=== PATIENT | female | born 1975 | race Caucasian/White ===

== ENCOUNTER 2021-06-01 14:36 | Inpatient (IN) | payer OTHER, SELFPAY ==
--- NOTE | ~2021-06-01 | US_ITS ---
EXAMINATION: US RENAL, RIGHT CLINICAL INFORMATION: Right renal transplant with hydronephrosis. Blum catheter for bladder distention. Evaluate for resolution of hydronephrosis. COMPARISON: Most recent CT abdomen/pelvis dated 06/01/2021. TECHNIQUE: Grayscale and Doppler views of the right lower quadrant renal transplant were obtained. FINDINGS: The right lower quadrant renal transplant measures 12.8 x 6.6 x 6.5 cm. There is normal size, shape, and echogenicity. There is no parenchymal lesion or cortical thinning. There is trace pelvic fullness, decreased when compared to the prior CT. No obstructing renal stone. US/US renal RT IMPRESSION: Trace right lower quadrant renal transplant pelvic fullness, decreased when compared to prior examination. No obstructing renal stone.
--- NOTE | ~2021-06-01 | CT_ITS ---
EXAMINATION: CT ABDOMEN AND PELVIS WITHOUT CONTRAST CLINICAL INFORMATION: Right flank pain. COMPARISON: CT abdomen and pelvis noncontrast 09/14/2018 TECHNIQUE: Multidetector volumetric imaging was performed from the superior aspect of the liver through the pubic symphysis. Sagittal and coronal reformatted images were obtained on the technologist's workstation. This CT examination was performed using dose optimization techniques as appropriate, variously including the following: *Automated exposure control *Adjustment of mA and/or kV according to patient size (this includes techniques or standardized protocols for targeted exams where dose is matched to indication/reason for exam; i.e. extremities or head) *Use of iterative reconstruction technique DLP: 764 mGy-cm FINDINGS: LUNG BASES: Subsegmental atelectasis right posterior lateral base. No lobar or segmental airspace solid lesion or effusion. LIVER, GALLBLADDER, AND BILIARY TREE: There is elongated right hepatic lobe suggesting Maura's configuration, similar to prior exam. The liver is homogeneous and smooth in contour. No focal parenchymal lesion or intrahepatic ductal dilatation. There has been prior cholecystectomy. Common duct is upper limits of normal, 10-11 mm similar to prior study. No visible ductal calculus. PANCREAS: Unremarkable. SPLEEN: Normal in size and homogeneous. Incidental 1.5 cm splenule left upper quadrant. ADRENAL GLANDS: Unremarkable. KIDNEYS AND URETERS AND BLADDER: Pelvic transplant right lower quadrant with mild hydronephrosis and mild transplant hydroureter down to the transplant ureterovesical junction. Urinary bladder is fully distended. No transplant perinephric stranding, renal parenchymal lesion, or calculi. The [place] kidneys again are atrophic with cortical thinning and diffuse vascular calcifications. No [place] kidney hydronephrosis or hydroureter. GASTROINTESTINAL TRACT: No bowel obstruction or focal inflammatory changes in the bowel or mesentery. Appendix unremarkable. No ascites or fluid collection. ABDOMINAL WALL: No significant hernia is appreciated. LYMPH NODES: No lymphadenopathy. VASCULAR: No acute abnormality. PELVIC VISCERA: Trace fluid cul-de-sac. No adnexal mass. OSSEOUS STRUCTURES: Unremarkable. CT/CT abdomen pelvis wo con IMPRESSION: 1. Mild hydronephrosis and hydroureter right pelvic transplant. No perinephric stranding or calculus. Distended urinary bladder. 2. Prior cholecystectomy. No biliary ductal dilatation or ductal calculus. 3. No bowel obstruction or focal inflammatory changes. 4. Trace fluid cul-de-sac. No adnexal mass.
--- NOTE | 2021-06-01 14:49 | ECG_ITS ---
Test Reason : ABDOMINAL PAIN Blood Pressure : / mmHG Vent. Rate : 092 BPM Atrial Rate : 092 BPM P-R Int : 140 ms QRS Dur : 090 ms QT Int : 334 ms P-R-T Axes : 057 001 069 degrees QTc Int : 413 ms Normal sinus rhythm Left axis deviation Possible Left atrial enlargement T wave abnormality, consider lateral ischemia Abnormal ECG When compared with ECG of 09-MAR-2017 14:06, T wave inversion now evident in Lateral leads Referred By: Myesha Rowland Electronically Signed By:JOAQUIM COLEMAN MD
--- NOTE | 2021-06-01 14:52 | ED_ITS ---
HPI - Abdominal Pain General Chief Complaint: Abdominal Pain <Myesha Rowland NP - Last Filed: 06/01/21 17:28> Stated Complaint: R FLANK PAIN <Myesha Rowland NP - Last Filed: 06/01/21 17:28> Time Seen by Provider: 06/01/21 14:38 <Myesha Rowland NP - Last Filed: 06/01/21 17:28> Source: patient and EMS <Myesha Rowland NP - Last Filed: 06/01/21 17:28> Mode of arrival: EMS <Myesha Rowland NP - Last Filed: 06/01/21 17:28> Limitations: no limitations <Myesha Rowland NP - Last Filed: 06/01/21 17:28> History of Present Illness HPI narrative: 45-year-old female with a past medical history of diabetes, diabetic retinopathy with vision loss, right BKA, GERD, migraines, depression, fibromyalgia on daily dilaudid (last dose 6mg 12pm), gastroparesis, hype rtension, chronic renal insufficiency (Dr Foley), renal transplant in December of 2005 on chronic prednisone (tacrolimus/mycopheolate), depression/anxiety, here with complaints of right-sided back pain which radiates the right side of the abdomen since yesterday with nausea and vomiting. No fevers, chills, urinary symptoms, diarrhea. Patient comes from a [facility] <Myesha Rowland NP - Last Filed: 06/01/21 17:28> Related Data Allergies/Adverse Reactions: Allergies Allergy/AdvReac Type Severity Reaction Status Date / Time amitriptyline Allergy Unknown UNKNOWN Verified 06/01/21 15:07 cephalexin Allergy Unknown UNKNOWN Verified 06/01/21 15:07 ciprofloxacin Allergy Unknown UNKNOWN Verified 06/01/21 15:07 famotidine [Pepcid] Allergy Unknown Unknown Verified 06/01/21 15:07 fluoxetine Allergy Unknown UNKNOWN Verified 06/01/21 15:07 ibuprofen [From ADVIL] Allergy Unknown ANXIETY Verified 06/01/21 15:07 Penicillins [PENICILLINS] Allergy Unknown HIVES Verified 06/01/21 15:07 codeine AdvReac Unknown N/V Verified 06/01/21 15:07 diphenhydramine [Advil PM] AdvReac Unknown anxiety Verified 06/01/21 15:07 metoclopramide AdvReac Unknown AGITATION,I Verified 06/01/21 15:07 TCHING morphine AdvReac Unknown N/V, Verified 06/01/21 15:07 anxiety tramadol AdvReac Unknown ANXIETY Verified 06/01/21 15:07 zolpidem [Ambien] AdvReac Unknown anxiety Verified 01/17/18 00:00 cephalexin Allergy Unknown Unknown Uncoded 06/01/21 15:07 ciproflaxacin Allergy Unknown Unknown Uncoded 06/01/21 15:07 From Ambien AdvReac Severe AGITATION Uncoded 05/07/20 15:50 <Myesha Rowland NP - Last Filed: 06/01/21 17:28> Review of Systems Review of Systems Yes all other systems are reviewed and are negative <Myesha Rowland NP - Last Filed: 06/01/21 17:28> Constitutional: Reports no additional constitutional complaints, Denies body ache(s), Denies chills, Denies fever(s), Denies headache(s) and Denies weakness <Myesha Rowland NP - Last Filed: 06/01/21 17:28> Eyes: Reports no additional eye complaints and Denies change in vision <Myesha Rowland NP - Last Filed: 06/01/21 17:28> Reports system reviewed and no additional complaints, except as documented, Denies dizziness, Denies headache(s), Denies nasal congestion, Denies nasal discharge and Denies neck pain <Myesha Rowland NP - Last Filed: 06/01/21 17:28> Cardiovascular: Reports no additional cardiovascular complaints, Denies chest pain, Denies leg edema and Denies dyspnea <Myesha Rowland NP - Last Filed: 06/01/21 17:28> Respiratory: Reports no additional respiratory complaints, Denies cough and Denies dyspnea <Myesha Rowland NP - Last Filed: 06/01/21 17:28> Gastrointestinal: Reports no additional gastrointestinal complaints, Reports abdominal pain, Denies diarrhea, Reports nausea and Reports vomiting <Myesha Rowland NP - Last Filed: 06/01/21 17:28> Genitourinary: Reports no additional female genitourinary complaints and Denies urinary incontinence <Myesha Rowland NP - Last Filed: 06/01/21 17:28> Musculoskeletal: Reports no additional musculoskeletal complaints, Reports back pain, Denies arthralgias, Denies joint swelling, Denies neck pain, Denies numbness and Denies tingling <Myesha Rowland NP - Last Filed: 06/01/21 17:28> Skin/Breast: Reports system reviewed and no additional complaints, except as docu and Denies rash <Myesha oRwland NP - Last Filed: 06/01/21 17:28> Reports system reviewed and no additional complaints, except as documented, Denies Abnormal speech present, Denies dizziness, Denies headache(s), Denies numbness, Denies tingling and Denies weakness <Myesha Rowland NP - Last Filed: 06/01/21 17:28> Physical Exam Vital Signs: Vital Signs: Last Vital Signs Temp 98.1 F 06/01/21 14:58 Pulse 96 06/01/21 20:06 Resp 18 06/01/21 20:06 BP 140/73 H 06/01/21 20:06 Pulse Ox 97 06/01/21 20:06 Body Mass Index 26.6 <Myesha Rowland NP - Last Filed: 06/01/21 17:28> Vital Signs: Last Vital Signs Temp 98.1 F 06/01/21 14:58 Pulse 96 06/01/21 20:06 Resp 18 06/01/21 20:06 BP 140/73 H 06/01/21 20:06 Pulse Ox 97 06/01/21 20:06 Body Mass Index 26.6 <LALO Cage - Last Filed: 06/01/21 21:33> Const: Other: ++++++anxious <Myesha Rowland NP - Last Filed: 06/01/21 17:28> General: alert <Myesha Rowland NP - Last Filed: 06/01/21 17:28> Orientation/consciousness: patient oriented x3 <Myesha Rowland NP - Last Filed: 06/01/21 17:28> Limitations: no limitations <Myesha Rowland [employer] - Last Filed: 06/01/21 17:28> HENMT: Head: Yes normal to inspection <Myesha Rowland NP - Last Filed: 06/01/21 17:28> Ears: hearing grossly normal bilaterally and TM's normal bilaterally <Myesha Rowland [employer] - Last Filed: 06/01/21 17:28> General nose exam: Normal external nose present <Myesha Rowland [employer]CR[employer] - Last Filed: 06/01/21 17:28> Face and sinus: Yes normal facial exam <Myesha Rowland [employer]CR[employer] BUILD[employer] - Last Filed: 06/01/21 17:28> Mouth: Normal oral and palatal mucosa present <Myesha Rowland [employer] - Last Filed: 06/01/21 17:28> Throat: Yes posterior oropharynx normal <Myesha Rowland [employer]CR[employer] BU[employer] - Last Filed: 06/01/21 17:28> 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 <Myesha Rowland [employer]CR[employer]ILD[employer] - Last Filed: 06/01/21 17:28> Neck: Neck: Yes normal visual inspection <Myesha Rowland [employer]CR[employer] - Last Filed: 06/01/21 17:28> Chest: Chest palpation & inspection: normal inspection of the chest <Myesha Rowland [employer]CR[employer] BU[employer] - Last Filed: 06/01/21 17:28> Resp: Effort & Inspection: normal respiratory effort <Myesha Rowland [employer]CR[employer] BUILD[employer] - Last Filed: 06/01/21 17:28> Auscultation: clear to auscultation bilaterally <Myesha Rowland [employer]CR[employer] - Last Filed: 06/01/21 17:28> Cardio: Rate: regular rate <Myesha Rowland NP - Last Filed: 06/01/21 17:28> Rhythm: regular rhythm <Myesha Rowland [employer]CR[employer] BU[employer] - Last Filed: 06/01/21 17:28> Peripheral pulses: Peripheral pulses 2+ throughout <Myesha Rowland [employer] - Last Filed: 06/01/21 17:28> GI: Inspection: Yes normal to inspection <Myesha Rowland NP - Last Filed: 06/01/21 17:28> Palpation (GI): Soft to palpation and Tenderness to palpation present (GI) (Tender right side upper and lower ) <Myesha Rowland NP - Last Filed: 06/01/21 17:28> Auscultation: normal bowel sounds <Myesha Rowland NP - Last Filed: 06/01/21 17:28> : General: Yes CVA tenderness (right ) <Myesha Rowland NP - Last Filed: 06/01/21 17:28> Back/Spine/Pelvis: Other: Mid to right sided back pain and the soft tissue with no midline tenderness <Myesha Rowland NP - Last Filed: 06/01/21 17:28> Back: CVA tenderness (right ) <Myesha Rowland NP - Last Filed: 06/01/21 17:28> Thoracic/Lumbar Spine: thoracic and lumbar spine normal to inspection <Myesha Rowland NP - Last Filed: 06/01/21 17:28> Skin: General skin exam: no rashes or lesions noted <Myesha Rowland NP - Last Filed: 06/01/21 17:28> Neuro: General: patient oriented x3, no focal motor deficits and normal sensation to monofilament <Myesha Rowland NP - Last Filed: 06/01/21 17:28> Cognition (Neuro): normal cognition <Myesha Rowland NP - Last Filed: 06/01/21 17:28> Speech: No Abnormal speech present <Myesha Rowland NP - Last Filed: 06/01/21 17:28> Gait exam (Neuro): Normal gait present <Myesha Rowland NP - Last Filed: 06/01/21 17:28> Motor exam (neuro): 5/5 motor strength present throughout <Myesha Rowland NP - Last Filed: 06/01/21 17:28> Course Course Course Narrative: This is a 45-year-old female who comes from a [facility] with a past medical history of poorly-controlled diabetes, gastroparesis, renal transplant with renal insufficiency here with complaints of right-sided back pain which r adiates to the right side of the abdomen since yesterday with nausea and vomiting despite her home dilaudid. Patient took 6 mg of Dilaudid at 12:00 o'clock with continued pain. Per EMS patient was noted to be hyperglycemic at 399. On exam the patient has some right-sided back pain radaiting to right-sided abdominal pain.. Quite anxious. Will check labs, UA, CT, .COVID screen. Provide analgesia and re-assess. 1510-reviewed paperwork sent from [facility]. Patient was admitted to [facility] 01/05/2021. On review of the chart it appears at that time the patient had a pneumonia which she deferred treatment with antibiotics and chose to be palliative Care with a hospice evaluation. Unclear whether patient is currently on hospice or palliative care. grain manager to call over to [facility] for definitive answer. They have sent over urine culture which shows 50,000-100,000 enterococcus sensitive to linezolid, macrobid, vancomycin. Pt denies current oral antibiotics. At this time infection is suspected. Antibiotics ordered. 1530-Our Ashia spoke to staff at [facility]. patient is NOT on hospice or palliative care. She is a DNR/DNI AND DNH unless needed for comfort. She intermittently refuses medications and treatments including her transplant medications. 1705-Patient very difficulty IV access. Able to place 22g L FA after 2 attempts. Labs drawn and sent. Pt willing to have a straight catheter as she is not sure she can provide urine sample. Nursing aware. CT shows 1. Mild hydronephrosis and hydroureter right pelvic transplant. No perinephric stranding or calculus. Distended urinary bladder. 2. Prior cholecystectomy. No biliary ductal dilatation or ductal calculus. 3. No bowel obstruction or focal inflammatory changes. 4. Trace fluid cul-de-sac. No adnexal mass.? ?pyelo which would be consistent based on exam and recent + urine culture not treated per patient. Patient may require admission pending labs/UA. After review of CT scan there is also a large stool burden so constipation may also be contributing to pain. This is likely secondary to chronic opioid use. Will need bowel regimen. 1730-Sign out to [facility] pending labs/UA. ?admit <Myesha Rowland NP - Last Filed: 06/01/21 17:28> This is a 45-year-old female who comes from a [facility] with a past medical history of poorly-controlled diabetes, gastroparesis, renal transplant with renal insufficiency here with complaints of right-sided back pain which radiates to the right side of the abdomen since yesterday with nausea and vomiting despite her home dilaudid. Patient took 6 mg of Dilaudid at 12:00 o'clock with continued pain. Per EMS patient was noted to be hyperglycemic at 399. On exam the patient has some right-sided back pain radaiting to right-sided abdominal pain.. Quite anxious. Will check labs, UA, CT, .COVID screen. Provide analgesia and re-assess. 1510-reviewed paperwork sent from [facility]. Patient was admitted to [facility] 01/05/2021. On review of the chart it appears at that time the patient had a pneumonia which she deferred treatment with antibiotics and chose to be palliative Care with a hospice evaluation. Unclear whether patient is currently on hospice or palliative care. grain manager to call over to [facility] for definitive answer. They have sent over urine culture which shows 50,000-100,000 enterococcus sensitive to linezolid, macrobid, vancomycin. Pt denies current oral antibiotics. At this time infection is suspected. Antibiotics ordered. 1530-Our CM Ashia spoke to staff at [facility]. patient is NOT on hospice or palliative care. She is a DNR/DNI AND DNH unless needed for comfort. She intermittently refuses medications and treatments including her transplant medications. 1705-Patient very difficulty IV access. Able to place 22g L FA after 2 attempts. Labs drawn and sent. Pt willing to have a straight catheter as she is not sure she can provide urine sample. Nursing aware. CT shows 1. Mild hydronephrosis and hydroureter right pelvic transplant. No perinephric stranding or calculus. Distended urinary bladder. 2. Prior cholecystectomy. No biliary ductal dilatation or ductal calculus. 3. No bowel obstruction or focal inflammatory changes. 4. Trace fluid cul-de-sac. No adnexal mass.? ?pyelo which would be consistent based on exam and recent + urine culture not treated per patient. Patient may require admission pending labs/UA. After review of CT scan there is also a large stool burden so constipation may also be contributing to pain. This is likely secondary to chronic opioid use. Will need bowel regimen. 1729-Sign out to Dai [facility] pending labs/UA. ?admit -1933--lab lost lab tubes, labs reordered and will need to be redrawn -patient with noted acute on chronic renal failure BUN 48, creatinine 2.02, renal function was normal in 2019. Lactic acid is negative. UA positive leuk esterase and wbc's > Vancomycin added secondary to supplied urine culture growing Enterococcus. Paged renal, Dr. Arenas is lead front desk agent >> spoke to Dr. Arenas recommended admission and patient will be seen 1st thing in the morning. -[id number]--Patient admitted to hospitalist service <LALO Cage - Last Filed: 06/01/21 21:33> MDM - Abdominal Pain MDM Narrative Medical decision making narrative: pyelonephritis <Myesha Rowland NP - Last Filed: 06/01/21 17:28> Differential Diagnosis Differential diagnosis: Likely abdominal pain, calculus of kidney and renal colic <Myesha Rowland NP - Last Filed: 06/01/21 17:28> Medical Records Attestation: I reviewed the patient's medical records. <Myesha Rowland NP - Last Filed: 06/01/21 17:28> Lab Data Attestation: I reviewed the patient's lab results. <Myesha Rowland NP - Last Filed: 06/01/21 17:28> Result diagrams: : 06/01/21 17:08 06/01/21 19:53 <Myesha Rowland NP - Last Filed: 06/01/21 17:28> Labs: Lab Results 06/01/21 06/01/21 06/01/21 Range/Units 17:08 17:08 17:08 WBC 18.1 H (4.8-10.8) X10*3/uL RBC 3.93 L (4.20-5.50) X10*6/uL Hgb 10.1 L (12.0-16.0) g/dl Hct 32.8 L (37-47) % MCV 83.5 (80-98) fL MCH 25.7 L (27.0-33.0) pg MCHC 30.8 L (31.0-35.0) g/dl RDW 13.3 (11.0-16.0) % Plt Count 365 (160-400) X10*3/uL MPV 11.4 (9.4-12.3) fL Immature Gran % (Auto) 0.4 (0.0-0.4) % Neut % (Auto) 89.9 H (45-73) % Lymph % (Auto) 2.9 L (20-40) % [place] % (Auto) 5.2 (2-11) % Eos % (Auto) 1.3 (0-4) % Baso % (Auto) 0.3 (0-2) % Lymph # (Auto) 0.5 L (1.2-4.9) X10*3/uL [place] # (Auto) 1.0 (0.1-1.2) X10*3/uL Eos # (Auto) 0.2 (0.0-0.4) X10*3/uL Baso # (Auto) 0.1 (0.0-0.2) X10*3/uL Abs Immat Gran (auto) 0.08 H (0.00-0.03) X10*3/uL Absolute Neuts (auto) 16.3 H (2.0-8.3) X10*3/uL Absolute Nucleated RBC 0.000 (0.0-0.012) X10*3/uL Nucleated RBC % (auto) 0.0 (0.0-0.2) /100WBC VBG pH (7.32-7.43) VBG pCO2 mmHg VBG pO2 mmHg VBG HCO3 (22-26) mmol/L VBG O2 Saturation % VBG Base Excess mmol/L Sodium (135-145) mmol/L Potassium (3.3-5.1) mmol/L Chloride (96-108) mmol/L Carbon Dioxide (22-29) mmol/L Anion Gap (12-20) BUN (9-16) mg/dL Creatinine (0.5-1.4) mg/dL Estim Creat Clear Calc Estimated GFR POC Glucose (60-115) mg/dL Random Glucose (60-115) mg/dL Lactic Acid 0.7 (0.5-2.0) mmol/L Calcium (8.4-10.2) mg/dL Magnesium (1.6-2.6) mg/dL Total Bilirubin (0.0-1.0) mg/dL Direct Bilirubin (0.0-0.5) mg/dL AST (5-31) U/L ALT (0-31) U/L Alkaline Phosphatase (39-117) U/L Troponin I High Sens 5.4 (<3.5-17.0) ng/L Total Protein (6.5-8.0) g/dL Albumin (3.5-5.0) g/dL Urine Color Urine Appearance Urine pH (5.0-8.0) Ur Specific [place] (1.005-1.025) Urine Protein (NEG-TRACE) MG/DL Urine Glucose (UA) (NEG) MG/DL Urine Ketones (NEG) MG/DL Urine Blood (NEG) Urine Nitrite (NEG) Ur Leukocyte Esterase (NEG) Urine RBC (0) /HPF Urine WBC (0-4) /HPF Ur Squamous Epith Cells /LPF Urine Bacteria /LPF Urine Mucus /LPF Acetone, Qual (Negative) COVID-19 (VIVEK) (Negative) COVID-19 Clin Com 06/01/21 06/01/21 06/01/21 Range/Units 17:08 17:09 17:09 WBC (4.8-10.8) X10*3/uL RBC (4.20-5.50) X10*6/uL Hgb (12.0-16.0) g/dl Hct (37-47) % MCV (80-98) fL MCH (27.0-33.0) pg MCHC (31.0-35.0) g/dl RDW (11.0-16.0) % Plt Count (160-400) X10*3/uL MPV (9.4-12.3) fL Immature Gran % (Auto) (0.0-0.4) % Neut % (Auto) (45-73) % Lymph % (Auto) (20-40) % [place] % (Auto) (2-11) % Eos % (Auto) (0-4) % Baso % (Auto) (0-2) % Lymph # (Auto) (1.2-4.9) X10*3/uL [place] # (Auto) (0.1-1.2) X10*3/uL Eos # (Auto) (0.0-0.4) X10*3/uL Baso # (Auto) (0.0-0.2) X10*3/uL Abs Immat Gran (auto) (0.00-0.03) X10*3/uL Absolute Neuts (auto) (2.0-8.3) X10*3/uL Absolute Nucleated RBC (0.0-0.012) X10*3/uL Nucleated RBC % (auto) (0.0-0.2) /100WBC VBG pH (7.32-7.43) VBG pCO2 mmHg VBG pO2 mmHg VBG HCO3 (22-26) mmol/L VBG O2 Saturation % VBG Base Excess mmol/L Sodium 135 (135-145) mmol/L Potassium 4.4 (3.3-5.1) mmol/L Chloride 101 (96-108) mmol/L Carbon Dioxide 21 L (22-29) mmol/L Anion Gap 17 (12-20) BUN 47 H (9-16) mg/dL Creatinine 1.82 H (0.5-1.4) mg/dL Estim Creat Clear Calc 39.9 Estimated GFR 30 POC Glucose (60-115) mg/dL Random Glucose 228 H (60-115) mg/dL Lactic Acid (0.5-2.0) mmol/L Calcium 9.5 (8.4-10.2) mg/dL Magnesium 1.5 L (1.6-2.6) mg/dL Total Bilirubin 0.3 (0.0-1.0) mg/dL Direct Bilirubin 0.2 (0.0-0.5) mg/dL AST 20 (5-31) U/L ALT 16 (0-31) U/L Alkaline Phosphatase 113 (39-117) U/L Troponin I High Sens (<3.5-17.0) ng/L Total Protein 7.7 (6.5-8.0) g/dL Albumin 3.9 (3.5-5.0) g/dL Urine Color Urine Appearance Urine pH (5.0-8.0) Ur Specific [place] (1.005-1.025) Urine Protein (NEG-TRACE) MG/DL Urine Glucose (UA) (NEG) MG/DL Urine Ketones (NEG) MG/DL Urine Blood (NEG) Urine Nitrite (NEG) Ur Leukocyte Esterase (NEG) Urine RBC (0) /HPF Urine WBC (0-4) /HPF Ur Squamous Epith Cells /LPF Urine Bacteria /LPF Urine Mucus /LPF Acetone, Qual Negative (Negative) COVID-19 (VIVEK) Negative (Negative) COVID-19 Clin Com See Note 06/01/21 06/01/21 06/01/21 Range/Units 17:20 19:53 19:53 WBC (4.8-10.8) X10*3/uL RBC (4.20-5.50) X10*6/uL Hgb (12.0-16.0) g/dl Hct (37-47) % MCV (80-98) fL MCH (27.0-33.0) pg MCHC (31.0-35.0) g/dl RDW (11.0-16.0) % Plt Count (160-400) X10*3/uL MPV (9.4-12.3) fL Immature Gran % (Auto) (0.0-0.4) % Neut % (Auto) (45-73) % Lymph % (Auto) (20-40) % [place] % (Auto) (2-11) % Eos % (Auto) (0-4) % Baso % (Auto) (0-2) % Lymph # (Auto) (1.2-4.9) X10*3/uL [place] # (Auto) (0.1-1.2) X10*3/uL Eos # (Auto) (0.0-0.4) X10*3/uL Baso # (Auto) (0.0-0.2) X10*3/uL Abs Immat Gran (auto) (0.00-0.03) X10*3/uL Absolute Neuts (auto) (2.0-8.3) X10*3/uL Absolute Nucleated RBC (0.0-0.012) X10*3/uL Nucleated RBC % (auto) (0.0-0.2) /100WBC VBG pH 7.45 H (7.32-7.43) VBG pCO2 33 mmHg VBG pO2 95 mmHg VBG HCO3 23 (22-26) mmol/L VBG O2 Saturation 98.0 % VBG Base Excess 0.0 mmol/L Sodium 134 L (135-145) mmol/L Potassium 4.5 (3.3-5.1) mmol/L Chloride 102 (96-108) mmol/L Carbon Dioxide 18 L (22-29) mmol/L Anion Gap 19 (12-20) BUN 48 H (9-16) mg/dL Creatinine 2.02 H (0.5-1.4) mg/dL Estim Creat Clear Calc 36.0 Estimated GFR 27 POC Glucose (60-115) mg/dL Random Glucose 271 H (60-115) mg/dL Lactic Acid (0.5-2.0) mmol/L Calcium 9.3 (8.4-10.2) mg/dL Magnesium 1.5 L (1.6-2.6) mg/dL Total Bilirubin 0.3 (0.0-1.0) mg/dL Direct Bilirubin < 0.2 (0.0-0.5) mg/dL AST 18 (5-31) U/L ALT 14 (0-31) U/L Alkaline Phosphatase 105 (39-117) U/L Troponin I High Sens 6.2 (<3.5-17.0) ng/L Total Protein 7.4 (6.5-8.0) g/dL Albumin 3.7 (3.5-5.0) g/dL Urine Color Urine Appearance Urine pH (5.0-8.0) Ur Specific [place] (1.005-1.025) Urine Protein (NEG-TRACE) MG/DL Urine Glucose (UA) (NEG) MG/DL Urine Ketones (NEG) MG/DL Urine Blood (NEG) Urine Nitrite (NEG) Ur Leukocyte Esterase (NEG) Urine RBC (0) /HPF Urine WBC (0-4) /HPF Ur Squamous Epith Cells /LPF Urine Bacteria /LPF Urine Mucus /LPF Acetone, Qual (Negative) COVID-19 (VIVEK) (Negative) COVID-19 Clin Com 06/01/21 06/01/21 Range/Units 20:05 20:53 WBC (4.8-10.8) X10*3/uL RBC (4.20-5.50) X10*6/uL Hgb (12.0-16.0) g/dl Hct (37-47) % MCV (80-98) fL MCH (27.0-33.0) pg MCHC (31.0-35.0) g/dl RDW (11.0-16.0) % Plt Count (160-400) X10*3/uL MPV (9.4-12.3) fL Immature Gran % (Auto) (0.0-0.4) % Neut % (Auto) (45-73) % Lymph % (Auto) (20-40) % [place] % (Auto) (2-11) % Eos % (Auto) (0-4) % Baso % (Auto) (0-2) % Lymph # (Auto) (1.2-4.9) X10*3/uL [place] # (Auto) (0.1-1.2) X10*3/uL Eos # (Auto) (0.0-0.4) X10*3/uL Baso # (Auto) (0.0-0.2) X10*3/uL Abs Immat Gran (auto) (0.00-0.03) X10*3/uL Absolute Neuts (auto) (2.0-8.3) X10*3/uL Absolute Nucleated RBC (0.0-0.012) X10*3/uL Nucleated RBC % (auto) (0.0-0.2) /100WBC VBG pH (7.32-7.43) VBG pCO2 mmHg VBG pO2 mmHg VBG HCO3 (22-26) mmol/L VBG O2 Saturation % VBG Base Excess mmol/L Sodium (135-145) mmol/L Potassium (3.3-5.1) mmol/L Chloride (96-108) mmol/L Carbon Dioxide (22-29) mmol/L Anion Gap (12-20) BUN (9-16) mg/dL Creatinine (0.5-1.4) mg/dL Estim Creat Clear Calc Estimated GFR POC Glucose 257 H (60-115) mg/dL Random Glucose (60-115) mg/dL Lactic Acid (0.5-2.0) mmol/L Calcium (8.4-10.2) mg/dL Magnesium (1.6-2.6) mg/dL Total Bilirubin (0.0-1.0) mg/dL Direct Bilirubin (0.0-0.5) mg/dL AST (5-31) U/L ALT (0-31) U/L Alkaline Phosphatase (39-117) U/L Troponin I High Sens (<3.5-17.0) ng/L Total Protein (6.5-8.0) g/dL Albumin (3.5-5.0) g/dL Urine Color YELLOW Urine Appearance HAZY Urine pH 5.5 (5.0-8.0) Ur Specific [place] 1.015 (1.005-1.025) Urine Protein TRACE (NEG-TRACE) MG/DL Urine Glucose (UA) NEG (NEG) MG/DL Urine Ketones NEG (NEG) MG/DL Urine Blood 2+ H (NEG) Urine Nitrite NEG (NEG) Ur Leukocyte Esterase 2+ H (NEG) Urine RBC 1-4 (0) /HPF Urine WBC 15-29 H (0-4) /HPF Ur Squamous Epith Cells 2+ /LPF Urine Bacteria 2+ /LPF Urine Mucus 1+ /LPF Acetone, Qual (Negative) COVID-19 (VIVEK) (Negative) COVID-19 Clin Com <Myesha Rowland NP - Last Filed: 06/01/21 17:28> Lab Results 06/01/21 06/01/21 06/01/21 Range/Units 17:08 17:08 17:08 WBC 18.1 H (4.8-10.8) X10*3/uL RBC 3.93 L (4.20-5.50) X10*6/uL Hgb 10.1 L (12.0-16.0) g/dl Hct 32.8 L (37-47) % MCV 83.5 (80-98) fL MCH 25.7 L (27.0-33.0) pg MCHC 30.8 L (31.0-35.0) g/dl RDW 13.3 (11.0-16.0) % Plt Count 365 (160-400) X10*3/uL MPV 11.4 (9.4-12.3) fL Immature Gran % (Auto) 0.4 (0.0-0.4) % Neut % (Auto) 89.9 H (45-73) % Lymph % (Auto) 2.9 L (20-40) % [place] % (Auto) 5.2 (2-11) % Eos % (Auto) 1.3 (0-4) % Baso % (Auto) 0.3 (0-2) % Lymph # (Auto) 0.5 L (1.2-4.9) X10*3/uL [place] # (Auto) 1.0 (0.1-1.2) X10*3/uL Eos # (Auto) 0.2 (0.0-0.4) X10*3/uL Baso # (Auto) 0.1 (0.0-0.2) X10*3/uL Abs Immat Gran (auto) 0.08 H (0.00-0.03) X10*3/uL Absolute Neuts (auto) 16.3 H (2.0-8.3) X10*3/uL Absolute Nucleated RBC 0.000 (0.0-0.012) X10*3/uL Nucleated RBC % (auto) 0.0 (0.0-0.2) /100WBC VBG pH (7.32-7.43) VBG pCO2 mmHg VBG pO2 mmHg VBG HCO3 (22-26) mmol/L VBG O2 Saturation % VBG Base Excess mmol/L Sodium (135-145) mmol/L Potassium (3.3-5.1) mmol/L Chloride (96-108) mmol/L Carbon Dioxide (22-29) mmol/L Anion Gap (12-20) BUN (9-16) mg/dL Creatinine (0.5-1.4) mg/dL Estim Creat Clear Calc Estimated GFR POC Glucose (60-115) mg/dL Random Glucose (60-115) mg/dL Lactic Acid 0.7 (0.5-2.0) mmol/L Calcium (8.4-10.2) mg/dL Magnesium (1.6-2.6) mg/dL Total Bilirubin (0.0-1.0) mg/dL Direct Bilirubin (0.0-0.5) mg/dL AST (5-31) U/L ALT (0-31) U/L Alkaline Phosphatase (39-117) U/L Troponin I High Sens 5.4 (<3.5-17.0) ng/L Total Protein (6.5-8.0) g/dL Albumin (3.5-5.0) g/dL Urine Color Urine Appearance Urine pH (5.0-8.0) Ur Specific [place] (1.005-1.025) Urine Protein (NEG-TRACE) MG/DL Urine Glucose (UA) (NEG) MG/DL Urine Ketones (NEG) MG/DL Urine Blood (NEG) Urine Nitrite (NEG) Ur Leukocyte Esterase (NEG) Urine RBC (0) /HPF Urine WBC (0-4) /HPF Ur Squamous Epith Cells /LPF Urine Bacteria /LPF Urine Mucus /LPF Acetone, Qual (Negative) COVID-19 (VIVEK) (Negative) COVID-19 Clin Com 06/01/21 06/01/21 06/01/21 Range/Units 17:08 17:09 17:09 WBC (4.8-10.8) X10*3/uL RBC (4.20-5.50) X10*6/uL Hgb (12.0-16.0) g/dl Hct (37-47) % MCV (80-98) fL MCH (27.0-33.0) pg MCHC (31.0-35.0) g/dl RDW (11.0-16.0) % Plt Count (160-400) X10*3/uL MPV (9.4-12.3) fL Immature Gran % (Auto) (0.0-0.4) % Neut % (Auto) (45-73) % Lymph % (Auto) (20-40) % [place] % (Auto) (2-11) % Eos % (Auto) (0-4) % Baso % (Auto) (0-2) % Lymph # (Auto) (1.2-4.9) X10*3/uL [place] # (Auto) (0.1-1.2) X10*3/uL Eos # (Auto) (0.0-0.4) X10*3/uL Baso # (Auto) (0.0-0.2) X10*3/uL Abs Immat Gran (auto) (0.00-0.03) X10*3/uL Absolute Neuts (auto) (2.0-8.3) X10*3/uL Absolute Nucleated RBC (0.0-0.012) X10*3/uL Nucleated RBC % (auto) (0.0-0.2) /100WBC VBG pH (7.32-7.43) VBG pCO2 mmHg VBG pO2 mmHg VBG HCO3 (22-26) mmol/L VBG O2 Saturation % VBG Base Excess mmol/L Sodium 135 (135-145) mmol/L Potassium 4.4 (3.3-5.1) mmol/L Chloride 101 (96-108) mmol/L Carbon Dioxide 21 L (22-29) mmol/L Anion Gap 17 (12-20) BUN 47 H (9-16) mg/dL Creatinine 1.82 H (0.5-1.4) mg/dL Estim Creat Clear Calc 39.9 Estimated GFR 30 POC Glucose (60-115) mg/dL Random Glucose 228 H (60-115) mg/dL Lactic Acid (0.5-2.0) mmol/L Calcium 9.5 (8.4-10.2) mg/dL Magnesium 1.5 L (1.6-2.6) mg/dL Total Bilirubin 0.3 (0.0-1.0) mg/dL Direct Bilirubin 0.2 (0.0-0.5) mg/dL AST 20 (5-31) U/L ALT 16 (0-31) U/L Alkaline Phosphatase 113 (39-117) U/L Troponin I High Sens (<3.5-17.0) ng/L Total Protein 7.7 (6.5-8.0) g/dL Albumin 3.9 (3.5-5.0) g/dL Urine Color Urine Appearance Urine pH (5.0-8.0) Ur Specific [place] (1.005-1.025) Urine Protein (NEG-TRACE) MG/DL Urine Glucose (UA) (NEG) MG/DL Urine Ketones (NEG) MG/DL Urine Blood (NEG) Urine Nitrite (NEG) Ur Leukocyte Esterase (NEG) Urine RBC (0) /HPF Urine WBC (0-4) /HPF Ur Squamous Epith Cells /LPF Urine Bacteria /LPF Urine Mucus /LPF Acetone, Qual Negative (Negative) COVID-19 (VIVEK) Negative (Negative) COVID-19 Clin Com See Note 06/01/21 06/01/21 06/01/21 Range/Units 17:20 19:53 19:53 WBC (4.8-10.8) X10*3/uL RBC (4.20-5.50) X10*6/uL Hgb (12.0-16.0) g/dl Hct (37-47) % MCV (80-98) fL MCH (27.0-33.0) pg MCHC (31.0-35.0) g/dl RDW (11.0-16.0) % Plt Count (160-400) X10*3/uL MPV (9.4-12.3) fL Immature Gran % (Auto) (0.0-0.4) % Neut % (Auto) (45-73) % Lymph % (Auto) (20-40) % [place] % (Auto) (2-11) % Eos % (Auto) (0-4) % Baso % (Auto) (0-2) % Lymph # (Auto) (1.2-4.9) X10*3/uL [place] # (Auto) (0.1-1.2) X10*3/uL Eos # (Auto) (0.0-0.4) X10*3/uL Baso # (Auto) (0.0-0.2) X10*3/uL Abs Immat Gran (auto) (0.00-0.03) X10*3/uL Absolute Neuts (auto) (2.0-8.3) X10*3/uL Absolute Nucleated RBC (0.0-0.012) X10*3/uL Nucleated RBC % (auto) (0.0-0.2) /100WBC VBG pH 7.45 H (7.32-7.43) VBG pCO2 33 mmHg VBG pO2 95 mmHg VBG HCO3 23 (22-26) mmol/L VBG O2 Saturation 98.0 % VBG Base Excess 0.0 mmol/L Sodium 134 L (135-145) mmol/L Potassium 4.5 (3.3-5.1) mmol/L Chloride 102 (96-108) mmol/L Carbon Dioxide 18 L (22-29) mmol/L Anion Gap 19 (12-20) BUN 48 H (9-16) mg/dL Creatinine 2.02 H (0.5-1.4) mg/dL Estim Creat Clear Calc 36.0 Estimated GFR 27 POC Glucose (60-115) mg/dL Random Glucose 271 H (60-115) mg/dL Lactic Acid (0.5-2.0) mmol/L Calcium 9.3 (8.4-10.2) mg/dL Magnesium 1.5 L (1.6-2.6) mg/dL Total Bilirubin 0.3 (0.0-1.0) mg/dL Direct Bilirubin < 0.2 (0.0-0.5) mg/dL AST 18 (5-31) U/L ALT 14 (0-31) U/L Alkaline Phosphatase 105 (39-117) U/L Troponin I High Sens 6.2 (<3.5-17.0) ng/L Total Protein 7.4 (6.5-8.0) g/dL Albumin 3.7 (3.5-5.0) g/dL Urine Color Urine Appearance Urine pH (5.0-8.0) Ur Specific [place] (1.005-1.025) Urine Protein (NEG-TRACE) MG/DL Urine Glucose (UA) (NEG) MG/DL Urine Ketones (NEG) MG/DL Urine Blood (NEG) Urine Nitrite (NEG) Ur Leukocyte Esterase (NEG) Urine RBC (0) /HPF Urine WBC (0-4) /HPF Ur Squamous Epith Cells /LPF Urine Bacteria /LPF Urine Mucus /LPF Acetone, Qual (Negative) COVID-19 (VIVEK) (Negative) COVID-19 Clin Com 06/01/21 06/01/21 Range/Units 20:05 20:53 WBC (4.8-10.8) X10*3/uL RBC (4.20-5.50) X10*6/uL Hgb (12.0-16.0) g/dl Hct (37-47) % MCV (80-98) fL MCH (27.0-33.0) pg MCHC (31.0-35.0) g/dl RDW (11.0-16.0) % Plt Count (160-400) X10*3/uL MPV (9.4-12.3) fL Immature Gran % (Auto) (0.0-0.4) % Neut % (Auto) (45-73) % Lymph % (Auto) (20-40) % [place] % (Auto) (2-11) % Eos % (Auto) (0-4) % Baso % (Auto) (0-2) % Lymph # (Auto) (1.2-4.9) X10*3/uL [place] # (Auto) (0.1-1.2) X10*3/uL Eos # (Auto) (0.0-0.4) X10*3/uL Baso # (Auto) (0.0-0.2) X10*3/uL Abs Immat Gran (auto) (0.00-0.03) X10*3/uL Absolute Neuts (auto) (2.0-8.3) X10*3/uL Absolute Nucleated RBC (0.0-0.012) X10*3/uL Nucleated RBC % (auto) (0.0-0.2) /100WBC VBG pH (7.32-7.43) VBG pCO2 mmHg VBG pO2 mmHg VBG HCO3 (22-26) mmol/L VBG O2 Saturation % VBG Base Excess mmol/L Sodium (135-145) mmol/L Potassium (3.3-5.1) mmol/L Chloride (96-108) mmol/L Carbon Dioxide (22-29) mmol/L Anion Gap (12-20) BUN (9-16) mg/dL Creatinine (0.5-1.4) mg/dL Estim Creat Clear Calc Estimated GFR POC Glucose 257 H (60-115) mg/dL Random Glucose (60-115) mg/dL Lactic Acid (0.5-2.0) mmol/L Calcium (8.4-10.2) mg/dL Magnesium (1.6-2.6) mg/dL Total Bilirubin (0.0-1.0) mg/dL Direct Bilirubin (0.0-0.5) mg/dL AST (5-31) U/L ALT (0-31) U/L Alkaline Phosphatase (39-117) U/L Troponin I High Sens (<3.5-17.0) ng/L Total Protein (6.5-8.0) g/dL Albumin (3.5-5.0) g/dL Urine Color YELLOW Urine Appearance HAZY Urine pH 5.5 (5.0-8.0) Ur Specific [place] 1.015 (1.005-1.025) Urine Protein TRACE (NEG-TRACE) MG/DL Urine Glucose (UA) NEG (NEG) MG/DL Urine Ketones NEG (NEG) MG/DL Urine Blood 2+ H (NEG) Urine Nitrite NEG (NEG) Ur Leukocyte Esterase 2+ H (NEG) Urine RBC 1-4 (0) /HPF Urine WBC 15-29 H (0-4) /HPF Ur Squamous Epith Cells 2+ /LPF Urine Bacteria 2+ /LPF Urine Mucus 1+ /LPF Acetone, Qual (Negative) COVID-19 (VIVEK) (Negative) COVID-19 Clin Com <LALO Cage - Last Filed: 06/01/21 21:33> Imaging Data CT scan - abdomen: Attestation: I personally reviewed and interpreted this imaging study as follows: <Myesha Rowland NP - Last Filed: 06/01/21 17:28> Radiologist's impression: IMPRESSION: ? 1. Mild hydronephrosis and hydroureter right pelvic transplant. No perinephric stranding or calculus. Distended urinary bladder. 2. Prior cholecystectomy. No biliary ductal dilatation or ductal calculus. 3. No bowel obstruction or focal inflammatory changes. 4. Trace fluid cul-de-sac. No adnexal mass.? <Myesha Rowland NP - Last Filed: 06/01/21 17:28> ECG Data Attestation: I personally reviewed and interpreted this ECG as follows: <Myesha Rowland NP - Last Filed: 06/01/21 17:28> ECG interpretation date: 06/01/21 <Myesha Rowland NP - Last Filed: 06/01/21 17:28> ECG interpretation time: 15:27 <Myesha Rowland NP - Last Filed: 06/01/21 17:28> Interpretation: Normal sinus rhythm with a rate of 92, normal FL, normal QRS, normal QT <Myesha Rowland NP - Last Filed: 06/01/21 17:28> Discharge Plan Discharge Clinical Impression: Pyelonephritis <Myesha Rowland NP - Last Filed: 06/01/21 17:28> Patient Disposition: Admitted As Inpatient <Myesha Rowland NP - Last Filed: 06/01/21 17:28> [facility] Past Medical History Attestation statement: The following information was validated with the patient. <Myesha Rowland NP - Last Filed: 06/01/21 17:28> Source: old records reviewed and nursing notes reviewed <Myesha Rowland NP - Last Filed: 06/01/21 17:28> Medical History: Medical History (Updated 06/01/21 @ 17:28 by Myesha Rowland NP) Arthritis Blind Diabetes Gastroparesis HTN (hypertension) <Myesha Rowland NP - Last Filed: 06/01/21 17:28> Social History Social History: Social History Advance Directives: Yes Advance Directives on File: Yes Advance Directives Date on File: 06/01/21 <Myesha Rowland NP - Last Filed: 06/01/21 17:28>
[2021-06-01 14:58] VITALS: BP 149/79; BP 158/72; PULSE 88; PULSE 90; RESP 18; TEMP 36.7; O2SAT 100; O2SAT 99; BMI 26.6
[2021-06-01 17:19] LABS: MANUAL DIFF FLAG NO
[2021-06-01 17:22] LABS: Basophils Absolute Auto 0.1 X10*3/uL (0.0-0.2); Basophils Percent Auto 0.3 % (0-2); Eosinophils Absolute Auto 0.2 X10*3/uL (0.0-0.4); Eosinophils Percent Auto 1.3 % (0-4); Hematocrit 32.8 % (37-47); Hemoglobin 10.1 g/dl (12.0-16.0); Imm Gran Abs Auto 0.08 X10*3/uL (0.00-0.03); Imm Gran Pct Auto 0.4 % (0.0-0.4); Lymphocytes Absolute Auto 0.5 X10*3/uL (1.2-4.9); Lymphocytes Percent Auto 2.9 % (20-40); Mean Corpuscular HGB Conc 30.8 g/dl (31.0-35.0); Mean Corpuscular Hemoglobin 25.7 pg (27.0-33.0); Mean Corpuscular Volume 83.5 fL (80-98); Mean Platelet Volume 11.4 fL (9.4-12.3); Monocytes Percent Auto 5.2 % (2-11); Neutrophils Absolute Auto 16.3 X10*3/uL (2.0-8.3); Neutrophils Percent Auto 89.9 % (45-73); Platelet Count 365 X10*3/uL (160-400); Red Blood Count 3.93 X10*6/uL (4.20-5.50); Red Cell Distribution Width 13.3 % (11.0-16.0); White Blood Count 18.1 X10*3/uL (4.8-10.8)
[2021-06-01] MEDS: HYDROmorphone HCl 2 MG/ML VIAL IVPUSH (17:24)
[2021-06-01 17:25] LABS: VBG HCO3 23 mmol/L (22-26); VBG pCO2 33 mmHg; VBG pH 7.45 (7.32-7.43); VBG pO2 95 mmHg
[2021-06-01] MEDS: Lidocaine 4 % Patch ADH..PATCH 1 PATCH TRANSDERMA (17:25)
[2021-06-01 17:26] LABS: Venous Blood Gas Refer to POC result
[2021-06-01] MEDS: cefTRIAXone sodium 1 GM in 0.9 % Sodium Chloride 50 ML IV (17:26)
[2021-06-01] MEDS: ondansetron HCL 4 MG/2 ML VIAL IVPUSH (17:26)
[2021-06-01 17:33] LABS: Lactic Acid 0.7 mmol/L (0.5-2.0)
[2021-06-01 17:39] LABS: Acetone, serum QL Negative (Negative)
[2021-06-01 17:40] LABS: Troponin-I High Sensitivity 5.4 ng/L (<3.5-17.0)
[2021-06-01 17:47] LABS: COVID-19 Test Negative (Negative); IDNOW Serial# 9DD0AD1C
[2021-06-01 17:55] VITALS: BP 129/61; PULSE 92; RESP 16; O2SAT 94
[2021-06-01 18:10] VITALS: BP 129/61; PULSE 92; RESP 16; O2SAT 94
[2021-06-01 20:06] VITALS: BP 140/73; PULSE 96; RESP 18; O2SAT 97
[2021-06-01 20:06] LABS: Alanine Aminotransferase 16 U/L (0-31); Albumin Level 3.9 g/dL (3.5-5.0); Alkaline Phosphatase 113 U/L (39-117); Anion Gap 17 (12-20); Aspartate Amino Transferase 20 U/L (5-31); Bilirubin Direct 0.2 mg/dL (0.0-0.5); Bilirubin Total 0.3 mg/dL (0.0-1.0); Blood Urea Nitrogen 47 mg/dL (9-16); Calcium 9.5 mg/dL (8.4-10.2); Carbon Dioxide 21 mmol/L (22-29); Chloride 101 mmol/L (96-108); Glucose Random 228 mg/dL (60-115); Magnesium 1.5 mg/dL (1.6-2.6); Potassium 4.4 mmol/L (3.3-5.1); Sodium 135 mmol/L (135-145); Total Protein 7.7 g/dL (6.5-8.0)
[2021-06-01 20:09] LABS: Glucose, Whole Blood 257 mg/dL (60-115)
[2021-06-01 20:15] LABS: Creatinine Clr Calc Pharmacy 39.9; Estimated Glomerular Filt Rate 30
[2021-06-01 20:22] LABS: Alanine Aminotransferase 14 U/L (0-31); Albumin Level 3.7 g/dL (3.5-5.0); Alkaline Phosphatase 105 U/L (39-117); Anion Gap 19 (12-20); Aspartate Amino Transferase 18 U/L (5-31); Bilirubin Direct < 0.2 mg/dL (0.0-0.5); Bilirubin Total 0.3 mg/dL (0.0-1.0); Blood Urea Nitrogen 48 mg/dL (9-16); Calcium 9.3 mg/dL (8.4-10.2); Carbon Dioxide 18 mmol/L (22-29); Chloride 102 mmol/L (96-108); Estimated Glomerular Filt Rate 27; Glucose Random 271 mg/dL (60-115); Magnesium 1.5 mg/dL (1.6-2.6); Potassium 4.5 mmol/L (3.3-5.1); Sodium 134 mmol/L (135-145); Total Protein 7.4 g/dL (6.5-8.0)
[2021-06-01 20:25] LABS: Troponin-I High Sensitivity 6.2 ng/L (<3.5-17.0)
[2021-06-01 21:00] LABS: Appearance Urine HAZY; Color Urine YELLOW; Glucose Urine UA NEG (NEG); Leukocyte Esterase Urine 2+ (NEG); Nitrite Urine NEG (NEG); PH 5.5 (5.0-8.0); Specific Gravity - Urine 1.015 (1.005-1.025); UACC Culture Trigger YES; Urine Blood 2+ (NEG); Urine Ketones NEG (NEG); Urine Protein TRACE MG/DL (NEG-TRACE)
[2021-06-01 21:06] LABS: Bacteria Urine 2+ /LPF; Mucus Urine 1+ /LPF; Squamous Epithelial Cell Urine 2+ /LPF
[2021-06-01] MEDS: HYDROmorphone HCl 1 MG/ML SYRINGE 2 MG IVPUSH (21:25)
--- NOTE | 2021-06-01 21:32 | PM.IMHP ---
History of Present Illness Date of Service: 06/01/21 Chief Complaint: Flank pain 45-year-old female with a past medical history of hypertension, hyperlipidemia, diabetes, diabetic retinopathy with resulting visual loss, diabetic neuropathy, history of right BKA, migraine headaches, GERD, anxiety, depression, gastroparesis, history of renal insufficiency status post kidney transplant in [address] ([address] Dr Foley) on chronic prednisone, tacrolimus, mycophenolate, migraine headaches, fibromyalgia presented to the hospital with a chief complaint of right flank pain. [facility]. Patient reported for the past few days she has been having nausea vomiting and right-sided flank pain; subsequently sent to the ER for further evaluation. Complains of urinary frequency/dysuria. Denies any chest pain palpitations lightheadedness or dizziness. Denies any numbness tingling or focal weakness. Review of all other systems is negative except mentioned above ER course: Per ER team patient [facility] which grew Enterococcus-sensitive to vancomycin, Macrobid, linezolid. Patient was given vancomycin in the ER. On labs patient noted to have renal insufficiency with creatinine of 2 point over; patient had prior creatinine of 1.2 in 2019. Showed hydronephrosis, hydroureter, distended bladder. Followed by patient urinated large amount. ER team notified Dr. Goldstein nephrology who recommended admission to the medicine service at [facility] and will be evaluated in the morning. [facility] Medical History (Updated 06/01/21 @ 21:33 by Jay Duncan MD) Arthritis Blind Diabetes Gastroparesis HTN (hypertension) Pertinent family history: reviewed Social History Advance Directives: Yes Advance Directives on File: Yes Advance Directives Date on File: 06/01/21 Meds Allergies Allergy/AdvReac Type Severity Reaction Status Date / Time amitriptyline Allergy Unknown UNKNOWN Verified 06/01/21 15:07 cephalexin Allergy Unknown UNKNOWN Verified 06/01/21 15:07 ciprofloxacin Allergy Unknown UNKNOWN Verified 06/01/21 15:07 famotidine [Pepcid] Allergy Unknown Unknown Verified 06/01/21 15:07 fluoxetine Allergy Unknown UNKNOWN Verified 06/01/21 15:07 ibuprofen [From ADVIL] Allergy Unknown ANXIETY Verified 06/01/21 15:07 Penicillins [PENICILLINS] Allergy Unknown HIVES Verified 06/01/21 15:07 codeine AdvReac Unknown N/V Verified 06/01/21 15:07 diphenhydramine [Advil PM] AdvReac Unknown anxiety Verified 06/01/21 15:07 metoclopramide AdvReac Unknown AGITATION,I Verified 06/01/21 15:07 TCHING morphine AdvReac Unknown N/V, Verified 06/01/21 15:07 anxiety tramadol AdvReac Unknown ANXIETY Verified 06/01/21 15:07 zolpidem [Ambien] AdvReac Unknown anxiety Verified 01/17/18 00:00 cephalexin Allergy Unknown Unknown Uncoded 06/01/21 15:07 ciproflaxacin Allergy Unknown Unknown Uncoded 06/01/21 15:07 From Ambien AdvReac Severe AGITATION Uncoded 05/07/20 15:50 Active Medications: Current Medications Acetaminophen (Acetaminophen 325 Mg Tablet) 650 mg PO Q6H PRN PRN Reason: Pain, Mild (Pain Scale 1-3) Sodium Chloride (Ns) 1,000 mls @ 999 mls/hr IVCONT .Q1H1M LYNDON Stop: 06/01/21 21:45 Vancomycin HCl 750 mg/ Sodium (Chloride) 265 mls @ 265 mls/hr IV ONCE ONE Stop: 06/01/21 22:13 Sodium Chloride (Ns) 1,000 mls @ 100 mls/hr IVCONT .Q10H LYNDON Melatonin (Melatonin 3 Mg Tablet) 6 mg PO BEDTIME PRN PRN Reason: Insomnia Nitrofurantoin Macrocrystals (Nitrofurantoin Monohyd/M-Cryst 100 Mg Capsule) 100 mg PO Q12H LYNDON Senna (Sennosides 8.6 Mg Tablet) 17.2 mg PO BEDTIME PRN PRN Reason: Constipation Sodium Chloride (0.9 % Sodium Chloride Flush 3 Ml Syringe) 3 [facility] Exam Vital Signs and Narrative: Vital Signs: Last Vital Signs Temp 98.1 F 06/01/21 14:58 Pulse 96 06/01/21 20:06 Resp 18 06/01/21 20:06 BP 140/73 H 06/01/21 20:06 Pulse Ox 97 06/01/21 20:06 Body Mass Index 26.6 Gen: Appears be in no acute distress HEENT: NCAT, Moist mucosa. Pulmonary: Vesicular breath sounds, fair air entry CVS: Normal S1-S2 Abdomen: BS+, Soft, tender in the right flank; no guarding no rigidity; right CVA tenderness positive Extremities: Warm well perfused Neuro: Alert and awake. Results Labs CBC and Chem 7: 06/01/21 17:08 06/01/21 19:53 Labs: Laboratory Results - last 24 hr 06/01/21 06/01/21 06/01/21 17:08 17:08 17:08 MCV 83.5 MCH 25.7 L MCHC 30.8 L RDW 13.3 Plt Count 365 MPV 11.4 Immature Gran % (Auto) 0.4 Neut % (Auto) 89.9 H Lymph % (Auto) 2.9 L [place] % (Auto) 5.2 Eos % (Auto) 1.3 Baso % (Auto) 0.3 Lymph # (Auto) 0.5 L [place] # (Auto) 1.0 Eos # (Auto) 0.2 Baso # (Auto) 0.1 Abs Immat Gran (auto) 0.08 H Absolute Neuts (auto) 16.3 H Absolute Nucleated RBC 0.000 Nucleated RBC % (auto) 0.0 VBG pH VBG pCO2 VBG pO2 VBG HCO3 VBG O2 Saturation VBG Base Excess Anion Gap Estim Creat Clear Calc Estimated GFR POC Glucose Random Glucose Lactic Acid 0.7 Calcium Magnesium Total Bilirubin Direct Bilirubin AST ALT Alkaline Phosphatase Troponin I High Sens 5.4 Total Protein Albumin Urine Color Urine Appearance Urine pH Ur Specific [place] Urine Protein Urine Glucose (UA) Urine Ketones Urine Blood Urine Nitrite Ur Leukocyte Esterase Urine RBC Urine WBC Ur Squamous Epith Cells Urine Bacteria Urine Mucus Acetone, Qual COVID-19 (VIVEK) COVID-19 Clin Com 06/01/21 06/01/21 06/01/21 17:08 17:09 17:09 MCV MCH MCHC RDW Plt Count MPV Immature Gran % (Auto) Neut % (Auto) Lymph % (Auto) [place] % (Auto) Eos % (Auto) Baso % (Auto) Lymph # (Auto) [place] # (Auto) Eos # (Auto) Baso # (Auto) Abs Immat Gran (auto) Absolute Neuts (auto) Absolute Nucleated RBC Nucleated RBC % (auto) VBG pH VBG pCO2 VBG pO2 VBG HCO3 VBG O2 Saturation VBG Base Excess Anion Gap 17 Estim Creat Clear Calc 39.9 Estimated GFR 30 POC Glucose Random Glucose 228 H Lactic Acid Calcium 9.5 Magnesium 1.5 L Total Bilirubin 0.3 Direct Bilirubin 0.2 AST 20 ALT 16 Alkaline Phosphatase 113 Troponin I High Sens Total Protein 7.7 Albumin 3.9 Urine Color Urine Appearance Urine pH Ur Specific [place] Urine Protein Urine Glucose (UA) Urine Ketones Urine Blood Urine Nitrite Ur Leukocyte Esterase Urine RBC Urine WBC Ur Squamous Epith Cells Urine Bacteria Urine Mucus Acetone, Qual Negative COVID-19 (VIVEK) Negative COVID-19 [employer] Com See Note 06/01/21 06/01/21 06/01/21 17:20 19:53 19:53 MCV MCH MCHC RDW Plt Count MPV Immature Gran % (Auto) Neut % (Auto) Lymph % (Auto) [place] % (Auto) Eos % (Auto) Baso % (Auto) Lymph # (Auto) [place] # (Auto) Eos # (Auto) Baso # (Auto) Abs Immat Gran (auto) Absolute Neuts (auto) Absolute Nucleated RBC Nucleated RBC % (auto) VBG pH 7.45 H VBG pCO2 33 VBG pO2 95 VBG HCO3 23 VBG O2 Saturation 98.0 VBG Base Excess 0.0 Anion Gap 19 Estim Creat Clear Calc 36.0 Estimated GFR 27 POC Glucose Random Glucose 271 H Lactic Acid Calcium 9.3 Magnesium 1.5 L Total Bilirubin 0.3 Direct Bilirubin < 0.2 AST 18 ALT 14 Alkaline Phosphatase 105 Troponin I High Sens 6.2 Total Protein 7.4 Albumin 3.7 Urine Color Urine Appearance Urine pH Ur Specific [place] Urine Protein Urine Glucose (UA) Urine Ketones Urine Blood Urine Nitrite Ur Leukocyte Esterase Urine RBC Urine WBC Ur Squamous Epith Cells Urine Bacteria Urine Mucus Acetone, Qual COVID-19 (VIVEK) COVID-19 [employer] Com 06/01/21 06/01/21 20:05 20:53 MCV MCH MCHC RDW Plt Count MPV Immature Gran % (Auto) Neut % (Auto) Lymph % (Auto) [place] % (Auto) Eos % (Auto) Baso % (Auto) Lymph # (Auto) [place] # (Auto) Eos # (Auto) Baso # (Auto) Abs Immat Gran (auto) Absolute Neuts (auto) Absolute Nucleated RBC Nucleated RBC % (auto) VBG pH VBG pCO2 VBG pO2 VBG HCO3 VBG O2 Saturation VBG Base Excess Anion Gap Estim Creat Clear Calc Estimated GFR POC Glucose 257 H Random Glucose Lactic Acid Calcium Magnesium Total Bilirubin Direct Bilirubin AST ALT Alkaline Phosphatase Troponin I High Sens Total Protein Albumin Urine Color YELLOW Urine Appearance HAZY Urine pH 5.5 Ur Specific [place] 1.015 Urine Protein TRACE Urine Glucose (UA) NEG Urine Ketones NEG Urine Blood 2+ H Urine Nitrite NEG Ur Leukocyte Esterase 2+ H Urine RBC 1-4 Urine WBC 15-29 H Ur Squamous Epith Cells 2+ Urine Bacteria 2+ Urine Mucus 1+ Acetone, Qual COVID-19 (VIVEK) COVID-19 Clin Com Imaging Radiologist's Impressions: Impressions Abdomen/Pelvis CT 06/01/21 14:51 IMPRESSION: 1. Mild hydronephrosis and hydroureter right pelvic transplant. No perinephric stranding or calculus. Distended urinary bladder. 2. Prior cholecystectomy. No biliary ductal dilatation or ductal calculus. 3. No bowel obstruction or focal inflammatory changes. 4. Trace fluid cul-de-sac. No adnexal mass. Assessment and Plan (1) Pyelonephritis: Status: Acute (2) Diabetes: Status: Acute (3) DWAINE (acute kidney injury): Status: Acute (4) Hx of kidney transplant: Status: Acute 45-year-old female with a past medical history of hypertension, hyperlipidemia, diabetes, diabetic retinopathy with resulting visual loss, diabetic neuropathy, history of right BKA, migraine headaches, GERD, anxiety, depression, gastroparesis, history of renal insufficiency status post kidney transplant in [address] ([address] Dr Foley) on chronic prednisone, tacrolimus, mycophenolate, migraine headaches, fibromyalgia presented to the hospital with a chief complaint of right flank pain. Admitted for pyelonephritis. Pyelonephritis: Patient received vancomycin in the ER. [facility]-sensitive to vancomycin, linezolid, Macrobid. To check vanc trough levels tomorrow morning by the day team. Id consult for antibiotic choice Will be cautious/avoid nephrotoxins. Will continue Macrobid for now Mild hydronephrosis/hydroureter/prior distended bladder: Patient subsequently had a large urination. Will repeat the bladder scan in few hours to checked a postvoid residual. If retaining Will: Insert the Blum catheter. Urology consult DWAINE: Will keep the patient on gentle IV fluids. Avoid nephrotoxins History of renal transplant: Patient on chronic prednisone, mycophenolate, tacrolimus. Will obtain tacrolimus levels before resuming. Nephrology consult for further management. Diabetes: Insulin sliding scale For All other chronic conditions, home medications will be continued. DVT prophylaxis: Lovenox Code status: Full code Quality Stroke Does the patient have a stroke diagnosis?: No VTE Prior VTE?: No VTE Risk Level:: Medical - moderate - high VTE Device Contraindication: N/A - Device Ordered VTE Drug Contraindication: Treatment Not Indicated
--- NOTE | 2021-06-01 22:26 | PHA.MEDREC ---
Pharmacy Consult ? Medication Reconciliation Pharmacy has completed the medication reconciliation. Med List from [facility]
--- NOTE | 2021-06-01 22:47 | PC.NURSE ---
IV fluids delayed at this time d/t pt w/ 350 mL in bladder on PVR, will administer after allen placement. engineering documentation specialist Debra aware of need for room for placing allen. Vanc to be administered once IV pump becomes available
[2021-06-01] MEDS: vancomycin HCL 750 MG in 0.9 % Sodium Chloride 250 ML 265 MG IV (23:38)
[2021-06-01] MEDS: Nitrofurantoin Monohyd/M-Cryst 100 MG CAPSULE PO (23:41)
[2021-06-02] VITALS (8 sets, daily range): BP systolic 123–152; BP diastolic 55–66; PULSE 83–101; RESP 16–22; TEMP 36–37.6; O2SAT 6–98; BMI 26.1
--- NOTE | 2021-06-02 00:04 | PC.NURSE ---
report called to receiving RN, explained that allen was not placed d/t pt being in hallway and that fluids were not started for this reason. Pt sent in stable condition w/ all belongings, vanc infusing
[2021-06-02] MEDS: HYDROmorphone HCl 0.5 MG/0.5 ML SYRINGE IVPUSH (00:19)
[2021-06-02] MEDS: Heparin Sodium,Porcine 5,000 UNIT/ML VIAL 5000 UNIT SUBCUT ×3 (00:20→21:01)
[2021-06-02] MEDS: 0.9 % Sodium Chloride Flush 3 ML SYRINGE IVFLUSH ×2 (00:20→16:35)
[2021-06-02] MEDS: 0.9 % Sodium Chloride 1,000 ML 999 ML IVCONT (00:23)
[2021-06-02 00:28] LABS: Glucose, Whole Blood 276 mg/dL (60-115)
[2021-06-02] MEDS: Insulin Lispro 100 UNIT/ML 3 ML VIAL SUBCUT ×3 (00:29→20:59)
[2021-06-02] MEDS: Sennosides 8.6 MG TABLET 17.2 MG PO (00:38)
[2021-06-02] MEDS: HYDROmorphone HCl 0.5 MG/0.5 ML SYRINGE 1 MG IVPUSH ×3 (01:58→13:36)
[2021-06-02] MEDS: 0.9 % Sodium Chloride 1,000 ML 100 ML IVCONT ×2 (02:00→13:58)
[2021-06-02 07:31] LABS: Glucose, Whole Blood 208 mg/dL (60-115)
[2021-06-02 08:27] LABS: Basophils Percent Auto 0.2 % (0-2); Eosinophils Percent Auto 0.2 % (0-4); Hematocrit 30.7 % (37-47); Hemoglobin 9.3 g/dl (12.0-16.0); Imm Gran Abs Auto 0.08 X10*3/uL (0.00-0.03); Imm Gran Pct Auto 0.5 % (0.0-0.4); Lymphocytes Absolute Auto 0.6 X10*3/uL (1.2-4.9); Lymphocytes Percent Auto 3.5 % (20-40); MANUAL DIFF FLAG SCAN; Mean Corpuscular HGB Conc 30.3 g/dl (31.0-35.0); Mean Corpuscular Hemoglobin 25.7 pg (27.0-33.0); Mean Corpuscular Volume 84.8 fL (80-98); Mean Platelet Volume 11.6 fL (9.4-12.3); Monocytes Absolute Auto 0.6 X10*3/uL (0.1-1.2); Neutrophils Absolute Auto 14.5 X10*3/uL (2.0-8.3); Neutrophils Percent Auto 91.6 % (45-73); Platelet Count 366 X10*3/uL (160-400); Red Blood Count 3.62 X10*6/uL (4.20-5.50); Red Cell Distribution Width 13.3 % (11.0-16.0); SCAN SMEAR FLAG 1; White Blood Count 15.8 X10*3/uL (4.8-10.8)
[2021-06-02 08:34] LABS: Anion Gap 13 (12-20); Blood Urea Nitrogen 54 mg/dL (9-16); Calcium 9.1 mg/dL (8.4-10.2); Carbon Dioxide 24 mmol/L (22-29); Chloride 101 mmol/L (96-108); Creatinine Clr Calc Pharmacy 27.2; Estimated Glomerular Filt Rate 19; Glucose Random 218 mg/dL (60-115); Potassium 4.4 mmol/L (3.3-5.1); Sodium 134 mmol/L (135-145)
--- NOTE | 2021-06-02 09:14 | MHC.CM.PN ---
CM met briefly with Patient at bedside and addressed IMM, providing her with the original and placing a copy on the chart(Patient is Blind and did not sign IMM). Patient is from [facility], where the goal is to return there and remain for LTC. CM has initiated and will follow for dc planning. Patient's Brother is her HCP and her PCP is Dr. Lino Hendricks.
--- NOTE | 2021-06-02 09:24 | MHC.CM.PN ---
CM requested that [facility] fax over a copy of Patient's HCP and requested that CM [employer]pler upload it into [employer], once received. CM will follow.
[2021-06-02 09:26] LABS: SLIDE REVIEW VERIFIED
[2021-06-02] MEDS: predniSONE 5 MG TABLET PO (09:50)
[2021-06-02] MEDS: mycophenolate mofetiL 250 MG CAPSULE 500 MG PO ×2 (09:50→20:57)
[2021-06-02] MEDS: DULoxetine HCl 60 MG CAPSULE.DR PO (09:50)
[2021-06-02] MEDS: Aspirin Enteric Coated 81 MG TABLET.DR PO (09:50)
[2021-06-02] MEDS: Multivitamin TABLET 1 TAB PO (09:50)
[2021-06-02] MEDS: Nitrofurantoin Monohyd/M-Cryst 100 MG CAPSULE PO (09:50)
[2021-06-02] MEDS: Gabapentin 400 MG CAPSULE PO ×3 (09:50→20:57)
[2021-06-02] MEDS: Folic Acid 1 MG TABLET PO (09:50)
[2021-06-02] MEDS: carvediloL 25 MG TABLET PO ×2 (09:50→21:00)
[2021-06-02] MEDS: Simethicone 80 MG TAB.CHEW PO (10:22)
[2021-06-02 11:35] LABS: Glucose, Whole Blood 136 mg/dL (60-115)
--- NOTE | 2021-06-02 13:38 | W.PM.IDCN ---
History of Present Illness Data of Consult Service Date: 06/02/21 Requesting physician: Derek Banks Primary Care Provider: Lino Hendricks MD HPI Reason for consult: weakness She presents with weakness and lethargy for a day Urine sent over from [facility] shows enterococcus Here the urine shows gram negative rods She is listed as hives to [facility] and unknown cephalosporin and quinolone She has no rash or other complaints Review of Systems Review of Systems: Yes all other systems are reviewed and are negative PMFSH Past Medical History Medical History Arthritis Blind Diabetes Gastroparesis HTN (hypertension) Family History Family History Mother Diabetes Hypertension Father Diabetes Hypertension Surgical History Surgical History History of amputation Renal transplant, status post Social History Social History Household Members: Other Housing: Prison Do you presently have visiting nurse or other home services: No Alcohol intake: never Patient Tobacco Use Status: Never used Tobacco Use of substances other than those prescribed or required for medical reasons: No Currently Displaying Signs/Symptoms of Drug Intoxication Withdrawal: No Have you been hit, kicked, punched, or otherwise hurt by someone within the past year? If so, by whom?: No Do you feel safe in your current relationship?: No Current Relationship Is there a partner from a previous relationship who is making you feel unsafe now?: No Are you made to feel afraid or neglected: No Advance Directives: Yes Advance Directives on File: Yes Advance Directives Date on File: 06/01/21 Do you have thoughts of harming others: None Do you have a plan to hurt others: No Plan Recently lost weight without trying: No Nutrition Risks: No Nutritional Risk Patient : No : No Poor oral hygiene: No service: No Current occupational status: disabled Meds Allergies Allergy/AdvReac Type Severity Reaction Status Date / Time amitriptyline Allergy Unknown UNKNOWN Verified 06/01/21 15:07 cephalexin Allergy Unknown UNKNOWN Verified 06/01/21 15:07 ciprofloxacin Allergy Unknown UNKNOWN Verified 06/01/21 15:07 famotidine [Pepcid] Allergy Unknown Unknown Verified 06/01/21 15:07 fluoxetine Allergy Unknown UNKNOWN Verified 06/01/21 15:07 ibuprofen [From ADVIL] Allergy Unknown ANXIETY Verified 06/01/21 15:07 Penicillins [PENICILLINS] Allergy Unknown HIVES Verified 06/01/21 15:07 codeine AdvReac Unknown N/V Verified 06/01/21 15:07 diphenhydramine [Advil PM] AdvReac Unknown anxiety Verified 06/01/21 15:07 metoclopramide AdvReac Unknown AGITATION,I Verified 06/01/21 15:07 TCHING morphine AdvReac Unknown N/V, Verified 06/01/21 15:07 anxiety tramadol AdvReac Unknown ANXIETY Verified 06/01/21 15:07 zolpidem [Ambien] AdvReac Unknown anxiety Verified 01/17/18 00:00 cephalexin Allergy Unknown Unknown Uncoded 06/01/21 15:07 ciproflaxacin Allergy Unknown Unknown Uncoded 06/01/21 15:07 From Ambien AdvReac Severe AGITATION Uncoded 05/07/20 15:50 Active Medications: Current Medications Acetaminophen (Acetaminophen 325 Mg Tablet) 650 mg PO Q6H PRN PRN Reason: Pain, Mild (Pain Scale 1-3) Aspirin (Aspirin Enteric Coated 81 Mg Tablet.) 81 mg PO DAILY [facility] Last Admin: 06/02/21 09:50 Dose: 81 mg Documented by: Bisacodyl (Bisacodyl 10 Mg Supp.Rect) 10 mg AL DAILY PRN PRN Reason: Constipation Carvedilol (Carvedilol 25 Mg Tablet) 25 mg PO BID [facility]; Protocol Last Admin: 06/02/21 09:50 Dose: 25 mg Documented by: Dextrose (Dextrose 50 % 25 Gm/50 Ml Vial) 25 gm IVPUSH Q15M PRN; Protocol PRN Reason: per Hypoglycemia Standing Ord. Duloxetine HCl (Duloxetine Hcl 60 Mg Capsule.) 60 mg PO DAILY [facility] Last Admin: 06/02/21 09:50 Dose: 60 mg Documented by: Folic Acid (Folic Acid 1 Mg Tablet) 1 mg PO DAILY [facility] Last Admin: 06/02/21 09:50 Dose: 1 mg Documented by: Gabapentin (Gabapentin 400 Mg Capsule) 400 mg PO TID [facility] Last Admin: 06/02/21 13:37 Dose: 400 mg Documented by: Glucose (Glucose Gel 15 Gm Gel..Gram.) 15 gm PO Q15M PRN; Protocol PRN Reason: per Hypoglycemia Standing Ord. Heparin Sodium (Porcine) (Heparin Sodium,Porcine 5,000 Unit/Ml Vial) 5,000 unit SUBCUT Q8H [facility] Last Admin: 06/02/21 13:37 Dose: 5,000 unit Documented by: Hydromorphone HCl (Hydromorphone Hcl 2 Mg Tablet) 2 mg PO Q6H PRN PRN Reason: Pain (Scale Score 7-10) Hydromorphone HCl (Hydromorphone Hcl 4 Mg Tablet) 4 mg PO Q6H PRN PRN Reason: Pain (Scale Score 7-10) Hydromorphone HCl (Hydromorphone Hcl 0.5 Mg/0.5 Ml Syringe) 1 mg IVPUSH Q4H PRN; Protocol PRN Reason: Breakthrough Pain Last Admin: 06/02/21 13:36 Dose: 1 mg Documented by: Sodium Chloride (Ns) 1,000 mls @ 100 mls/hr IVCONT .Q10H [facility] Last Admin: 06/02/21 08:14 Dose: Not Given Documented by: Insulin Human Lispro (Insulin Lispro 100 Unit/Ml 3 Ml Vial) 0 unit SUBCUT QIDACHS [facility]; Protocol Last Admin: 06/02/21 12:29 Dose: Not Given Documented by: Melatonin (Melatonin 3 Mg Tablet) 6 mg PO BEDTIME PRN PRN Reason: Insomnia Multivitamins/Vitamin C (Multivitamin Tablet) 1 tab PO DAILY [facility] Last Admin: 06/02/21 09:50 Dose: 1 tab Documented by: Mycophenolate Mofetil (Mycophenolate Mofetil 250 Mg Capsule) 500 mg PO BID [facility] Last Admin: 06/02/21 09:50 Dose: 500 mg Documented by: Omeprazole (Omeprazole 20 Mg Capsule.Dr) 20 mg PO DAILY@1630 [facility] Pharmacy Consult (Consult Rx Perform Med Rec) 1 each MISCELLANE ONCE PRN PRN Reason: Consult order Prednisone (Prednisone 5 Mg Tablet) 5 mg PO DAILY [facility] Last Admin: 06/02/21 09:50 Dose: 5 mg Documented by: Senna (Sennosides 8.6 Mg Tablet) 17.2 mg PO BEDTIME PRN PRN Reason: Constipation Last Admin: 06/02/21 00:38 Dose: 17.2 mg Documented by: Simethicone (Simethicone 80 Mg Tab.Chew) 80 mg PO Q6H PRN PRN Reason: Gas Last Admin: 06/02/21 10:22 Dose: 80 mg Documented by: Sodium Chloride (0.9 % Sodium Chloride Flush 3 Ml Syringe) 3 ml IVFLUSH QSHIFT [facility] Last Admin: 06/02/21 08:14 Dose: Not Given Documented by: Tacrolimus (Tacrolimus 1 Mg Capsule) 5 mg PO BID [facility] Trazodone HCl (Trazodone Hcl 100 Mg Tablet) 100 mg PO BEDTIME [facility] Home Medications Medication Instructions Recorded Confirmed Last Taken Type acetaminophen 325 mg tablet 650 mg PO Q6H PRN 06/01/21 07/11/21 Unknown History amlodipine 10 mg tablet 10 mg PO DAILY 06/01/21 07/11/21 Unknown History aspirin 81 mg tablet,delayed 81 mg PO DAILY 06/01/21 07/11/21 Unknown History release bisacodyl 10 mg rectal suppository 10 mg AL DAILY PRN 06/01/21 07/11/21 Unknown History (Dulcolax (bisacodyl)) carvedilol 25 mg tablet 25 mg PO BID 06/01/21 07/11/21 Unknown History duloxetine 60 mg capsule,delayed 60 mg PO DAILY 06/01/21 07/11/21 Unknown History release ferrous sulfate 325 mg (65 mg 1 tab PO BID 06/01/21 07/11/21 Unknown History iron) tablet,delayed release folic acid 1 mg tablet 1 tab PO DAILY 06/01/21 07/11/21 Unknown History furosemide 40 mg tablet 1 tab PO BID 06/01/21 07/11/21 Unknown History gabapentin 400 mg capsule 400 mg PO TID 06/01/21 07/11/21 Unknown History hydromorphone 2 mg tablet 2 mg PO QID 06/01/21 07/11/21 Unknown History hydromorphone 2 mg tablet 2 mg PO Q6H PRN 06/01/21 07/11/21 Unknown History (Dilaudid) hydromorphone 4 mg tablet 4 mg PO QID 06/01/21 07/11/21 Unknown History hydromorphone 4 mg tablet 4 mg PO Q6H PRN 06/01/21 07/11/21 Unknown History (Dilaudid) insulin aspart U-100 100 unit/mL See Protocol SUBCUT TIDAC 06/01/21 07/11/21 Unknown History subcutaneous solution insulin glargine 100 unit/mL 20 unit SUBCUT BEDTIME 06/01/21 07/11/21 Unknown History subcutaneous solution (Lantus U-100 Insulin) multivitamin 1 tab PO DAILY 06/01/21 07/11/21 Unknown History mycophenolate mofetil 500 mg tablet 1,000 mg PO BID 06/01/21 07/11/21 Unknown History ondansetron HCl 4 mg tablet 1 tab PO Q8H PRN 06/01/21 07/11/21 Unknown History pantoprazole 20 mg tablet,delayed 1 tab PO DAILY@1630 06/01/21 07/11/21 Unknown History release prednisone 5 mg tablet 5 mg PO DAILY 06/01/21 07/11/21 Unknown History simethicone 80 mg chewable tablet 80 mg PO Q6H PRN 06/01/21 07/11/21 Unknown History tacrolimus 5 mg capsule, 5 mg PO BID 06/01/21 07/11/21 Unknown History immediate-release trazodone 100 mg tablet 100 mg PO BEDTIME 06/01/21 07/11/21 Unknown History dextrose 40 % oral gel (Glucose 15 g PO Q15M PRN 07/11/21 07/11/21 Unknown History Gel) trazodone 50 mg tablet 12.5 mg PO Q8H PRN 07/11/21 07/11/21 Unknown History Physical Exam Vital Signs: Vital Signs: Last Vital Signs Temp 98 F 06/02/21 11:26 Pulse 90 06/02/21 11:26 Resp 18 06/02/21 11:26 BP 140/61 H 06/02/21 11:26 Pulse Ox 6 L 06/02/21 11:26 Body Mass Index 26.1 Const: General: cooperative HENMT: Head: Yes normal to inspection Mouth: Normal oral and palatal mucosa present Eyes: General: appearance normal, both eyes and all related structures Resp: Effort & Inspection: normal respiratory effort Cardio: Rate: regular rate Rhythm: regular rhythm GI: Palpation (GI): Soft to palpation and nontender Extrem: General: Yes normal to inspection Results Labs CBC & Chem 7: 06/05/21 05:31 06/05/21 05:31 Labs: Short CBC 06/01/21 06/02/21 Range/Units 17:08 08:10 WBC 18.1 H 15.8 H (4.8-10.8) X10*3/uL Hgb 10.1 L 9.3 L (12.0-16.0) g/dl Hct 32.8 L 30.7 L (37-47) % Plt Count 365 366 (160-400) X10*3/uL BMP 06/01/21 06/01/21 06/02/21 17:09 19:53 08:10 Sodium 135 134 L 134 L Potassium 4.4 4.5 4.4 Chloride 101 102 101 Carbon Dioxide 21 L 18 L 24 BUN 47 H 48 H 54 H Creatinine 1.82 H 2.02 H 2.65 H Calcium 9.5 9.3 9.1 Liver Function 06/01/21 06/01/21 Range/Units 17:09 19:53 Total Bilirubin 0.3 0.3 (0.0-1.0) mg/dL Direct Bilirubin 0.2 < 0.2 (0.0-0.5) mg/dL AST 20 18 (5-31) U/L ALT 16 14 (0-31) U/L Alkaline Phosphatase 113 105 (39-117) U/L Albumin 3.9 3.7 (3.5-5.0) g/dL Urine 06/01/21 Range/Units 20:53 Urine Color YELLOW Urine Appearance HAZY Urine pH 5.5 (5.0-8.0) Ur Specific Belle 1.015 (1.005-1.025) Urine Protein TRACE (NEG-TRACE) MG/DL Urine Glucose (UA) NEG (NEG) MG/DL Microbiology Microbiology Results: Microbiology 06/01/21 Unknown Urine clean catch - Clean Catch Midstream Urine Culture - Preliminary Gram negative ricky Assessment and Plan (1) Pyelonephritis: Status: Acute She has allergies to cephalosporins,particularly Keflex which is early generation cephalosporin She has hives to PCN so concern over cephalopsporin also She also has renal insufficiency (2) DWAINE (acute kidney injury): Status: Acute (3) Hx of kidney transplant: Status: Acute Could attempt Bactrim low dose for 10 days but will try Ceftriaxone and see if reaction
--- NOTE | 2021-06-02 14:33 | CONS_ITS ---
DATE OF SERVICE: 06/02/2021 REASON FOR CONSULTATION: I was asked to see the patient to assist in evaluation and management of patient's acute kidney injury as reflected by BUN and creatinine today of 54 and 2.65 in the setting of being a kidney transplant patient. Her baseline creatinine from her last admission at [facility] in February showed a creatinine of 1.1 to 1.4. 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 Last hospitalized at [facility] in December. The patient now presents complaining of right-sided flank pain and lower abdominal pain. She was seen in the emergency room, noted to have acute kidney injury and looked like a urinary tract infection, started on vancomycin. The patient presently is feeling better. We placed a Blum in and the urine looks very purulent. MEDICATIONS: On admission, we are trying to track down her current medication list. It looks like she is normally maintained on the following medications: Insulin, Lasix 40 twice a day, Protonix, Dilaudid, trazodone, Neurontin, Zofran, Norvasc 10 once a day, prednisone 5 mg once a day, carvedilol 25 mg twice a day, mycophenolate 1000 mg twice a day, tacrolimus 5 mg twice a day is what is listed. She did get vancomycin in the emergency room. PHYSICAL EXAMINATION: VITAL SIGNS: Blood pressure 150/60 with a heart rate of 100. She is afebrile. HEENT: Head is atraumatic and normocephalic. NECK: Supple. Mucous membranes are moist. LUNGS: Breath sounds bilaterally. CARDIAC: Regular rate and rhythm. ABDOMEN: Soft. The right side slightly tender as is the right flank and the right lower pelvic area where the transplant kidney is. No edema. LABORATORY DATA: From today, sodium 134, potassium 4.4, chloride 101, bicarb 24, BUN 54, creatinine 2.65, it was 2.0 on admission and as mentioned, her serum creatinine was 1.1 to 1.4 in the past going back to February. Hemoglobin 9.3, hematocrit 30.7, white blood cell count 15.8. Urine showed white cells and red cells. She had a CT of the abdomen and pelvis, which showed the pelvic transplant in the right lower quadrant with mild hydronephrosis and mild transplant hydroureter down to the ureterovesical junction. The ureter and bladder is distended. IMPRESSION: A 45-year-old kidney transplant patient admitted with acute kidney injury and what appears to be a urinary tract infection. 1. Acute kidney injury. Most likely this is due to the acute urinary tract infection and maybe some element of urinary retention. Other possibilities such as acute rejection, acute interstitial nephritis or acute glomerulonephritis would all be in the differential, but much less likely given the clinical presentation. 2. Immunosuppressive regimen. She is only maintained on tacrolimus 5 mg twice a day, CellCept 1000 mg twice a day, and prednisone 5 mg. 3. Right-sided flank and lower abdominal pain. Again, this is likely due to the urinary tract infection. Need to monitor closely and see response to antibiotics. SUGGESTIONS: At this time include continue regular immunosuppressive drugs. Continue IV fluids. Place a Blum. Continue vancomycin. We will follow the patient closely with the team and if her renal function does not improve, may need transfer to [facility] if she may need interventions for her transplanted kidney such as a biopsy or possible stenting depending on her clinical course. We will follow the patient closely with the team. MD MICHELLE Nieto/MONTSE / [phone]
--- NOTE | 2021-06-02 15:22 | P.PNIM_ITS ---
Subjective Subjective Date of Service: 06/02/21 Interval History: cc: flank pain interval history: still with pain Cardiovascular Cardiovascular: Reports no additional cardiovascular complaints Respiratory Respiratory: Reports no additional respiratory complaints Physical Exam Vital Signs: Vital Signs: Last Vital Signs Temp 98.6 F 06/02/21 15:11 Pulse 83 06/02/21 15:11 Resp 18 06/02/21 15:11 BP 135/55 L 06/02/21 15:11 Pulse Ox 96 06/02/21 15:11 Body Mass Index 26.1 General: AO X 3, no acute distress, visually impaired Resp: CTA bilateral, no accessory muscles used CVS: S1,S2,RRR GI: soft, non tender, non distended Neuro: motor grossly intact, alert Psych: appropriate affect, appropriate insight ext: right bka Objective Data Active Medications Acetaminophen (Acetaminophen 325 Mg Tablet) 650 mg PO Q6H PRN PRN Reason: Pain, Mild (Pain Scale 1-3) Aspirin (Aspirin Enteric Coated 81 Mg Tablet.) 81 mg PO DAILY REPLACED BY [facility] Last Admin: 06/02/21 09:50 Dose: 81 mg Documented by: CHUCHO Bisacodyl (Bisacodyl 10 Mg Supp.Rect) 10 mg [place] DAILY PRN PRN Reason: Constipation Carvedilol (Carvedilol 25 Mg Tablet) 25 mg PO BID REPLACED BY [facility]; Protocol Last Admin: 06/02/21 09:50 Dose: 25 mg Documented by: CHUCHO Dextrose (Dextrose 50 % 25 Gm/50 Ml Vial) 25 gm IVPUSH Q15M PRN; Protocol PRN Reason: per Hypoglycemia Standing Ord. Duloxetine HCl (Duloxetine Hcl 60 Mg Capsule.) 60 mg PO DAILY REPLACED BY [facility] Last Admin: 06/02/21 09:50 Dose: 60 mg Documented by: CHUCHO Folic Acid (Folic Acid 1 Mg Tablet) 1 mg PO DAILY REPLACED BY [facility] Last Admin: 06/02/21 09:50 Dose: 1 mg Documented by: CHUCHO Gabapentin (Gabapentin 400 Mg Capsule) 400 mg PO TID REPLACED BY [facility] Last Admin: 06/02/21 13:37 Dose: 400 mg Documented by: CHUCHO Glucose (Glucose Gel 15 Gm Gel..Gram.) 15 gm PO Q15M PRN; Protocol PRN Reason: per Hypoglycemia Standing Ord. Heparin Sodium (Porcine) (Heparin Sodium,Porcine 5,000 Unit/Ml Vial) 5,000 unit SUBCUT Q8H REPLACED BY [facility] Last Admin: 06/02/21 13:37 Dose: 5,000 unit Documented by: CHUCHO Hydromorphone HCl (Hydromorphone Hcl 2 Mg Tablet) 2 mg PO Q6H PRN PRN Reason: Pain (Scale Score 7-10) Hydromorphone HCl (Hydromorphone Hcl 4 Mg Tablet) 4 mg PO Q6H PRN PRN Reason: Pain (Scale Score 7-10) Hydromorphone HCl (Hydromorphone Hcl 0.5 Mg/0.5 Ml Syringe) 1 mg IVPUSH Q4H PRN; Protocol PRN Reason: Breakthrough Pain Last Admin: 06/02/21 13:36 Dose: 1 mg Documented by: CHUCHO Sodium Chloride (Ns) 1,000 mls @ 100 mls/hr IVCONT .Q10H REPLACED BY [facility] Last Admin: 06/02/21 13:58 Dose: 100 mls/hr Documented by: CHUCHO Ceftriaxone Sodium 1 gm/ (Sodium Chloride) 50 mls @ 100 mls/hr IV Q24H REPLACED BY [facility] Insulin Human Lispro (Insulin Lispro 100 Unit/Ml 3 Ml Vial) 0 unit SUBCUT QIDACHS REPLACED BY [facility]; Protocol Last Admin: 06/02/21 12:29 Dose: Not Given Documented by: CHUCHO Non-Admin Reason: No Insulin Coverage Melatonin (Melatonin 3 Mg Tablet) 6 mg PO BEDTIME PRN PRN Reason: Insomnia Multivitamins/Vitamin C (Multivitamin Tablet) 1 tab PO DAILY REPLACED BY [facility] Last Admin: 06/02/21 09:50 Dose: 1 tab Documented by: CHUCHO Mycophenolate Mofetil (Mycophenolate Mofetil 250 Mg Capsule) 500 mg PO BID REPLACED BY [facility] Last Admin: 06/02/21 09:50 Dose: 500 mg Documented by: CHUCHO Omeprazole (Omeprazole 20 Mg Capsule.) 20 mg PO DAILY@1630 REPLACED BY [facility] Pharmacy Consult (Consult Rx Perform Med Rec) 1 each MISCELLANE ONCE PRN PRN Reason: Consult order Prednisone (Prednisone 5 Mg Tablet) 5 mg PO DAILY REPLACED BY [facility] Last Admin: 06/02/21 09:50 Dose: 5 mg Documented by: CHUCHO Senna (Sennosides 8.6 Mg Tablet) 17.2 mg PO BEDTIME PRN PRN Reason: Constipation Last Admin: 06/02/21 00:38 Dose: 17.2 mg Documented by: MARCIE Simethicone (Simethicone 80 Mg Tab.Chew) 80 mg PO Q6H PRN PRN Reason: Gas Last Admin: 06/02/21 10:22 Dose: 80 mg Documented by: CHUCHO Sodium Chloride (0.9 % Sodium Chloride Flush 3 Ml Syringe) 3 ml IVFLUSH QSHIFT [place] Last Admin: 06/02/21 08:14 Dose: Not Given Documented by: CHUCHO Non-Admin Reason: IV Running Tacrolimus (Tacrolimus 1 Mg Capsule) 5 mg PO BID REPLACED BY [facility] Trazodone HCl (Trazodone Hcl 100 Mg Tablet) 100 mg PO BEDTIME REPLACED BY [facility] Labs CBC & Chem 7: 06/02/21 08:10 06/02/21 08:10 Labs: Laboratory Results - last 24 hr 06/01/21 06/01/21 06/01/21 17:08 17:08 17:08 MCV 83.5 MCH 25.7 L MCHC 30.8 L RDW 13.3 Plt Count 365 MPV 11.4 Immature Gran % (Auto) 0.4 Neut % (Auto) 89.9 H Lymph % (Auto) 2.9 L [place] % (Auto) 5.2 Eos % (Auto) 1.3 Baso % (Auto) 0.3 Lymph # (Auto) 0.5 L [place] # (Auto) 1.0 Eos # (Auto) 0.2 Baso # (Auto) 0.1 Abs Immat Gran (auto) 0.08 H Absolute Neuts (auto) 16.3 H Absolute Nucleated RBC 0.000 Nucleated RBC % (auto) 0.0 Smear Tech's Comments VBG pH VBG pCO2 VBG pO2 VBG HCO3 VBG O2 Saturation VBG Base Excess Anion Gap Estim Creat Clear Calc Estimated GFR POC Glucose Random Glucose Lactic Acid 0.7 Calcium Magnesium Total Bilirubin Direct Bilirubin AST ALT Alkaline Phosphatase Troponin I High Sens 5.4 Total Protein Albumin Urine Color Urine Appearance Urine pH Ur Specific [place] Urine Protein Urine Glucose (UA) Urine Ketones Urine Blood Urine Nitrite Ur Leukocyte Esterase Urine RBC Urine WBC Ur Squamous Epith Cells Urine Bacteria Urine Mucus Acetone, Qual COVID-19 (VIVEK) COVID-19 Clin Com 06/01/21 06/01/21 06/01/21 17:08 17:09 17:09 MCV MCH MCHC RDW Plt Count MPV Immature Gran % (Auto) Neut % (Auto) Lymph % (Auto) [place] % (Auto) Eos % (Auto) Baso % (Auto) Lymph # (Auto) [place] # (Auto) Eos # (Auto) Baso # (Auto) Abs Immat Gran (auto) Absolute Neuts (auto) Absolute Nucleated RBC Nucleated RBC % (auto) Smear Tech's Comments VBG pH VBG pCO2 VBG pO2 VBG HCO3 VBG O2 Saturation VBG Base Excess Anion Gap 17 Estim Creat Clear Calc 39.9 Estimated GFR 30 POC Glucose Random Glucose 228 H Lactic Acid Calcium 9.5 Magnesium 1.5 L Total Bilirubin 0.3 Direct Bilirubin 0.2 AST 20 ALT 16 Alkaline Phosphatase 113 Troponin I High Sens Total Protein 7.7 Albumin 3.9 Urine Color Urine Appearance Urine pH Ur Specific [place] Urine Protein Urine Glucose (UA) Urine Ketones Urine Blood Urine Nitrite Ur Leukocyte Esterase Urine RBC Urine WBC Ur Squamous Epith Cells Urine Bacteria Urine Mucus Acetone, Qual Negative COVID-19 (VIVEK) Negative COVID-19 Clin Com See Note 06/01/21 06/01/21 06/01/21 17:20 19:53 19:53 MCV MCH MCHC RDW Plt Count MPV Immature Gran % (Auto) Neut % (Auto) Lymph % (Auto) [place] % (Auto) Eos % (Auto) Baso % (Auto) Lymph # (Auto) [place] # (Auto) Eos # (Auto) Baso # (Auto) Abs Immat Gran (auto) Absolute Neuts (auto) Absolute Nucleated RBC Nucleated RBC % (auto) Smear Tech's Comments VBG pH 7.45 H VBG pCO2 33 VBG pO2 95 VBG HCO3 23 VBG O2 Saturation 98.0 VBG Base Excess 0.0 Anion Gap 19 Estim Creat Clear Calc 36.0 Estimated GFR 27 POC Glucose Random Glucose 271 H Lactic Acid Calcium 9.3 Magnesium 1.5 L Total Bilirubin 0.3 Direct Bilirubin < 0.2 AST 18 ALT 14 Alkaline Phosphatase 105 Troponin I High Sens 6.2 Total Protein 7.4 Albumin 3.7 Urine Color Urine Appearance Urine pH Ur Specific [place] Urine Protein Urine Glucose (UA) Urine Ketones Urine Blood Urine Nitrite Ur Leukocyte Esterase Urine RBC Urine WBC Ur Squamous Epith Cells Urine Bacteria Urine Mucus Acetone, Qual COVID-19 (VIVEK) COVID-19 Clin Com 06/01/21 06/01/21 06/02/21 20:05 20:53 00:22 MCV MCH MCHC RDW Plt Count MPV Immature Gran % (Auto) Neut % (Auto) Lymph % (Auto) [place] % (Auto) Eos % (Auto) Baso % (Auto) Lymph # (Auto) [place] # (Auto) Eos # (Auto) Baso # (Auto) Abs Immat Gran (auto) Absolute Neuts (auto) Absolute Nucleated RBC Nucleated RBC % (auto) Smear Tech's Comments VBG pH VBG pCO2 VBG pO2 VBG HCO3 VBG O2 Saturation VBG Base Excess Anion Gap Estim Creat Clear Calc Estimated GFR POC Glucose 257 H 276 H Random Glucose Lactic Acid Calcium Magnesium Total Bilirubin Direct Bilirubin AST ALT Alkaline Phosphatase Troponin I High Sens Total Protein Albumin Urine Color YELLOW Urine Appearance HAZY Urine pH 5.5 Ur Specific [place] 1.015 Urine Protein TRACE Urine Glucose (UA) NEG Urine Ketones NEG Urine Blood 2+ H Urine Nitrite NEG Ur Leukocyte Esterase 2+ H Urine RBC 1-4 Urine WBC 15-29 H Ur Squamous Epith Cells 2+ Urine Bacteria 2+ Urine Mucus 1+ Acetone, Qual COVID-19 (VIVEK) COVID-19 Clin Com 06/02/21 06/02/21 06/02/21 07:27 08:10 08:10 MCV 84.8 MCH 25.7 L MCHC 30.3 L RDW 13.3 Plt Count 366 MPV 11.6 Immature Gran % (Auto) 0.5 H Neut % (Auto) 91.6 H Lymph % (Auto) 3.5 L [place] % (Auto) 4.0 Eos % (Auto) 0.2 Baso % (Auto) 0.2 Lymph # (Auto) 0.6 L [place] # (Auto) 0.6 Eos # (Auto) 0.0 Baso # (Auto) 0.0 Abs Immat Gran (auto) 0.08 H Absolute Neuts (auto) 14.5 H Absolute Nucleated RBC 0.000 Nucleated RBC % (auto) 0.0 Smear Tech's Comments VERIFIED VBG pH VBG pCO2 VBG pO2 VBG HCO3 VBG O2 Saturation VBG Base Excess Anion Gap 13 Estim Creat Clear Calc 27.2 Estimated GFR 19 POC Glucose 208 H Random Glucose 218 H Lactic Acid Calcium 9.1 Magnesium Total Bilirubin Direct Bilirubin AST ALT Alkaline Phosphatase Troponin I High Sens Total Protein Albumin Urine Color Urine Appearance Urine pH Ur Specific [place] Urine Protein Urine Glucose (UA) Urine Ketones Urine Blood Urine Nitrite Ur Leukocyte Esterase Urine RBC Urine WBC Ur Squamous Epith Cells Urine Bacteria Urine Mucus Acetone, Qual COVID-19 (VIVEK) COVID-19 Clin Com 06/02/21 11:23 MCV MCH MCHC RDW Plt Count MPV Immature Gran % (Auto) Neut % (Auto) Lymph % (Auto) [place] % (Auto) Eos % (Auto) Baso % (Auto) Lymph # (Auto) [place] # (Auto) Eos # (Auto) Baso # (Auto) Abs Immat Gran (auto) Absolute Neuts (auto) Absolute Nucleated RBC Nucleated RBC % (auto) Smear Tech's Comments VBG pH VBG pCO2 VBG pO2 VBG HCO3 VBG O2 Saturation VBG Base Excess Anion Gap Estim Creat Clear Calc Estimated GFR POC Glucose 136 H Random Glucose Lactic Acid Calcium Magnesium Total Bilirubin Direct Bilirubin AST ALT Alkaline Phosphatase Troponin I High Sens Total Protein Albumin Urine Color Urine Appearance Urine pH Ur Specific [place] Urine Protein Urine Glucose (UA) Urine Ketones Urine Blood Urine Nitrite Ur Leukocyte Esterase Urine RBC Urine WBC Ur Squamous Epith Cells Urine Bacteria Urine Mucus Acetone, Qual COVID-19 (VIVEK) COVID-19 Clin Com Microbiology Microbiology Results: Microbiology 06/01/21 Unknown Urine Culture - Preliminary Urine clean catch - Clean Catch Midstream Gram negative ricky Assessment and Plan (1) Pyelonephritis: Status: Acute (2) DWAINE (acute kidney injury): Status: Acute (3) Hx of kidney transplant: Status: Acute (4) Diabetes: Status: Acute Assessment and Plan: ?45-year-old female with a past medical history of hypertension, hyperlipidemia, diabetes, diabetic retinopathy with resulting visual loss, diabetic neuropathy, history of right BKA, migraine headaches, GERD, anxiety, depression, gastroparesis, history of renal insufficiency status post kidney transplant in [address] ([address] Foley) on chronic prednisone, tacrolimus, mycophenolate, migraine headaches, fibromyalgia presented to the hospital with a chief complaint of right flank pain.? Admitted for pyelonephritis. Pyelonephritis urine growing GNR continue rocephin, follow up final cutlures, ID following mild hydro [place], no significant PVR, eval DWAINE in [place] with renal transplant IVF, allen, monitor bmp, antirejection meds and level, nephrology following insulin DVT prophylaxis:? Lovenox Code status:? Full code - discussed with patient and confirmed, no longer DNR/DNI as mentioned in [facility] Quality Stroke Does the patient have a stroke diagnosis?: No VTE Prior VTE?: No VTE Risk Level:: Medical - moderate - high VTE Device Contraindication: Treatment Not Indicated VTE Drug Contraindication: N/A - Med Ordered
[2021-06-02] MEDS: HYDROmorphone HCl 2 MG TABLET PO (15:37)
[2021-06-02 16:30] LABS: Glucose, Whole Blood 246 mg/dL (60-115)
[2021-06-02] MEDS: cefTRIAXone sodium 1 GM in 0.9 % Sodium Chloride 50 ML IV (16:35)
[2021-06-02] MEDS: Omeprazole 20 MG CAPSULE.DR PO (16:35)
[2021-06-02 19:52] LABS: Glucose, Whole Blood 371 mg/dL (60-115)
[2021-06-02] MEDS: Tacrolimus 1 MG CAPSULE 5 MG PO (20:56)
[2021-06-02] MEDS: traZODone HCL 100 MG TABLET PO (20:57)
[2021-06-02] MEDS: HYDROmorphone HCl 0.5 MG/0.5 ML SYRINGE 1.5 MG IVPUSH (21:07)
[2021-06-03] VITALS (9 sets, daily range): BP systolic 113–168; BP diastolic 53–81; PULSE 78–88; RESP 18–19; TEMP 36.3–37.1; O2SAT 90–97
[2021-06-03] MEDS: 0.9 % Sodium Chloride 1,000 ML 100 ML IVCONT ×3 (00:28→14:53)
[2021-06-03] MEDS: 0.9 % Sodium Chloride Flush 3 ML SYRINGE IVFLUSH ×3 (00:30→15:09)
[2021-06-03] MEDS: HYDROmorphone HCl 0.5 MG/0.5 ML SYRINGE 1.5 MG IVPUSH ×6 (00:42→20:42)
[2021-06-03] MEDS: Heparin Sodium,Porcine 5,000 UNIT/ML VIAL 5000 UNIT SUBCUT ×3 (04:58→20:46)
[2021-06-03] MEDS: bisacodyL 10 MG SUPP.RECT PR (05:06)
[2021-06-03 06:09] LABS: Hematocrit 31.1 % (37-47); Hemoglobin 9.2 g/dl (12.0-16.0); Mean Corpuscular HGB Conc 29.6 g/dl (31.0-35.0); Mean Corpuscular Hemoglobin 25.6 pg (27.0-33.0); Mean Corpuscular Volume 86.4 fL (80-98); Mean Platelet Volume 11.5 fL (9.4-12.3); Platelet Count 330 X10*3/uL (160-400); Red Cell Distribution Width 13.5 % (11.0-16.0); White Blood Count 10.4 X10*3/uL (4.8-10.8)
[2021-06-03 06:27] LABS: Anion Gap 19 (12-20); Blood Urea Nitrogen 57 mg/dL (9-16); Carbon Dioxide 19 mmol/L (22-29); Chloride 103 mmol/L (96-108); Creatinine Clr Calc Pharmacy 32.9; Estimated Glomerular Filt Rate 24; Glucose Fasting 251 mg/dL (60-99); Potassium 4.5 mmol/L (3.3-5.1); Sodium 136 mmol/L (135-145)
[2021-06-03 07:24] LABS: Glucose, Whole Blood 242 mg/dL (60-115)
[2021-06-03] MEDS: Insulin Glargine,Hum.rec.anlog 100 UNIT/ML 10 ML VIAL 20 UNIT SUBCUT (08:09)
[2021-06-03] MEDS: carvediloL 25 MG TABLET PO ×2 (08:51→20:47)
[2021-06-03] MEDS: Gabapentin 400 MG CAPSULE PO ×3 (08:51→20:47)
[2021-06-03] MEDS: mycophenolate mofetiL 250 MG CAPSULE 500 MG PO ×2 (08:51→20:47)
[2021-06-03] MEDS: Aspirin Enteric Coated 81 MG TABLET.DR PO (08:51)
[2021-06-03] MEDS: predniSONE 5 MG TABLET PO (08:52)
[2021-06-03] MEDS: Tacrolimus 1 MG CAPSULE 5 MG PO ×2 (08:53→20:47)
[2021-06-03] MEDS: Folic Acid 1 MG TABLET PO (08:53)
[2021-06-03] MEDS: Multivitamin TABLET 1 TAB PO (08:53)
--- NOTE | 2021-06-03 10:12 | MHC.CM.PN ---
HCP NOW ON FILE. ANDRES REYNOLDS ([phone]). DC PLAN REMAINS RETURN TO [facility] VIA S
[2021-06-03 11:11] LABS: Tacrolimus Prograf 9.8 mcg/L
[2021-06-03 11:13] LABS: Glucose, Whole Blood 278 mg/dL (60-115)
--- NOTE | 2021-06-03 12:32 | PM.UROCN ---
History of Present Illness Consult details Consult date: 06/02/21 Narrative: Sia is a 45-year-old female Transplant kidney Admitted with question of pyelonephritis and hydronephrosis Blum catheter placed for distended bladder Recommendation to check kidney 24 hours after catheter placement with ultrasound to see if hydronephrosis has resolved Decline in bladder function may represent diabetes progression Review of Systems Constitutional: Constitutional: Denies chills and Denies fever(s) Cardiovascular: Cardiovascular: Reports no additional cardiovascular complaints and Denies syncope Respiratory: Respiratory: Denies cough Gastrointestinal: Gastrointestinal: Denies abdominal pain and Denies heartburn Genitourinary: Genitourinary: Reports as per HPI and Denies change in libido Neurologic: Denies syncope Psychiatric: Psychiatric: Denies change in libido Endocrine: Endocrine: Denies change in libido [facility] Past Medical History Medical History Arthritis Blind Diabetes Gastroparesis HTN (hypertension) Surgical History Surgical History History of amputation Renal transplant, status post Social History Social History Housing: Retirement Patient Tobacco Use Status: Never used Tobacco Advance Directives Date on File: 06/01/21 service: No Current occupational status: disabled Meds Allergies Allergy/AdvReac Type Severity Reaction Status Date / Time amitriptyline Allergy Unknown UNKNOWN Verified 06/01/21 15:07 cephalexin Allergy Unknown UNKNOWN Verified 06/01/21 15:07 ciprofloxacin Allergy Unknown UNKNOWN Verified 06/01/21 15:07 famotidine [Pepcid] Allergy Unknown Unknown Verified 06/01/21 15:07 fluoxetine Allergy Unknown UNKNOWN Verified 06/01/21 15:07 ibuprofen [From ADVIL] Allergy Unknown ANXIETY Verified 06/01/21 15:07 Penicillins [PENICILLINS] Allergy Unknown HIVES Verified 06/01/21 15:07 codeine AdvReac Unknown N/V Verified 06/01/21 15:07 diphenhydramine [Advil PM] AdvReac Unknown anxiety Verified 06/01/21 15:07 metoclopramide AdvReac Unknown AGITATION,I Verified 06/01/21 15:07 TCHING morphine AdvReac Unknown N/V, Verified 06/01/21 15:07 anxiety tramadol AdvReac Unknown ANXIETY Verified 06/01/21 15:07 zolpidem [Ambien] AdvReac Unknown anxiety Verified 01/17/18 00:00 cephalexin Allergy Unknown Unknown Uncoded 06/01/21 15:07 ciproflaxacin Allergy Unknown Unknown Uncoded 06/01/21 15:07 From Ambien AdvReac Severe AGITATION Uncoded 05/07/20 15:50 Active Medications: Current Medications Acetaminophen (Acetaminophen 325 Mg Tablet) 650 mg PO Q6H PRN PRN Reason: Pain, Mild (Pain Scale 1-3) Aspirin (Aspirin Enteric Coated 81 Mg Tablet.) 81 mg PO DAILY COUNT INCLUDES THE [facility] Last Admin: 06/03/21 08:51 Dose: 81 mg Documented by: Bisacodyl (Bisacodyl 10 Mg Supp.Rect) 10 mg [place] DAILY PRN PRN Reason: Constipation Last Admin: 06/03/21 05:06 Dose: 10 mg Documented by: Carvedilol (Carvedilol 25 Mg Tablet) 25 mg PO BID COUNT INCLUDES THE [facility]; Protocol Last Admin: 06/03/21 08:51 Dose: 25 mg Documented by: Dextrose (Dextrose 50 % 25 Gm/50 Ml Vial) 25 gm IVPUSH Q15M PRN; Protocol PRN Reason: per Hypoglycemia Standing Ord. Duloxetine HCl (Duloxetine Hcl 60 Mg Capsule.) 60 mg PO DAILY COUNT INCLUDES THE [facility] Last Admin: 06/03/21 08:52 Dose: Not Given Documented by: Folic Acid (Folic Acid 1 Mg Tablet) 1 mg PO DAILY COUNT INCLUDES THE [facility] Last Admin: 06/03/21 08:53 Dose: 1 mg Documented by: Gabapentin (Gabapentin 400 Mg Capsule) 400 mg PO TID COUNT INCLUDES THE [facility] Last Admin: 06/03/21 08:51 Dose: 400 mg Documented by: Glucose (Glucose Gel 15 Gm Gel..Gram.) 15 gm PO Q15M PRN; Protocol PRN Reason: per Hypoglycemia Standing Ord. Heparin Sodium (Porcine) (Heparin Sodium,Porcine 5,000 Unit/Ml Vial) 5,000 unit SUBCUT Q8H COUNT INCLUDES THE [facility] Last Admin: 06/03/21 04:58 Dose: 5,000 unit Documented by: Hydromorphone HCl (Hydromorphone Hcl 2 Mg Tablet) 2 mg PO Q6H PRN PRN Reason: Pain (Scale Score 7-10) Last Admin: 06/02/21 15:37 Dose: 2 mg Documented by: Hydromorphone HCl (Hydromorphone Hcl 4 Mg Tablet) 4 mg PO Q6H PRN PRN Reason: Pain (Scale Score 7-10) Last Admin: 06/02/21 15:36 Dose: 4 mg Documented by: Hydromorphone HCl (Hydromorphone Hcl 0.5 Mg/0.5 Ml Syringe) 1.5 mg IVPUSH Q3H PRN; Protocol PRN Reason: Breakthrough Pain Last Admin: 06/03/21 08:50 Dose: 1.5 mg Documented by: Sodium Chloride (Ns) 1,000 mls @ 100 mls/hr IVCONT .Q10H COUNT INCLUDES THE [facility] Last Admin: 06/03/21 04:45 Dose: 100 mls/hr Documented by: Ceftriaxone Sodium 1 gm/ (Sodium Chloride) 50 mls @ 100 mls/hr IV Q24H COUNT INCLUDES THE [facility] Last Infusion: 06/02/21 17:33 Dose: Infused Documented by: Insulin Glargine (Insulin Glargine,Hum.Rec.Anlog 100 Unit/Ml 10 Ml Vial) 20 unit SUBCUT DAILY COUNT INCLUDES THE [facility] Last Admin: 06/03/21 08:09 Dose: 20 unit Documented by: Insulin Human Lispro (Insulin Lispro 100 Unit/Ml 3 Ml Vial) 0 unit SUBCUT QIDACHS COUNT INCLUDES THE [facility]; Protocol Last Admin: 06/03/21 11:57 Dose: Not Given Documented by: Melatonin (Melatonin 3 Mg Tablet) 6 mg PO BEDTIME PRN PRN Reason: Insomnia Multivitamins/Vitamin C (Multivitamin Tablet) 1 tab PO DAILY COUNT INCLUDES THE [facility] Last Admin: 06/03/21 08:53 Dose: 1 tab Documented by: Mycophenolate Mofetil (Mycophenolate Mofetil 250 Mg Capsule) 500 mg PO BID COUNT INCLUDES THE [facility] Last Admin: 06/03/21 08:51 Dose: 500 mg Documented by: Omeprazole (Omeprazole 20 Mg Capsule.) 20 mg PO DAILY@1630 COUNT INCLUDES THE [facility] Last Admin: 06/02/21 16:35 Dose: 20 mg Documented by: Pharmacy Consult (Consult Rx Perform Med Rec) 1 each MISCELLANE ONCE PRN PRN Reason: Consult order Prednisone (Prednisone 5 Mg Tablet) 5 mg PO DAILY COUNT INCLUDES THE [facility] Last Admin: 06/03/21 08:52 Dose: 5 mg Documented by: Senna (Sennosides 8.6 Mg Tablet) 17.2 mg PO BEDTIME PRN PRN Reason: Constipation Last Admin: 06/02/21 00:38 Dose: 17.2 mg Documented by: Simethicone (Simethicone 80 Mg Tab.Chew) 80 mg PO Q6H PRN PRN Reason: Gas Last Admin: 06/02/21 10:22 Dose: 80 mg Documented by: Sodium Chloride (0.9 % Sodium Chloride Flush 3 Ml Syringe) 3 ml IVFLUSH QSHIFT COUNT INCLUDES THE [facility] Last Admin: 06/03/21 08:54 Dose: 3 ml Documented by: Tacrolimus (Tacrolimus 1 Mg Capsule) 5 mg PO BID COUNT INCLUDES THE [facility] Last Admin: 06/03/21 08:53 Dose: 5 mg Documented by: Trazodone HCl (Trazodone Hcl 100 Mg Tablet) 100 mg PO BEDTIME COUNT INCLUDES THE [facility] Last Admin: 06/02/21 20:57 Dose: 100 mg Documented by: Home Medications Medication Instructions Recorded Confirmed Last Taken Type acetaminophen 325 mg tablet 650 mg PO Q6H PRN 06/01/21 06/01/21 Unknown History amlodipine 10 mg tablet 1 tab PO DAILY 06/01/21 06/01/21 Unknown History aspirin 81 mg tablet,delayed 81 mg PO DAILY 06/01/21 06/01/21 Unknown History release bisacodyl 10 mg rectal suppository 10 mg [place] DAILY PRN 06/01/21 06/01/21 Unknown History (Dulcolax (bisacodyl)) carvedilol 25 mg tablet 1 tab PO BID 06/01/21 06/01/21 Unknown History duloxetine 60 mg capsule,delayed 1 cap PO DAILY 06/01/21 06/01/21 Unknown History release ferrous sulfate 325 mg (65 mg 1 tab PO BID 06/01/21 06/01/21 Unknown History iron) tablet,delayed release folic acid 1 mg tablet 1 tab PO DAILY 06/01/21 06/01/21 Unknown History furosemide 40 mg tablet 1 tab PO BID 06/01/21 06/01/21 Unknown History gabapentin 400 mg capsule 1 cap PO TID 06/01/21 06/01/21 Unknown History glucose 15 g PO Q15M PRN 06/01/21 06/01/21 Unknown History hydromorphone 2 mg tablet 2 mg PO QID 06/01/21 06/01/21 Unknown History hydromorphone 2 mg tablet 2 mg PO Q6H PRN 06/01/21 06/01/21 Unknown History (Dilaudid) hydromorphone 4 mg tablet 4 mg PO QID 06/01/21 06/01/21 Unknown History hydromorphone 4 mg tablet 4 mg PO Q6H PRN 06/01/21 06/01/21 Unknown History (Dilaudid) insulin aspart U-100 100 unit/mL See Protocol SUBCUT TIDAC 06/01/21 06/01/21 Unknown History subcutaneous solution insulin aspart U-100 100 unit/mL 4 unit SUBCUT DAILY 06/01/21 06/01/21 Unknown History subcutaneous solution (Novolog U-100 Insulin aspart) insulin glargine 100 unit/mL 20 unit SUBCUT BEDTIME 06/01/21 06/01/21 Unknown History subcutaneous solution (Lantus U-100 Insulin) multivitamin 1 tab PO DAILY 06/01/21 06/01/21 Unknown History mycophenolate mofetil 500 mg tablet 2 tab PO BID 06/01/21 06/01/21 Unknown History ondansetron HCl 4 mg tablet 1 tab PO Q8H PRN 06/01/21 06/01/21 Unknown History pantoprazole 20 mg tablet,delayed 1 tab PO DAILY@1630 06/01/21 06/01/21 Unknown History release prednisone 5 mg tablet 1 tab PO DAILY 06/01/21 06/01/21 Unknown History simethicone 80 mg chewable tablet 80 mg PO Q6H PRN 06/01/21 06/01/21 Unknown History tacrolimus 5 mg capsule, 1 cap PO BID 06/01/21 06/01/21 Unknown History immediate-release trazodone 100 mg tablet 1 tab PO BEDTIME 06/01/21 06/01/21 Unknown History Physical Exam Vital Signs: Vital Signs: Last Vital Signs Temp 97.8 F 06/03/21 11:15 Pulse 78 06/03/21 11:15 Resp 18 06/03/21 11:15 BP 140/64 H 06/03/21 11:15 Pulse Ox 94 06/03/21 11:15 Body Mass Index 26.1 Const: General: cooperative, healthy appearing, comfortable and no acute distress Orientation/consciousness: patient oriented x3 HENMT: Face and sinus: Yes normal facial exam Mouth: moist mucous membranes Neck: Neck: Yes normal visual inspection, Yes full ROM and Yes trachea midline Chest: Chest palpation & inspection: normal inspection of the chest Resp: Effort & Inspection: normal respiratory effort, able to speak in complete sentences and no respiratory distress GI: Inspection: Yes normal to inspection Back/Spine/Pelvis: Cervical Spine: normal cervical lordosis Thoracic/Lumbar Spine: thoracic and lumbar spine normal to inspection Skin: General skin exam: no rashes or lesions noted Neuro: General: patient oriented x3, gait normal, tone normal and moves all extremities Extrem: General: Yes normal to inspection and Yes capillary refill normal Results Labs Result diagrams: 06/03/21 05:55 06/03/21 05:55 Labs: Abnormal lab results 06/02/21 06/02/21 06/03/21 Range/Units 16:25 19:47 05:55 RBC 3.60 L (4.20-5.50) X10*6/uL Hgb 9.2 L (12.0-16.0) g/dl Hct 31.1 L (37-47) % MCH 25.6 L (27.0-33.0) pg MCHC 29.6 L (31.0-35.0) g/dl Carbon Dioxide (22-29) mmol/L BUN (9-16) mg/dL Creatinine (0.5-1.4) mg/dL POC Glucose 246 H 371 H* (60-115) mg/dL Fasting Glucose (60-99) mg/dL 06/03/21 06/03/21 06/03/21 Range/Units 05:55 07:15 11:09 RBC (4.20-5.50) X10*6/uL Hgb (12.0-16.0) g/dl Hct (37-47) % MCH (27.0-33.0) pg MCHC (31.0-35.0) g/dl Carbon Dioxide 19 L (22-29) mmol/L BUN 57 H (9-16) mg/dL Creatinine 2.19 H (0.5-1.4) mg/dL POC Glucose 242 H 278 H (60-115) mg/dL Fasting Glucose 251 H (60-99) mg/dL Short CBC 06/03/21 Range/Units 05:55 WBC 10.4 (4.8-10.8) X10*3/uL Hgb 9.2 L (12.0-16.0) g/dl Hct 31.1 L (37-47) % Plt Count 330 (160-400) X10*3/uL BMP 06/03/21 05:55 Sodium 136 Potassium 4.5 Chloride 103 Carbon Dioxide 19 L BUN 57 H Creatinine 2.19 H Calcium 9.0 Urine 06/01/21 Range/Units 20:53 Urine Color YELLOW Urine Appearance HAZY Urine pH 5.5 (5.0-8.0) Ur Specific [place] 1.015 (1.005-1.025) Urine Protein TRACE (NEG-TRACE) MG/DL Urine Glucose (UA) NEG (NEG) MG/DL All other labs normal. Assessment and Plan (1) Pyelonephritis: Status: Acute (2) Hydronephrosis: Status: Acute Repeat ultrasound after 24 hours of Blum catheter drainage Procedures Date of Service Date of Service: 06/02/21
--- NOTE | 2021-06-03 13:36 | HO.PM.IMPN ---
Subjective Subjective Date of Service: 06/03/21 Interval History: cc: flank pain interval history: pain improving Cardiovascular Cardiovascular: Reports no additional cardiovascular complaints Respiratory Respiratory: Reports no additional respiratory complaints Physical Exam Vital Signs: Vital Signs: Last Vital Signs Temp 97.8 F 06/03/21 11:15 Pulse 78 06/03/21 11:15 Resp 18 06/03/21 11:15 BP 140/64 H 06/03/21 11:15 Pulse Ox 94 06/03/21 11:15 Body Mass Index 26.1 General: AO X 3, no acute distress, visually impaired Resp:? CTA bilateral, no accessory muscles used CVS: S1,S2,RRR GI: soft, non tender, non distended Neuro:? motor grossly intact, alert Psych: appropriate affect, appropriate insight? ext: right bka Objective Data Active Medications Acetaminophen (Acetaminophen 325 Mg Tablet) 650 mg PO Q6H PRN PRN Reason: Pain, Mild (Pain Scale 1-3) Aspirin (Aspirin Enteric Coated 81 Mg Tablet.) 81 mg PO DAILY [facility] Last Admin: 06/03/21 08:51 Dose: 81 mg Documented by: JOHN Bisacodyl (Bisacodyl 10 Mg Supp.Rect) 10 mg DE DAILY PRN PRN Reason: Constipation Last Admin: 06/03/21 05:06 Dose: 10 mg Documented by: FIORDALIZA Carvedilol (Carvedilol 25 Mg Tablet) 25 mg PO BID [facility]; Protocol Last Admin: 06/03/21 08:51 Dose: 25 mg Documented by: JOHN Dextrose (Dextrose 50 % 25 Gm/50 Ml Vial) 25 gm IVPUSH Q15M PRN; Protocol PRN Reason: per Hypoglycemia Standing Ord. Duloxetine HCl (Duloxetine Hcl 60 Mg Capsule.) 60 mg PO DAILY [facility] Last Admin: 06/03/21 08:52 Dose: Not Given Documented by: JOHN Non-Admin Reason: Patient Refused Folic Acid (Folic Acid 1 Mg Tablet) 1 mg PO DAILY [facility] Last Admin: 06/03/21 08:53 Dose: 1 mg Documented by: JOHN Gabapentin (Gabapentin 400 Mg Capsule) 400 mg PO TID [facility] Last Admin: 06/03/21 08:51 Dose: 400 mg Documented by: JOHN Glucose (Glucose Gel 15 Gm Gel..Gram.) 15 gm PO Q15M PRN; Protocol PRN Reason: per Hypoglycemia Standing Ord. Heparin Sodium (Porcine) (Heparin Sodium,Porcine 5,000 Unit/Ml Vial) 5,000 unit SUBCUT Q8H [facility] Last Admin: 06/03/21 12:40 Dose: 5,000 unit Documented by: JOHN Hydromorphone HCl (Hydromorphone Hcl 2 Mg Tablet) 2 mg PO Q6H PRN PRN Reason: Pain (Scale Score 7-10) Last Admin: 06/02/21 15:37 Dose: 2 mg Documented by: LITTLE Hydromorphone HCl (Hydromorphone Hcl 4 Mg Tablet) 4 mg PO Q6H PRN PRN Reason: Pain (Scale Score 7-10) Last Admin: 06/02/21 15:36 Dose: 4 mg Documented by: LITTLE Hydromorphone HCl (Hydromorphone Hcl 0.5 Mg/0.5 Ml Syringe) 1.5 mg IVPUSH Q3H PRN; Protocol PRN Reason: Breakthrough Pain Last Admin: 06/03/21 12:40 Dose: 1.5 mg Documented by: JOHN Sodium Chloride (Ns) 1,000 mls @ 100 mls/hr IVCONT .Q10H [facility] Last Admin: 06/03/21 04:45 Dose: 100 mls/hr Documented by: FIORDALIZA Ceftriaxone Sodium 1 gm/ (Sodium Chloride) 50 mls @ 100 mls/hr IV Q24H [facility] Last Infusion: 06/02/21 17:33 Dose: 0 mls/hr Documented by: LITTLE Insulin Glargine (Insulin Glargine,Hum.Rec.Anlog 100 Unit/Ml 10 Ml Vial) 20 unit SUBCUT DAILY [facility] Last Admin: 06/03/21 08:09 Dose: 20 unit Documented by: JOHN Insulin Human Lispro (Insulin Lispro 100 Unit/Ml 3 Ml Vial) 0 unit SUBCUT QIDACHS [facility]; Protocol Last Admin: 06/03/21 11:57 Dose: Not Given Documented by: JOHN Non-Admin Reason: Patient Refused Melatonin (Melatonin 3 Mg Tablet) 6 mg PO BEDTIME PRN PRN Reason: Insomnia Multivitamins/Vitamin C (Multivitamin Tablet) 1 tab PO DAILY [facility] Last Admin: 06/03/21 08:53 Dose: 1 tab Documented by: JOHN Mycophenolate Mofetil (Mycophenolate Mofetil 250 Mg Capsule) 500 mg PO BID [facility] Last Admin: 06/03/21 08:51 Dose: 500 mg Documented by: JOHN Omeprazole (Omeprazole 20 Mg Capsule.Dr) 20 mg PO DAILY@1630 [facility] Last Admin: 06/02/21 16:35 Dose: 20 mg Documented by: KANA Pharmacy Consult (Consult Rx Perform Med Rec) 1 each MISCELLANE ONCE PRN PRN Reason: Consult order Prednisone (Prednisone 5 Mg Tablet) 5 mg PO DAILY [facility] Last Admin: 06/03/21 08:52 Dose: 5 mg Documented by: JOHN Senna (Sennosides 8.6 Mg Tablet) 17.2 mg PO BEDTIME PRN PRN Reason: Constipation Last Admin: 06/02/21 00:38 Dose: 17.2 mg Documented by: MARCIE Simethicone (Simethicone 80 Mg Tab.Chew) 80 mg PO Q6H PRN PRN Reason: Gas Last Admin: 06/02/21 10:22 Dose: 80 mg Documented by: CHUCHO Sodium Chloride (0.9 % Sodium Chloride Flush 3 Ml Syringe) 3 ml IVFLUSH QSHIFT [facility] Last Admin: 06/03/21 08:54 Dose: 3 ml Documented by: JOHN Tacrolimus (Tacrolimus 1 Mg Capsule) 5 mg PO BID [facility] Last Admin: 06/03/21 08:53 Dose: 5 mg Documented by: JOHN Trazodone HCl (Trazodone Hcl 100 Mg Tablet) 100 mg PO BEDTIME [facility] Last Admin: 06/02/21 20:57 Dose: 100 mg Documented by: FIORDALIZA Labs CBC & Chem 7: 06/03/21 05:55 06/03/21 05:55 Labs: Laboratory Results - last 24 hr 06/01/21 06/02/21 06/02/21 22:48 16:25 19:47 MCV MCH MCHC RDW Plt Count MPV Absolute Nucleated RBC Nucleated RBC % (auto) Anion Gap Estim Creat Clear Calc Estimated GFR POC Glucose 246 H 371 H* Fasting Glucose Calcium Tacrolimus 9.8 1006/03/21 06/03/21 05:55 05:55 07:15 MCV 86.4 MCH 25.6 L MCHC 29.6 L RDW 13.5 Plt Count 330 MPV 11.5 Absolute Nucleated RBC 0.000 Nucleated RBC % (auto) 0.0 Anion Gap 19 Estim Creat Clear Calc 32.9 Estimated GFR 24 POC Glucose 242 H Fasting Glucose 251 H Calcium 9.0 Tacrolimus 06/03/21 11:09 MCV MCH MCHC RDW Plt Count MPV Absolute Nucleated RBC Nucleated RBC % (auto) Anion Gap Estim Creat Clear Calc Estimated GFR POC Glucose 278 H Fasting Glucose Calcium Tacrolimus Microbiology Microbiology Results: Microbiology 06/01/21 Unknown Urine Culture - Preliminary Urine clean catch - Clean Catch Midstream Gram negative ricky 06/01/21 17:08 Blood Culture - Preliminary Blood - Venous No growth after 24 hours. 06/01/21 16:40 Blood Culture - Preliminary Blood - Venous No growth after 24 hours. Assessment and Plan (1) Pyelonephritis: Status: Acute (2) DWAINE (acute kidney injury): Status: Acute (3) Hx of kidney transplant: Status: Acute (4) Diabetes: Status: Acute Assessment and Plan: ?45-year-old female with a past medical history of hypertension, hyperlipidemia, diabetes, diabetic retinopathy with resulting visual loss, diabetic neuropathy, history of right BKA, migraine headaches, GERD, anxiety, depression, gastroparesis, history of renal insufficiency status post kidney transplant in 2005 ([address] Dr Foley) on chronic prednisone, tacrolimus, mycophenolate, migraine headaches, fibromyalgia presented to the hospital with a chief complaint of right flank pain.? Admitted for pyelonephritis. Pyelonephritis urine growing GNR continue rocephin, follow up final cultures, ID following mild hydro allen replaced, plan for US in 24 hours DWAINE in [place]it[place] with renal transplant IVF, allen, monitor bmp, some improvement today, antirejection meds and level, nephrology following DM insulin DVT prophylaxis:? heparin Code status:? Full code - discussed with patient and confirmed, no longer D[facility] Quality Stroke Does the patient have a stroke diagnosis?: No VTE Prior VTE?: No VTE Risk Level:: Medical - moderate - high VTE Device Contraindication: Treatment Not Indicated VTE Drug Contraindication: N/A - Med Ordered
[2021-06-03] MEDS: cefTRIAXone sodium 1 GM in 0.9 % Sodium Chloride 50 ML IV (15:09)
[2021-06-03] MEDS: Omeprazole 20 MG CAPSULE.DR PO (15:09)
[2021-06-03 16:04] LABS: Glucose, Whole Blood 293 mg/dL (60-115)
[2021-06-03] MEDS: Insulin Lispro 100 UNIT/ML 3 ML VIAL SUBCUT ×2 (16:48→20:47)
--- NOTE | 2021-06-03 18:09 | PC.NURSE ---
Pt POC glucose 242 at 07:15. Refused 07:30 lispro 4 units. Agreeable to taking Lantus 20 units. Pt educated on sliding scale and purpose of amount of insulin recommended. Offered to recheck blood sugar in 1 hour with insulin administration. Pt continued to refuse lispro but agreeable to Lantus 20 units. Pt behavior is irregular with short wait times and reactive. Pt states if my blood sugar gets to 80 I pass out. You're going to find me here unconscious. Pt also states fear that she needs to eat excess breakfast to prevent low blood sugar with insulin administration. Assured pt that we will monitor POC glucose frequently. MD aware. POC glucose 11:09 278. Pt still refused 6 units sliding scale lispro. MD aware. No symptoms of hyperglycemia. Pt POC glucose 293 at 16:00. Pt required re-teaching about sliding scale insulin and ecouragement to take insulin. Pt agreed to take 6 units lispro 16:30. Will continue to monitor. Handoff report stated allen removed overnight. Voiding trial due to void at 13:00. Pt attemped to void on bedside commode with no output. Bladder scan 12:00 showed 292 mL. MD notified. Pt voided 75 mL concentrated urine on commode at 12:30. Post void bladder scan 225 mL. Notified MD and ordered allen insertion, as urology wants allen for 24H. Allen cath inserted 13:00 draining light yellow urine.
--- NOTE | 2021-06-03 18:29 | P.PNNP_ITS ---
Subjective Subjective Date of Service: 06/03/21 Principal diagnosis: dwaine Interval history: Seen and examined, events noted Physical Exam Vital Signs: Vital Signs: Last Vital Signs Temp 98.7 F 06/03/21 15:26 Pulse 84 06/03/21 15:26 Resp 19 06/03/21 15:26 BP 168/69 H 06/03/21 15:26 Pulse Ox 90 L 06/03/21 15:26 Body Mass Index 26.1 Const: Other: ++++++anxious General: cooperative, healthy appearing, com fortable, no acute distress and alert Orientation/consciousness: patient oriented x3 Limitations: no limitations HENMT: Head: Yes normal to inspection Ears: hearing grossly normal bilaterally and TM's normal bilaterally General nose exam: Normal external nose present Face and sinus: Yes normal facial exam Mouth: Normal oral and palatal mucosa present and moist mucous membranes Throat: Yes posterior oropharynx normal 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 General: appearance normal, both eyes and all related structures Neck: Neck: Yes normal visual inspection, Yes full ROM and Yes trachea midline Chest: Chest palpation & inspection: normal inspection of the chest Resp: Effort & Inspection: normal respiratory effort, able to speak in complete sentences and no respiratory distress Auscultation: clear to auscultation bilaterally Cardio: Rate: regular rate Rhythm: regular rhythm Peripheral pulses: Peripheral pulses 2+ throughout GI: Inspection: Yes normal to inspection Palpation (GI): Soft to palpation and nontender Auscultation: normal bowel sounds : General: Yes CVA tenderness (right ) Back/Spine/Pelvis: Other: Mid to right sided back pain and the soft tissue with no midline tenderness Back: CVA tenderness (right ) Cervical Spine: normal cervical lordosis Thoracic/Lumbar Spine: thoracic and lumbar spine normal to inspection Skin: General skin exam: no rashes or lesions noted Neuro: General: patient oriented x3, gait normal, tone normal, moves all extremities, no focal motor deficits and normal sensation to monofilament Cognition (Neuro): normal cognition Speech: No Abnormal speech present Gait exam (Neuro): Normal gait present Motor exam (neuro): 5/5 motor strength present throughout Extrem: General: Yes normal to inspection and Yes capillary refill normal Objective Data Labs CBC & Chem 7: 06/03/21 05:55 06/03/21 05:55 Labs: Laboratory Results - last 24 hr 06/01/21 06/02/21 06/03/21 22:48 19:47 05:55 WBC 10.4 RBC 3.60 L Hgb 9.2 L Hct 31.1 L MCV 86.4 MCH 25.6 L MCHC 29.6 L RDW 13.5 Plt Count 330 MPV 11.5 Absolute Nucleated RBC 0.000 Nucleated RBC % (auto) 0.0 Sodium Potassium Chloride Carbon Dioxide Anion Gap BUN Creatinine Estim Creat Clear Calc Estimated GFR POC Glucose 371 H* Fasting Glucose Calcium Tacrolimus 9.8 06/03/21 06/03/21 06/03/21 05:55 07:15 11:09 WBC RBC Hgb Hct MCV MCH MCHC RDW Plt Count MPV Absolute Nucleated RBC Nucleated RBC % (auto) Sodium 136 Potassium 4.5 Chloride 103 Carbon Dioxide 19 L Anion Gap 19 BUN 57 H Creatinine 2.19 H Estim Creat Clear Calc 32.9 Estimated GFR 24 POC Glucose 242 H 278 H Fasting Glucose 251 H Calcium 9.0 Tacrolimus 06/03/21 15:56 WBC RBC Hgb Hct MCV MCH MCHC RDW Plt Count MPV Absolute Nucleated RBC Nucleated RBC % (auto) Sodium Potassium Chloride Carbon Dioxide Anion Gap BUN Creatinine Estim Creat Clear Calc Estimated GFR POC Glucose 293 H Fasting Glucose Calcium Tacrolimus Microbiology Microbiology Results: Microbiology 06/01/21 Unknown Urine clean catch - Clean Catch Midstream Urine Culture - Preliminary Gram negative ricky 06/01/21 17:08 Blood - Venous Blood Culture - Preliminary No growth after 24 hours. 06/01/21 16:40 Blood - Venous Blood Culture - Preliminary No growth after 24 hours. Procedures Date of Service Date of Service: 06/03/21 Assessment & Plan Assessment and plan (1) Pyelonephritis: Status: Acute (2) DWAINE (acute kidney injury): Status: Acute (3) Hx of kidney transplant: Status: Acute (4) Diabetes: Status: Acute Assessment and Plan: ?1. DWAINE: most c/w UTI w Obs d/t poorly func bladder; Scr grad decr with allen 2. IS: maintained on Tacro/Cellcept/Pred; taco level needs rto be a trrough level and sent to [facility] ( I talked with lab) 3. DM 4. Urinary Retentin with [place] in xplant kidney: urol eval 5. HTN REC: track renal func, UOP, check am tacro level; ABx as noted; allen per Urol Time Spent With Patient Time: Total time spent is greater than 50% in coordination of care (as documented) at patient's floor/unit and/or counseling patient: Progress Note: Quality Stroke Does the patient have a stroke diagnosis?: No
[2021-06-03 20:26] LABS: Glucose, Whole Blood 330 mg/dL (60-115)
[2021-06-03] MEDS: traZODone HCL 100 MG TABLET PO (20:47)
[2021-06-04] MEDS: HYDROmorphone HCl 0.5 MG/0.5 ML SYRINGE 1.5 MG IVPUSH ×7 (00:45→23:37)
[2021-06-04] MEDS: 0.9 % Sodium Chloride 1,000 ML 100 ML IVCONT ×2 (00:49→12:31)
[2021-06-04] MEDS: Heparin Sodium,Porcine 5,000 UNIT/ML VIAL 5000 UNIT SUBCUT ×2 (06:28→15:03)
[2021-06-04 07:19] LABS: Glucose, Whole Blood 237 mg/dL (60-115)
[2021-06-04 07:31] VITALS: BP 161/68; PULSE 87; RESP 18; TEMP 36.8; O2SAT 97
[2021-06-04 07:50] LABS: Anion Gap 12 (12-20); Blood Urea Nitrogen 47 mg/dL (9-16); Calcium 8.9 mg/dL (8.4-10.2); Carbon Dioxide 23 mmol/L (22-29); Chloride 108 mmol/L (96-108); Creatinine Clr Calc Pharmacy 42.8; Estimated Glomerular Filt Rate 33; Glucose Fasting 264 mg/dL (60-99); Potassium 4.1 mmol/L (3.3-5.1); Sodium 139 mmol/L (135-145)
[2021-06-04 08:02] LABS: Hematocrit 29.1 % (37-47); Hemoglobin 8.8 g/dl (12.0-16.0); Mean Corpuscular HGB Conc 30.2 g/dl (31.0-35.0); Mean Corpuscular Hemoglobin 25.7 pg (27.0-33.0); Mean Corpuscular Volume 84.8 fL (80-98); Mean Platelet Volume 11.3 fL (9.4-12.3); Platelet Count 365 X10*3/uL (160-400); Red Blood Count 3.43 X10*6/uL (4.20-5.50); Red Cell Distribution Width 13.6 % (11.0-16.0); White Blood Count 8.4 X10*3/uL (4.8-10.8)
[2021-06-04] MEDS: Insulin Lispro 100 UNIT/ML 3 ML VIAL SUBCUT ×4 (08:09→20:07)
[2021-06-04] MEDS: Insulin Glargine,Hum.rec.anlog 100 UNIT/ML 10 ML VIAL 20 UNIT SUBCUT (08:09)
[2021-06-04] MEDS: Aspirin Enteric Coated 81 MG TABLET.DR PO (09:56)
[2021-06-04] MEDS: mycophenolate mofetiL 250 MG CAPSULE 500 MG PO ×2 (09:57→20:04)
[2021-06-04] MEDS: carvediloL 25 MG TABLET PO ×2 (09:57→20:05)
[2021-06-04] MEDS: Folic Acid 1 MG TABLET PO (09:57)
[2021-06-04] MEDS: Tacrolimus 1 MG CAPSULE 5 MG PO ×2 (09:58→20:04)
[2021-06-04] MEDS: 0.9 % Sodium Chloride Flush 3 ML SYRINGE IVFLUSH (09:58)
[2021-06-04] MEDS: Multivitamin TABLET 1 TAB PO (09:58)
[2021-06-04] MEDS: predniSONE 5 MG TABLET PO (09:58)
[2021-06-04] MEDS: DULoxetine HCl 60 MG CAPSULE.DR PO (09:58)
[2021-06-04] MEDS: Gabapentin 400 MG CAPSULE PO ×3 (09:59→20:05)
--- NOTE | 2021-06-04 11:00 | HO.PM.IMPN ---
Subjective Subjective Date of Service: 06/04/21 Interval History: cc: back pain interval history: complaining of 05/30 back pain, (though appears comfortable when staff not in room) Cardiovascular Cardiovascular: Reports no additional cardiovascular complaints Respiratory Respiratory: Reports no additional respiratory complaints Physical Exam Vital Signs: Vital Signs: Last Vital Signs Temp 98.2 F 06/04/21 07:31 Pulse 87 06/04/21 07:31 Resp 18 06/04/21 07:31 BP 161/68 H 06/04/21 07:31 Pulse Ox 97 06/04/21 07:31 Body Mass Index 26.1 General: AO X 3, no acute distress, visually impaired Resp:? CTA bilateral, no accessory muscles used CVS: S1,S2,RRR GI: soft, non tender, non distended Neuro:? motor grossly intact, alert Psych: appropriate affect, appropriate insight? ext: right bka Objective Data Active Medications Acetaminophen (Acetaminophen 325 Mg Tablet) 650 mg PO Q6H PRN PRN Reason: Pain, Mild (Pain Scale 1-3) Aspirin (Aspirin Enteric Coated 81 Mg Tablet.) 81 mg PO DAILY [facility] Last Admin: 06/04/21 09:56 Dose: 81 mg Documented by: JOHN Bisacodyl (Bisacodyl 10 Mg Supp.Rect) 10 mg DC DAILY PRN PRN Reason: Constipation Last Admin: 06/03/21 05:06 Dose: 10 mg Documented by: FIORDALIZA Carvedilol (Carvedilol 25 Mg Tablet) 25 mg PO BID [facility]; Protocol Last Admin: 06/04/21 09:57 Dose: 25 mg Documented by: JOHN Dextrose (Dextrose 50 % 25 Gm/50 Ml Vial) 25 gm IVPUSH Q15M PRN; Protocol PRN Reason: per Hypoglycemia Standing Ord. Duloxetine HCl (Duloxetine Hcl 60 Mg Capsule.) 60 mg PO DAILY [facility] Last Admin: 06/04/21 09:58 Dose: 60 mg Documented by: JOHN Folic Acid (Folic Acid 1 Mg Tablet) 1 mg PO DAILY [facility] Last Admin: 06/04/21 09:57 Dose: 1 mg Documented by: JOHN Gabapentin (Gabapentin 400 Mg Capsule) 400 mg PO TID [facility] Last Admin: 06/04/21 09:59 Dose: 400 mg Documented by: JOHN Glucose (Glucose Gel 15 Gm Gel..Gram.) 15 gm PO Q15M PRN; Protocol PRN Reason: per Hypoglycemia Standing Ord. Heparin Sodium (Porcine) (Heparin Sodium,Porcine 5,000 Unit/Ml Vial) 5,000 unit SUBCUT Q8H [facility] Last Admin: 06/04/21 06:28 Dose: 5,000 unit Documented by: SINTIA Hydromorphone HCl (Hydromorphone Hcl 2 Mg Tablet) 2 mg PO Q6H PRN PRN Reason: Pain (Scale Score 7-10) Last Admin: 06/02/21 15:37 Dose: 2 mg Documented by: LITTLE Hydromorphone HCl (Hydromorphone Hcl 4 Mg Tablet) 4 mg PO Q6H PRN PRN Reason: Pain (Scale Score 7-10) Last Admin: 06/02/21 15:36 Dose: 4 mg Documented by: LITTLE Hydromorphone HCl (Hydromorphone Hcl 0.5 Mg/0.5 Ml Syringe) 1.5 mg IVPUSH Q3H PRN; Protocol PRN Reason: Breakthrough Pain Last Admin: 06/04/21 09:52 Dose: 1.5 mg Documented by: JOHN Sodium Chloride (Ns) 1,000 mls @ 100 mls/hr IVCONT .Q10H [facility] Last Admin: 06/04/21 00:49 Dose: 100 mls/hr Documented by: SINTIA Ceftriaxone Sodium 1 gm/ (Sodium Chloride) 50 mls @ 100 mls/hr IV Q24H [facility] Last Infusion: 06/03/21 16:43 Dose: 0 mls/hr Documented by: JOHN Insulin Glargine (Insulin Glargine,Hum.Rec.Anlog 100 Unit/Ml 10 Ml Vial) 20 unit SUBCUT DAILY [facility] Last Admin: 06/04/21 08:09 Dose: 20 unit Documented by: JOHN Insulin Human Lispro (Insulin Lispro 100 Unit/Ml 3 Ml Vial) 0 unit SUBCUT QIDACHS [facility]; Protocol Last Admin: 06/04/21 08:09 Dose: 4 unit Documented by: JOHN Melatonin (Melatonin 3 Mg Tablet) 6 mg PO BEDTIME PRN PRN Reason: Insomnia Multivitamins/Vitamin C (Multivitamin Tablet) 1 tab PO DAILY [facility] Last Admin: 06/04/21 09:58 Dose: 1 tab Documented by: JOHN Mycophenolate Mofetil (Mycophenolate Mofetil 250 Mg Capsule) 500 mg PO BID [facility] Last Admin: 06/04/21 09:57 Dose: 500 mg Documented by: JOHN Omeprazole (Omeprazole 20 Mg Capsule.Dr) 20 mg PO DAILY@1630 [facility] Last Admin: 06/03/21 15:09 Dose: 20 mg Documented by: JOHN Pharmacy Consult (Consult Rx Perform Med Rec) 1 each MISCELLANE ONCE PRN PRN Reason: Consult order Prednisone (Prednisone 5 Mg Tablet) 5 mg PO DAILY [facility] Last Admin: 06/04/21 09:58 Dose: 5 mg Documented by: JOHN Senna (Sennosides 8.6 Mg Tablet) 17.2 mg PO BEDTIME PRN PRN Reason: Constipation Last Admin: 06/02/21 00:38 Dose: 17.2 mg Documented by: MARCIE Simethicone (Simethicone 80 Mg Tab.Chew) 80 mg PO Q6H PRN PRN Reason: Gas Last Admin: 06/02/21 10:22 Dose: 80 mg Documented by: CHUCHO Sodium Chloride (0.9 % Sodium Chloride Flush 3 Ml Syringe) 3 ml IVFLUSH QSHIFT [facility] Last Admin: 06/04/21 09:58 Dose: 3 ml Documented by: JOHN Tacrolimus (Tacrolimus 1 Mg Capsule) 5 mg PO BID [facility] Last Admin: 06/04/21 09:58 Dose: 5 mg Documented by: JOHN Trazodone HCl (Trazodone Hcl 100 Mg Tablet) 100 mg PO BEDTIME [facility] Last Admin: 06/03/21 20:47 Dose: 100 mg Documented by: SINTIA Labs CBC & Chem 7: 06/04/21 07:18 06/04/21 07:18 Labs: Laboratory Results - last 24 hr 06/01/21 06/03/21 06/03/21 22:48 11:09 15:56 MCV MCH MCHC RDW Plt Count MPV Absolute Nucleated RBC Nucleated RBC % (auto) Anion Gap Estim Creat Clear Calc Estimated GFR POC Glucose 278 H 293 H Fasting Glucose Calcium Tacrolimus 9.8 06/03/21 06/04/21 06/04/21 20:22 07:14 07:18 MCV 84.8 MCH 25.7 L MCHC 30.2 L RDW 13.6 Plt Count 365 MPV 11.3 Absolute Nucleated RBC 0.000 Nucleated RBC % (auto) 0.0 Anion Gap Estim Creat Clear Calc Estimated GFR POC Glucose 330 H 237 H Fasting Glucose Calcium Tacrolimus 06/04/21 07:18 MCV MCH MCHC RDW Plt Count MPV Absolute Nucleated RBC Nucleated RBC % (auto) Anion Gap 12 Estim Creat Clear Calc 42.8 Estimated GFR 33 POC Glucose Fasting Glucose 264 H Calcium 8.9 Tacrolimus Microbiology Microbiology Results: Microbiology 06/01/21 Unknown Urine Culture - Preliminary Urine clean catch - Clean Catch Midstream Escherichia coli Gram negative ricky 06/01/21 17:08 Blood Culture - Preliminary Blood - Venous No growth after 48 hours. 06/01/21 16:40 Blood Culture - Preliminary Blood - Venous No growth after 48 hours. Assessment and Plan (1) Pyelonephritis: Status: Acute (2) DWAINE (acute kidney injury): Status: Acute (3) Hx of kidney transplant: Status: Acute (4) Diabetes: Status: Acute Assessment and Plan: ?45-year-old female with a past medical history of hypertension, hyperlipidemia, diabetes, diabetic retinopathy with resulting visual loss, diabetic neuropathy, history of right BKA, migraine headaches, GERD, anxiety, depression, gastroparesis, history of renal insufficiency status post kidney transplant in [address] ([address] Foley) on chronic prednisone, tacrolimus, mycophenolate, migraine headaches, fibromyalgia presented to the hospital with a chief complaint of right flank pain.? Admitted for pyelonephritis. Pyelonephritis urine growing pansensitive ecoli and a second GNR - species pending continue rocephin, follow up final cultures, ID following mild hydro allen replaced, follow up US, follow up DWAINE in patient with renal transplant IVF, allen, monitor bmp, some improvement (peak creatinine 2.65, now 1.68) , antirejection meds, nephrology following DM insulin DVT prophylaxis:? heparin Code status:? Full code - discussed with patient and confirmed, no longer DNR/DNI as mentioned in [facility] Quality Stroke Does the patient have a stroke diagnosis?: No VTE Prior VTE?: No VTE Risk Level:: Medical - moderate - high VTE Device Contraindication: Treatment Not Indicated VTE Drug Contraindication: N/A - Med Ordered
[2021-06-04 11:12] LABS: Glucose, Whole Blood 247 mg/dL (60-115)
[2021-06-04 11:17] VITALS: BP 172/69; PULSE 77; RESP 18; TEMP 36.7; O2SAT 95
--- NOTE | 2021-06-04 13:00 | P.PNNP_ITS ---
Subjective Subjective Date of Service: 06/04/21 Principal diagnosis: dwaine Interval history: Seen and examiend, events noted Physical Exam Vital Signs: Vital Signs: Last Vital Signs Temp 98.1 F 06/04/21 11:17 Pulse 77 06/04/21 11:17 Resp 18 06/04/21 11:17 BP 172/69 H 06/04/21 11:17 Pulse Ox 95 06/04/21 11:17 Body Mass Index 26.1 Const: Other: ++++++anxious General: cooperative, healthy appearing, com fortable, no acute distress and alert Orientation/consciousness: patient oriented x3 Limitations: no limitations HENMT: Head: Yes normal to inspection Ears: hearing grossly normal bilaterally and TM's normal bilaterally General nose exam: Normal external nose present Face and sinus: Yes normal facial exam Mouth: Normal oral and palatal mucosa present and moist mucous membranes Throat: Yes posterior oropharynx normal 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 General: appearance normal, both eyes and all related structures Neck: Neck: Yes normal visual inspection, Yes full ROM and Yes trachea midline Chest: Chest palpation & inspection: normal inspection of the chest Resp: Effort & Inspection: normal respiratory effort, able to speak in complete sentences and no respiratory distress Auscultation: clear to auscultation bilaterally Cardio: Rate: regular rate Rhythm: regular rhythm Peripheral pulses: Peripheral pulses 2+ throughout GI: Inspection: Yes normal to inspection Palpation (GI): Soft to palpation and nontender Auscultation: normal bowel sounds : General: Yes CVA tenderness (right ) Back/Spine/Pelvis: Other: Mid to right sided back pain and the soft tissue with no midline tenderness Back: CVA tenderness (right ) Cervical Spine: normal cervical lordosis Thoracic/Lumbar Spine: thoracic and lumbar spine normal to inspection Skin: General skin exam: no rashes or lesions noted Neuro: General: patient oriented x3, gait normal, tone normal, moves all extremities, no focal motor deficits and normal sensation to monofilament Cognition (Neuro): normal cognition Speech: No Abnormal speech present Gait exam (Neuro): Normal gait present Motor exam (neuro): 5/5 motor strength present throughout Extrem: General: Yes normal to inspection and Yes capillary refill normal Objective Data Labs CBC & Chem 7: 06/04/21 07:18 06/04/21 07:18 Labs: Laboratory Results - last 24 hr 06/03/21 06/03/21 06/04/21 15:56 20:22 07:14 WBC RBC Hgb Hct MCV MCH MCHC RDW Plt Count MPV Absolute Nucleated RBC Nucleated RBC % (auto) Sodium Potassium Chloride Carbon Dioxide Anion Gap BUN Creatinine Estim Creat Clear Calc Estimated GFR POC Glucose 293 H 330 H 237 H Fasting Glucose Calcium 06/04/21 06/04/21 06/04/21 07:18 07:18 11:07 WBC 8.4 RBC 3.43 L Hgb 8.8 L Hct 29.1 L MCV 84.8 MCH 25.7 L MCHC 30.2 L RDW 13.6 Plt Count 365 MPV 11.3 Absolute Nucleated RBC 0.000 Nucleated RBC % (auto) 0.0 Sodium 139 Potassium 4.1 Chloride 108 Carbon Dioxide 23 Anion Gap 12 BUN 47 H Creatinine 1.68 H Estim Creat Clear Calc 42.8 Estimated GFR 33 POC Glucose 247 H Fasting Glucose 264 H Calcium 8.9 Microbiology Microbiology Results: Microbiology 06/01/21 Unknown Urine clean catch - Clean Catch Midstream Urine Culture - Preliminary Escherichia coli Gram negative ricky 06/01/21 17:08 Blood - Venous Blood Culture - Preliminary No growth after 48 hours. 06/01/21 16:40 Blood - Venous Blood Culture - Preliminary No growth after 48 hours. Procedures Date of Service Date of Service: 06/04/21 Assessment & Plan Assessment and plan (1) Pyelonephritis: Status: Acute (2) DWAINE (acute kidney injury): Status: Acute (3) Hx of kidney transplant: Status: Acute (4) Diabetes: Status: Acute Assessment and Plan: ?1. DWAINE: most c/w UTI w Obs d/t poorly func bladder; Scr grad decr with allen 2. IS: maintained on Tacro/Cellcept/Pred; taco level needs rto be a trrough level and sent to [facility] ( I talked with lab) 3. DM 4. Urinary Retentin with [place] in xplant kidney: urol eval 5. HTN 6. Back pain: cont major issue REC: cont to track renal func, UOP, check am tacro level; ABx as noted; allen per Urol; consider pain management consult Time Spent With Patient Time: Total time spent is greater than 50% in coordination of care (as documented) at patient's floor/unit and/or counseling patient: Progress Note: Quality Stroke Does the patient have a stroke diagnosis?: No
[2021-06-04 14:53] VITALS: BP 106/53; PULSE 70; RESP 18; TEMP 36.9; O2SAT 97
[2021-06-04] MEDS: HYDROmorphone HCl 2 MG TABLET PO (15:00)
[2021-06-04] MEDS: cefTRIAXone sodium 1 GM in 0.9 % Sodium Chloride 50 ML IV (15:02)
[2021-06-04 15:12] VITALS: BP 169/69; PULSE 84; RESP 18; TEMP 36.8; O2SAT 97
[2021-06-04 16:13] LABS: Glucose, Whole Blood 273 mg/dL (60-115)
[2021-06-04] MEDS: Omeprazole 20 MG CAPSULE.DR PO (16:57)
[2021-06-04 19:26] VITALS: BP 164/86; PULSE 86; RESP 18; TEMP 36.6; O2SAT 94
[2021-06-04 20:00] LABS: Glucose, Whole Blood 225 mg/dL (60-115)
[2021-06-04] MEDS: traZODone HCL 100 MG TABLET PO (20:05)
[2021-06-04 23:26] VITALS: BP 185/88; PULSE 86; RESP 18; TEMP 37.2; O2SAT 96
[2021-06-05 03:47] VITALS: BP 173/86; PULSE 82; RESP 18; TEMP 36.2; O2SAT 95
[2021-06-05] MEDS: HYDROmorphone HCl 0.5 MG/0.5 ML SYRINGE 1.5 MG IVPUSH ×4 (04:03→13:37)
[2021-06-05 05:49] LABS: Hematocrit 30.5 % (37-47); Hemoglobin 9.2 g/dl (12.0-16.0); Mean Corpuscular HGB Conc 30.2 g/dl (31.0-35.0); Mean Corpuscular Hemoglobin 25.1 pg (27.0-33.0); Mean Corpuscular Volume 83.3 fL (80-98); Mean Platelet Volume 11.3 fL (9.4-12.3); Platelet Count 408 X10*3/uL (160-400); Red Blood Count 3.66 X10*6/uL (4.20-5.50); Red Cell Distribution Width 13.5 % (11.0-16.0); White Blood Count 8.3 X10*3/uL (4.8-10.8)
[2021-06-05 06:04] LABS: Anion Gap 12 (12-20); Blood Urea Nitrogen 30 mg/dL (9-16); Calcium 9.2 mg/dL (8.4-10.2); Carbon Dioxide 22 mmol/L (22-29); Chloride 110 mmol/L (96-108); Creatinine Clr Calc Pharmacy 58.1; Estimated Glomerular Filt Rate 47; Glucose Fasting 327 mg/dL (60-99); Potassium 4.1 mmol/L (3.3-5.1); Sodium 140 mmol/L (135-145)
[2021-06-05] MEDS: Heparin Sodium,Porcine 5,000 UNIT/ML VIAL 5000 UNIT SUBCUT (06:11)
[2021-06-05 07:35] VITALS: RESP 16
[2021-06-05 07:36] LABS: Glucose, Whole Blood 252 mg/dL (60-115)
[2021-06-05 07:52] VITALS: BP 166/82; PULSE 79; RESP 18; TEMP 36.2; O2SAT 97
[2021-06-05 07:54] VITALS: BP 166/82; PULSE 79
[2021-06-05] MEDS: Tacrolimus 1 MG CAPSULE 5 MG PO (07:54)
[2021-06-05] MEDS: mycophenolate mofetiL 250 MG CAPSULE 500 MG PO (07:54)
[2021-06-05] MEDS: DULoxetine HCl 60 MG CAPSULE.DR PO (07:54)
[2021-06-05] MEDS: predniSONE 5 MG TABLET PO (07:54)
[2021-06-05] MEDS: carvediloL 25 MG TABLET PO (07:54)
[2021-06-05] MEDS: Gabapentin 400 MG CAPSULE PO ×2 (07:55→15:31)
[2021-06-05] MEDS: Folic Acid 1 MG TABLET PO (07:55)
[2021-06-05] MEDS: Multivitamin TABLET 1 TAB PO (07:55)
[2021-06-05] MEDS: Aspirin Enteric Coated 81 MG TABLET.DR PO (07:55)
[2021-06-05] MEDS: Insulin Lispro 100 UNIT/ML 3 ML VIAL SUBCUT (07:55)
[2021-06-05] MEDS: Insulin Glargine,Hum.rec.anlog 100 UNIT/ML 10 ML VIAL 20 UNIT SUBCUT (07:55)
[2021-06-05] MEDS: 0.9 % Sodium Chloride Flush 3 ML SYRINGE IVFLUSH (07:56)
[2021-06-05 10:32] LABS: Tacrolimus Prograf 6.7 mcg/L
--- NOTE | 2021-06-05 11:26 | PM.DS ---
DS: Providers Provider Date of Service: 06/05/21 Date of admission: 06/01/21 21:26 Primary care physician: Lino Hendricks MD Consults: 06/01/21 21:28 Consult to Infectious Diseases Routine Consulting Provider: Alessandra Spencer Reason for consultation: pyelonephritis; hx renal transplant; has dwaine as well; received vancomycin; Consult to Nephrology Routine Consulting Provider: Arthur Han Reason for consultation: DWAINE; hx renal transplant Consult to Urology Routine Consulting Provider: Td Mcdaniels Reason for consultation: hydronephrosis; hx renal transplant DS: Diagnosis Discharge Diagnosis (1) Pyelonephritis: Status: Acute (2) DWAINE (acute kidney injury): Status: Acute (3) Hx of kidney transplant: Status: Acute (4) Diabetes: Status: Acute DS: Summary Hospital Course Hospital Course: patient was admitted for flank pain due to pyelonephritis complicated by DWAINE in renal transplant patient due to urinary retention. her urin grew ecoli and klebsiella sensitive to cephalosporins, she was treated with ceftriaxone and will be transitioned to 5 more days of ceftin. patient was noted to have some hydronephrosis on renal imaging, she had allen placed without singificant PVR, however, creatinine did improve significantly from 2.65 to 1.24 at discharge. she was seen by urology, allen was removed. she should however, have retention monitored closely and continue intermittent catheterizations for now. patient is feeling better and will be discharged back to SNF. Time Spent with Patient Time attestation: Total time spent providing and/or coordinating discharge services: Discharge coordination time: Greater than 30 minutes Quality: Stroke Does the patient have a stroke diagnosis?: No Physical Exam Vital Signs: Vital Signs: Last Vital Signs Temp 97.2 F 06/05/21 07:52 Pulse 79 06/05/21 07:54 Resp 18 06/05/21 07:52 BP 166/82 H 06/05/21 07:54 Pulse Ox 97 06/05/21 07:52 Body Mass Index 26.1 General: AO X 3, no acute distress, visually impaired Resp:? CTA bilateral, no accessory muscles used CVS: S1,S2,RRR GI: soft, non tender, non distended Neuro:? motor grossly intact, alert Psych: appropriate affect, appropriate insight? ext: right bka DS: Data Data Completed and Pending Labs on day of discharge: Laboratory Results - last 24 hr 06/04/21 06/04/21 06/04/21 07:18 16:08 19:55 WBC RBC Hgb Hct MCV MCH MCHC RDW Plt Count MPV Absolute Nucleated RBC Nucleated RBC % (auto) Sodium Potassium Chloride Carbon Dioxide Anion Gap BUN Creatinine Estim Creat Clear Calc Estimated GFR POC Glucose 273 H 225 H Fasting Glucose Calcium Tacrolimus 6.7 06/05/21 06/05/21 06/05/21 05:31 05:31 07:19 WBC 8.3 RBC 3.66 L Hgb 9.2 L Hct 30.5 L MCV 83.3 MCH 25.1 L MCHC 30.2 L RDW 13.5 Plt Count 408 H MPV 11.3 Absolute Nucleated RBC 0.000 Nucleated RBC % (auto) 0.0 Sodium 140 Potassium 4.1 Chloride 110 H Carbon Dioxide 22 Anion Gap 12 BUN 30 H Creatinine 1.24 Estim Creat Clear Calc 58.1 Estimated GFR 47 POC Glucose 252 H Fasting Glucose 327 H Calcium 9.2 Tacrolimus Preliminary micro results at discharge 06/01/21 17:08 Blood Culture - Preliminary Blood - Venous No growth after 48 hours. 06/01/21 16:40 Blood Culture - Preliminary Blood - Venous No growth after 48 hours. Discharge Plan Discharge Patient Disposition: [facility] Discharge Diagnosis: dwaine, uti Referrals: Td Mcdaniels MD [Physician] - 1 Week Lino Hendricks MD [Primary Care Provider] - 1 Week Discharge Medications: New cefuroxime axetil 500 mg tablet 500 mg PO Q12H Qty: 10 RF: 0 Continued multivitamin Tablet 1 tab PO DAILY RF: 0 furosemide 40 mg tablet 1 tab PO BID RF: 0 carvedilol 25 mg tablet 1 tab PO BID RF: 0 acetaminophen 325 mg Tablet 650 mg PO Q6H PRN (Reason: fever/pain) RF: 0 Lantus U-100 Insulin 100 unit/mL solution 20 unit subcut BEDTIME RF: 0 ondansetron HCl 4 mg tablet 1 tab PO Q8H PRN (Reason: Nausea) RF: 0 tacrolimus 5 mg capsule 1 cap PO BID RF: 0 gabapentin 400 mg capsule 1 cap PO TID RF: 0 prednisone 5 mg tablet 1 tab PO DAILY RF: 0 aspirin 81 mg Tablet,Delayed Release (Dr/Ec) 81 mg PO DAILY RF: 0 pantoprazole 20 mg tablet,delayed release (DR/EC) 1 tab PO DAILY@1630 RF: 0 mycophenolate mofetil 500 mg tablet 2 tab PO BID RF: 0 hydromorphone 2 mg tablet 2 mg PO QID RF: 0 hydromorphone [Dilaudid] 2 mg Tablet 2 mg PO Q6H PRN (Reason: Pain (Scale Score 7-10)) RF: 0 trazodone 100 mg tablet 1 tab PO BEDTIME RF: 0 amlodipine 10 mg tablet 1 tab PO DAILY RF: 0 insulin aspart U-100 100 unit/mL solution See Protocol sliding scale dose subcut TIDAC RF: 0 insulin aspart U-100 [Novolog U-100 Insulin aspart] 100 unit/mL solution 4 unit subcut DAILY RF: 0 bisacodyl [Dulcolax (bisacodyl)] 10 mg Suppository 10 mg TN DAILY PRN (Reason: Constipation) RF: 0 folic acid 1 mg tablet 1 tab PO DAILY RF: 0 ferrous sulfate 325 mg (65 mg iron) tablet,delayed release (DR/EC) 1 tab PO BID RF: 0 hydromorphone [Dilaudid] 4 mg Tablet 4 mg PO Q6H PRN (Reason: Pain (Scale Score 7-10)) RF: 0 hydromorphone 4 mg tablet 4 mg PO QID RF: 0 simethicone 80 mg Tablet,Chewable 80 mg PO Q6H PRN (Reason: Gas) RF: 0 duloxetine 60 mg capsule,delayed release(DR/EC) 1 cap PO DAILY RF: 0 glucose Tablet,Chewable 15 g PO Q15M PRN (Reason: Hypoglycemia) RF: 0 Discharge Orders: Discharge Order (Routine); Ordered 06/05/21 Ordered By: Derek Banks Diet: advance to usual diet Activity on Discharge: As tolerated Stand Alone Forms: Patient Portal Discharge page Care Plan Goals: recovery Health Concerns: dwaine, uti, urinary retention Plan of Treatment: 5 days cefuroxime, monitor urine output - intermittent catheterization, follow up with urology and nephrology Assessment: see above
--- NOTE | 2021-06-05 11:40 | PM.PNNEP ---
Subjective Subjective Date of Service: 06/05/21 Principal diagnosis: dwaine Interval history: Seen and examined, events noted discussed with medical attending Physical Exam Vital Signs: Vital Signs: Last Vital Signs Temp 97.2 F 06/05/21 07:52 Pulse 79 06/05/21 07:54 Resp 18 06/05/21 07:52 BP 166/82 H 06/05/21 07:54 Pulse Ox 97 06/05/21 07:52 Body Mass Index 26.1 HENMT: Head: Yes normocephalic and Yes atraumatic Neck: Neck: Yes supple Resp: Auscultation: clear to auscultation bilaterally Cardio: Heart sounds: S1 normal heart sound present and S2 normal heart sound present GI: Palpation (GI): Soft to palpation and no guarding Extrem: General: Yes no pedal edema Objective Data Labs CBC & Chem 7: 06/05/21 05:31 06/05/21 05:31 Labs: Laboratory Results - last 24 hr 06/04/21 06/04/21 06/04/21 07:18 16:08 19:55 WBC RBC Hgb Hct MCV MCH MCHC RDW Plt Count MPV Absolute Nucleated RBC Nucleated RBC % (auto) Sodium Potassium Chloride Carbon Dioxide Anion Gap BUN Creatinine Estim Creat Clear Calc Estimated GFR POC Glucose 273 H 225 H Fasting Glucose Calcium Tacrolimus 6.7 06/05/21 06/05/21 06/05/21 05:31 05:31 07:19 WBC 8.3 RBC 3.66 L Hgb 9.2 L Hct 30.5 L MCV 83.3 MCH 25.1 L MCHC 30.2 L RDW 13.5 Plt Count 408 H MPV 11.3 Absolute Nucleated RBC 0.000 Nucleated RBC % (auto) 0.0 Sodium 140 Potassium 4.1 Chloride 110 H Carbon Dioxide 22 Anion Gap 12 BUN 30 H Creatinine 1.24 Estim Creat Clear Calc 58.1 Estimated GFR 47 POC Glucose 252 H Fasting Glucose 327 H Calcium 9.2 Tacrolimus Microbiology Microbiology Results: Microbiology 06/01/21 Unknown Urine clean catch - Clean Catch Midstream Urine Culture - Final Escherichia coli Klebsiella pneumoniae 06/01/21 17:08 Blood - Venous Blood Culture - Preliminary No growth after 48 hours. 06/01/21 16:40 Blood - Venous Blood Culture - Preliminary No growth after 48 hours. Procedures Date of Service Date of Service: 06/05/21 Assessment & Plan Assessment and plan (1) DWAINE (acute kidney injury): Status: Acute (2) Pyelonephritis: Status: Acute (3) Hx of kidney transplant: Status: Acute Assessment and Plan: kidney function better DWAINE in the setting of renal hypoperfusion and urinary retention CT scan had showed mild hydronephrosis of renal allograft known history of kidney transplant REC straight cath and bladder scan continue tacrolimus, cellcept and prednisone follow kidney function and electrolytes Time Spent With Patient Time: Total time spent is greater than 50% in coordination of care (as documented) at patient's floor/unit and/or counseling patient: Progress Note: Quality Stroke Does the patient have a stroke diagnosis?: No
[2021-06-05 11:55] LABS: Glucose, Whole Blood 157 mg/dL (60-115)
--- NOTE | 2021-06-05 12:13 | MHC.CM.PN ---
Patient has been medically cleared for dc to SNF. Patient will return to [facility] today at 4 PM, via [facility]. Second IMM addressed with Patient at bedside and the original has been given to her and a copy placed on the chart. Patient is aware of and in agreement with the dc plan.
[2021-06-05 14:00] LABS: Influenza A PCR NEGATIVE (Negative); Influenza B PCR NEGATIVE (Negative); Resp Syncy Virus RNA Qual PCR NEGATIVE (Negative); SARS COV2 PCR INHOUSE NEGATIVE (Negative)
[2021-06-05] MEDS: Omeprazole 20 MG CAPSULE.DR PO (15:30)
[2021-06-05] MEDS: cefTRIAXone sodium 1 GM in 0.9 % Sodium Chloride 50 ML IV (15:30)
== END 2021-06-05 16:40 | disposition skilled nursing facility (03) | DRG 699 ==
LOC: HO.ED 17:28 → HO.EDOVER 21:37 → HO.IMC 23:20
PROVIDERS: Internal Medicine Nephrology; Nurse Practitioner Family; Physician Assistant; Admitting Provider Hospitalist; Emergency Provider Emergency Medicine; PCP Internal Medicine; Visit Provider Internal Medicine
DX: T86.13 Kidney transplant infection (principal); N13.6 Pyonephrosis; N17.9 Acute kidney failure, unspecified; Z89.511 Acquired absence of right leg below knee; E11.319 Type 2 diabetes mellitus with unspecified diabetic retinopathy without macular edema; K21.9 Gastro-esophageal reflux disease without esophagitis; B96.20 Unspecified Escherichia coli [E. coli] as the cause of diseases classified elsewhere; Z20.822 Contact with and (suspected) exposure to COVID-19; Z88.0 Allergy status to penicillin; Z88.5 Allergy status to narcotic agent; Z88.6 Allergy status to analgesic agent; Z79.4 Long term (current) use of insulin; Z79.82 Long term (current) use of aspirin; Z79.899 Other long term (current) drug therapy
CPT/HCPCS: 0241U; 36415; 74176; 76775; 80048; 80076; 80197; 81001; 82009; 82803; 82947; 83605; 83735; 84484; 85025; 85027; 87040; 87086; 87088; 87186; 87635; 93005; 96361; 96365; 96367; 96375; 96376; 99285; C1758; J0696; J1170; J2405; J3370

== ENCOUNTER 2021-07-11 12:56 | Inpatient (IN) | payer OTHER, SELFPAY ==
[2021-07-11] VITALS (9 sets, daily range): BP systolic 91–151; BP diastolic 48–91; PULSE 73–92; RESP 16–20; TEMP 36.7–36.8; O2SAT 95–100; BMI 25.8
--- NOTE | ~2021-07-11 | CT_ITS ---
EXAMINATION: CT ABDOMEN AND PELVIS WITHOUT CONTRAST CLINICAL INFORMATION: Severe generalized abdominal pain with diarrhea COMPARISON: CT abdomen pelvis 06/01/2021 TECHNIQUE: Multidetector volumetric imaging was performed from the superior aspect of the liver through the pubic symphysis. Sagittal and coronal reformatted images were obtained on the technologist's workstation. This CT examination was performed using dose optimization techniques as appropriate, variously including the following: *Automated exposure control *Adjustment of mA and/or kV according to patient size (this includes techniques or standardized protocols for targeted exams where dose is matched to indication/reason for exam; i.e. extremities or head) *Use of iterative reconstruction technique DLP: 680 mGy-cm FINDINGS: LUNG BASES: The right hemidiaphragm is elevated. Some atelectatic changes are present at the lung bases. LIVER, GALLBLADDER, AND BILIARY TREE: The liver is enlarged measuring 23 cm in greatest length. No liver mass or bile duct dilatation is seen on the noncontrast enhanced imaging. Status post cholecystectomy. PANCREAS: Unremarkable. SPLEEN: Unremarkable. ADRENAL GLANDS: Unremarkable. KIDNEYS AND URETERS: The [place] kidneys are small with cortical thinning and marked calcification. A transplant kidney is present in the right iliac fossa. No hydronephrosis, hydroureter, or calculi seen. No perinephric stranding. BLADDER: Blum catheter present in the bladder. GASTROINTESTINAL TRACT: Air-fluid levels are present in the colon indicative of liquid stool and diarrhea. There is no evidence of bowel obstruction. The small bowel appears unremarkable. The small and large bowel are unremarkable. The appendix is unremarkable. ABDOMINAL WALL: No significant hernia is appreciated. LYMPH NODES: No retroperitoneal lymphadenopathy. VASCULAR: Severe calcific atherosclerotic changes are present involving all visualized vessels. PELVIC VISCERA: An anteverted uterus is present with marked calcifications, mostly vascular. Fallopian tube occlusion devices appear to be present. No free intraperitoneal fluid is present. OSSEOUS STRUCTURES: Unremarkable. CT/CT abdomen pelvis wo con IMPRESSION: Liquid stool with air-fluid levels seen in the colon consistent with the given history of diarrhea. No evidence of bowel obstruction. Other incidental findings as described above. Fleischner guidelines were followed.
--- NOTE | 2021-07-11 13:04 | ED.ABDPAIN ---
HPI - Abdominal Pain General Chief Complaint: Recheck/Abnormal Lab/Rx <LALO Whitley - Last Filed: 07/11/21 21:04> Stated Complaint: HIGH BLOOD SUGAR IN THE 400'S PER SNF <LALO Whitley - Last Filed: 07/11/21 21:04> Time Seen by Provider: 07/11/21 12:59 <LALO Whitley - Last Filed: 07/11/21 21:04> Source: patient <LALO Whitley - Last Filed: 07/11/21 21:04> Mode of arrival: ambulatory <LALO Whitley - Last Filed: 07/11/21 21:04> Limitations: other (patient poor historian ) <LALO Whitley - Last Filed: 07/11/21 21:04> History of Present Illness HPI narrative: ?45-year-old female with a past medical history of diabetes, diabetic retinopathy with vision loss, right BKA, GERD, migraines, depression, fibromyalgia on daily dilaudid, gastroparesis, hypertension, chronic renal insufficiency (Dr Foely), renal transplant in December of 2005 on chronic prednisone (tacrolimus/mycopheolate), depression/anxiety, presents to the emergency department with diarrhea, generalized abdominal pain, and high sugars [facility] facility [facility] weeks. Patient states that her abdominal pain is constant, and severe. She tells me that it has been progressively worsening, and it is a 10/10 at this time. Patient also tells me that she has been having diarrhea every time she goes to the bathroom, she is unable to tell me how many times she has had a bowel movement today. According to EMS the jail facility reports that her sugars have been 400 and higher, they claim she missed her insulin, and has not been eating. Patient has not had antibiotics recently and tells me she has had no sick contacts. <LALO Whitley - Last Filed: 07/11/21 21:04> MD elicited complaint: abdominal pain <LALO Whitley Last Filed: 07/11/21 21:04> Onset (ago): week(s) (2) <LALO Whitley - Last Filed: 07/11/21 21:04> Pain Consistency: constant <LALO Whitley - Last Filed: 07/11/21 21:04> Location: diffuse <LALO Whitley - Last Filed: 07/11/21 21:04> Severity: severe <LALO Whitley - Last Filed: 07/11/21 21:04> Quality: other (unable to describe severe ) <LALO Whitley - Last Filed: 07/11/21 21:04> Radiation: none <LALO Whitley - Last Filed: 07/11/21 21:04> Migration to: no migration <LALO Whitley - Last Filed: 07/11/21 21:04> Exacerbating factors: nothing <LALO Whitley - Last Filed: 07/11/21 21:04> Relieving factors: nothing <LALO Whitley - Last Filed: 07/11/21 21:04> Associated symptoms: diarrhea <LALO Whitley - Last Filed: 07/11/21 21:04> Related Data Home Medications: Home Medications Medication Instructions Recorded Confirmed acetaminophen 325 mg tablet 650 mg PO Q6H PRN 06/01/21 07/11/21 amlodipine 10 mg tablet 10 mg PO DAILY 06/01/21 07/11/21 aspirin 81 mg tablet,delayed 81 mg PO DAILY 06/01/21 07/11/21 release bisacodyl 10 mg rectal suppository 10 mg ND DAILY PRN 06/01/21 07/11/21 (Dulcolax (bisacodyl)) carvedilol 25 mg tablet 25 mg PO BID 06/01/21 07/11/21 duloxetine 60 mg capsule,delayed 60 mg PO DAILY 06/01/21 07/11/21 release ferrous sulfate 325 mg (65 mg 1 tab PO BID 06/01/21 07/11/21 iron) tablet,delayed release folic acid 1 mg tablet 1 tab PO DAILY 06/01/21 07/11/21 furosemide 40 mg tablet 1 tab PO BID 06/01/21 07/11/21 gabapentin 400 mg capsule 400 mg PO TID 06/01/21 07/11/21 hydromorphone 2 mg tablet 2 mg PO QID 06/01/21 07/11/21 hydromorphone 2 mg tablet 2 mg PO Q6H PRN 06/01/21 07/11/21 (Dilaudid) hydromorphone 4 mg tablet 4 mg PO QID 06/01/21 07/11/21 hydromorphone 4 mg tablet 4 mg PO Q6H PRN 06/01/21 07/11/21 (Dilaudid) insulin aspart U-100 100 unit/mL See Protocol SUBCUT TIDAC 06/01/21 07/11/21 subcutaneous solution insulin glargine 100 unit/mL 20 unit SUBCUT BEDTIME 06/01/21 07/11/21 subcutaneous solution (Lantus U-100 Insulin) multivitamin 1 tab PO DAILY 06/01/21 07/11/21 mycophenolate mofetil 500 mg tablet 1,000 mg PO BID 06/01/21 07/11/21 ondansetron HCl 4 mg tablet 1 tab PO Q8H PRN 06/01/21 07/11/21 pantoprazole 20 mg tablet,delayed 1 tab PO DAILY@1630 06/01/21 07/11/21 release prednisone 5 mg tablet 5 mg PO DAILY 06/01/21 07/11/21 simethicone 80 mg chewable tablet 80 mg PO Q6H PRN 06/01/21 07/11/21 tacrolimus 5 mg capsule, 5 mg PO BID 06/01/21 07/11/21 immediate-release trazodone 100 mg tablet 100 mg PO BEDTIME 06/01/21 07/11/21 dextrose 40 % oral gel (Glucose 15 g PO Q15M PRN 07/11/21 07/11/21 Gel) trazodone 50 mg tablet 12.5 mg PO Q8H PRN 07/11/21 07/11/21 <LALO Whitley - Last Filed: 07/11/21 21:04> Allergies/Adverse Reactions: Allergies Allergy/AdvReac Type Severity Reaction Status Date / Time amitriptyline Allergy Unknown UNKNOWN Verified 06/01/21 15:07 cephalexin Allergy Unknown UNKNOWN Verified 06/01/21 15:07 ciprofloxacin Allergy Unknown UNKNOWN Verified 06/01/21 15:07 famotidine [Pepcid] Allergy Unknown Unknown Verified 06/01/21 15:07 fluoxetine Allergy Unknown UNKNOWN Verified 06/01/21 15:07 ibuprofen [From ADVIL] Allergy Unknown ANXIETY Verified 06/01/21 15:07 Penicillins [PENICILLINS] Allergy Unknown HIVES Verified 06/01/21 15:07 codeine AdvReac Unknown N/V Verified 06/01/21 15:07 diphenhydramine [Advil PM] AdvReac Unknown anxiety Verified 06/01/21 15:07 metoclopramide AdvReac Unknown AGITATION,I Verified 06/01/21 15:07 TCHING morphine AdvReac Unknown N/V, Verified 06/01/21 15:07 anxiety tramadol AdvReac Unknown ANXIETY Verified 06/01/21 15:07 zolpidem [Ambien] AdvReac Unknown anxiety Verified 01/17/18 00:00 cephalexin Allergy Unknown Unknown Uncoded 06/01/21 15:07 ciproflaxacin Allergy Unknown Unknown Uncoded 06/01/21 15:07 From Ambien AdvReac Severe AGITATION Uncoded 05/07/20 15:50 <LALO Whitley - Last Filed: 07/11/21 21:04> Review of Systems Review of Systems Constitutional : No Weight loss, No Fever, No Chills, No Fatigue, No Malaise, + high blood sugar ENT/Mouth : No sore throat, No Rhinorrhea Eyes: No Eye Pain, No Swelling, No Redness Cardiovascular : No Chest Pain, No SOB, No Dyspnea on Exertion, No Orthopnea, No Edema, No Palpitations Respiratory : No Cough, No Sputum, No Wheezing Gastrointestinal : No Nausea, No Vomiting, + Diarrhea, No Constipation, + abdominal Pain, No Hematochezia, No Melena Genitourinary : No Dysuria, No Urinary Frequency, No Hematuria, Musculoskeletal : No joint pain, No Myalgias, No Joint Swelling Skin : No Skin Lesions, No rash Neuro : No Weakness, No Numbness, No Dizziness, No Headache All other systems reviewed and are negative <LALO Whitley - Last Filed: 07/11/21 21:04> Physical Exam Vital Signs: Vital Signs: Last Vital Signs Temp 98.7 F 07/12/21 19:53 Pulse 92 07/12/21 20:39 Resp 18 07/12/21 19:53 BP 165/69 H 07/12/21 20:39 Pulse Ox 97 07/12/21 19:53 Body Mass Index 25.8 <LALO Whitley - Last Filed: 07/11/21 21:04> Vital Signs: Last Vital Signs Temp 98.7 F 07/12/21 19:53 Pulse 92 07/12/21 20:39 Resp 18 07/12/21 19:53 BP 165/69 H 07/12/21 20:39 Pulse Ox 97 07/12/21 19:53 Body Mass Index 25.8 <LALO Aldana - Last Filed: 07/12/21 22:39> Appearance: Alert.? Oriented X3.? No acute distress.? Head: Normocephalic, atraumatic, no step-offs or deformities Eyes: Pupils equal, round and reactive to light.? ENT: Pharynx normal.? Neck: Normal inspection.? Neck supple.? CVS: Normal heart rate and rhythm.? Pulses normal.? Respiratory: No respiratory distress.? Breath sounds normal.? Abdomen: Soft and + tenderness to palpation over all four quadrants.? Skin: Skin warm and dry.? Normal skin color.? Normal skin turgor.? Extremities: No lower extremity edema.? No calf ttp. 5/5 strength to bilateral upper and left lower extermity + BKA on right Back: No midline tenderness, no C-spine tenderness, full range of motion, no CVA tenderness bilaterally Neuro: Oriented X 3.? No motor deficit.? No sensory deficit. <LALO Whitley - Last Filed: 07/11/21 21:04> Course Course Course Narrative: patient seen and examined. nonanion gap metabolic acidosis due to poor PO intake and GI losses. no evidence of DKA. responded well to IVF resusitation. [facility] did not accept. [place] [facility] [place]LALO Aldana - Last Filed: 07/12/21 22:39> Reevaluation(s) Reevaluation #1: Patient's blood pressure is noted to be low, an additional L of fluids has been ordered. I also ordered lactic and blood cultures at this time. <LALO Whitley - Last Filed: 07/11/21 21:04> Time: 15:22 <LALO Whitley - Last Filed: 07/11/21 21:04> Reevaluation #2: Patient's laboratory studies significant for a baseline anemia, no leukocytosis. Blood gases show a metabolic acidosis. bicarb of 12. BUN of 65, creatinine of 3.69, significantly higher than previous on June 05, 2021 her BUN was 30, creatinine was 1.24. Random glucose is 300 after administering 10 units of insulin. Calcium 7.8 magnesium of 1.4 patient will be given 2 g of IV Mag. Blum catheter will be placed at this time due to patient's DWAINE, and to obtain urine for UA, we will monitor I&O..Lactic acid and blood cultures pending, patient is a very hard stick. At this time infection is suspected I will give patent 1 g of rocephin at this time. She has already received 2 L of fluids another liter has been ordered. <LALO Whitley - Last Filed: 07/11/21 21:04> Time: 16:36 <LALO Whitley - Last Filed: 07/11/21 21:04> Reevaluation #3: Urine is clean. CT scan pending at this time. Bicarb also be ordered. <LALO Whitley - Last Filed: 07/11/21 21:04> Time: 16:40 <LALO Whitley - Last Filed: 07/11/21 21:04> Additional Reevaluation(s): 1914 CT scan shows liquid stool with air-fluid level seen in the colon consistent with the history given of diarrhea. No evidence of bowel obstruction. At this time a repeat VBG, and CMP will be ordered. 2009 Spoke to [facility], I tried to transfer the patient, however they state that they were closed transfers. At this time patient's acidosis has improved. 2030 Will reach out to hospitalist for admission. <LALO Whitley - Last Filed: 07/11/21 21:04> MDM - Abdominal Pain MDM Narrative Medical decision making narrative: 1315 ?45-year-old female with a past medical history of diabetes, diabetic retinopathy with vision loss, right BKA, GERD, migraines, depression, fibromyalgia on daily dilaudid, gastroparesis, hypertension, chronic renal insufficiency (Dr Foley), renal transplant in December of 2005 on chronic prednisone (tacrolimus/mycopheolate), depression/anxiety, presents to the emergency department with diarrhea, generalized abdominal pain, and high sugars in the 400's per jail facility d/t patient skipping insulin and not eating X 2 weeks. Upon physical examination patient appears comfortable and in no distress. S1-S2 appreciated free of murmurs. Lungs are clear to auscultation, no adventitious lung sounds. Abdomen is soft and tender in all 4 quadrants. No CVA tenderness. Patient is noted to have a right [id number] amputation. mucous membranes moist. plan at this time is to obtain basic labs, acetone, lipase, troponin, UA, VBG, point of care, EKG, COVID. Based off patient's history, vital signs, and physical exam I do not suspect infection at this time. <LALO Whitley - Last Filed: 07/11/21 21:04> Medical Records Attestation: I reviewed the patient's medical records. <LALO Whitley - Last Filed: 07/11/21 21:04> Lab Data Attestation: I reviewed the patient's lab results. <LALO Whitley - Last Filed: 07/11/21 21:04> Result diagrams: : 07/12/21 06:18 07/12/21 14:24 <LALO Whitley - Last Filed: 07/11/21 21:04> Labs: Lab Results 07/11/21 07/11/21 07/11/21 Range/Units 13:14 14:33 14:56 WBC (4.8-10.8) X10*3/uL RBC (4.20-5.50) X10*6/uL Hgb (12.0-16.0) g/dl Hct (37.0-47.0) % MCV (80.0-98.0) fL MCH (27.0-33.0) pg MCHC (31.0-35.0) g/dl RDW (11.0-16.0) % Plt Count (160-400) X10*3/uL MPV (9.4-12.3) fL Immature Gran % (Auto) (0.0-0.4) % Neut % (Auto) (45-73) % Lymph % (Auto) (20-40) % [place] % (Auto) (2-11) % Eos % (Auto) (0-4) % Baso % (Auto) (0-2) % Lymph # (Auto) (1.2-4.9) X10*3/uL [place] # (Auto) (0.1-1.2) X10*3/uL Eos # (Auto) (0.0-0.4) X10*3/uL Baso # (Auto) (0.0-0.2) X10*3/uL Abs Immat Gran (auto) (0.00-0.03) X10*3/uL Absolute Neuts (auto) (2.0-8.3) x10*3/uL Absolute Nucleated RBC (0.0-0.012) X10*3/uL Nucleated RBC % (auto) (0.0-0.2) /100WBC O2 Saturation % ABG pH at Pt Temp (7.35-7.45) ABG pH (Temp Correct) (7.35-7.45) ABG pCO2 at Pt Temp (32-45) mmHg ABG pCO2 (Temp Corrct (32-45) mmHg ABG pO2 at Pt Temp (83-108) mmHg ABG pO2 (Temp Correct (83-108) ABG HCO3 (22-26) mmol/L ABG Base Excess (Actual) mmol/L VBG pH (7.32-7.43) VBG pCO2 mmHg VBG pO2 mmHg VBG HCO3 (22-26) mmol/L VBG O2 Saturation % VBG Base Excess mmol/L Sodium (135-145) mmol/L Potassium (3.3-5.1) mmol/L Chloride (96-108) mmol/L Carbon Dioxide (22-29) mmol/L Anion Gap (12-20) BUN (9-16) mg/dL Creatinine (0.5-1.4) mg/dL Estim Creat Clear Calc Estimated GFR POC Glucose 320 H 330 H (60-115) mg/dL Random Glucose (60-115) mg/dL Lactic Acid (0.5-2.0) mmol/L Calcium (8.4-10.2) mg/dL Magnesium (1.6-2.6) mg/dL Total Bilirubin (0.0-1.0) mg/dL AST (5-31) U/L ALT (0-31) U/L Alkaline Phosphatase (39-117) U/L Troponin I High Sens (<3.5-17.0) ng/L Total Protein (6.5-8.0) g/dL Albumin (3.5-5.0) g/dL Lipase (8-78) U/L Urine Color Urine Appearance Urine pH (5.0-8.0) Ur Specific [place] (1.005-1.025) Urine Protein (NEG-TRACE) MG/DL Urine Glucose (UA) (NEG) MG/DL Urine Ketones (NEG) MG/DL Urine Blood (NEG) Urine Nitrite (NEG) Ur Leukocyte Esterase (NEG) Acetone, Qual (Negative) COVID-19 (VIVEK) Negative (Negative) COVID-19 Clin Com See Note 07/11/21 07/11/21 07/11/21 Range/Units 15:21 15:21 15:21 WBC 6.2 (4.8-10.8) X10*3/uL RBC 3.38 L (4.20-5.50) X10*6/uL Hgb 8.7 L (12.0-16.0) g/dl Hct 30.0 L (37.0-47.0) % MCV 88.8 (80.0-98.0) fL MCH 25.7 L (27.0-33.0) pg MCHC 29.0 L (31.0-35.0) g/dl RDW 13.6 (11.0-16.0) % Plt Count 365 (160-400) X10*3/uL MPV 11.2 (9.4-12.3) fL Immature Gran % (Auto) 0.3 (0.0-0.4) % Neut % (Auto) 85.1 H (45-73) % Lymph % (Auto) 8.2 L (20-40) % [place] % (Auto) 5.5 (2-11) % Eos % (Auto) 0.6 (0-4) % Baso % (Auto) 0.3 (0-2) % Lymph # (Auto) 0.5 L (1.2-4.9) X10*3/uL [place] # (Auto) 0.3 (0.1-1.2) X10*3/uL Eos # (Auto) 0.0 (0.0-0.4) X10*3/uL Baso # (Auto) 0.0 (0.0-0.2) X10*3/uL Abs Immat Gran (auto) 0.02 (0.00-0.03) X10*3/uL Absolute Neuts (auto) 5.3 (2.0-8.3) x10*3/uL Absolute Nucleated RBC 0.000 (0.0-0.012) X10*3/uL Nucleated RBC % (auto) 0.0 (0.0-0.2) /100WBC O2 Saturation % ABG pH at Pt Temp (7.35-7.45) ABG pH (Temp Correct) (7.35-7.45) ABG pCO2 at Pt Temp (32-45) mmHg ABG pCO2 (Temp Corrct (32-45) mmHg ABG pO2 at Pt Temp (83-108) mmHg ABG pO2 (Temp Correct (83-108) ABG HCO3 (22-26) mmol/L ABG Base Excess (Actual) mmol/L VBG pH (7.32-7.43) VBG pCO2 mmHg VBG pO2 mmHg VBG HCO3 (22-26) mmol/L VBG O2 Saturation % VBG Base Excess mmol/L Sodium 134 L (135-145) mmol/L Potassium 4.4 (3.3-5.1) mmol/L Chloride 113 H (96-108) mmol/L Carbon Dioxide 12 L (22-29) mmol/L Anion Gap 13 (12-20) BUN 65 H D (9-16) mg/dL Creatinine 3.69 H (0.5-1.4) mg/dL Estim Creat Clear Calc 19.4 Estimated GFR 13 POC Glucose (60-115) mg/dL Random Glucose 300 H (60-115) mg/dL Lactic Acid (0.5-2.0) mmol/L Calcium 7.8 L D (8.4-10.2) mg/dL Magnesium 1.4 L* (1.6-2.6) mg/dL Total Bilirubin 0.3 (0.0-1.0) mg/dL AST 10 D (5-31) U/L ALT 13 (0-31) U/L Alkaline Phosphatase 103 (39-117) U/L Troponin I High Sens 5.4 (<3.5-17.0) ng/L Total Protein 6.1 L (6.5-8.0) g/dL Albumin 3.2 L (3.5-5.0) g/dL Lipase 15 (8-78) U/L Urine Color Urine Appearance Urine pH (5.0-8.0) Ur Specific [place] (1.005-1.025) Urine Protein (NEG-TRACE) MG/DL Urine Glucose (UA) (NEG) MG/DL Urine Ketones (NEG) MG/DL Urine Blood (NEG) Urine Nitrite (NEG) Ur Leukocyte Esterase (NEG) Acetone, Qual (Negative) COVID-19 (VIVEK) (Negative) COVID-19 Clin Com 07/11/21 07/11/21 07/11/21 Range/Units 15:21 15:24 16:15 WBC (4.8-10.8) X10*3/uL RBC (4.20-5.50) X10*6/uL Hgb (12.0-16.0) g/dl Hct (37.0-47.0) % MCV (80.0-98.0) fL MCH (27.0-33.0) pg MCHC (31.0-35.0) g/dl RDW (11.0-16.0) % Plt Count (160-400) X10*3/uL MPV (9.4-12.3) fL Immature Gran % (Auto) (0.0-0.4) % Neut % (Auto) (45-73) % Lymph % (Auto) (20-40) % [place] % (Auto) (2-11) % Eos % (Auto) (0-4) % Baso % (Auto) (0-2) % Lymph # (Auto) (1.2-4.9) X10*3/uL [place] # (Auto) (0.1-1.2) X10*3/uL Eos # (Auto) (0.0-0.4) X10*3/uL Baso # (Auto) (0.0-0.2) X10*3/uL Abs Immat Gran (auto) (0.00-0.03) X10*3/uL Absolute Neuts (auto) (2.0-8.3) x10*3/uL Absolute Nucleated RBC (0.0-0.012) X10*3/uL Nucleated RBC % (auto) (0.0-0.2) /100WBC O2 Saturation % ABG pH at Pt Temp (7.35-7.45) ABG pH (Temp Correct) (7.35-7.45) ABG pCO2 at Pt Temp (32-45) mmHg ABG pCO2 (Temp Corrct (32-45) mmHg ABG pO2 at Pt Temp (83-108) mmHg ABG pO2 (Temp Correct (83-108) ABG HCO3 (22-26) mmol/L ABG Base Excess (Actual) mmol/L VBG pH 7.16 L* (7.32-7.43) VBG pCO2 31 mmHg VBG pO2 123 mmHg VBG HCO3 11 L (22-26) mmol/L VBG O2 Saturation 99.0 % VBG Base Excess -15.5 mmol/L Sodium (135-145) mmol/L Potassium (3.3-5.1) mmol/L Chloride (96-108) mmol/L Carbon Dioxide (22-29) mmol/L Anion Gap (12-20) BUN (9-16) mg/dL Creatinine (0.5-1.4) mg/dL Estim Creat Clear Calc Estimated GFR POC Glucose (60-115) mg/dL Random Glucose (60-115) mg/dL Lactic Acid 0.9 (0.5-2.0) mmol/L Calcium (8.4-10.2) mg/dL Magnesium (1.6-2.6) mg/dL Total Bilirubin (0.0-1.0) mg/dL AST (5-31) U/L ALT (0-31) U/L Alkaline Phosphatase (39-117) U/L Troponin I High Sens (<3.5-17.0) ng/L Total Protein (6.5-8.0) g/dL Albumin (3.5-5.0) g/dL Lipase (8-78) U/L Urine Color Urine Appearance Urine pH (5.0-8.0) Ur Specific [place] (1.005-1.025) Urine Protein (NEG-TRACE) MG/DL Urine Glucose (UA) (NEG) MG/DL Urine Ketones (NEG) MG/DL Urine Blood (NEG) Urine Nitrite (NEG) Ur Leukocyte Esterase (NEG) Acetone, Qual Small H (Negative) COVID-19 (VIVEK) (Negative) COVID-19 Clin Com 07/11/21 07/11/21 07/11/21 Range/Units 16:33 17:06 20:18 WBC (4.8-10.8) X10*3/uL RBC (4.20-5.50) X10*6/uL Hgb (12.0-16.0) g/dl Hct (37.0-47.0) % MCV (80.0-98.0) fL MCH (27.0-33.0) pg MCHC (31.0-35.0) g/dl RDW (11.0-16.0) % Plt Count (160-400) X10*3/uL MPV (9.4-12.3) fL Immature Gran % (Auto) (0.0-0.4) % Neut % (Auto) (45-73) % Lymph % (Auto) (20-40) % [place] % (Auto) (2-11) % Eos % (Auto) (0-4) % Baso % (Auto) (0-2) % Lymph # (Auto) (1.2-4.9) X10*3/uL [place] # (Auto) (0.1-1.2) X10*3/uL Eos # (Auto) (0.0-0.4) X10*3/uL Baso # (Auto) (0.0-0.2) X10*3/uL Abs Immat Gran (auto) (0.00-0.03) X10*3/uL Absolute Neuts (auto) (2.0-8.3) x10*3/uL Absolute Nucleated RBC (0.0-0.012) X10*3/uL Nucleated RBC % (auto) (0.0-0.2) /100WBC O2 Saturation 75.0 % ABG pH at Pt Temp 7.15 L* (7.35-7.45) ABG pH (Temp Correct) 7.15 L* (7.35-7.45) ABG pCO2 at Pt Temp 37 (32-45) mmHg ABG pCO2 (Temp Corrct 37 (32-45) mmHg ABG pO2 at Pt Temp 48 L* (83-108) mmHg ABG pO2 (Temp Correct 47 L* (83-108) ABG HCO3 13 L (22-26) mmol/L ABG Base Excess (Actual) -14.2 mmol/L VBG pH (7.32-7.43) VBG pCO2 mmHg VBG pO2 mmHg VBG HCO3 (22-26) mmol/L VBG O2 Saturation % VBG Base Excess mmol/L Sodium 136 (135-145) mmol/L Potassium 4.6 (3.3-5.1) mmol/L Chloride 113 H (96-108) mmol/L Carbon Dioxide 12 L (22-29) mmol/L Anion Gap 16 (12-20) BUN 65 H (9-16) mg/dL Creatinine 3.48 H (0.5-1.4) mg/dL Estim Creat Clear Calc 20.6 Estimated GFR 14 POC Glucose (60-115) mg/dL Random Glucose 182 H (60-115) mg/dL Lactic Acid (0.5-2.0) mmol/L Calcium 8.5 D (8.4-10.2) mg/dL Magnesium (1.6-2.6) mg/dL Total Bilirubin 0.2 (0.0-1.0) mg/dL AST 12 (5-31) U/L ALT 10 (0-31) U/L Alkaline Phosphatase 103 (39-117) U/L Troponin I High Sens (<3.5-17.0) ng/L Total Protein 6.4 L (6.5-8.0) g/dL Albumin 3.4 L (3.5-5.0) g/dL Lipase (8-78) U/L Urine Color YELLOW Urine Appearance CLEAR Urine pH 5.5 (5.0-8.0) Ur Specific [place] 1.025 (1.005-1.025) Urine Protein TRACE (NEG-TRACE) MG/DL Urine Glucose (UA) NEG (NEG) MG/DL Urine Ketones NEG (NEG) MG/DL Urine Blood NEG (NEG) Urine Nitrite NEG (NEG) Ur Leukocyte Esterase NEG (NEG) Acetone, Qual (Negative) COVID-19 (VIVEK) (Negative) COVID-19 Clin Com 07/11/21 07/11/21 07/12/21 Range/Units 20:19 22:23 03:29 WBC (4.8-10.8) X10*3/uL RBC (4.20-5.50) X10*6/uL Hgb (12.0-16.0) g/dl Hct (37.0-47.0) % MCV (80.0-98.0) fL MCH (27.0-33.0) pg MCHC (31.0-35.0) g/dl RDW (11.0-16.0) % Plt Count (160-400) X10*3/uL MPV (9.4-12.3) fL Immature Gran % (Auto) (0.0-0.4) % Neut % (Auto) (45-73) % Lymph % (Auto) (20-40) % [place] % (Auto) (2-11) % Eos % (Auto) (0-4) % Baso % (Auto) (0-2) % Lymph # (Auto) (1.2-4.9) X10*3/uL [place] # (Auto) (0.1-1.2) X10*3/uL Eos # (Auto) (0.0-0.4) X10*3/uL Baso # (Auto) (0.0-0.2) X10*3/uL Abs Immat Gran (auto) (0.00-0.03) X10*3/uL Absolute Neuts (auto) (2.0-8.3) x10*3/uL Absolute Nucleated RBC (0.0-0.012) X10*3/uL Nucleated RBC % (auto) (0.0-0.2) /100WBC O2 Saturation % ABG pH at Pt Temp (7.35-7.45) ABG pH (Temp Correct) (7.35-7.45) ABG pCO2 at Pt Temp (32-45) mmHg ABG pCO2 (Temp Corrct (32-45) mmHg ABG pO2 at Pt Temp (83-108) mmHg ABG pO2 (Temp Correct (83-108) ABG HCO3 (22-26) mmol/L ABG Base Excess (Actual) mmol/L VBG pH 7.36 (7.32-7.43) VBG pCO2 21 mmHg VBG pO2 138 mmHg VBG HCO3 12 L (22-26) mmol/L VBG O2 Saturation 99.0 % VBG Base Excess -11.0 mmol/L Sodium 138 (135-145) mmol/L Potassium 4.1 (3.3-5.1) mmol/L Chloride 112 H (96-108) mmol/L Carbon Dioxide 17 L (22-29) mmol/L Anion Gap 13 (12-20) BUN 65 H (9-16) mg/dL Creatinine 3.03 H (0.5-1.4) mg/dL Estim Creat Clear Calc 23.6 Estimated GFR 17 POC Glucose 167 H (60-115) mg/dL Random Glucose 198 H (60-115) mg/dL Lactic Acid (0.5-2.0) mmol/L Calcium 8.6 (8.4-10.2) mg/dL Magnesium 1.7 (1.6-2.6) mg/dL Total Bilirubin (0.0-1.0) mg/dL AST (5-31) U/L ALT (0-31) U/L Alkaline Phosphatase (39-117) U/L Troponin I High Sens (<3.5-17.0) ng/L Total Protein (6.5-8.0) g/dL Albumin (3.5-5.0) g/dL Lipase (8-78) U/L Urine Color Urine Appearance Urine pH (5.0-8.0) Ur Specific [place] (1.005-1.025) Urine Protein (NEG-TRACE) MG/DL Urine Glucose (UA) (NEG) MG/DL Urine Ketones (NEG) MG/DL Urine Blood (NEG) Urine Nitrite (NEG) Ur Leukocyte Esterase (NEG) Acetone, Qual (Negative) COVID-19 (VIVEK) (Negative) COVID-19 Clin Com 11/22/21 Range/Units 03:29 WBC (4.8-10.8) X10*3/uL RBC (4.20-5.50) X10*6/uL Hgb (12.0-16.0) g/dl Hct (37.0-47.0) % MCV (80.0-98.0) fL MCH (27.0-33.0) pg MCHC (31.0-35.0) g/dl RDW (11.0-16.0) % Plt Count (160-400) X10*3/uL MPV (9.4-12.3) fL Immature Gran % (Auto) (0.0-0.4) % Neut % (Auto) (45-73) % Lymph % (Auto) (20-40) % [place] % (Auto) (2-11) % Eos % (Auto) (0-4) % Baso % (Auto) (0-2) % Lymph # (Auto) (1.2-4.9) X10*3/uL [place] # (Auto) (0.1-1.2) X10*3/uL Eos # (Auto) (0.0-0.4) X10*3/uL Baso # (Auto) (0.0-0.2) X10*3/uL Abs Immat Gran (auto) (0.00-0.03) X10*3/uL Absolute Neuts (auto) (2.0-8.3) x10*3/uL Absolute Nucleated RBC (0.0-0.012) X10*3/uL Nucleated RBC % (auto) (0.0-0.2) /100WBC O2 Saturation % ABG pH at Pt Temp (7.35-7.45) ABG pH (Temp Correct) (7.35-7.45) ABG pCO2 at Pt Temp (32-45) mmHg ABG pCO2 (Temp Corrct (32-45) mmHg ABG pO2 at Pt Temp (83-108) mmHg ABG pO2 (Temp Correct (83-108) ABG HCO3 (22-26) mmol/L ABG Base Excess (Actual) mmol/L VBG pH (7.32-7.43) VBG pCO2 mmHg VBG pO2 mmHg VBG HCO3 (22-26) mmol/L VBG O2 Saturation % VBG Base Excess mmol/L Sodium (135-145) mmol/L Potassium (3.3-5.1) mmol/L Chloride (96-108) mmol/L Carbon Dioxide (22-29) mmol/L Anion Gap (12-20) BUN (9-16) mg/dL Creatinine (0.5-1.4) mg/dL Estim Creat Clear Calc Estimated GFR POC Glucose (60-115) mg/dL Random Glucose (60-115) mg/dL Lactic Acid (0.5-2.0) mmol/L Calcium (8.4-10.2) mg/dL Magnesium Cancelled (1.6-2.6) mg/dL Total Bilirubin (0.0-1.0) mg/dL AST (5-31) U/L ALT (0-31) U/L Alkaline Phosphatase (39-117) U/L Troponin I High Sens (<3.5-17.0) ng/L Total Protein (6.5-8.0) g/dL Albumin (3.5-5.0) g/dL Lipase (8-78) U/L Urine Color Urine Appearance Urine pH (5.0-8.0) Ur Specific [place] (1.005-1.025) Urine Protein (NEG-TRACE) MG/DL Urine Glucose (UA) (NEG) MG/DL Urine Ketones (NEG) MG/DL Urine Blood (NEG) Urine Nitrite (NEG) Ur Leukocyte Esterase (NEG) Acetone, Qual (Negative) COVID-19 (VIVEK) (Negative) COVID-19 Clin Com <LALO Whitley - Last Filed: 07/11/21 21:04> Lab Results 07/11/21 07/11/21 07/11/21 Range/Units 13:14 14:33 14:56 WBC (4.8-10.8) X10*3/uL RBC (4.20-5.50) X10*6/uL Hgb (12.0-16.0) g/dl Hct (37.0-47.0) % MCV (80.0-98.0) fL MCH (27.0-33.0) pg MCHC (31.0-35.0) g/dl RDW (11.0-16.0) % Plt Count (160-400) X10*3/uL MPV (9.4-12.3) fL Immature Gran % (Auto) (0.0-0.4) % Neut % (Auto) (45-73) % Lymph % (Auto) (20-40) % [place] % (Auto) (2-11) % Eos % (Auto) (0-4) % Baso % (Auto) (0-2) % Lymph # (Auto) (1.2-4.9) X10*3/uL [place] # (Auto) (0.1-1.2) X10*3/uL Eos # (Auto) (0.0-0.4) X10*3/uL Baso # (Auto) (0.0-0.2) X10*3/uL Abs Immat Gran (auto) (0.00-0.03) X10*3/uL Absolute Neuts (auto) (2.0-8.3) x10*3/uL Absolute Nucleated RBC (0.0-0.012) X10*3/uL Nucleated RBC % (auto) (0.0-0.2) /100WBC O2 Saturation % ABG pH at Pt Temp (7.35-7.45) ABG pH (Temp Correct) (7.35-7.45) ABG pCO2 at Pt Temp (32-45) mmHg ABG pCO2 (Temp Corrct (32-45) mmHg ABG pO2 at Pt Temp (83-108) mmHg ABG pO2 (Temp Correct (83-108) ABG HCO3 (22-26) mmol/L ABG Base Excess (Actual) mmol/L VBG pH (7.32-7.43) VBG pCO2 mmHg VBG pO2 mmHg VBG HCO3 (22-26) mmol/L VBG O2 Saturation % VBG Base Excess mmol/L Sodium (135-145) mmol/L Potassium (3.3-5.1) mmol/L Chloride (96-108) mmol/L Carbon Dioxide (22-29) mmol/L Anion Gap (12-20) BUN (9-16) mg/dL Creatinine (0.5-1.4) mg/dL Estim Creat Clear Calc Estimated GFR POC Glucose 320 H 330 H (60-115) mg/dL Random Glucose (60-115) mg/dL Lactic Acid (0.5-2.0) mmol/L Calcium (8.4-10.2) mg/dL Magnesium (1.6-2.6) mg/dL Total Bilirubin (0.0-1.0) mg/dL AST (5-31) U/L ALT (0-31) U/L Alkaline Phosphatase (39-117) U/L Troponin I High Sens (<3.5-17.0) ng/L Total Protein (6.5-8.0) g/dL Albumin (3.5-5.0) g/dL Lipase (8-78) U/L Urine Color Urine Appearance Urine pH (5.0-8.0) Ur Specific [place] (1.005-1.025) Urine Protein (NEG-TRACE) MG/DL Urine Glucose (UA) (NEG) MG/DL Urine Ketones (NEG) MG/DL Urine Blood (NEG) Urine Nitrite (NEG) Ur Leukocyte Esterase (NEG) Acetone, Qual (Negative) COVID-19 (VIVEK) Negative (Negative) COVID-19 Clin Com See Note 07/11/21 07/11/21 07/11/21 Range/Units 15:21 15:21 15:21 WBC 6.2 (4.8-10.8) X10*3/uL RBC 3.38 L (4.20-5.50) X10*6/uL Hgb 8.7 L (12.0-16.0) g/dl Hct 30.0 L (37.0-47.0) % MCV 88.8 (80.0-98.0) fL MCH 25.7 L (27.0-33.0) pg MCHC 29.0 L (31.0-35.0) g/dl RDW 13.6 (11.0-16.0) % Plt Count 365 (160-400) X10*3/uL MPV 11.2 (9.4-12.3) fL Immature Gran % (Auto) 0.3 (0.0-0.4) % Neut % (Auto) 85.1 H (45-73) % Lymph % (Auto) 8.2 L (20-40) % [place] % (Auto) 5.5 (2-11) % Eos % (Auto) 0.6 (0-4) % Baso % (Auto) 0.3 (0-2) % Lymph # (Auto) 0.5 L (1.2-4.9) X10*3/uL [place] # (Auto) 0.3 (0.1-1.2) X10*3/uL Eos # (Auto) 0.0 (0.0-0.4) X10*3/uL Baso # (Auto) 0.0 (0.0-0.2) X10*3/uL Abs Immat Gran (auto) 0.02 (0.00-0.03) X10*3/uL Absolute Neuts (auto) 5.3 (2.0-8.3) x10*3/uL Absolute Nucleated RBC 0.000 (0.0-0.012) X10*3/uL Nucleated RBC % (auto) 0.0 (0.0-0.2) /100WBC O2 Saturation % ABG pH at Pt Temp (7.35-7.45) ABG pH (Temp Correct) (7.35-7.45) ABG pCO2 at Pt Temp (32-45) mmHg ABG pCO2 (Temp Corrct (32-45) mmHg ABG pO2 at Pt Temp (83-108) mmHg ABG pO2 (Temp Correct (83-108) ABG HCO3 (22-26) mmol/L ABG Base Excess (Actual) mmol/L VBG pH (7.32-7.43) VBG pCO2 mmHg VBG pO2 mmHg VBG HCO3 (22-26) mmol/L VBG O2 Saturation % VBG Base Excess mmol/L Sodium 134 L (135-145) mmol/L Potassium 4.4 (3.3-5.1) mmol/L Chloride 113 H (96-108) mmol/L Carbon Dioxide 12 L (22-29) mmol/L Anion Gap 13 (12-20) BUN 65 H D (9-16) mg/dL Creatinine 3.69 H (0.5-1.4) mg/dL Estim Creat Clear Calc 19.4 Estimated GFR 13 POC Glucose (60-115) mg/dL Random Glucose 300 H (60-115) mg/dL Lactic Acid (0.5-2.0) mmol/L Calcium 7.8 L D (8.4-10.2) mg/dL Magnesium 1.4 L* (1.6-2.6) mg/dL Total Bilirubin 0.3 (0.0-1.0) mg/dL AST 10 D (5-31) U/L ALT 13 (0-31) U/L Alkaline Phosphatase 103 (39-117) U/L Troponin I High Sens 5.4 (<3.5-17.0) ng/L Total Protein 6.1 L (6.5-8.0) g/dL Albumin 3.2 L (3.5-5.0) g/dL Lipase 15 (8-78) U/L Urine Color Urine Appearance Urine pH (5.0-8.0) Ur Specific [place] (1.005-1.025) Urine Protein (NEG-TRACE) MG/DL Urine Glucose (UA) (NEG) MG/DL Urine Ketones (NEG) MG/DL Urine Blood (NEG) Urine Nitrite (NEG) Ur Leukocyte Esterase (NEG) Acetone, Qual (Negative) COVID-19 (VIVEK) (Negative) COVID-19 Clin Com 07/11/21 07/11/21 07/11/21 Range/Units 15:21 15:24 16:15 WBC (4.8-10.8) X10*3/uL RBC (4.20-5.50) X10*6/uL Hgb (12.0-16.0) g/dl Hct (37.0-47.0) % MCV (80.0-98.0) fL MCH (27.0-33.0) pg MCHC (31.0-35.0) g/dl RDW (11.0-16.0) % Plt Count (160-400) X10*3/uL MPV (9.4-12.3) fL Immature Gran % (Auto) (0.0-0.4) % Neut % (Auto) (45-73) % Lymph % (Auto) (20-40) % [place] % (Auto) (2-11) % Eos % (Auto) (0-4) % Baso % (Auto) (0-2) % Lymph # (Auto) (1.2-4.9) X10*3/uL [place] # (Auto) (0.1-1.2) X10*3/uL Eos # (Auto) (0.0-0.4) X10*3/uL Baso # (Auto) (0.0-0.2) X10*3/uL Abs Immat Gran (auto) (0.00-0.03) X10*3/uL Absolute Neuts (auto) (2.0-8.3) x10*3/uL Absolute Nucleated RBC (0.0-0.012) X10*3/uL Nucleated RBC % (auto) (0.0-0.2) /100WBC O2 Saturation % ABG pH at Pt Temp (7.35-7.45) ABG pH (Temp Correct) (7.35-7.45) ABG pCO2 at Pt Temp (32-45) mmHg ABG pCO2 (Temp Corrct (32-45) mmHg ABG pO2 at Pt Temp (83-108) mmHg ABG pO2 (Temp Correct (83-108) ABG HCO3 (22-26) mmol/L ABG Base Excess (Actual) mmol/L VBG pH 7.16 L* (7.32-7.43) VBG pCO2 31 mmHg VBG pO2 123 mmHg VBG HCO3 11 L (22-26) mmol/L VBG O2 Saturation 99.0 % VBG Base Excess -15.5 mmol/L Sodium (135-145) mmol/L Potassium (3.3-5.1) mmol/L Chloride (96-108) mmol/L Carbon Dioxide (22-29) mmol/L Anion Gap (12-20) BUN (9-16) mg/dL Creatinine (0.5-1.4) mg/dL Estim Creat Clear Calc Estimated GFR POC Glucose (60-115) mg/dL Random Glucose (60-115) mg/dL Lactic Acid 0.9 (0.5-2.0) mmol/L Calcium (8.4-10.2) mg/dL Magnesium (1.6-2.6) mg/dL Total Bilirubin (0.0-1.0) mg/dL AST (5-31) U/L ALT (0-31) U/L Alkaline Phosphatase (39-117) U/L Troponin I High Sens (<3.5-17.0) ng/L Total Protein (6.5-8.0) g/dL Albumin (3.5-5.0) g/dL Lipase (8-78) U/L Urine Color Urine Appearance Urine pH (5.0-8.0) Ur Specific [place] (1.005-1.025) Urine Protein (NEG-TRACE) MG/DL Urine Glucose (UA) (NEG) MG/DL Urine Ketones (NEG) MG/DL Urine Blood (NEG) Urine Nitrite (NEG) Ur Leukocyte Esterase (NEG) Acetone, Qual Small H (Negative) COVID-19 (VIVEK) (Negative) COVID-19 Clin Com 07/11/21 07/11/21 07/11/21 Range/Units 16:33 17:06 20:18 WBC (4.8-10.8) X10*3/uL RBC (4.20-5.50) X10*6/uL Hgb (12.0-16.0) g/dl Hct (37.0-47.0) % MCV (80.0-98.0) fL MCH (27.0-33.0) pg MCHC (31.0-35.0) g/dl RDW (11.0-16.0) % Plt Count (160-400) X10*3/uL MPV (9.4-12.3) fL Immature Gran % (Auto) (0.0-0.4) % Neut % (Auto) (45-73) % Lymph % (Auto) (20-40) % [place] % (Auto) (2-11) % Eos % (Auto) (0-4) % Baso % (Auto) (0-2) % Lymph # (Auto) (1.2-4.9) X10*3/uL [place] # (Auto) (0.1-1.2) X10*3/uL Eos # (Auto) (0.0-0.4) X10*3/uL Baso # (Auto) (0.0-0.2) X10*3/uL Abs Immat Gran (auto) (0.00-0.03) X10*3/uL Absolute Neuts (auto) (2.0-8.3) x10*3/uL Absolute Nucleated RBC (0.0-0.012) X10*3/uL Nucleated RBC % (auto) (0.0-0.2) /100WBC O2 Saturation 75.0 % ABG pH at Pt Temp 7.15 L* (7.35-7.45) ABG pH (Temp Correct) 7.15 L* (7.35-7.45) ABG pCO2 at Pt Temp 37 (32-45) mmHg ABG pCO2 (Temp Corrct 37 (32-45) mmHg ABG pO2 at Pt Temp 48 L* (83-108) mmHg ABG pO2 (Temp Correct 47 L* (83-108) ABG HCO3 13 L (22-26) mmol/L ABG Base Excess (Actual) -14.2 mmol/L VBG pH (7.32-7.43) VBG pCO2 mmHg VBG pO2 mmHg VBG HCO3 (22-26) mmol/L VBG O2 Saturation % VBG Base Excess mmol/L Sodium 136 (135-145) mmol/L Potassium 4.6 (3.3-5.1) mmol/L Chloride 113 H (96-108) mmol/L Carbon Dioxide 12 L (22-29) mmol/L Anion Gap 16 (12-20) BUN 65 H (9-16) mg/dL Creatinine 3.48 H (0.5-1.4) mg/dL Estim Creat Clear Calc 20.6 Estimated GFR 14 POC Glucose (60-115) mg/dL Random Glucose 182 H (60-115) mg/dL Lactic Acid (0.5-2.0) mmol/L Calcium 8.5 D (8.4-10.2) mg/dL Magnesium (1.6-2.6) mg/dL Total Bilirubin 0.2 (0.0-1.0) mg/dL AST 12 (5-31) U/L ALT 10 (0-31) U/L Alkaline Phosphatase 103 (39-117) U/L Troponin I High Sens (<3.5-17.0) ng/L Total Protein 6.4 L (6.5-8.0) g/dL Albumin 3.4 L (3.5-5.0) g/dL Lipase (8-78) U/L Urine Color YELLOW Urine Appearance CLEAR Urine pH 5.5 (5.0-8.0) Ur Specific [place] 1.025 (1.005-1.025) Urine Protein TRACE (NEG-TRACE) MG/DL Urine Glucose (UA) NEG (NEG) MG/DL Urine Ketones NEG (NEG) MG/DL Urine Blood NEG (NEG) Urine Nitrite NEG (NEG) Ur Leukocyte Esterase NEG (NEG) Acetone, Qual (Negative) COVID-19 (VIVEK) (Negative) COVID-19 Clin Com 07/11/21 07/11/21 07/12/21 Range/Units 20:19 22:23 03:29 WBC (4.8-10.8) X10*3/uL RBC (4.20-5.50) X10*6/uL Hgb (12.0-16.0) g/dl Hct (37.0-47.0) % MCV (80.0-98.0) fL MCH (27.0-33.0) pg MCHC (31.0-35.0) g/dl RDW (11.0-16.0) % Plt Count (160-400) X10*3/uL MPV (9.4-12.3) fL Immature Gran % (Auto) (0.0-0.4) % Neut % (Auto) (45-73) % Lymph % (Auto) (20-40) % [place] % (Auto) (2-11) % Eos % (Auto) (0-4) % Baso % (Auto) (0-2) % Lymph # (Auto) (1.2-4.9) X10*3/uL [place] # (Auto) (0.1-1.2) X10*3/uL Eos # (Auto) (0.0-0.4) X10*3/uL Baso # (Auto) (0.0-0.2) X10*3/uL Abs Immat Gran (auto) (0.00-0.03) X10*3/uL Absolute Neuts (auto) (2.0-8.3) x10*3/uL Absolute Nucleated RBC (0.0-0.012) X10*3/uL Nucleated RBC % (auto) (0.0-0.2) /100WBC O2 Saturation % ABG pH at Pt Temp (7.35-7.45) ABG pH (Temp Correct) (7.35-7.45) ABG pCO2 at Pt Temp (32-45) mmHg ABG pCO2 (Temp Corrct (32-45) mmHg ABG pO2 at Pt Temp (83-108) mmHg ABG pO2 (Temp Correct (83-108) ABG HCO3 (22-26) mmol/L ABG Base Excess (Actual) mmol/L VBG pH 7.36 (7.32-7.43) VBG pCO2 21 mmHg VBG pO2 138 mmHg VBG HCO3 12 L (22-26) mmol/L VBG O2 Saturation 99.0 % VBG Base Excess -11.0 mmol/L Sodium 138 (135-145) mmol/L Potassium 4.1 (3.3-5.1) mmol/L Chloride 112 H (96-108) mmol/L Carbon Dioxide 17 L (22-29) mmol/L Anion Gap 13 (12-20) BUN 65 H (9-16) mg/dL Creatinine 3.03 H (0.5-1.4) mg/dL Estim Creat Clear Calc 23.6 Estimated GFR 17 POC Glucose 167 H (60-115) mg/dL Random Glucose 198 H (60-115) mg/dL Lactic Acid (0.5-2.0) mmol/L Calcium 8.6 (8.4-10.2) mg/dL Magnesium 1.7 (1.6-2.6) mg/dL Total Bilirubin (0.0-1.0) mg/dL AST (5-31) U/L ALT (0-31) U/L Alkaline Phosphatase (39-117) U/L Troponin I High Sens (<3.5-17.0) ng/L Total Protein (6.5-8.0) g/dL Albumin (3.5-5.0) g/dL Lipase (8-78) U/L Urine Color Urine Appearance Urine pH (5.0-8.0) Ur Specific [place] (1.005-1.025) Urine Protein (NEG-TRACE) MG/DL Urine Glucose (UA) (NEG) MG/DL Urine Ketones (NEG) MG/DL Urine Blood (NEG) Urine Nitrite (NEG) Ur Leukocyte Esterase (NEG) Acetone, Qual (Negative) COVID-19 (VIVEK) (Negative) COVID-19 Clin Com 11/22/21 Range/Units 03:29 WBC (4.8-10.8) X10*3/uL RBC (4.20-5.50) X10*6/uL Hgb (12.0-16.0) g/dl Hct (37.0-47.0) % MCV (80.0-98.0) fL MCH (27.0-33.0) pg MCHC (31.0-35.0) g/dl RDW (11.0-16.0) % Plt Count (160-400) X10*3/uL MPV (9.4-12.3) fL Immature Gran % (Auto) (0.0-0.4) % Neut % (Auto) (45-73) % Lymph % (Auto) (20-40) % [place] % (Auto) (2-11) % Eos % (Auto) (0-4) % Baso % (Auto) (0-2) % Lymph # (Auto) (1.2-4.9) X10*3/uL [place] # (Auto) (0.1-1.2) X10*3/uL Eos # (Auto) (0.0-0.4) X10*3/uL Baso # (Auto) (0.0-0.2) X10*3/uL Abs Immat Gran (auto) (0.00-0.03) X10*3/uL Absolute Neuts (auto) (2.0-8.3) x10*3/uL Absolute Nucleated RBC (0.0-0.012) X10*3/uL Nucleated RBC % (auto) (0.0-0.2) /100WBC O2 Saturation % ABG pH at Pt Temp (7.35-7.45) ABG pH (Temp Correct) (7.35-7.45) ABG pCO2 at Pt Temp (32-45) mmHg ABG pCO2 (Temp Corrct (32-45) mmHg ABG pO2 at Pt Temp (83-108) mmHg ABG pO2 (Temp Correct (83-108) ABG HCO3 (22-26) mmol/L ABG Base Excess (Actual) mmol/L VBG pH (7.32-7.43) VBG pCO2 mmHg VBG pO2 mmHg VBG HCO3 (22-26) mmol/L VBG O2 Saturation % VBG Base Excess mmol/L Sodium (135-145) mmol/L Potassium (3.3-5.1) mmol/L Chloride (96-108) mmol/L Carbon Dioxide (22-29) mmol/L Anion Gap (12-20) BUN (9-16) mg/dL Creatinine (0.5-1.4) mg/dL Estim Creat Clear Calc Estimated GFR POC Glucose (60-115) mg/dL Random Glucose (60-115) mg/dL Lactic Acid (0.5-2.0) mmol/L Calcium (8.4-10.2) mg/dL Magnesium Cancelled (1.6-2.6) mg/dL Total Bilirubin (0.0-1.0) mg/dL AST (5-31) U/L ALT (0-31) U/L Alkaline Phosphatase (39-117) U/L Troponin I High Sens (<3.5-17.0) ng/L Total Protein (6.5-8.0) g/dL Albumin (3.5-5.0) g/dL Lipase (8-78) U/L Urine Color Urine Appearance Urine pH (5.0-8.0) Ur Specific [place] (1.005-1.025) Urine Protein (NEG-TRACE) MG/DL Urine Glucose (UA) (NEG) MG/DL Urine Ketones (NEG) MG/DL Urine Blood (NEG) Urine Nitrite (NEG) Ur Leukocyte Esterase (NEG) Acetone, Qual (Negative) COVID-19 (VIVEK) (Negative) COVID-19 Clin Com <LALO Aldana - Last Filed: 07/12/21 22:39> Imaging Data CT scan - abdomen: Attestation: I personally reviewed and interpreted this imaging study as follows: <LALO Whitley - Last Filed: 07/11/21 21:04> Radiologist's impression: IMPRESSION: Liquid stool with air-fluid levels seen in the colon consistent with the given history of diarrhea. No evidence of bowel obstruction. Other incidental findings as described above.? ? Fleischner guidelines were followed. <LALO Whitely - Last Filed: 07/11/21 21:04> ECG Data Attestation: I personally reviewed and interpreted this ECG as follows: <LALO Whitley - Last Filed: 07/11/21 21:04> ECG interpretation date: 07/11/21 <LALO Whitley - Last Filed: 07/11/21 21:04> ECG interpretation time: 13:26 <LALO Whitley - Last Filed: 07/11/21 21:04> Prior ECG tracings: available for review <LALO Whitley - Last Filed: 07/11/21 21:04> Interpretation: Ventricular rate of 85, ND normal, QRS normal, QT /QTC normal. EKG shows normal sinus rhythm with question left atrial enlargement. No JAVIER or inversions. Q wave in lead V1 which is new. When compared to previous EKG of June 01, 2021 no other acute changes noted. No acute ischemia <LALO Whitley - Last Filed: 07/11/21 21:04> Discharge Plan Discharge Clinical Impression: Metabolic acidosis, Acute on chronic kidney failure, Diarrhea <LALO Whitley - Last Filed: 07/11/21 21:04> Patient Disposition: Admitted As Inpatient <LALO Whitley - Last Filed: 07/11/21 21:04> Interventions: Admission Worksheet (ED) Last Done: 07/12/21 16:29 <LALO Whitley - Last Filed: 07/11/21 21:04> Discharge Date/Time: 07/12/21 17:02 <LALO Whitley - Last Filed: 07/11/21 21:04> [facility] Past Medical History Attestation statement: The following information was validated with the patient. <LALO Whitley - Last Filed: 07/11/21 21:04> Source: old records reviewed and nursing notes reviewed <LALO Whitley - Last Filed: 07/11/21 21:04> Medical History: Medical History Arthritis Blind Diabetes Gastroparesis HTN (hypertension) <LALO Whitley - Last Filed: 07/11/21 21:04> Surgical History: Surgical History History of amputation Renal transplant, status post <LALO Whitley - Last Filed: 07/11/21 21:04> Family History Family History: Family History Mother Diabetes Hypertension Father Diabetes Hypertension <LALO Whitley - Last Filed: 07/11/21 21:04> Social History Social History: Social History Household Members: Other Housing: Detention Do you presently have visiting nurse or other home services: No Alcohol intake: never Patient Tobacco Use Status: Never used Tobacco Use of substances other than those prescribed or required for medical reasons: No Currently Displaying Signs/Symptoms of Drug Intoxication Withdrawal: No Have you been hit, kicked, punched, or otherwise hurt by someone within the past year? If so, by whom?: No Do you feel safe in your current relationship?: No Current Relationship Is there a partner from a previous relationship who is making you feel unsafe now?: No Are you made to feel afraid or neglected: No Advance Directives: Yes Advance Directives on File: Yes Advance Directives Date on File: 06/01/21 Do you have thoughts of harming others: None Do you have a plan to hurt others: No Plan Recently lost weight without trying: No Nutrition Risks: No Nutritional Risk Patient : No : No Poor oral hygiene: No service: No Current occupational status: disabled <LALO Whitley - Last Filed: 07/11/21 21:04>
--- NOTE | 2021-07-11 13:06 | ECG_ITS ---
Test Reason : abnormal lab Blood Pressure : / mmHG Vent. Rate : 085 BPM Atrial Rate : 085 BPM P-R Int : 152 ms QRS Dur : 094 ms QT Int : 348 ms P-R-T Axes : 062 -04 061 degrees QTc Int : 414 ms Normal sinus rhythm Possible Left atrial enlargement Abnormal ECG When compared with ECG of 01-JUN-2021 15:27, No significant changes seen Referred By: Blake Frost Electronically Signed By:JOAQUIM COLEMAN MD
[2021-07-11 13:17] LABS: Glucose, Whole Blood 320 mg/dL (60-115)
[2021-07-11] MEDS: Insulin Lispro 100 UNIT/ML 3 ML VIAL 10 UNIT SUBCUT (14:18)
[2021-07-11 14:38] LABS: Glucose, Whole Blood 330 mg/dL (60-115)
[2021-07-11] MEDS: 0.9 % Sodium Chloride 1,000 ML 999 ML IV ×2 (14:45→17:48)
[2021-07-11 15:22] LABS: COVID-19 Test Negative (Negative)
[2021-07-11 15:26] LABS: MANUAL DIFF FLAG NO
[2021-07-11 15:29] LABS: Basophils Percent Auto 0.3 % (0-2); Eosinophils Percent Auto 0.6 % (0-4); Hemoglobin 8.7 g/dl (12.0-16.0); Imm Gran Abs Auto 0.02 X10*3/uL (0.00-0.03); Imm Gran Pct Auto 0.3 % (0.0-0.4); Lymphocytes Absolute Auto 0.5 X10*3/uL (1.2-4.9); Lymphocytes Percent Auto 8.2 % (20-40); Mean Corpuscular Hemoglobin 25.7 pg (27.0-33.0); Mean Corpuscular Volume 88.8 fL (80.0-98.0); Mean Platelet Volume 11.2 fL (9.4-12.3); Monocytes Absolute Auto 0.3 X10*3/uL (0.1-1.2); Monocytes Percent Auto 5.5 % (2-11); Neutrophils Absolute Auto 5.3 x10*3/uL (2.0-8.3); Neutrophils Percent Auto 85.1 % (45-73); Platelet Count 365 X10*3/uL (160-400); Red Blood Count 3.38 X10*6/uL (4.20-5.50); Red Cell Distribution Width 13.6 % (11.0-16.0); White Blood Count 6.2 X10*3/uL (4.8-10.8)
--- NOTE | 2021-07-11 15:31 | PHA.MEDREC ---
Pharmacy Consult ? Medication Reconciliation Pharmacy has completed the medication reconciliation. list from [facility]
[2021-07-11 15:34] LABS: VBG Base Excess -15.5 mmol/L; VBG HCO3 11 mmol/L (22-26); VBG pCO2 31 mmHg; VBG pH 7.16 (7.32-7.43); VBG pO2 123 mmHg
[2021-07-11 15:35] LABS: Venous Blood Gas Refer to POC result
[2021-07-11 15:43] LABS: Acetone, serum QL Small (Negative)
[2021-07-11 15:54] LABS: Troponin-I High Sensitivity 5.4 ng/L (<3.5-17.0)
[2021-07-11 15:56] LABS: Alanine Aminotransferase 13 U/L (0-31); Albumin Level 3.2 g/dL (3.5-5.0); Alkaline Phosphatase 103 U/L (39-117); Anion Gap 13 (12-20); Aspartate Amino Transferase 10 U/L (5-31); Bilirubin Total 0.3 mg/dL (0.0-1.0); Blood Urea Nitrogen 65 mg/dL (9-16); Calcium 7.8 mg/dL (8.4-10.2); Carbon Dioxide 12 mmol/L (22-29); Chloride 113 mmol/L (96-108); Creatinine Clr Calc Pharmacy 19.4; Estimated Glomerular Filt Rate 13; Glucose Random 300 mg/dL (60-115); Lipase 15 U/L (8-78); Magnesium 1.4 mg/dL (1.6-2.6); Potassium 4.4 mmol/L (3.3-5.1); Sodium 134 mmol/L (135-145); Total Protein 6.1 g/dL (6.5-8.0)
--- NOTE | 2021-07-11 16:08 | PC.NURSE ---
pt is currently in and out of acting restless, will yell out that she is having pain in her back and pain in her left leg then go right back to sleep, pt's lips and oral mucosal extremely dry, pt is extremely hard stick this rn was able to gain another iv access in the right axillary area. vs stable at this time
[2021-07-11] MEDS: Magnesium Sulfate/H2O 2 GM/50 ML PIGGYBACK IV (16:20)
[2021-07-11] MEDS: 0.9 % Sodium Chloride 1,000 ML 999 ML IVCONT (16:21)
[2021-07-11 16:33] LABS: Lactic Acid 0.9 mmol/L (0.5-2.0)
[2021-07-11] MEDS: fentaNYL citrate/PF 100 MCG/2 ML VIAL 50 MCG IVPUSH ×2 (16:33→17:40)
[2021-07-11] MEDS: cefTRIAXone sodium 1 GM in 0.9 % Sodium Chloride 50 ML IV (16:35)
[2021-07-11 16:48] LABS: Appearance Urine CLEAR; Color Urine YELLOW; Glucose Urine UA NEG (NEG); Leukocyte Esterase Urine NEG (NEG); Nitrite Urine NEG (NEG); PH 5.5 (5.0-8.0); Specific Gravity - Urine 1.025 (1.005-1.025); Urine Blood NEG (NEG); Urine Ketones NEG (NEG); Urine Protein TRACE MG/DL (NEG-TRACE)
[2021-07-11 17:16] LABS: ABG Base Excess -14.2 mmol/L; ABG HCO3 13 mmol/L (22-26); ABG pCO2 37 mmHg (32-45); ABG pCO2 TC 37 mmHg (32-45); ABG pH 7.15 (7.35-7.45); ABG pH TC 7.15 (7.35-7.45); ABG pO2 48 mmHg (83-108); ABG pO2 TC 47 (83-108)
[2021-07-11 17:19] LABS: ABG Refer to POC result
[2021-07-11] MEDS: Sodium Bicarbonate 8.4% 50 MEQ/50 ML SYRINGE IVPUSH (17:41)
[2021-07-11] MEDS: Sodium Bicarbonate 8.4% 150 MEQ in Dextrose 5 % 850 ML 100 MEQ IV (18:36)
[2021-07-11 20:25] LABS: VBG HCO3 12 mmol/L (22-26); VBG pCO2 21 mmHg; VBG pH 7.36 (7.32-7.43); VBG pO2 138 mmHg
--- NOTE | 2021-07-11 20:25 | PC.NURSE ---
Repeat lab drawn and pt reposition. Provider in to assess pt. Will continue to monitor.
[2021-07-11 20:26] LABS: Venous Blood Gas Refer to POC result
[2021-07-11] MEDS: HYDROmorphone HCl 1 MG/ML SYRINGE IVPUSH (20:40)
[2021-07-11 20:55] LABS: Alanine Aminotransferase 10 U/L (0-31); Albumin Level 3.4 g/dL (3.5-5.0); Alkaline Phosphatase 103 U/L (39-117); Anion Gap 16 (12-20); Aspartate Amino Transferase 12 U/L (5-31); Bilirubin Total 0.2 mg/dL (0.0-1.0); Blood Urea Nitrogen 65 mg/dL (9-16); Calcium 8.5 mg/dL (8.4-10.2); Carbon Dioxide 12 mmol/L (22-29); Chloride 113 mmol/L (96-108); Creatinine Clr Calc Pharmacy 20.6; Estimated Glomerular Filt Rate 14; Glucose Random 182 mg/dL (60-115); Potassium 4.6 mmol/L (3.3-5.1); Sodium 136 mmol/L (135-145); Total Protein 6.4 g/dL (6.5-8.0)
--- NOTE | 2021-07-11 21:46 | PM.IMHP ---
History of Present Illness Date of Service: 07/11/21 Chief Complaint: diarrhea 45-year-old female with past medical history of diabetes, hypertension, kidney failure status for right kidney transplan, blind in both eyes, [facility] the hospital [facility] with stated complaint of diarrhea, abdominal pain, and high sugars. On my interview of the patient, patient appears very uncomfortable, she appears very dehydrated, reports that she has had diarrhea for the past 2 weeks, she is complaining of right groin pain area as well as diffuse abdominal pain, due to her blindness she is not sure if she has any bright red blood per rectum or melena, she reports pain on urination. . She is also complaining of low oral intake and appetite. She otherwise denies any headache, no chest pain, no lower extremity edema,. No numbness tingling. On arrival to the ED patient hemodynamically stable found to have temp of 98.3?, respiratory rate of 16, heart rate of 85, blood pressure 106/67, satting 98% on room air Labs are significant for WBC of 6.2, hemoglobin of 8.7, with a baseline around 9, pH of 7.16 with a bicarb of 12, sodium of 134, BUN of 65, creatinine of 3.69 with a baseline of 1.24, glucose of 330, magnesium of 1.4, UA negative, Patient received 1 amp of bicarb, placed on a bicarb drip and will be admitted for further management Review of Systems Review of Systems: Yes all other systems are reviewed and are negative [facility] Medical History Arthritis Blind Diabetes Gastroparesis HTN (hypertension) Family History Mother Diabetes Hypertension Father Diabetes Hypertension Pertinent family history: No family history of cardiovascular disease Surgical History History of amputation Renal transplant, status post Social History 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 Alcohol intake: never Patient Tobacco Use Status: Never used Tobacco Use of substances other than those prescribed or required for medical reasons: No Advance Directives: Yes Advance Directives on File: Yes Advance Directives Date on File: 06/01/21 service: No Current occupational status: disabled Meds Allergies Allergy/AdvReac Type Severity Reaction Status Date / Time amitriptyline Allergy Unknown UNKNOWN Verified 06/01/21 15:07 cephalexin Allergy Unknown UNKNOWN Verified 06/01/21 15:07 ciprofloxacin Allergy Unknown UNKNOWN Verified 06/01/21 15:07 famotidine [Pepcid] Allergy Unknown Unknown Verified 06/01/21 15:07 fluoxetine Allergy Unknown UNKNOWN Verified 06/01/21 15:07 ibuprofen [From ADVIL] Allergy Unknown ANXIETY Verified 06/01/21 15:07 Penicillins [PENICILLINS] Allergy Unknown HIVES Verified 06/01/21 15:07 codeine AdvReac Unknown N/V Verified 06/01/21 15:07 diphenhydramine [Advil PM] AdvReac Unknown anxiety Verified 06/01/21 15:07 metoclopramide AdvReac Unknown AGITATION,I Verified 06/01/21 15:07 TCHING morphine AdvReac Unknown N/V, Verified 06/01/21 15:07 anxiety tramadol AdvReac Unknown ANXIETY Verified 06/01/21 15:07 zolpidem [Ambien] AdvReac Unknown anxiety Verified 01/17/18 00:00 cephalexin Allergy Unknown Unknown Uncoded 06/01/21 15:07 ciproflaxacin Allergy Unknown Unknown Uncoded 06/01/21 15:07 From Ambien AdvReac Severe AGITATION Uncoded 05/07/20 15:50 Active Medications: Current Medications Sodium Bicarbonate 150 meq/ (Dextrose) 1,000 mls @ 100 mls/hr IV .Q10H LYNDON Last Admin: 07/11/21 18:36 Dose: 100 mls/hr Documented by: Pharmacy Consult (Consult Rx Perform Med Rec) 1 each MISCELLANE ONCE PRN PRN Reason: Consult order Home Medications Medication Instructions Recorded Confirmed Last Taken Type acetaminophen 325 mg tablet 650 mg PO Q6H PRN 06/01/21 07/11/21 Unknown History amlodipine 10 mg tablet 10 mg PO DAILY 06/01/21 07/11/21 Unknown History aspirin 81 mg tablet,delayed 81 mg PO DAILY 06/01/21 07/11/21 Unknown History release bisacodyl 10 mg rectal suppository 10 mg [place] DAILY PRN 06/01/21 07/11/21 Unknown History (Dulcolax (bisacodyl)) carvedilol 25 mg tablet 25 mg PO BID 06/01/21 07/11/21 Unknown History duloxetine 60 mg capsule,delayed 60 mg PO DAILY 06/01/21 07/11/21 Unknown History release ferrous sulfate 325 mg (65 mg 1 tab PO BID 06/01/21 07/11/21 Unknown History iron) tablet,delayed release folic acid 1 mg tablet 1 tab PO DAILY 06/01/21 07/11/21 Unknown History furosemide 40 mg tablet 1 tab PO BID 06/01/21 07/11/21 Unknown History gabapentin 400 mg capsule 400 mg PO TID 06/01/21 07/11/21 Unknown History hydromorphone 2 mg tablet 2 mg PO QID 06/01/21 07/11/21 Unknown History hydromorphone 2 mg tablet 2 mg PO Q6H PRN 06/01/21 07/11/21 Unknown History (Dilaudid) hydromorphone 4 mg tablet 4 mg PO QID 06/01/21 07/11/21 Unknown History hydromorphone 4 mg tablet 4 mg PO Q6H PRN 06/01/21 07/11/21 Unknown History (Dilaudid) insulin aspart U-100 100 unit/mL See Protocol SUBCUT TIDAC 06/01/21 07/11/21 Unknown History subcutaneous solution insulin glargine 100 unit/mL 20 unit SUBCUT BEDTIME 06/01/21 07/11/21 Unknown History subcutaneous solution (Lantus U-100 Insulin) multivitamin 1 tab PO DAILY 06/01/21 07/11/21 Unknown History mycophenolate mofetil 500 mg tablet 1,000 mg PO BID 06/01/21 07/11/21 Unknown History ondansetron HCl 4 mg tablet 1 tab PO Q8H PRN 06/01/21 07/11/21 Unknown History pantoprazole 20 mg tablet,delayed 1 tab PO DAILY@1630 06/01/21 07/11/21 Unknown History release prednisone 5 mg tablet 5 mg PO DAILY 06/01/21 07/11/21 Unknown History simethicone 80 mg chewable tablet 80 mg PO Q6H PRN 06/01/21 07/11/21 Unknown History tacrolimus 5 mg capsule, 5 mg PO BID 06/01/21 07/11/21 Unknown History immediate-release trazodone 100 mg tablet 100 mg PO BEDTIME 06/01/21 07/11/21 Unknown History dextrose 40 % oral gel (Glucose 15 g PO Q15M PRN 07/11/21 07/11/21 Unknown History Gel) trazodone 50 mg tablet 12.5 mg PO Q8H PRN 07/11/21 07/11/21 Unknown History Physical Exam Vital Signs and Narrative: Vital Signs: Last Vital Signs Temp 98.0 F 07/11/21 20:19 Pulse 73 07/11/21 20:19 Resp 18 07/11/21 20:19 BP 151/77 H 07/11/21 20:19 Pulse Ox 95 07/11/21 20:19 Body Mass Index 25.8 Const: Other: Appears very dehydrated in [place] General: cooperative and no acute distress Orientation/consciousness: patient oriented x3 Eyes: Other: Blind in both eyes Resp: Effort & Inspection: normal respiratory effort Auscultation: clear to auscultation bilaterally Cardio: Rate: regular rate Rhythm: regular rhythm GI: Palpation (GI): Soft to palpation Auscultation: normal bowel sounds Skin: Other: Dry mucosal membranes General skin exam: no rashes or lesions noted Neuro: General: patient oriented x3 Cognition (Neuro): normal cognition Extrem: General: Yes normal to inspection and Yes no pedal edema Results Labs CBC and Chem 7: 07/11/21 15:21 07/12/21 03:29 Labs: Laboratory Results - last 24 hr 07/11/21 07/11/21 07/11/21 13:14 14:33 14:56 MCV MCH MCHC RDW Plt Count MPV Immature Gran % (Auto) Neut % (Auto) Lymph % (Auto) [place] % (Auto) Eos % (Auto) Baso % (Auto) Lymph # (Auto) [place] # (Auto) Eos # (Auto) Baso # (Auto) Abs Immat Gran (auto) Absolute Neuts (auto) Absolute Nucleated RBC Nucleated RBC % (auto) O2 Saturation ABG pH at Pt Temp ABG pH (Temp Correct) ABG pCO2 at Pt Temp ABG pCO2 (Temp Corrct ABG pO2 at Pt Temp ABG pO2 (Temp Correct ABG HCO3 ABG Base Excess (Actual) VBG pH VBG pCO2 VBG pO2 VBG HCO3 VBG O2 Saturation VBG Base Excess Anion Gap Estim Creat Clear Calc Estimated GFR POC Glucose 320 H 330 H Random Glucose Lactic Acid Calcium Magnesium Total Bilirubin AST ALT Alkaline Phosphatase Troponin I High Sens Total Protein Albumin Lipase Urine Color Urine Appearance Urine pH Ur Specific [place] Urine Protein Urine Glucose (UA) Urine Ketones Urine Blood Urine Nitrite Ur Leukocyte Esterase Acetone, Qual COVID-19 (VIVEK) Negative COVID-19 Clin Com See Note 07/11/21 07/11/21 07/11/21 15: 15: 15:21 MCV 88.8 MCH 25.7 L MCHC 29.0 L RDW 13.6 Plt Count 365 MPV 11.2 Immature Gran % (Auto) 0.3 Neut % (Auto) 85.1 H Lymph % (Auto) 8.2 L [place] % (Auto) 5.5 Eos % (Auto) 0.6 Baso % (Auto) 0.3 Lymph # (Auto) 0.5 L [place] # (Auto) 0.3 Eos # (Auto) 0.0 Baso # (Auto) 0.0 Abs Immat Gran (auto) 0.02 Absolute Neuts (auto) 5.3 Absolute Nucleated RBC 0.000 Nucleated RBC % (auto) 0.0 O2 Saturation ABG pH at Pt Temp ABG pH (Temp Correct) ABG pCO2 at Pt Temp ABG pCO2 (Temp Corrct ABG pO2 at Pt Temp ABG pO2 (Temp Correct ABG HCO3 ABG Base Excess (Actual) VBG pH VBG pCO2 VBG pO2 VBG HCO3 VBG O2 Saturation VBG Base Excess Anion Gap 13 Estim Creat Clear Calc 19.4 Estimated GFR 13 POC Glucose Random Glucose 300 H Lactic Acid Calcium 7.8 L D Magnesium 1.4 L* Total Bilirubin 0.3 AST 10 D ALT 13 Alkaline Phosphatase 103 Troponin I High Sens 5.4 Total Protein 6.1 L Albumin 3.2 L Lipase 15 Urine Color Urine Appearance Urine pH Ur Specific [place] Urine Protein Urine Glucose (UA) Urine Ketones Urine Blood Urine Nitrite Ur Leukocyte Esterase Acetone, Qual COVID-19 (VIVEK) COVID-19 Clin Com 07/11/21 07/11/21 07/11/21 15:21 15:24 16:15 MCV MCH MCHC RDW Plt Count MPV Immature Gran % (Auto) Neut % (Auto) Lymph % (Auto) [place] % (Auto) Eos % (Auto) Baso % (Auto) Lymph # (Auto) [place] # (Auto) Eos # (Auto) Baso # (Auto) Abs Immat Gran (auto) Absolute Neuts (auto) Absolute Nucleated RBC Nucleated RBC % (auto) O2 Saturation ABG pH at Pt Temp ABG pH (Temp Correct) ABG pCO2 at Pt Temp ABG pCO2 (Temp Corrct ABG pO2 at Pt Temp ABG pO2 (Temp Correct ABG HCO3 ABG Base Excess (Actual) VBG pH 7.16 L* VBG pCO2 31 VBG pO2 123 VBG HCO3 11 L VBG O2 Saturation 99.0 VBG Base Excess -15.5 Anion Gap Estim Creat Clear Calc Estimated GFR POC Glucose Random Glucose Lactic Acid 0.9 Calcium Magnesium Total Bilirubin AST ALT Alkaline Phosphatase Troponin I High Sens Total Protein Albumin Lipase Urine Color Urine Appearance Urine pH Ur Specific [place] Urine Protein Urine Glucose (UA) Urine Ketones Urine Blood Urine Nitrite Ur Leukocyte Esterase Acetone, Qual Small H COVID-19 (VIVEK) COVID-19 Clin Com 07/11/21 07/11/21 07/11/21 16:33 17:06 20:18 MCV MCH MCHC RDW Plt Count MPV Immature Gran % (Auto) Neut % (Auto) Lymph % (Auto) [place] % (Auto) Eos % (Auto) Baso % (Auto) Lymph # (Auto) [place] # (Auto) Eos # (Auto) Baso # (Auto) Abs Immat Gran (auto) Absolute Neuts (auto) Absolute Nucleated RBC Nucleated RBC % (auto) O2 Saturation 75.0 ABG pH at Pt Temp 7.15 L* ABG pH (Temp Correct) 7.15 L* ABG pCO2 at Pt Temp 37 ABG pCO2 (Temp Corrct 37 ABG pO2 at Pt Temp 48 L* ABG pO2 (Temp Correct 47 L* ABG HCO3 13 L ABG Base Excess (Actual) -14.2 VBG pH VBG pCO2 VBG pO2 VBG HCO3 VBG O2 Saturation VBG Base Excess Anion Gap 16 Estim Creat Clear Calc 20.6 Estimated GFR 14 POC Glucose Random Glucose 182 H Lactic Acid Calcium 8.5 D Magnesium Total Bilirubin 0.2 AST 12 ALT 10 Alkaline Phosphatase 103 Troponin I High Sens Total Protein 6.4 L Albumin 3.4 L Lipase Urine Color YELLOW Urine Appearance CLEAR Urine pH 5.5 Ur Specific [place] 1.025 Urine Protein TRACE Urine Glucose (UA) NEG Urine Ketones NEG Urine Blood NEG Urine Nitrite NEG Ur Leukocyte Esterase NEG Acetone, Qual COVID-19 (VIVEK) COVID-19 Clin Com 07/11/21 20:19 MCV MCH MCHC RDW Plt Count MPV Immature Gran % (Auto) Neut % (Auto) Lymph % (Auto) [place] % (Auto) Eos % (Auto) Baso % (Auto) Lymph # (Auto) [place] # (Auto) Eos # (Auto) Baso # (Auto) Abs Immat Gran (auto) Absolute Neuts (auto) Absolute Nucleated RBC Nucleated RBC % (auto) O2 Saturation ABG pH at Pt Temp ABG pH (Temp Correct) ABG pCO2 at Pt Temp ABG pCO2 (Temp Corrct ABG pO2 at Pt Temp ABG pO2 (Temp Correct ABG HCO3 ABG Base Excess (Actual) VBG pH 7.36 VBG pCO2 21 VBG pO2 138 VBG HCO3 12 L VBG O2 Saturation 99.0 VBG Base Excess -11.0 Anion Gap Estim Creat Clear Calc Estimated GFR POC Glucose Random Glucose Lactic Acid Calcium Magnesium Total Bilirubin AST ALT Alkaline Phosphatase Troponin I High Sens Total Protein Albumin Lipase Urine Color Urine Appearance Urine pH Ur Specific [place] Urine Protein Urine Glucose (UA) Urine Ketones Urine Blood Urine Nitrite Ur Leukocyte Esterase Acetone, Qual COVID-19 (VIVEK) COVID-19 Clin Com Imaging Radiologist's Impressions: Impressions Abdomen/Pelvis CT 07/11/21 15:26 IMPRESSION: Liquid stool with air-fluid levels seen in the colon consistent with the given history of diarrhea. No evidence of bowel obstruction. Other incidental findings as described above. Fleischner guidelines were followed. Assessment and Plan (1) Metabolic acidosis: Status: Acute (2) Acute on chronic kidney failure: Status: Acute (3) Diarrhea: Status: Acute (4) Hypomagnesemia: Status: Acute 45-year-old female with history of diabetes hypertension, and kidney failure status post right kidney transplant who presents to the hospital with diarrhea found to have metabolic acidosis # acute metabolic acidosis - most likely secondary to diarrhea - has bicarb of 11, with a pH of 7.16, both improved with repletion of bicarb - will continue the bicarb drip - follow BMP # acute on chronic kidney failure - most likely secondary to severe dehydration - started on IV fluids- continue - nephrology consult given her history of kidney transplant - follow BMP - ED attempted to transfer patient [facility] (her transplant center close) but they were close for transfers # diarrhea - has not had an episode in the ED - will obtain stool cultures and C diff - otherwise supportive measures at this time # diabetes - patient on arrival was in slight DKA with a positive acetone but had no anion gap in her pH most likely multifactorial - her glucose is well controlled now, anion gap is closed - will start on low-dose sliding scale insulin -continue home Lantus # history of kidney transplant - continue her home meds # hypertension - stable - continue home med DVT prophylaxis: Heparin subQ Quality Stroke Does the patient have a stroke diagnosis?: No VTE Prior VTE?: No VTE Risk Level:: Medical - moderate - high VTE Device Contraindication: Treatment Not Indicated VTE Drug Contraindication: N/A - Med Ordered
[2021-07-11] MEDS: LORazepam 1 MG TABLET PO (21:49)
--- NOTE | 2021-07-11 22:09 | PC.NURSE ---
Pt is sleeping at this time. no sign of distress.
[2021-07-11] MEDS: Insulin Glargine,Hum.rec.anlog 100 UNIT/ML 10 ML VIAL 20 UNIT SUBCUT (22:23)
[2021-07-11] MEDS: carvediloL 25 MG TABLET PO (22:24)
[2021-07-11] MEDS: traZODone HCL 100 MG TABLET PO (22:24)
[2021-07-11] MEDS: Gabapentin 400 MG CAPSULE PO (22:24)
[2021-07-11 22:31] LABS: Glucose, Whole Blood 167 mg/dL (60-115)
[2021-07-12] VITALS (9 sets, daily range): BP systolic 140–172; BP diastolic 40–90; PULSE 72–92; RESP 8–20; TEMP 36.3–37.1; O2SAT 94–97
--- NOTE | 2021-07-12 00:03 | PC.NURSE ---
pt is sleeping at this time. per refusing pain medication po. Provider aware. Charge nurse several time to discuss medication option in regards pain management after pt continued to yell and scream. Pt was redirected at this time. Will continue to monitor.
--- NOTE | 2021-07-12 01:58 | PC.NURSE ---
pt is repositioned, hospitalist aware of low blood pressure. 500 bolus given per provider order. Will continue to monitor.
[2021-07-12] MEDS: Lactated Ringers 1,000 ML 999 ML IV (02:13)
[2021-07-12 03:51] LABS: Anion Gap 13 (12-20); Blood Urea Nitrogen 65 mg/dL (9-16); Calcium 8.6 mg/dL (8.4-10.2); Carbon Dioxide 17 mmol/L (22-29); Chloride 112 mmol/L (96-108); Creatinine Clr Calc Pharmacy 23.6; Estimated Glomerular Filt Rate 17; Glucose Random 198 mg/dL (60-115); Magnesium 1.7 mg/dL (1.6-2.6); Potassium 4.1 mmol/L (3.3-5.1); Sodium 138 mmol/L (135-145)
[2021-07-12] MEDS: Sodium Bicarbonate 8.4% 150 MEQ in Dextrose 5 % 850 ML 100 MEQ IV ×2 (04:03→13:05)
[2021-07-12] MEDS: Heparin Sodium,Porcine 5,000 UNIT/ML VIAL 5000 UNIT SUBCUT ×2 (05:09→15:25)
[2021-07-12 06:27] LABS: MANUAL DIFF FLAG NO
[2021-07-12 06:49] LABS: Anion Gap 12 (12-20); Blood Urea Nitrogen 63 mg/dL (9-16); Calcium 8.5 mg/dL (8.4-10.2); Carbon Dioxide 17 mmol/L (22-29); Chloride 113 mmol/L (96-108); Creatinine Clr Calc Pharmacy 25.7; Estimated Glomerular Filt Rate 18; Glucose Random 180 mg/dL (60-115); Potassium 4.4 mmol/L (3.3-5.1); Sodium 138 mmol/L (135-145)
[2021-07-12 06:52] LABS: Basophils Percent Auto 0.2 % (0-2); Eosinophils Absolute Auto 0.2 X10*3/uL (0.0-0.4); Eosinophils Percent Auto 3.9 % (0-4); Hematocrit 26.1 % (37.0-47.0); Hemoglobin 7.9 g/dl (12.0-16.0); Imm Gran Abs Auto 0.02 X10*3/uL (0.00-0.03); Imm Gran Pct Auto 0.4 % (0.0-0.4); Lymphocytes Absolute Auto 0.9 X10*3/uL (1.2-4.9); Lymphocytes Percent Auto 17.9 % (20-40); Mean Corpuscular HGB Conc 30.3 g/dl (31.0-35.0); Mean Corpuscular Hemoglobin 25.7 pg (27.0-33.0); Mean Platelet Volume 11.9 fL (9.4-12.3); Monocytes Absolute Auto 0.5 X10*3/uL (0.1-1.2); Monocytes Percent Auto 8.8 % (2-11); Neutrophils Absolute Auto 3.5 x10*3/uL (2.0-8.3); Neutrophils Percent Auto 68.8 % (45-73); Platelet Count 363 X10*3/uL (160-400); Red Blood Count 3.07 X10*6/uL (4.20-5.50); Red Cell Distribution Width 13.3 % (11.0-16.0); White Blood Count 5.1 X10*3/uL (4.8-10.8)
[2021-07-12 07:52] LABS: Glucose, Whole Blood 160 mg/dL (60-115)
[2021-07-12] MEDS: Insulin Lispro 100 UNIT/ML 3 ML VIAL SUBCUT ×2 (08:54→20:50)
[2021-07-12] MEDS: Gabapentin 400 MG CAPSULE PO ×3 (09:05→20:36)
[2021-07-12] MEDS: DULoxetine HCl 60 MG CAPSULE.DR PO (09:05)
[2021-07-12] MEDS: Ferrous Sulfate 324 MG TABLET.DR PO ×2 (09:05→20:35)
[2021-07-12] MEDS: predniSONE 5 MG TABLET PO (09:06)
[2021-07-12] MEDS: Multivitamin TABLET 1 TAB PO (09:06)
[2021-07-12] MEDS: amLODIPine Besylate 10 MG TABLET PO (09:06)
[2021-07-12] MEDS: Folic Acid 1 MG TABLET PO (09:06)
[2021-07-12] MEDS: HYDROmorphone HCl 2 MG TABLET PO ×3 (09:06→22:19)
[2021-07-12] MEDS: carvediloL 25 MG TABLET PO ×2 (09:06→20:39)
[2021-07-12] MEDS: Aspirin Enteric Coated 81 MG TABLET.DR PO (09:06)
[2021-07-12] MEDS: Tacrolimus 1 MG CAPSULE 5 MG PO ×2 (09:07→23:08)
[2021-07-12] MEDS: mycophenolate mofetiL 250 MG CAPSULE 1000 MG PO ×2 (09:07→20:36)
--- NOTE | 2021-07-12 09:58 | P.PNIM_ITS ---
Subjective Subjective Date of Service: 07/12/21 Interval History: the patient was seen and evaluated this morning Laying in bed, Sleepy and tired, respond to stimulation Kidney function improving, pseudocyst resolving Denies any fever, chills or shortness of breath No reported other overnight events. Systemic review: Very sleepy and Difficult to arouse but denies any major pain Physical Exam Vital Signs: Vital Signs: Last Vital Signs Temp 98.0 F 07/11/21 20:19 Pulse 91 07/12/21 09:15 Resp 15 07/12/21 09:15 BP 140/90 H 07/12/21 09:15 Pulse Ox 94 07/12/21 09:15 Body Mass Index 25.8 Const: Other: Constitutional : AlertWith stimulation, looks lethargic and tired, dry lips Neck : Normal inspection, Supple Cardiovascular : RRR, S1 S2, no lower extremity edema Respiratory : Fair bilateral air entry, no crackles, wheezes or rhonchi Gastrointestinal: soft, lax, Normal bowel sounds, Non tender Skin : Warm, Dry Neurological : Alert With stimulation, No focal deficit Objective Data Active Medications Acetaminophen (Acetaminophen 325 Mg Tablet) 650 mg PO Q6H PRN PRN Reason: Pain, Mild (Pain Scale 1-3) Amlodipine Besylate (Amlodipine Besylate 10 Mg Tablet) 10 mg PO DAILY [facility]; Protocol Last Admin: 07/12/21 09:06 Dose: 10 mg Documented by: KEYLA Aspirin (Aspirin Enteric Coated 81 Mg Tablet.) 81 mg PO DAILY [facility] Last Admin: 07/12/21 09:06 Dose: 81 mg Documented by: KEYLA Bisacodyl (Bisacodyl 10 Mg Supp.Rect) 10 mg [place] DAILY PRN PRN Reason: Constipation Carvedilol (Carvedilol 25 Mg Tablet) 25 mg PO BID [facility]; Protocol Last Admin: 07/12/21 09:06 Dose: 25 mg Documented by: KEYLA Dextrose (Dextrose 50 % 25 Gm/50 Ml Vial) 25 gm IVPUSH Q15M PRN; Protocol PRN Reason: per Hypoglycemia Standing Ord. Docusate Sodium (Docusate Sodium 100 Mg Capsule) 100 mg PO DAILY PRN PRN Reason: Constipation Duloxetine HCl (Duloxetine Hcl 60 Mg Capsule.) 60 mg PO DAILY [facility] Last Admin: 07/12/21 09:05 Dose: 60 mg Documented by: KEYLA Ferrous Sulfate (Ferrous Sulfate 324 Mg Beryl.) 324 mg PO BID [facility] Last Admin: 07/12/21 09:05 Dose: 324 mg Documented by: KEYLA Folic Acid (Folic Acid 1 Mg Tablet) 1 mg PO DAILY [facility] Last Admin: 07/12/21 09:06 Dose: 1 mg Documented by: KELYA Gabapentin (Gabapentin 400 Mg Capsule) 400 mg PO TID [facility] Last Admin: 07/12/21 09:05 Dose: 400 mg Documented by: KEYLA Glucose (Glucose Gel 15 Gm Gel..Gram.) 15 gm PO Q15M PRN; Protocol PRN Reason: per Hypoglycemia Standing Ord. Heparin Sodium (Porcine) (Heparin Sodium,Porcine 5,000 Unit/Ml Vial) 5,000 unit SUBCUT Q12H [facility] Last Admin: 07/12/21 05:09 Dose: 5,000 unit Documented by: GLO Hydromorphone HCl (Hydromorphone Hcl 2 Mg Tablet) 2 mg PO Q6H PRN PRN Reason: Pain (Scale Score 7-10) Hydromorphone HCl (Hydromorphone Hcl 4 Mg Tablet) 4 mg PO QID [facility] Last Admin: 07/12/21 09:06 Dose: 4 mg Documented by: KEYLA Hydromorphone HCl (Hydromorphone Hcl 2 Mg Tablet) 2 mg PO QID [facility] Last Admin: 07/12/21 09:06 Dose: 2 mg Documented by: KEYLA Hydromorphone HCl (Hydromorphone Hcl 0.5 Mg/0.5 Ml Syringe) 0.5 mg IVPUSH Q4H PRN; Protocol PRN Reason: Pain, Severe (Pain Scale 7-10) Sodium Bicarbonate 150 meq/ (Dextrose) 1,000 mls @ 100 mls/hr IV .Q10H [facility] Last Admin: 07/12/21 04:03 Dose: 100 mls/hr Documented by: GLO Insulin Glargine (Insulin Glargine,Hum.Rec.Anlog 100 Unit/Ml 10 Ml Vial) 20 unit SUBCUT BEDTIME [facility] Last Admin: 07/11/21 22:23 Dose: 20 unit Documented by: NIKHIL Insulin Human Lispro (Insulin Lispro 100 Unit/Ml 3 Ml Vial) 0 unit SUBCUT QIDACHS [facility]; Protocol Last Admin: 07/12/21 08:54 Dose: 2 unit Documented by: KEYLA Multivitamins/Vitamin C (Multivitamin Tablet) 1 tab PO DAILY [facility] Last Admin: 07/12/21 09:06 Dose: 1 tab Documented by: KEYLA Mycophenolate Mofetil (Mycophenolate Mofetil 250 Mg Capsule) 1,000 mg PO BID [facility] Last Admin: 07/12/21 09:07 Dose: 1,000 mg Documented by: KEYLA Omeprazole (Omeprazole 20 Mg Capsule.Dr) 20 mg PO DAILY@1630 [facility] Ondansetron HCl (Ondansetron Hcl 4 Mg/2 Ml Vial) 4 mg IVPUSH Q8H PRN PRN Reason: Nausea and Vomiting Pharmacy Consult (Consult Rx Perform Med Rec) 1 each MISCELLANE ONCE PRN PRN Reason: Consult order Prednisone (Prednisone 5 Mg Tablet) 5 mg PO DAILY [facility] Last Admin: 07/12/21 09:06 Dose: 5 mg Documented by: KEYLA Simethicone (Simethicone 80 Mg Tab.Chew) 80 mg PO Q6H PRN PRN Reason: Gas Sodium Chloride (0.9 % Sodium Chloride Flush 3 Ml Syringe) 3 ml IVFLUSH QSHIFT [facility] Last Admin: 07/12/21 07:50 Dose: Not Given Documented by: KEYLA Non-Admin Reason: IV Running Tacrolimus (Tacrolimus 1 Mg Capsule) 5 mg PO BID [facility] Last Admin: 07/12/21 09:07 Dose: 5 mg Documented by: KEYLA Trazodone HCl (Trazodone Hcl 25 Mg Halftab) 12.5 mg PO Q8H PRN PRN Reason: Anxiety Trazodone HCl (Trazodone Hcl 100 Mg Tablet) 100 mg PO BEDTIME [facility] Last Admin: 07/11/21 22:24 Dose: 100 mg Documented by: NIKHIL Labs CBC & Chem 7: 07/12/21 06:18 07/12/21 06:18 Labs: Laboratory Results - last 24 hr 07/11/21 07/11/21 07/11/21 13:14 14:33 14:56 MCV MCH MCHC RDW Plt Count MPV Immature Gran % (Auto) Neut % (Auto) Lymph % (Auto) Davie % (Auto) Eos % (Auto) Baso % (Auto) Lymph # (Auto) Davie # (Auto) Eos # (Auto) Baso # (Auto) Abs Immat Gran (auto) Absolute Neuts (auto) Absolute Nucleated RBC Nucleated RBC % (auto) O2 Saturation ABG pH at Pt Temp ABG pH (Temp Correct) ABG pCO2 at Pt Temp ABG pCO2 (Temp Corrct ABG pO2 at Pt Temp ABG pO2 (Temp Correct ABG HCO3 ABG Base Excess (Actual) VBG pH VBG pCO2 VBG pO2 VBG HCO3 VBG O2 Saturation VBG Base Excess Anion Gap Estim Creat Clear Calc Estimated GFR POC Glucose 320 H 330 H Random Glucose Lactic Acid Calcium Magnesium Total Bilirubin AST ALT Alkaline Phosphatase Troponin I High Sens Total Protein Albumin Lipase Urine Color Urine Appearance Urine pH Ur Specific Carpenter Urine Protein Urine Glucose (UA) Urine Ketones Urine Blood Urine Nitrite Ur Leukocyte Esterase Acetone, Qual COVID-19 (VIVEK) Negative COVID-19 Clin Com See Note 07/11/21 07/11/21 07/11/21 15:21 15:21 15:21 MCV 88.8 MCH 25.7 L MCHC 29.0 L RDW 13.6 Plt Count 365 MPV 11.2 Immature Gran % (Auto) 0.3 Neut % (Auto) 85.1 H Lymph % (Auto) 8.2 L Davie % (Auto) 5.5 Eos % (Auto) 0.6 Baso % (Auto) 0.3 Lymph # (Auto) 0.5 L Davie # (Auto) 0.3 Eos # (Auto) 0.0 Baso # (Auto) 0.0 Abs Immat Gran (auto) 0.02 Absolute Neuts (auto) 5.3 Absolute Nucleated RBC 0.000 Nucleated RBC % (auto) 0.0 O2 Saturation ABG pH at Pt Temp ABG pH (Temp Correct) ABG pCO2 at Pt Temp ABG pCO2 (Temp Corrct ABG pO2 at Pt Temp ABG pO2 (Temp Correct ABG HCO3 ABG Base Excess (Actual) VBG pH VBG pCO2 VBG pO2 VBG HCO3 VBG O2 Saturation VBG Base Excess Anion Gap 13 Estim Creat Clear Calc 19.4 Estimated GFR 13 POC Glucose Random Glucose 300 H Lactic Acid Calcium 7.8 L D Magnesium 1.4 L* Total Bilirubin 0.3 AST 10 D ALT 13 Alkaline Phosphatase 103 Troponin I High Sens 5.4 Total Protein 6.1 L Albumin 3.2 L Lipase 15 Urine Color Urine Appearance Urine pH Ur Specific Carpenter Urine Protein Urine Glucose (UA) Urine Ketones Urine Blood Urine Nitrite Ur Leukocyte Esterase Acetone, Qual COVID-19 (VIVEK) COVID-19 Clin Com 07/11/21 07/11/21 07/11/21 15:21 15:24 16:15 MCV MCH MCHC RDW Plt Count MPV Immature Gran % (Auto) Neut % (Auto) Lymph % (Auto) Davie % (Auto) Eos % (Auto) Baso % (Auto) Lymph # (Auto) Davie # (Auto) Eos # (Auto) Baso # (Auto) Abs Immat Gran (auto) Absolute Neuts (auto) Absolute Nucleated RBC Nucleated RBC % (auto) O2 Saturation ABG pH at Pt Temp ABG pH (Temp Correct) ABG pCO2 at Pt Temp ABG pCO2 (Temp Corrct ABG pO2 at Pt Temp ABG pO2 (Temp Correct ABG HCO3 ABG Base Excess (Actual) VBG pH 7.16 L* VBG pCO2 31 VBG pO2 123 VBG HCO3 11 L VBG O2 Saturation 99.0 VBG Base Excess -15.5 Anion Gap Estim Creat Clear Calc Estimated GFR POC Glucose Random Glucose Lactic Acid 0.9 Calcium Magnesium Total Bilirubin AST ALT Alkaline Phosphatase Troponin I High Sens Total Protein Albumin Lipase Urine Color Urine Appearance Urine pH Ur Specific Carpenter Urine Protein Urine Glucose (UA) Urine Ketones Urine Blood Urine Nitrite Ur Leukocyte Esterase Acetone, Qual Small H COVID-19 (VIVEK) COVID-19 [employer] Com 07/11/21 07/11/21 07/11/21 16:33 17:06 20:18 MCV MCH MCHC RDW Plt Count MPV Immature Gran % (Auto) Neut % (Auto) Lymph % (Auto) Davie % (Auto) Eos % (Auto) Baso % (Auto) Lymph # (Auto) Davie # (Auto) Eos # (Auto) Baso # (Auto) Abs Immat Gran (auto) Absolute Neuts (auto) Absolute Nucleated RBC Nucleated RBC % (auto) O2 Saturation 75.0 ABG pH at Pt Temp 7.15 L* ABG pH (Temp Correct) 7.15 L* ABG pCO2 at Pt Temp 37 ABG pCO2 (Temp Corrct 37 ABG pO2 at Pt Temp 48 L* ABG pO2 (Temp Correct 47 L* ABG HCO3 13 L ABG Base Excess (Actual) -14.2 VBG pH VBG pCO2 VBG pO2 VBG HCO3 VBG O2 Saturation VBG Base Excess Anion Gap 16 Estim Creat Clear Calc 20.6 Estimated GFR 14 POC Glucose Random Glucose 182 H Lactic Acid Calcium 8.5 D Magnesium Total Bilirubin 0.2 AST 12 ALT 10 Alkaline Phosphatase 103 Troponin I High Sens Total Protein 6.4 L Albumin 3.4 L Lipase Urine Color YELLOW Urine Appearance CLEAR Urine pH 5.5 Ur Specific Carpenter 1.025 Urine Protein TRACE Urine Glucose (UA) NEG Urine Ketones NEG Urine Blood NEG Urine Nitrite NEG Ur Leukocyte Esterase NEG Acetone, Qual COVID-19 (VIVEK) COVID-19 [facility] 07/11/21 07/11/21 07/12/21 20:19 22:23 03:29 MCV MCH MCHC RDW Plt Count MPV Immature Gran % (Auto) Neut % (Auto) Lymph % (Auto) Davie % (Auto) Eos % (Auto) Baso % (Auto) Lymph # (Auto) Davie # (Auto) Eos # (Auto) Baso # (Auto) Abs Immat Gran (auto) Absolute Neuts (auto) Absolute Nucleated RBC Nucleated RBC % (auto) O2 Saturation ABG pH at Pt Temp ABG pH (Temp Correct) ABG pCO2 at Pt Temp ABG pCO2 (Temp Corrct ABG pO2 at Pt Temp ABG pO2 (Temp Correct ABG HCO3 ABG Base Excess (Actual) VBG pH 7.36 VBG pCO2 21 VBG pO2 138 VBG HCO3 12 L VBG O2 Saturation 99.0 VBG Base Excess -11.0 Anion Gap 13 Estim Creat Clear Calc 23.6 Estimated GFR 17 POC Glucose 167 H Random Glucose 198 H Lactic Acid Calcium 8.6 Magnesium 1.7 Total Bilirubin AST ALT Alkaline Phosphatase Troponin I High Sens Total Protein Albumin Lipase Urine Color Urine Appearance Urine pH Ur Specific Carpenter Urine Protein Urine Glucose (UA) Urine Ketones Urine Blood Urine Nitrite Ur Leukocyte Esterase Acetone, Qual COVID-19 (VIVKE) COVID-19 Clin Com 07/12/21 07/12/21 07/12/21 03:29 06:18 06:18 MCV 85.0 MCH 25.7 L MCHC 30.3 L RDW 13.3 Plt Count 363 MPV 11.9 Immature Gran % (Auto) 0.4 Neut % (Auto) 68.8 Lymph % (Auto) 17.9 L Davie % (Auto) 8.8 Eos % (Auto) 3.9 Baso % (Auto) 0.2 Lymph # (Auto) 0.9 L Davie # (Auto) 0.5 Eos # (Auto) 0.2 Baso # (Auto) 0.0 Abs Immat Gran (auto) 0.02 Absolute Neuts (auto) 3.5 Absolute Nucleated RBC 0.000 Nucleated RBC % (auto) 0.0 O2 Saturation ABG pH at Pt Temp ABG pH (Temp Correct) ABG pCO2 at Pt Temp ABG pCO2 (Temp Corrct ABG pO2 at Pt Temp ABG pO2 (Temp Correct ABG HCO3 ABG Base Excess (Actual) VBG pH VBG pCO2 VBG pO2 VBG HCO3 VBG O2 Saturation VBG Base Excess Anion Gap 12 Estim Creat Clear Calc 25.7 Estimated GFR 18 POC Glucose Random Glucose 180 H Lactic Acid Calcium 8.5 Magnesium Cancelled Total Bilirubin AST ALT Alkaline Phosphatase Troponin I High Sens Total Protein Albumin Lipase Urine Color Urine Appearance Urine pH Ur Specific Carpenter Urine Protein Urine Glucose (UA) Urine Ketones Urine Blood Urine Nitrite Ur Leukocyte Esterase Acetone, Qual COVID-19 (VIVEK) COVID-19 Clin Com 07/12/21 07/12/21 06:18 07:48 MCV MCH MCHC RDW Plt Count MPV Immature Gran % (Auto) Neut % (Auto) Lymph % (Auto) Davie % (Auto) Eos % (Auto) Baso % (Auto) Lymph # (Auto) Davie # (Auto) Eos # (Auto) Baso # (Auto) Abs Immat Gran (auto) Absolute Neuts (auto) Absolute Nucleated RBC Nucleated RBC % (auto) O2 Saturation ABG pH at Pt Temp ABG pH (Temp Correct) ABG pCO2 at Pt Temp ABG pCO2 (Temp Corrct ABG pO2 at Pt Temp ABG pO2 (Temp Correct ABG HCO3 ABG Base Excess (Actual) VBG pH VBG pCO2 VBG pO2 VBG HCO3 VBG O2 Saturation VBG Base Excess Anion Gap Cancelled Estim Creat Clear Calc Cancelled Estimated GFR Cancelled POC Glucose 160 H Random Glucose Cancelled Lactic Acid Calcium Cancelled Magnesium Total Bilirubin AST ALT Alkaline Phosphatase Troponin I High Sens Total Protein Albumin Lipase Urine Color Urine Appearance Urine pH Ur Specific Carpenter Urine Protein Urine Glucose (UA) Urine Ketones Urine Blood Urine Nitrite Ur Leukocyte Esterase Acetone, Qual COVID-19 (VIVEK) COVID-19 Clin Com Assessment and Plan (1) Metabolic acidosis: Status: Acute (2) Acute on chronic kidney failure: Status: Acute Assessment and Plan: 45-year-old female with history of diabetes hypertension, and kidney failure status post right kidney transplant who presents to the hospital with diarrhea found to have metabolic acidosis # acute metabolic acidosis likely secondary to diarrhea Bicarb improved to 17 continue the bicarb drip follow BMP # acute on chronic kidney failure likely secondary to severe dehydration Continue IV fluids To check tacrolimus level Nephrology consult Monitor intake and output ED attempted to transfer patient [facility] (her transplant center close) but they were close for transfers # diarrhea has not had an episode in the ED Pendingstool cultures and C diff supportive measures at this time # diabetes low-dose sliding scale insulin continue home Lantus # history of kidney transplant continue her home meds # hypertension continue home med DVT prophylaxis: Heparin subQ Quality Stroke Does the patient have a stroke diagnosis?: No VTE Prior VTE?: No VTE Risk Level:: Medical - moderate - high VTE Device Contraindication: Treatment Not Indicated VTE Drug Contraindication: N/A - Med Ordered
[2021-07-12 12:12] LABS: Glucose, Whole Blood 113 mg/dL (60-115)
[2021-07-12 14:53] LABS: Anion Gap 12 (12-20); Blood Urea Nitrogen 57 mg/dL (9-16); Calcium 8.6 mg/dL (8.4-10.2); Carbon Dioxide 22 mmol/L (22-29); Chloride 110 mmol/L (96-108); Creatinine Clr Calc Pharmacy 32.6; Estimated Glomerular Filt Rate 24; Glucose Random 125 mg/dL (60-115); Potassium 3.7 mmol/L (3.3-5.1); Sodium 140 mmol/L (135-145)
[2021-07-12] MEDS: Omeprazole 20 MG CAPSULE.DR PO (15:25)
--- NOTE | 2021-07-12 15:27 | PC.NURSE ---
Emani : [phone]
--- NOTE | 2021-07-12 16:00 | PC.NURSE ---
pt refusing to allow blood sugar check at this time. Pt crying and stating she is uncomfortable and in pain. made aware.
[2021-07-12] MEDS: HYDROmorphone HCl 0.5 MG/0.5 ML SYRINGE IVPUSH ×2 (16:08→21:09)
[2021-07-12 16:29] LABS: Glucose, Whole Blood 112 mg/dL (60-115)
[2021-07-12] MEDS: HYDROmorphone HCl 1 MG/ML SYRINGE IVPUSH (17:07)
[2021-07-12] MEDS: 0.9 % Sodium Chloride Flush 3 ML SYRINGE IVFLUSH (17:08)
[2021-07-12 17:15] LABS: Glucose, Whole Blood 131 mg/dL (60-115)
[2021-07-12] MEDS: Lactated Ringers 1,000 ML 100 ML IVCONT (17:25)
[2021-07-12] MEDS: traZODone HCL 100 MG TABLET PO (20:36)
[2021-07-12 20:37] LABS: Glucose, Whole Blood 248 mg/dL (60-115)
[2021-07-12] MEDS: Insulin Glargine,Hum.rec.anlog 100 UNIT/ML 10 ML VIAL 10 UNIT SUBCUT (20:38)
--- NOTE | 2021-07-12 21:16 | PM.EVENT ---
Event Note Date of Service: 07/12/21 Event Note: 45-year-old female with history of diabetes hypertension, and kidney failure status post right kidney transplant with 1. DWAINE 2. CKD at baseline 3. Renal transplant 4. Metabolic acidosis in the setting of diorrhoea with HCO3 loss Will check Urine Lytes/ Creat IVF with Bicarb Cr is getting better W/u for loose stools Continue home dose of Tacro/ MMF and prednisone Mycophynalate can cause loose stools Tacro level Labs in AM d/w medical team Thx Dr. Jeffries
[2021-07-13 03:52] VITALS: BP 162/78; PULSE 93; RESP 18; TEMP 36.6; O2SAT 97
[2021-07-13] MEDS: HYDROmorphone HCl 0.5 MG/0.5 ML SYRINGE IVPUSH ×4 (03:52→23:29)
[2021-07-13] MEDS: Lactated Ringers 1,000 ML 100 ML IVCONT ×3 (03:54→23:25)
[2021-07-13] MEDS: Heparin Sodium,Porcine 5,000 UNIT/ML VIAL 5000 UNIT SUBCUT ×2 (03:54→16:26)
--- NOTE | 2021-07-13 04:11 | PC.NURSE ---
pt yelling and screaming stating she was in pain but did not want any of her po medications. she wants them as IV. she calmed down after her IV pain medication then was able to take the rest of her night medications
[2021-07-13 05:47] LABS: Hematocrit 28.8 % (37.0-47.0); Hemoglobin 8.8 g/dl (12.0-16.0); Mean Corpuscular HGB Conc 30.6 g/dl (31.0-35.0); Mean Corpuscular Hemoglobin 25.4 pg (27.0-33.0); Mean Platelet Volume 11.3 fL (9.4-12.3); Platelet Count 402 X10*3/uL (160-400); Red Blood Count 3.47 X10*6/uL (4.20-5.50); Red Cell Distribution Width 13.4 % (11.0-16.0); White Blood Count 6.5 X10*3/uL (4.8-10.8)
[2021-07-13 05:59] LABS: Anion Gap 12 (12-20); Blood Urea Nitrogen 43 mg/dL (9-16); Carbon Dioxide 25 mmol/L (22-29); Chloride 107 mmol/L (96-108); Creatinine Clr Calc Pharmacy 45.3; Estimated Glomerular Filt Rate 35; Glucose Random 143 mg/dL (60-115); Potassium 3.7 mmol/L (3.3-5.1); Sodium 140 mmol/L (135-145)
[2021-07-13 07:23] VITALS: BP 186/76; PULSE 88; RESP 12; TEMP 38.1; O2SAT 97
[2021-07-13 07:33] LABS: Glucose, Whole Blood 133 mg/dL (60-115)
[2021-07-13] MEDS: mycophenolate mofetiL 250 MG CAPSULE 1000 MG PO ×2 (08:25→19:51)
[2021-07-13] MEDS: Gabapentin 400 MG CAPSULE PO ×3 (08:26→19:52)
[2021-07-13] MEDS: Folic Acid 1 MG TABLET PO (08:26)
[2021-07-13] MEDS: carvediloL 25 MG TABLET PO ×2 (08:26→19:52)
[2021-07-13] MEDS: Aspirin Enteric Coated 81 MG TABLET.DR PO (08:27)
[2021-07-13] MEDS: DULoxetine HCl 60 MG CAPSULE.DR PO (08:27)
[2021-07-13] MEDS: HYDROmorphone HCl 2 MG TABLET PO ×3 (08:27→19:52)
[2021-07-13] MEDS: Ferrous Sulfate 324 MG TABLET.DR PO ×2 (08:29→19:52)
[2021-07-13] MEDS: amLODIPine Besylate 10 MG TABLET PO (08:29)
[2021-07-13] MEDS: Acetaminophen 325 MG TABLET 650 MG PO (08:30)
[2021-07-13] MEDS: Multivitamin TABLET 1 TAB PO (08:31)
[2021-07-13] MEDS: Tacrolimus 1 MG CAPSULE 5 MG PO ×2 (08:33→19:51)
[2021-07-13] MEDS: predniSONE 5 MG TABLET PO (08:34)
--- NOTE | 2021-07-13 09:50 | P.PNIM_ITS ---
Subjective Subjective Date of Service: 07/13/21 Interval History: the patient was seen and evaluated this morning Laying in bed, more relaxed and relieved Spiking low-grade fever Kidney function improving No reported other overnight events. Systemic review: Have low-grade fever with no chills, reports generalized pain No chest pain, palpitation No shortness of breath or coughing No abdominal pain, nausea or vomiting No urinary symptoms No any rash or wounds Physical Exam Vital Signs: Vital Signs: Last Vital Signs Temp 100.6 F H 07/13/21 07:23 Pulse 88 07/13/21 07:23 Resp 12 07/13/21 07:23 BP 186/76 H 07/13/21 07:23 Pulse Ox 97 07/13/21 07:23 Body Mass Index 25.8 Const: Other: Constitutional : Alert, oriented to self and place, not in distress Neck : Normal inspection, Supple Cardiovascular : RRR, S1 S2, no lower extremity edema Respiratory : Fair bilateral air entry, no crackles, wheezes or rhonchi Gastrointestinal: soft, lax, Normal bowel sounds, Non tender Skin : Warm, Dry, right below-knee amputation Neurological : Alert With stimulation, No focal deficit Objective Data Active Medications Acetaminophen (Acetaminophen 325 Mg Tablet) 650 mg PO Q6H PRN PRN Reason: Pain, Mild (Pain Scale 1-3) Last Admin: 07/13/21 08:30 Dose: 650 mg Documented by: MELITA Amlodipine Besylate (Amlodipine Besylate 10 Mg Tablet) 10 mg PO DAILY [facility]; Protocol Last Admin: 07/13/21 08:29 Dose: 10 mg Documented by: MELITA Aspirin (Aspirin Enteric Coated 81 Mg Tablet.Dr) 81 mg PO DAILY [facility] Last Admin: 07/13/21 08:27 Dose: 81 mg Documented by: MELITA Bisacodyl (Bisacodyl 10 Mg Supp.Rect) 10 mg ND DAILY PRN PRN Reason: Constipation Carvedilol (Carvedilol 25 Mg Tablet) 25 mg PO BID [facility]; Protocol Last Admin: 07/13/21 08:26 Dose: 25 mg Documented by: MELITA Dextrose (Dextrose 50 % 25 Gm/50 Ml Vial) 25 gm IVPUSH Q15M PRN; Protocol PRN Reason: per Hypoglycemia Standing Ord. Docusate Sodium (Docusate Sodium 100 Mg Capsule) 100 mg PO DAILY PRN PRN Reason: Constipation Duloxetine HCl (Duloxetine Hcl 60 Mg Capsule.) 60 mg PO DAILY [facility] Last Admin: 07/13/21 08:27 Dose: 60 mg Documented by: MELITA Ferrous Sulfate (Ferrous Sulfate 324 Mg Tablet.) 324 mg PO BID [facility] Last Admin: 07/13/21 08:29 Dose: 324 mg Documented by: MELITA Folic Acid (Folic Acid 1 Mg Tablet) 1 mg PO DAILY [facility] Last Admin: 07/13/21 08:26 Dose: 1 mg Documented by: MELITA Gabapentin (Gabapentin 400 Mg Capsule) 400 mg PO TID [facility] Last Admin: 07/13/21 08:26 Dose: 400 mg Documented by: MELITA Glucose (Glucose Gel 15 Gm Gel..Gram.) 15 gm PO Q15M PRN; Protocol PRN Reason: per Hypoglycemia Standing Ord. Heparin Sodium (Porcine) (Heparin Sodium,Porcine 5,000 Unit/Ml Vial) 5,000 unit SUBCUT Q12H [facility] Last Admin: 07/13/21 03:54 Dose: 5,000 unit Documented by: LESLIE Hydromorphone HCl (Hydromorphone Hcl 2 Mg Tablet) 2 mg PO Q6H PRN PRN Reason: Pain (Scale Score 7-10) Hydromorphone HCl (Hydromorphone Hcl 4 Mg Tablet) 4 mg PO QID [facility] Last Admin: 07/12/21 09:06 Dose: 4 mg Documented by: KEYLA Hydromorphone HCl (Hydromorphone Hcl 2 Mg Tablet) 2 mg PO QID [facility] Last Admin: 07/13/21 08:27 Dose: 2 mg Documented by: MELITA Hydromorphone HCl (Hydromorphone Hcl 0.5 Mg/0.5 Ml Syringe) 0.5 mg IVPUSH Q4H PRN; Protocol PRN Reason: Pain, Severe (Pain Scale 7-10) Last Admin: 07/13/21 03:52 Dose: 0.5 mg Documented by: LESLIE Hydromorphone HCl (Hydromorphone Hcl 4 Mg Tablet) 4 mg PO Q6H PRN PRN Reason: Pain (Scale Score 7-10) Lactated Ringer's (Lr) 1,000 mls @ 100 mls/hr IVCONT .Q10H [facility] Last Admin: 07/13/21 03:54 Dose: 100 mls/hr Documented by: LESLIE Insulin Glargine (Insulin Glargine,Hum.Rec.Anlog 100 Unit/Ml 10 Ml Vial) 10 unit SUBCUT BEDTIME [facility] Last Admin: 07/12/21 20:38 Dose: 10 unit Documented by: LESLIE Insulin Human Lispro (Insulin Lispro 100 Unit/Ml 3 Ml Vial) 0 unit SUBCUT QIDACHS [facility]; Protocol Last Admin: 07/13/21 07:41 Dose: Not Given Documented by: VU Non-Admin Reason: No Insulin Coverage Multivitamins/Vitamin C (Multivitamin Tablet) 1 tab PO DAILY [facility] Last Admin: 07/13/21 08:31 Dose: 1 tab Documented by: MELITA Mycophenolate Mofetil (Mycophenolate Mofetil 250 Mg Capsule) 1,000 mg PO BID [facility] Last Admin: 07/13/21 08:25 Dose: 1,000 mg Documented by: MELITA Omeprazole (Omeprazole 20 Mg Capsule.Dr) 20 mg PO DAILY@1630 [facility] Last Admin: 07/12/21 15:25 Dose: 20 mg Documented by: KEYLA Ondansetron HCl (Ondansetron Hcl 4 Mg/2 Ml Vial) 4 mg IVPUSH Q8H PRN PRN Reason: Nausea and Vomiting Pharmacy Consult (Consult Rx Perform Med Rec) 1 each MISCELLANE ONCE PRN PRN Reason: Consult order Prednisone (Prednisone 5 Mg Tablet) 5 mg PO DAILY [facility] Last Admin: 07/13/21 08:34 Dose: 5 mg Documented by: MELITA Simethicone (Simethicone 80 Mg Tab.Chew) 80 mg PO Q6H PRN PRN Reason: Gas Sodium Chloride (0.9 % Sodium Chloride Flush 3 Ml Syringe) 3 ml IVFLUSH QSHIFT [facility] Last Admin: 07/13/21 08:17 Dose: Not Given Documented by: FRITZA Non-Admin Reason: IV Running Tacrolimus (Tacrolimus 1 Mg Capsule) 5 mg PO BID [facility] Last Admin: 07/13/21 08:33 Dose: 5 mg Documented by: MELITA Trazodone HCl (Trazodone Hcl 25 Mg Halftab) 12.5 mg PO Q8H PRN PRN Reason: Anxiety Trazodone HCl (Trazodone Hcl 100 Mg Tablet) 100 mg PO BEDTIME [facility] Last Admin: 07/12/21 20:36 Dose: 100 mg Documented by: LESLIE Labs CBC & Chem 7: 07/13/21 05:11 07/13/21 05:11 Labs: Laboratory Results - last 24 hr 07/12/21 07/12/21 07/12/21 12:08 14:24 16:24 MCV MCH MCHC RDW Plt Count MPV Absolute Nucleated RBC Nucleated RBC % (auto) Anion Gap 12 Estim Creat Clear Calc 32.6 Estimated GFR 24 POC Glucose 113 112 Random Glucose 125 H Calcium 8.6 07/12/21 07/12/21 07/13/21 17:11 20:33 05:11 MCV 83.0 MCH 25.4 L MCHC 30.6 L RDW 13.4 Plt Count 402 H MPV 11.3 Absolute Nucleated RBC 0.000 Nucleated RBC % (auto) 0.0 Anion Gap Estim Creat Clear Calc Estimated GFR POC Glucose 131 H 248 H Random Glucose Calcium 07/13/21 07/13/21 05:11 07:22 MCV MCH MCHC RDW Plt Count MPV Absolute Nucleated RBC Nucleated RBC % (auto) Anion Gap 12 Estim Creat Clear Calc 45.3 Estimated GFR 35 POC Glucose 133 H Random Glucose 143 H Calcium 9.0 Microbiology Microbiology Results: Microbiology 07/11/21 16:16 Blood Culture - Preliminary Blood - Venous No growth after 24 hours. 07/11/21 16:15 Blood Culture - Preliminary Blood - Venous No growth after 24 hours. Assessment and Plan (1) Acute on chronic kidney failure: Status: Acute (2) Metabolic acidosis: Status: Acute (3) Diarrhea: Status: Acute Assessment and Plan: 45-year-old female with history of diabetes hypertension, and kidney failure status post right kidney transplant who presents to the hospital with diarrhea found to have metabolic acidosis # acute metabolic acidosis likely secondary to diarrhea Bicarb improved to 25 Discontinue bicarb drip, start gentle hydration follow BMP # acute on chronic kidney failure likely secondary to severe dehydration Improving, Continue IV fluids Pending tacrolimus level Nephrology consult appreciated Monitor intake and output ED attempted to transfer patient [facility] (her transplant center close) but they were close for transfers # diarrhea has not had an episode in the ED Pending stool cultures and C diff supportive measures at this time # diabetes low-dose sliding scale insulin continue home Lantus # history of kidney transplant continue her home meds # hypertension continue home med DVT prophylaxis: Heparin subQ Quality Stroke Does the patient have a stroke diagnosis?: No VTE Prior VTE?: No VTE Risk Level:: Medical - moderate - high VTE Device Contraindication: Treatment Not Indicated VTE Drug Contraindication: N/A - Med Ordered
--- NOTE | 2021-07-13 10:34 | MHC.CDI.CONC ---
CDI Concurrent Query Documentation Clarification: PHYSICIAN'S DOCUMENTATION REQUEST Date of Query: 07/13/21 1035 Patient Name: Sia Dai Admit Date: 07/12/21 Dear Doctor, A review of the medical record indicates additional documentation may be needed. Please review below and update the documentation accordingly. Clinical Indicators: Risk Factors/Clinical Indicators/Treatments PN 07/12 - DWAINE on CKD likely secondary to dehydration. IV fluids, allen cath placed. Right kidney transplant. Cr: 3.69 with baseline of 1.24. Please clarify which of the following accurately represents the patient's renal status: Acute renal failure on Chronic Kidney Disease (CKD) - see criteria CKD, please provide stage Other (please specify) Unable to determine Criteria for DWAINE* Stages of Chronic Kidney Disease* 1. Increase in serum creatinine by ? 0.3 mg/dL Level Description GFR (?26.5 micromol/L) within 48 hours, or G1 Normal or High > 90 2. Increase in serum creatinine to ?1.5 times baseline, G2 Mildly decreased 60 ? 89 which is known or presumed to have occurred within 7 days, or G3a Mildly to moderately decreased 45 ? 59 3. Urine volume <0.5 mL/kg/hour for six hours G3b Moderately to severely decreased 30 - 44 G4 Severely decreased 15 ? 29 G5 Kidney failure < 15 *Source: Kidney Disease: Improving Global Outcomes (KDIGO) 2012 Use of terms such as suspected, likely, concern for, or probable (associated with a specific diagnosis that is being evaluated, monitored, or treated as if it exists) are acceptable and can be coded in the inpatient setting, when documented at the time of discharge. Thank you, Denice Samano [facility], CDIS Extension: [phone] Please use your independent medical judgment in providing your response. THIS QUERY IS PART OF THE PERMANENT MEDICAL RECORD Provider Response: Other Other Diagnosis: Acute kidney injury on chronic kidney disease
[2021-07-13 10:48] LABS: Appearance Urine CLEAR; Color Urine YELLOW; Glucose Urine UA NEG (NEG); Leukocyte Esterase Urine TRACE (NEG); Nitrite Urine NEG (NEG); PH 5.5 (5.0-8.0); UACC Culture Trigger YES; Urine Blood TRACE (NEG); Urine Ketones NEG (NEG); Urine Protein TRACE MG/DL (NEG-TRACE)
[2021-07-13 11:13] LABS: RBC Urine 0-2 /HPF (0); Squamous Epithelial Cell Urine TRACE /LPF
[2021-07-13 11:26] LABS: Glucose, Whole Blood 205 mg/dL (60-115)
[2021-07-13] MEDS: Insulin Lispro 100 UNIT/ML 3 ML VIAL SUBCUT ×3 (11:36→20:55)
[2021-07-13 11:50] VITALS: BP 171/76; PULSE 86; RESP 20; TEMP 36.4; O2SAT 100
--- NOTE | 2021-07-13 12:42 | MHC.CM.PN ---
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 HCP IS ON FILE AND VERIFIED. SHES ASKS THAT WE DO NOT SPEAK WITH HER CONTACTS LISTED (ALANNA AND LUANNE) BUT DOES GIVE PERMISSION TO SPEAK WITH BOYFRIEND AND HER YOUNGEST DAUGHTER, JS PATIENT HAS BEEN FULLY VACCINATED AGAINST COVID-19 (2 SHOTS) MODERNA SERIES. CASE MANAGEMENT FOLLOWING. IMM 07/13 IN CHART.
[2021-07-13 14:59] LABS: Leukocytes Stool Qualitative NEGATIVE (NEGATIVE)
[2021-07-13 15:29] VITALS: BP 175/80; PULSE 93; RESP 16; TEMP 36.9; O2SAT 96
[2021-07-13 16:18] LABS: Glucose, Whole Blood 265 mg/dL (60-115)
[2021-07-13] MEDS: Omeprazole 20 MG CAPSULE.DR PO (16:26)
[2021-07-13 19:09] VITALS: BP 165/78; PULSE 92; RESP 18; TEMP 36.7; O2SAT 98
[2021-07-13] MEDS: traZODone HCL 100 MG TABLET PO (19:51)
[2021-07-13 20:25] LABS: Glucose, Whole Blood 281 mg/dL (60-115)
[2021-07-13] MEDS: Insulin Glargine,Hum.rec.anlog 100 UNIT/ML 10 ML VIAL 10 UNIT SUBCUT (20:55)
--- NOTE | 2021-07-13 21:33 | P.PNNP_ITS ---
Subjective Subjective Date of Service: 07/13/21 Interval history: the patient was seen and evaluated this morning Resting in the bed feels better L Kidney function improving Systemic review: Have low-grade fever with no chills, reports generalized pain No chest pain, palpitation No shortness of breath or coughing No abdominal pain, nausea or vomiting No urinary symptoms No any rash or wounds Physical Exam Vital Signs: Vital Signs: Last Vital Signs Temp 98.1 F 07/13/21 19:09 Pulse 92 07/13/21 19:09 Resp 18 07/13/21 19:09 BP 165/78 H 07/13/21 19:09 Pulse Ox 98 07/13/21 19:09 Body Mass Index 25.8 Other:?Constitutional : Alert, oriented to self and place, not in distress Neck : Normal inspection, Supple Cardiovascular : RRR, S1 S2, no lower extremity edema Respiratory : Fair bilateral air entry,? no crackles, wheezes or rhonchi Gastrointestinal:? soft, lax, Normal bowel sounds, Non tender Skin : Warm, Dry, right below-knee amputation Neurological : Alert With stimulation, No focal deficit Objective Data Labs CBC & Chem 7: 07/13/21 05:11 07/13/21 05:11 Labs: Laboratory Results - last 24 hr 07/12/21 07/13/21 07/13/21 03:29 05:11 05:11 WBC 6.5 RBC 3.47 L Hgb 8.8 L Hct 28.8 L MCV 83.0 MCH 25.4 L MCHC 30.6 L RDW 13.4 Plt Count 402 H MPV 11.3 Absolute Nucleated RBC 0.000 Nucleated RBC % (auto) 0.0 Sodium 140 Potassium 3.7 Chloride 107 Carbon Dioxide 25 Anion Gap 12 BUN 43 H Creatinine 1.58 H Estim Creat Clear Calc 45.3 Estimated GFR 35 POC Glucose Random Glucose 143 H Calcium 9.0 Urine Color Urine Appearance Urine pH Ur Specific [place] Urine Protein Urine Glucose (UA) Urine Ketones Urine Blood Urine Nitrite Ur Leukocyte Esterase Urine RBC Urine WBC Ur Squamous Epith Cells Urine Bacteria Stool Leukocytes, Qual Tacrolimus 3.4 L C. difficile Tox B Gene 07/13/21 07/13/21 07/13/21 07:22 10:39 11:20 WBC RBC Hgb Hct MCV MCH MCHC RDW Plt Count MPV Absolute Nucleated RBC Nucleated RBC % (auto) Sodium Potassium Chloride Carbon Dioxide Anion Gap BUN Creatinine Estim Creat Clear Calc Estimated GFR POC Glucose 133 H 205 H Random Glucose Calcium Urine Color YELLOW Urine Appearance CLEAR Urine pH 5.5 Ur Specific [place] 1.010 Urine Protein TRACE Urine Glucose (UA) NEG Urine Ketones NEG Urine Blood TRACE Urine Nitrite NEG Ur Leukocyte Esterase TRACE H Urine RBC 0-2 Urine WBC 1-4 Ur Squamous Epith Cells TRACE Urine Bacteria NONE Stool Leukocytes, Qual Tacrolimus C. difficile Tox B Gene 07/13/21 07/13/21 07/13/21 13:45 13:45 16:12 WBC RBC Hgb Hct MCV MCH MCHC RDW Plt Count MPV Absolute Nucleated RBC Nucleated RBC % (auto) Sodium Potassium Chloride Carbon Dioxide Anion Gap BUN Creatinine Estim Creat Clear Calc Estimated GFR POC Glucose 265 H Random Glucose Calcium Urine Color Urine Appearance Urine pH Ur Specific [place] Urine Protein Urine Glucose (UA) Urine Ketones Urine Blood Urine Nitrite Ur Leukocyte Esterase Urine RBC Urine WBC Ur Squamous Epith Cells Urine Bacteria Stool Leukocytes, Qual NEGATIVE Tacrolimus C. difficile Tox B Gene SEE NOTE 07/13/21 20:07 WBC RBC Hgb Hct MCV MCH MCHC RDW Plt Count MPV Absolute Nucleated RBC Nucleated RBC % (auto) Sodium Potassium Chloride Carbon Dioxide Anion Gap BUN Creatinine Estim Creat Clear Calc Estimated GFR POC Glucose 281 H Random Glucose Calcium Urine Color Urine Appearance Urine pH Ur Specific [place] Urine Protein Urine Glucose (UA) Urine Ketones Urine Blood Urine Nitrite Ur Leukocyte Esterase Urine RBC Urine WBC Ur Squamous Epith Cells Urine Bacteria Stool Leukocytes, Qual Tacrolimus C. difficile Tox B Gene Microbiology Microbiology Results: Microbiology 07/11/21 16:16 Blood - Venous Blood Culture - Preliminary No growth after 48 hours. 07/11/21 16:15 Blood - Venous Blood Culture - Preliminary No growth after 48 hours. Procedures Date of Service Date of Service: 07/13/21 Assessment & Plan Assessment and plan (1) DWAINE (acute kidney injury): Status: Acute Assessment and Plan: 45-year-old female with history of diabetes hypertension, and kidney failure status post right kidney transplant with 1. DWAINE- DWAINE due to prerenal Azotemia - Resolving 2. CKD at baseline 3. Renal transplant 4. Metabolic acidosis in the setting of diarrhoea with HCO3 loss IVF - On LR - Can d/c in AM Cr is getting better W/u for loose stools? Continue? home dose of Tacro/ MMF and prednisone Tacro level Labs in AM Continue BP meds d/w medical team ?Thx Dr. Jeffries (2) Hx of kidney transplant: Status: Acute Time Spent With Patient Time: Total time spent is greater than 50% in coordination of care (as documented) at patient's floor/unit and/or counseling patient: Progress Note: Quality Stroke Does the patient have a stroke diagnosis?: No
[2021-07-13 23:39] VITALS: BP 148/76; PULSE 80; RESP 18; TEMP 36.3; O2SAT 97
[2021-07-14 04:00] VITALS: BP 177/88; PULSE 92; RESP 18; TEMP 36.7; O2SAT 97
[2021-07-14] MEDS: Heparin Sodium,Porcine 5,000 UNIT/ML VIAL 5000 UNIT SUBCUT (04:24)
[2021-07-14 06:06] LABS: Anion Gap 11 (12-20); Blood Urea Nitrogen 31 mg/dL (9-16); Calcium 9.1 mg/dL (8.4-10.2); Carbon Dioxide 19 mmol/L (22-29); Chloride 110 mmol/L (96-108); Creatinine Clr Calc Pharmacy 51.9; Estimated Glomerular Filt Rate 41; Glucose Random 256 mg/dL (60-115); Potassium 3.9 mmol/L (3.3-5.1); Sodium 136 mmol/L (135-145)
[2021-07-14 07:11] VITALS: BP 185/90; PULSE 95; RESP 20; TEMP 37.3; O2SAT 95
[2021-07-14 07:25] LABS: Glucose, Whole Blood 236 mg/dL (60-115)
[2021-07-14] MEDS: Insulin Lispro 100 UNIT/ML 3 ML VIAL SUBCUT ×2 (07:34→12:08)
[2021-07-14] MEDS: mycophenolate mofetiL 250 MG CAPSULE 1000 MG PO (07:35)
[2021-07-14] MEDS: carvediloL 25 MG TABLET PO (07:42)
[2021-07-14] MEDS: amLODIPine Besylate 10 MG TABLET PO (07:42)
[2021-07-14] MEDS: Aspirin Enteric Coated 81 MG TABLET.DR PO (07:42)
[2021-07-14] MEDS: Gabapentin 400 MG CAPSULE PO ×2 (07:43→15:28)
[2021-07-14] MEDS: Folic Acid 1 MG TABLET PO (07:43)
[2021-07-14] MEDS: predniSONE 5 MG TABLET PO (07:43)
[2021-07-14] MEDS: Multivitamin TABLET 1 TAB PO (07:44)
[2021-07-14] MEDS: Ferrous Sulfate 324 MG TABLET.DR PO (07:44)
[2021-07-14] MEDS: HYDROmorphone HCl 2 MG TABLET PO ×2 (07:45→16:11)
[2021-07-14] MEDS: DULoxetine HCl 60 MG CAPSULE.DR PO (07:45)
[2021-07-14] MEDS: Tacrolimus 1 MG CAPSULE 5 MG PO (07:46)
[2021-07-14] MEDS: HYDROmorphone HCl 0.5 MG/0.5 ML SYRINGE IVPUSH ×2 (08:01→12:10)
[2021-07-14 08:22] LABS: Tacrolimus Prograf 3.4 mcg/L
[2021-07-14] MEDS: hydrALAZINE HCl 25 MG TABLET PO ×2 (10:27→15:28)
[2021-07-14] MEDS: Sodium Bicarbonate 650 MG TABLET PO (10:27)
[2021-07-14] MEDS: Lactated Ringers 1,000 ML 100 ML IVCONT (10:28)
[2021-07-14 11:09] VITALS: BP 162/75; PULSE 86; RESP 16; TEMP 37.4; O2SAT 96
--- NOTE | 2021-07-14 11:16 | PM.DS ---
DS: Providers Provider Date of Service: 07/14/21 Date of admission: 07/12/21 04:35 Primary care physician: Lino Hendricks MD Consults: 07/11/21 22:02 Consult to Nephrology Routine Consulting Provider: [facility] Reason for consultation: DWAINE on CKD ( renal transplant pt) Has provider been notified: No DS: Diagnosis Discharge Diagnosis (1) Hx of kidney transplant: Status: Acute (2) Hypomagnesemia: Status: Acute (3) Metabolic acidosis: Status: Acute (4) Acute on chronic kidney failure: Status: Acute (5) Diarrhea: Status: Acute DS: Summary Hospital Course Hospital Course: Admission note HPI 45-year-old female with past medical history of diabetes, hypertension, kidney failure status for right kidney transplan, blind in both eyes, presents to the hospital from [facility] with stated complaint of diarrhea, abdominal pain, and high sugars.? On my interview of the patient, patient appears very uncomfortable, she appears very dehydrated, reports that she has had diarrhea for the past 2 weeks, she is complaining of right groin pain area as well as diffuse abdominal pain, due to her blindness she is not sure if she has any bright red blood per rectum or melena, she reports pain on urination. .? She is also complaining of low oral intake and appetite. She otherwise denies any headache, no chest pain, no lower extremity edema,.? No numbness tingling.? On arrival to the ED patient hemodynamically stable found to have temp of 98.3?, respiratory rate of 16, heart rate of 85, blood pressure 106/67, satting 98% on room air Labs are significant for WBC of 6.2, hemoglobin of 8.7, with a baseline around 9, pH of 7.16 with a bicarb of 12, sodium of 134, BUN of 65, creatinine of 3.69 with a baseline of 1.24, glucose of 330, magnesium of 1.4, UA negative. Patient received 1 amp of bicarb, placed on a bicarb drip and will be admitted for further management Hospital course The patient was admitted for treatment of acute kidney injury metabolic acidosis. Started on IV fluid with sodium bicarb with good response as the metabolic acidosis resolved with bicarb improved above 20s. Kidney function started to improve as well and returned back to normal baseline of 1.3. Tacrolimus level was checked and came back as low. Nephrology team evaluated the patient and monitor during the hospital stay. She reported diarrhea for few days prior to admission. Stool was negative for C diff and WBCs. Started on Imodium as needed for diarrhea. Her blood pressure was noted to be significantly elevated. Addition of hydralazine 3 times daily with fair response. To be discharged on sodium bicarb for 1 week To use Imodium for diarrhea as needed Start hydralazine for hypertension and monitor readings at home for 1 week. Time Spent with Patient Time attestation: Total time spent providing and/or coordinating discharge services: Discharge coordination time: Greater than 30 minutes Quality: Stroke Does the patient have a stroke diagnosis?: No Physical Exam Vital Signs: Vital Signs: Last Vital Signs Temp 99.3 F 07/14/21 11:09 Pulse 86 07/14/21 11:09 Resp 16 07/14/21 11:09 BP 162/75 H 07/14/21 11:09 Pulse Ox 96 07/14/21 11:09 Body Mass Index 25.8 Const: Other: Constitutional : Alert, oriented to self and place, not in distress Neck : Normal inspection, Supple Cardiovascular : RRR, S1 S2, no lower extremity edema Respiratory : Fair bilateral air entry, no crackles, wheezes or rhonchi Gastrointestinal: soft, lax, Normal bowel sounds, Non tender Skin : Warm, Dry, right below-knee amputation Neurological : Alert With stimulation, No focal deficit DS: Data Data Completed and Pending Labs on day of discharge: Laboratory Results - last 24 hr 07/12/21 07/13/21 07/13/21 03:29 11:20 13:45 Sodium Potassium Chloride Carbon Dioxide Anion Gap BUN Creatinine Estim Creat Clear Calc Estimated GFR POC Glucose 205 H Random Glucose Calcium Stool Leukocytes, Qual NEGATIVE Tacrolimus 3.4 L C. difficile Tox B Gene 07/13/21 07/13/21 07/13/21 13:45 16:12 20:07 Sodium Potassium Chloride Carbon Dioxide Anion Gap BUN Creatinine Estim Creat Clear Calc Estimated GFR POC Glucose 265 H 281 H Random Glucose Calcium Stool Leukocytes, Qual Tacrolimus C. difficile Tox B Gene SEE NOTE 07/14/21 07/14/21 05:38 07:07 Sodium 136 Potassium 3.9 Chloride 110 H Carbon Dioxide 19 L Anion Gap 11 L BUN 31 H Creatinine 1.38 Estim Creat Clear Calc 51.9 Estimated GFR 41 POC Glucose 236 H Random Glucose 256 H Calcium 9.1 Stool Leukocytes, Qual Tacrolimus C. difficile Tox B Gene Preliminary micro results at discharge 07/13/21 13:45 Stool Culture - Preliminary Stool Culture in progress. 07/11/21 16:16 Blood Culture - Preliminary Blood - Venous No growth after 48 hours. 07/11/21 16:15 Blood Culture - Preliminary Blood - Venous No growth after 48 hours. Discharge Plan Discharge Patient Disposition: [facility] Discharge Diagnosis: Acute kidney injury, acute metabolic acidosis Diarrhea Referrals: [facility] [Outside] - 1 Week Lino Hendricks MD [Primary Care Provider] - 1 Week Discharge Medications: New loperamide 2 mg Capsule 2 mg PO Q4H PRN (Reason: Diarrhea) 30 Days RF: 0 hydralazine 25 mg Tablet 25 mg PO TID 30 Days Qty: 90 RF: 0 sodium bicarbonate 650 mg Tablet 650 mg PO BID Qty: 14 RF: 0 Continued multivitamin Tablet 1 tab PO DAILY RF: 0 furosemide 40 mg tablet 1 tab PO BID RF: 0 carvedilol 25 mg tablet 25 mg PO BID RF: 0 acetaminophen 325 mg Tablet 650 mg PO Q6H PRN (Reason: fever/pain) RF: 0 Lantus U-100 Insulin 100 unit/mL solution 20 unit subcut BEDTIME RF: 0 ondansetron HCl 4 mg tablet 1 tab PO Q8H PRN (Reason: Nausea) RF: 0 tacrolimus 5 mg capsule 5 mg PO BID RF: 0 gabapentin 400 mg capsule 400 mg PO TID RF: 0 prednisone 5 mg tablet 5 mg PO DAILY RF: 0 aspirin 81 mg Tablet,Delayed Release (Dr/Ec) 81 mg PO DAILY RF: 0 pantoprazole 20 mg tablet,delayed release (DR/EC) 1 tab PO DAILY@1630 RF: 0 mycophenolate mofetil 500 mg tablet 1,000 mg PO BID RF: 0 hydromorphone 2 mg tablet 2 mg PO QID RF: 0 hydromorphone [Dilaudid] 2 mg Tablet 2 mg PO Q6H PRN (Reason: Pain (Scale Score 7-10)) RF: 0 trazodone 100 mg tablet 100 mg PO BEDTIME RF: 0 amlodipine 10 mg tablet 10 mg PO DAILY RF: 0 insulin aspart U-100 100 unit/mL solution See Protocol sliding scale dose subcut TIDAC RF: 0 bisacodyl [Dulcolax (bisacodyl)] 10 mg Suppository 10 mg SD DAILY PRN (Reason: Constipation) RF: 0 folic acid 1 mg tablet 1 tab PO DAILY RF: 0 ferrous sulfate 325 mg (65 mg iron) tablet,delayed release (DR/EC) 1 tab PO BID RF: 0 hydromorphone [Dilaudid] 4 mg Tablet 4 mg PO Q6H PRN (Reason: Pain (Scale Score 7-10)) RF: 0 hydromorphone 4 mg tablet 4 mg PO QID RF: 0 simethicone 80 mg Tablet,Chewable 80 mg PO Q6H PRN (Reason: Gas) RF: 0 duloxetine 60 mg capsule,delayed release(DR/EC) 60 mg PO DAILY RF: 0 trazodone 50 mg tablet 12.5 mg PO Q8H PRN (Reason: Anxiety) RF: 0 dextrose [Glucose Gel] 40 % Gel 15 g PO Q15M PRN (Reason: Hypoglycemia) RF: 0 Discharge Orders: Discharge Order (Routine); Ordered 07/14/21 Ordered By: Laura Ojeda Diet: advance to usual diet Activity on Discharge: As tolerated Stand Alone Forms: Patient Portal Discharge page Other Ambulatory Orders: Basic Metabolic Panel (Routine) Timeframe: 1 Week Facility: [facility] - Location: Laboratory Ordered By: Laura Oejda Care Plan Goals: Read below Health Concerns: Read below Plan of Treatment: Read below Assessment: You were admitted to the hospital for evaluation of increased lethargy. Found to have acute kidney injury as a result of diarrhea. 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 Your kidney function improved back to baseline. Diarrhea improved and no infection was found. Your blood pressure was noticed to be elevated and hydralazine was added to your home medications Monitor your blood pressure on daily basis and report readings to PCP Use Imodium as needed for diarrhea Continue sodium bicarb for 1 week To repeat kidney function test as outpatient Discharge Date/Time: 07/14/21 16:26
[2021-07-14 11:23] LABS: Glucose, Whole Blood 270 mg/dL (60-115)
[2021-07-14] MEDS: Loperamide HCl 2 MG CAPSULE PO (12:10)
--- NOTE | 2021-07-14 12:28 | MHC.CM.PN ---
PATIENT IS EXPECTED TO RETURN TO [facility] FOR 1600 TODAY [facility]IA [facility]. CURRENTLY AWAITING COVID RESULTS AND PATIENT TO VOID. RN, PATIENT, AND UNIT AWARE OF PLAN IMM 07/13 IN CHART
--- NOTE | 2021-07-14 13:17 | PM.PNNEP ---
Subjective Subjective Date of Service: 07/14/21 Interval history: the patient was seen and evaluated this morning Resting in the bed feels better Kidney function improving No chest pain, palpitation No shortness of breath or coughing No abdominal pain, nausea or vomiting No urinary symptoms No any rash or wounds Physical Exam Vital Signs: Vital Signs: Last Vital Signs Temp 99.3 F 07/14/21 11:09 Pulse 86 07/14/21 11:09 Resp 16 07/14/21 11:09 BP 162/75 H 07/14/21 11:09 Pulse Ox 96 07/14/21 11:09 Body Mass Index 25.8 Other:?Constitutional : Alert, oriented to self and place, not in distress Neck : Normal inspection, Supple Cardiovascular : RRR, S1 S2, no lower extremity edema Respiratory : Fair bilateral air entry,? no crackles, wheezes or rhonchi Gastrointestinal:? soft, lax, Normal bowel sounds, Non tender Skin : Warm, Dry, right below-knee amputation Neurological : Alert With stimulation, No focal deficit Objective Data Labs CBC & Chem 7: 07/13/21 05:11 07/14/21 05:38 Labs: Laboratory Results - last 24 hr 07/12/21 07/13/21 07/13/21 03:29 13:45 13:45 Sodium Potassium Chloride Carbon Dioxide Anion Gap BUN Creatinine Estim Creat Clear Calc Estimated GFR POC Glucose Random Glucose Calcium Stool Leukocytes, Qual NEGATIVE Tacrolimus 3.4 L C. difficile Tox B Gene SEE NOTE 07/13/21 07/13/21 07/14/21 16:12 20:07 05:38 Sodium 136 Potassium 3.9 Chloride 110 H Carbon Dioxide 19 L Anion Gap 11 L BUN 31 H Creatinine 1.38 Estim Creat Clear Calc 51.9 Estimated GFR 41 POC Glucose 265 H 281 H Random Glucose 256 H Calcium 9.1 Stool Leukocytes, Qual Tacrolimus C. difficile Tox B Gene 07/14/21 07/14/21 07:07 11:18 Sodium Potassium Chloride Carbon Dioxide Anion Gap BUN Creatinine Estim Creat Clear Calc Estimated GFR POC Glucose 236 H 270 H Random Glucose Calcium Stool Leukocytes, Qual Tacrolimus C. difficile Tox B Gene Microbiology Microbiology Results: Microbiology 07/13/21 10:39 Urine Catheterized - Blum Catheter Urine Culture - Final No growth. 07/13/21 13:45 Stool Stool Culture - Preliminary Culture in progress. 07/11/21 16:16 Blood - Venous Blood Culture - Preliminary No growth after 48 hours. 07/11/21 16:15 Blood - Venous Blood Culture - Preliminary No growth after 48 hours. Procedures Date of Service Date of Service: 07/14/21 Assessment & Plan Assessment and plan (1) DWAINE (acute kidney injury): Status: Acute (2) Hx of kidney transplant: Status: Acute Assessment and Plan: 45-year-old female with history of diabetes hypertension, and kidney failure status post right kidney transplant with 1. DWAINE- DWAINE due to prerenal Azotemia - Resolving 2. CKD at baseline 3. Renal transplant 4. Metabolic acidosis in the setting of diarrhoea with HCO3 loss d/c IVF Cr is getting better Continue? home dose of Tacro/ MMF and prednisone Tacro level- low but no change in her dose Continue BP meds For d/c home - F/u with transplant team d/w medical team ?Thx Dr. Jeffries Time Spent With Patient Time: Total time spent is greater than 50% in coordination of care (as documented) at patient's floor/unit and/or counseling patient: Progress Note: Quality Stroke Does the patient have a stroke diagnosis?: No
[2021-07-14 13:23] LABS: Influenza A PCR NEGATIVE (Negative); Influenza B PCR NEGATIVE (Negative); Resp Syncy Virus RNA Qual PCR NEGATIVE (Negative); SARS COV2 PCR INHOUSE NEGATIVE (Negative)
--- NOTE | 2021-07-14 15:00 | PC.NURSE ---
Report called to Eloisa Anderson. No questions from [place]
[2021-07-14] MEDS: Omeprazole 20 MG CAPSULE.DR PO (15:28)
--- NOTE | 2021-07-15 01:52 | CONS_ITS ---
DATE OF SERVICE: 07/12/2021 REASON FOR CONSULTATION: Consult requested by the medical team to evaluate and help in management of the patient with acute kidney injury. HISTORY OF PRESENT ILLNESS: The patient is a 45-year-old female with past medical history of diabetes, hypertension, and history of ESRD, on hemodialysis, status post renal transplant; legal blindness, who presented to the hospital with complaints of diarrhea. She was actually seen by me in the ER and very sleepy and not a good historian. She was uncomfortable and was very dehydrated. The patient has had diarrhea for 2 weeks and also had pain in the groin area. Because she is blind, she was not able to describe the color of her stools. She had decreased p.o. intake. Otherwise, she did not have any headache, chest pain, edema, numbness, or tingling. In the ER, the patient was hemodynamically stable. Her hemoglobin level was 8.7 with a normal white count. She was acidotic with a bicarbonate of 12. BUN was and creatinine of 3.69. Her baseline creatinine has been around 1.2 to 1.3, followed by in our office. She received IV bicarb and was placed on IV bicarb drip. She did not have any fever, chills. Did not have any chest pain. REVIEW OF SYSTEMS: As noted above. Other systems were reviewed, negative. PAST MEDICAL HISTORY: History of long-standing diabetes with diabetic micro and macrovascular complications; bilateral legal blindness; hypertension; ESRD, on hemodialysis, in the setting of diabetes, status post renal transplant; history of gastroparesis and hypertension. FAMILY HISTORY: Includes history of diabetes and hypertension in the father and mother, both of them are . Family history significant for hypertension and diabetes. PAST SURGICAL HISTORY: History of amputation and renal transplant. PERSONAL AND SOCIAL HISTORY: The patient lives in a nursing facility. Never smoked. Does not drink alcohol. MEDICATIONS: As an outpatient include Tylenol; amlodipine; aspirin; bisacodyl; carvedilol; duloxetine; ferrous sulfate; folic acid; Lasix 40 mg b.i.d.; gabapentin 400 t.i.d.; hydromorphone; insulin; multivitamin; mycophenolate 500 mg 2 tablets twice a day; Protonix; prednisone 5 mg daily; simethicone; tacrolimus 5 mg twice a day, it is an immediate release; trazodone. PHYSICAL EXAMINATION: GENERAL: The patient is resting in the bed in the ER, is sleepy but arousable. VITAL SIGNS: Blood pressure was 140/90, pulse 91, afebrile. HEENT: Shows the patient has bilateral blindness. NECK: Supple. Mucosa dry. CARDIOVASCULAR SYSTEM: S1, S2 without rub. RESPIRATORY SYSTEM: Air entry decreased in the bases. No crepitation or rhonchi are noted. ABDOMEN: Soft with generalized tenderness. No guarding. No rigidity. Bowel sounds normal. EXTREMITIES: Showed no significant edema. There is no peripheral cyanosis or clubbing. NEURO: Essentially nonfocal. LABS: Done recently, sodium 138, potassium 4.4, chloride 113, CO2 17, BUN 63, creatinine 2.79. Hemoglobin 7.9, hematocrit 26.1, WBC is 5.1, platelets 363. IMPRESSION: 1. 45-year-old female with acute kidney injury. Acute kidney injury in this patient is likely secondary to prerenal azotemia. The patient clinically looks prerenal and has had significant diarrhea. She did have a CT scan of her abdomen and pelvis, and there was no obstruction of the transplant kidney. At this juncture, I doubt the patient has acute GN/interstitial disease. I also cannot rule out rejection, but it is unlikely given significant prerenal state. 2. Chronic kidney disease stage 3 at baseline in the setting of long-standing diabetes, hypertension, chronic rejection. 3. Metabolic acidosis due to bicarbonate loss in the stools. 4. Severe diarrhea with possibility of gastroenteritis. The possibility of mycophenolate-induced loose stools also is in the differential diagnosis. RECOMMENDATIONS: At this juncture, I have taken the liberty to order a spot urine for electrolytes, protein, creatinine. I agree with IV fluids and sodium bicarbonate and her renal function is already improving. Workup for loose stools/diarrhea is being done by the medical team. I would continue the home dose of tacrolimus, mycophenolate, and prednisone for now and we might have to consider holding off on mycophenolate if her diarrhea continues. I have ordered a tacrolimus level for the a.m. She should avoid using NSAIDs/RICHEY-2 inhibitors. Thank you for allowing me to participate in medical management of the patient. MD LEONEL Chaney/MONT[place] / [phone]
== END 2021-07-14 16:26 | disposition skilled nursing facility (03) | DRG 698 ==
LOC: HO.ED 19:46 → HO.EDOVER 07-12 05:10 → HO.S3 07-12 15:57
PROVIDERS: Physician Assistant; Admitting Provider Internal Medicine; Emergency Provider Emergency Medicine Emergency Medical Services; PCP Internal Medicine; Visit Provider Student in an Organized Health Care Education/Training Program
DX: T86.12 Kidney transplant failure (principal); E11.10 Type 2 diabetes mellitus with ketoacidosis without coma; N17.9 Acute kidney failure, unspecified; Z94.0 Kidney transplant status; Z20.822 Contact with and (suspected) exposure to COVID-19; Z89.511 Acquired absence of right leg below knee; R19.7 Diarrhea, unspecified; I12.9 Hypertensive chronic kidney disease with stage 1 through stage 4 chronic kidney disease, or unspecified chronic kidney disease; E86.0 Dehydration; E11.22 Type 2 diabetes mellitus with diabetic chronic kidney disease; N18.9 Chronic kidney disease, unspecified; Z88.0 Allergy status to penicillin; Z88.5 Allergy status to narcotic agent; Z88.6 Allergy status to analgesic agent; Z79.4 Long term (current) use of insulin; Z79.82 Long term (current) use of aspirin; Z79.899 Other long term (current) drug therapy
CPT/HCPCS: 0241U; 36415; 74176; 80048; 80053; 80197; 81001; 81003; 82009; 82803; 82947; 83605; 83690; 83735; 84484; 85025; 85027; 87040; 87045; 87046; 87086; 87493; 87635; 89055; 93005; 99285; J0696; J1170; J3010; J3475

== ENCOUNTER 2021-07-19 15:36 | Inpatient (IN) | payer OTHER, SELFPAY ==
--- NOTE | ~2021-07-19 | XR_ITS ---
EXAMINATION: XR CHEST CLINICAL INFORMATION: Central line placement COMPARISON: Chest x-ray 07/15/2017 TECHNIQUE: Frontal portable view of the chest was obtained. 2047 hours FINDINGS: Left IJ catheter tip at the origin of the superior vena cava in the right superior mediastinum. Catheter tip about 6 cm proximal to the caval atrial junction. Redemonstration of the right sided subclavian and axillary and brachiocephalic stent. Cardiac and mediastinal contours are normal. No pulmonary vascular congestion. There is no pleural effusion and no pneumothorax. XR/XR chest 1V IMPRESSION: Left IJ catheter tip at the origin of superior vena cava in the right superior mediastinum. There is no pneumothorax.
--- NOTE | 2021-07-19 15:52 | ED.GENADULT ---
HPI - General Adult General Chief complaint: Recheck/Abnormal Lab/Rx Stated complaint: abnormal labs Time Seen by Provider: 07/19/21 15:39 Source: patient and EMS Mode of arrival: EMS Limitations: no limitations History of Present Illness HPI narrative: Patient comes to the emergency room complaining of an elevated creatinine. Patient coming from a long-term. Patient states that she had blood work done a few days ago, patient states that she was informed that her creatinine levels are increasing. Patient states that she has no new symptoms, other than the chronic pain but nothing new. Of note, patient was discharged from this facility on July 14 for acute kidney injury with prescription for oral sodium bicarb Related Data Home Medications Medication Instructions Recorded Confirmed acetaminophen 325 mg tablet 650 mg PO Q6H PRN 06/01/21 07/11/21 amlodipine 10 mg tablet 10 mg PO DAILY 06/01/21 07/11/21 aspirin 81 mg tablet,delayed 81 mg PO DAILY 06/01/21 07/11/21 release bisacodyl 10 mg rectal suppository 10 mg MI DAILY PRN 06/01/21 07/11/21 (Dulcolax (bisacodyl)) carvedilol 25 mg tablet 25 mg PO BID 06/01/21 07/11/21 duloxetine 60 mg capsule,delayed 60 mg PO DAILY 06/01/21 07/11/21 release ferrous sulfate 325 mg (65 mg 1 tab PO BID 06/01/21 07/11/21 iron) tablet,delayed release folic acid 1 mg tablet 1 tab PO DAILY 06/01/21 07/11/21 furosemide 40 mg tablet 1 tab PO BID 06/01/21 07/11/21 gabapentin 400 mg capsule 400 mg PO TID 06/01/21 07/11/21 hydromorphone 2 mg tablet 2 mg PO QID 06/01/21 07/11/21 hydromorphone 2 mg tablet 2 mg PO Q6H PRN 06/01/21 07/11/21 (Dilaudid) hydromorphone 4 mg tablet 4 mg PO QID 06/01/21 07/11/21 hydromorphone 4 mg tablet 4 mg PO Q6H PRN 06/01/21 07/11/21 (Dilaudid) insulin aspart U-100 100 unit/mL See Protocol SUBCUT TIDAC 06/01/21 07/11/21 subcutaneous solution insulin glargine 100 unit/mL 20 unit SUBCUT BEDTIME 06/01/21 07/11/21 subcutaneous solution (Lantus U-100 Insulin) multivitamin 1 tab PO DAILY 06/01/21 07/11/21 mycophenolate mofetil 500 mg tablet 1,000 mg PO BID 06/01/21 07/11/21 ondansetron HCl 4 mg tablet 1 tab PO Q8H PRN 06/01/21 07/11/21 pantoprazole 20 mg tablet,delayed 1 tab PO DAILY@1630 06/01/21 07/11/21 release prednisone 5 mg tablet 5 mg PO DAILY 06/01/21 07/11/21 simethicone 80 mg chewable tablet 80 mg PO Q6H PRN 06/01/21 07/11/21 tacrolimus 5 mg capsule, 5 mg PO BID 06/01/21 07/11/21 immediate-release trazodone 100 mg tablet 100 mg PO BEDTIME 06/01/21 07/11/21 dextrose 40 % oral gel (Glucose 15 g PO Q15M PRN 07/11/21 07/11/21 Gel) trazodone 50 mg tablet 12.5 mg PO Q8H PRN 07/11/21 07/11/21 Previous Rx's Medication Instructions Recorded hydralazine 25 mg tablet 25 mg PO TID 30 Days #90 tab 07/14/21 loperamide 2 mg capsule 2 mg PO Q4H PRN 30 Days cap 07/14/21 sodium bicarbonate 650 mg tablet 650 mg PO BID #14 tab 07/14/21 Allergies Allergy/AdvReac Type Severity Reaction Status Date / Time amitriptyline Allergy Unknown UNKNOWN Verified 06/01/21 15:07 cephalexin Allergy Unknown UNKNOWN Verified 06/01/21 15:07 ciprofloxacin Allergy Unknown UNKNOWN Verified 06/01/21 15:07 famotidine [Pepcid] Allergy Unknown Unknown Verified 06/01/21 15:07 fluoxetine Allergy Unknown UNKNOWN Verified 06/01/21 15:07 ibuprofen [From ADVIL] Allergy Unknown ANXIETY Verified 06/01/21 15:07 Penicillins [PENICILLINS] Allergy Unknown HIVES Verified 06/01/21 15:07 codeine AdvReac Unknown N/V Verified 06/01/21 15:07 diphenhydramine [Advil PM] AdvReac Unknown anxiety Verified 06/01/21 15:07 metoclopramide AdvReac Unknown AGITATION,I Verified 06/01/21 15:07 TCHING morphine AdvReac Unknown N/V, Verified 06/01/21 15:07 anxiety tramadol AdvReac Unknown ANXIETY Verified 06/01/21 15:07 zolpidem [Ambien] AdvReac Unknown anxiety Verified 01/17/18 00:00 cephalexin Allergy Unknown Unknown Uncoded 06/01/21 15:07 ciproflaxacin Allergy Unknown Unknown Uncoded 06/01/21 15:07 From Ambien AdvReac Severe AGITATION Uncoded 05/07/20 15:50 PMFSH Past Medical History Medical History Arthritis Blind Diabetes Gastroparesis HTN (hypertension) Surgical History History of amputation Renal transplant, status post Family History Family History Mother Diabetes Hypertension Father Diabetes Hypertension Social History Social History Household Members: Other Housing: Skilled Nursing Do you presently have visiting nurse or other home services: No Alcohol intake: former Patient Tobacco Use Status: Never used Tobacco Use of substances other than those prescribed or required for medical reasons: No Advance Directives: Yes Advance Directives on File: Yes Advance Directives Date on File: 06/01/21 service: No Current occupational status: disabled Physical Exam Vital Signs: Vital Signs: Last Vital Signs Temp 98.6 F 07/19/21 15:53 Pulse 80 07/19/21 15:53 Resp 18 07/19/21 15:53 BP 110/57 L 07/19/21 15:53 Pulse Ox 95 07/19/21 15:53 Body Mass Index 25.8 Course Course Course Narrative: I discussed the patient with Dr. Banks, patient will be admitted, med reconciliation pending Medical Decision Making Lab Data Result diagrams: 07/19/21 17:05 07/19/21 17:05 Labs: Lab Results 07/19/21 07/19/21 Range/Units 17:05 17:05 WBC 11.3 H (4.8-10.8) X10*3/uL RBC 3.29 L (4.20-5.50) X10*6/uL Hgb 8.4 L (12.0-16.0) g/dl Hct 29.3 L (37.0-47.0) % MCV 89.1 D (80.0-98.0) fL MCH 25.5 L (27.0-33.0) pg MCHC 28.7 L (31.0-35.0) g/dl RDW 14.5 (11.0-16.0) % Plt Count 327 (160-400) X10*3/uL MPV 10.4 (9.4-12.3) fL Immature Gran % (Auto) 0.5 H (0.0-0.4) % Neut % (Auto) 86.3 H (45-73) % Lymph % (Auto) 6.3 L (20-40) % [place] % (Auto) 6.4 (2-11) % Eos % (Auto) 0.2 (0-4) % Baso % (Auto) 0.3 (0-2) % Lymph # (Auto) 0.7 L (1.2-4.9) X10*3/uL [place] # (Auto) 0.7 (0.1-1.2) X10*3/uL Eos # (Auto) 0.0 (0.0-0.4) X10*3/uL Baso # (Auto) 0.0 (0.0-0.2) X10*3/uL Abs Immat Gran (auto) 0.06 H (0.00-0.03) X10*3/uL Absolute Neuts (auto) 9.7 H (2.0-8.3) x10*3/uL Absolute Nucleated RBC 0.000 (0.0-0.012) X10*3/uL Nucleated RBC % (auto) 0.0 (0.0-0.2) /100WBC Sodium 135 (135-145) mmol/L Potassium 3.7 (3.3-5.1) mmol/L Chloride 105 (96-108) mmol/L Carbon Dioxide 19 L (22-29) mmol/L Anion Gap 15 (12-20) BUN 44 H (9-16) mg/dL Creatinine 3.97 H (0.5-1.4) mg/dL Estim Creat Clear Calc 18.0 Estimated GFR 12 Random Glucose 196 H (60-115) mg/dL Calcium 8.5 D (8.4-10.2) mg/dL Total Bilirubin 0.3 (0.0-1.0) mg/dL Direct Bilirubin < 0.2 (0.0-0.5) mg/dL AST 79 H (5-31) U/L ALT 99 H (0-31) U/L Alkaline Phosphatase 149 H D (39-117) U/L Total Protein 6.7 (6.5-8.0) g/dL Albumin 3.8 (3.5-5.0) g/dL Discharge Plan Discharge Clinical Impression: DWAINE (acute kidney injury) Patient Disposition: Admitted As Inpatient Prescriptions: No Action multivitamin Tablet 1 tab PO DAILY RF: 0 furosemide 40 mg tablet 1 tab PO BID RF: 0 carvedilol 25 mg tablet 25 mg PO BID RF: 0 acetaminophen 325 mg Tablet 650 mg PO Q6H PRN (Reason: fever/pain) RF: 0 Lantus U-100 Insulin 100 unit/mL solution 20 unit subcut BEDTIME RF: 0 ondansetron HCl 4 mg tablet 1 tab PO Q8H PRN (Reason: Nausea) RF: 0 tacrolimus 5 mg capsule 5 mg PO BID RF: 0 gabapentin 400 mg capsule 400 mg PO TID RF: 0 prednisone 5 mg tablet 5 mg PO DAILY RF: 0 aspirin 81 mg Tablet,Delayed Release (Dr/Ec) 81 mg PO DAILY RF: 0 pantoprazole 20 mg tablet,delayed release (DR/EC) 1 tab PO DAILY@1630 RF: 0 mycophenolate mofetil 500 mg tablet 1,000 mg PO BID RF: 0 hydromorphone 2 mg tablet 2 mg PO QID RF: 0 hydromorphone [Dilaudid] 2 mg Tablet 2 mg PO Q6H PRN (Reason: Pain (Scale Score 7-10)) RF: 0 trazodone 100 mg tablet 100 mg PO BEDTIME RF: 0 amlodipine 10 mg tablet 10 mg PO DAILY RF: 0 insulin aspart U-100 100 unit/mL solution See Protocol sliding scale dose subcut TIDAC RF: 0 bisacodyl [Dulcolax (bisacodyl)] 10 mg Suppository 10 mg MI DAILY PRN (Reason: Constipation) RF: 0 folic acid 1 mg tablet 1 tab PO DAILY RF: 0 ferrous sulfate 325 mg (65 mg iron) tablet,delayed release (DR/EC) 1 tab PO BID RF: 0 hydromorphone [Dilaudid] 4 mg Tablet 4 mg PO Q6H PRN (Reason: Pain (Scale Score 7-10)) RF: 0 hydromorphone 4 mg tablet 4 mg PO QID RF: 0 simethicone 80 mg Tablet,Chewable 80 mg PO Q6H PRN (Reason: Gas) RF: 0 duloxetine 60 mg capsule,delayed release(DR/EC) 60 mg PO DAILY RF: 0 trazodone 50 mg tablet 12.5 mg PO Q8H PRN (Reason: Anxiety) RF: 0 dextrose [Glucose Gel] 40 % Gel 15 g PO Q15M PRN (Reason: Hypoglycemia) RF: 0 loperamide 2 mg Capsule 2 mg PO Q4H PRN (Reason: Diarrhea) 30 Days RF: 0 hydralazine 25 mg Tablet 25 mg PO TID 30 Days Qty: 90 RF: 0 sodium bicarbonate 650 mg Tablet 650 mg PO BID Qty: 14 RF: 0
[2021-07-19 15:53] VITALS: BP 102/71; BP 110/57; PULSE 75; PULSE 80; RESP 18; TEMP 37; O2SAT 94; O2SAT 95; BMI 25.8
[2021-07-19 17:11] LABS: MANUAL DIFF FLAG NO
[2021-07-19 17:13] LABS: Basophils Percent Auto 0.3 % (0-2); Eosinophils Percent Auto 0.2 % (0-4); Hematocrit 29.3 % (37.0-47.0); Hemoglobin 8.4 g/dl (12.0-16.0); Imm Gran Abs Auto 0.06 X10*3/uL (0.00-0.03); Imm Gran Pct Auto 0.5 % (0.0-0.4); Lymphocytes Absolute Auto 0.7 X10*3/uL (1.2-4.9); Lymphocytes Percent Auto 6.3 % (20-40); Mean Corpuscular HGB Conc 28.7 g/dl (31.0-35.0); Mean Corpuscular Hemoglobin 25.5 pg (27.0-33.0); Mean Corpuscular Volume 89.1 fL (80.0-98.0); Mean Platelet Volume 10.4 fL (9.4-12.3); Monocytes Absolute Auto 0.7 X10*3/uL (0.1-1.2); Monocytes Percent Auto 6.4 % (2-11); Neutrophils Absolute Auto 9.7 x10*3/uL (2.0-8.3); Neutrophils Percent Auto 86.3 % (45-73); Platelet Count 327 X10*3/uL (160-400); Red Blood Count 3.29 X10*6/uL (4.20-5.50); Red Cell Distribution Width 14.5 % (11.0-16.0); White Blood Count 11.3 X10*3/uL (4.8-10.8)
[2021-07-19 17:27] LABS: Alanine Aminotransferase 99 U/L (0-31); Albumin Level 3.8 g/dL (3.5-5.0); Alkaline Phosphatase 149 U/L (39-117); Anion Gap 15 (12-20); Aspartate Amino Transferase 79 U/L (5-31); Bilirubin Direct < 0.2 mg/dL (0.0-0.5); Bilirubin Total 0.3 mg/dL (0.0-1.0); Blood Urea Nitrogen 44 mg/dL (9-16); Calcium 8.5 mg/dL (8.4-10.2); Carbon Dioxide 19 mmol/L (22-29); Chloride 105 mmol/L (96-108); Estimated Glomerular Filt Rate 12; Glucose Random 196 mg/dL (60-115); Potassium 3.7 mmol/L (3.3-5.1); Sodium 135 mmol/L (135-145); Total Protein 6.7 g/dL (6.5-8.0)
[2021-07-19] MEDS: 0.9 % Sodium Chloride 1,000 ML 999 ML IVCONT (17:52)
--- NOTE | 2021-07-19 19:53 | PHA.MEDREC ---
Pharmacy Consult ? Medication Reconciliation Pharmacy has completed the medication reconciliation. Patient from [facility].
--- NOTE | 2021-07-19 20:23 | P.HPHOSP_ITS ---
History of Present Illness Date of Service: 07/19/21 Chief Complaint: Abnormal labs 45-year-old female with past medical history of diabetes, hypertension, kidney failure status post right kidney transplan, right leg BKA, blind in both eyes, comes to the hospital after routine labs ordered on her previous discharge showed worsening kidney function. Patient was discharged from the hospital on 1123 after being managed for DAWINE, at that time her creatinine was around 1.3, she was given a script for BMP, had it done at her [place] [facility] which showed worsening her kidney function. Patient herself reports that she has been trying to stay hydrated but she does not get enough to drink at the [place] [facility], she reports that she does not eat enough and only has 1 meal a day, she reports chronic groin pain that has not worsened or changed, denies any abdominal pain nausea or vomiting, no diarrhea constipation at this time. No urinary symptoms and no lower extremity edema. On arrival to the ED hemodynamically stable with no significant abnormal vitals but a slightly low blood pressure Labs are significant for WBC count of 11.3, hemoglobin of 8.4 which is around her baseline, hematocrit of 29.3, creatinine of 3.97, previously 1.38 on discharge on 07/14, slightly elevated AST a ALT 79/99, patient will be admitted for further management Review of Systems Review of Systems: Yes all other systems are reviewed and are negative [facility] Medical History Arthritis Blind Diabetes Gastroparesis HTN (hypertension) Family History Mother Diabetes Hypertension Father Diabetes Hypertension Surgical History History of amputation Renal transplant, status post Social History Household Members: Other Housing: Long Term Do you presently have visiting nurse or other home services: No Alcohol intake: former Patient Tobacco Use Status: Never used Tobacco Use of substances other than those prescribed or required for medical reasons: No Advance Directives: Yes Advance Directives on File: Yes Advance Directives Date on File: 06/01/21 service: No Current occupational status: disabled Meds Allergies Allergy/AdvReac Type Severity Reaction Status Date / Time amitriptyline Allergy Unknown UNKNOWN Verified 06/01/21 15:07 cephalexin Allergy Unknown UNKNOWN Verified 06/01/21 15:07 ciprofloxacin Allergy Unknown UNKNOWN Verified 06/01/21 15:07 famotidine [Pepcid] Allergy Unknown Unknown Verified 06/01/21 15:07 fluoxetine Allergy Unknown UNKNOWN Verified 06/01/21 15:07 ibuprofen [From ADVIL] Allergy Unknown ANXIETY Verified 06/01/21 15:07 Penicillins [PENICILLINS] Allergy Unknown HIVES Verified 06/01/21 15:07 codeine AdvReac Unknown N/V Verified 06/01/21 15:07 diphenhydramine [Advil PM] AdvReac Unknown anxiety Verified 06/01/21 15:07 metoclopramide AdvReac Unknown AGITATION,I Verified 06/01/21 15:07 TCHING morphine AdvReac Unknown N/V, Verified 06/01/21 15:07 anxiety tramadol AdvReac Unknown ANXIETY Verified 06/01/21 15:07 zolpidem [Ambien] AdvReac Unknown anxiety Verified 01/17/18 00:00 cephalexin Allergy Unknown Unknown Uncoded 06/01/21 15:07 ciproflaxacin Allergy Unknown Unknown Uncoded 06/01/21 15:07 From Ambien AdvReac Severe AGITATION Uncoded 05/07/20 15:50 Active Medications: Current Medications Pharmacy Consult (Consult Rx Perform Med Rec) 1 each MISCELLANE ONCE PRN PRN Reason: Consult order Home Medications Medication Instructions Recorded Confirmed Last Taken Type acetaminophen 325 mg tablet 650 mg PO Q6H PRN 06/01/21 07/19/21 Unknown History amlodipine 10 mg tablet 10 mg PO DAILY 06/01/21 07/19/21 07/19/21 History aspirin 81 mg tablet,delayed 81 mg PO DAILY 06/01/21 07/19/21 07/19/21 History release bisacodyl 10 mg rectal suppository 10 mg MD DAILY PRN 06/01/21 07/19/21 Unknown History (Dulcolax (bisacodyl)) carvedilol 25 mg tablet 25 mg PO BID 06/01/21 07/19/21 07/19/21 History duloxetine 60 mg capsule,delayed 60 mg PO DAILY 06/01/21 07/19/21 07/19/21 History release ferrous sulfate 325 mg (65 mg 1 tab PO BID 06/01/21 07/19/21 07/19/21 History iron) tablet,delayed release folic acid 1 mg tablet 1 tab PO DAILY 06/01/21 07/19/21 07/19/21 History furosemide 40 mg tablet 1 tab PO BID@0900,1700 06/01/21 07/19/21 07/19/21 History gabapentin 400 mg capsule 400 mg PO TID 06/01/21 07/19/21 07/19/21 History hydromorphone 2 mg tablet 2 mg PO QID 06/01/21 07/19/21 07/19/21 History hydromorphone 2 mg tablet 2 mg PO Q6H PRN 06/01/21 07/19/21 Unknown History (Dilaudid) hydromorphone 4 mg tablet 4 mg PO QID 06/01/21 07/19/21 07/19/21 History hydromorphone 4 mg tablet 4 mg PO Q6H PRN 06/01/21 07/19/21 Unknown History (Dilaudid) insulin aspart U-100 100 unit/mL See Protocol SUBCUT TIDAC 06/01/21 07/19/21 07/19/21 History subcutaneous solution insulin glargine 100 unit/mL 20 unit SUBCUT BEDTIME 06/01/21 07/19/21 07/19/21 History subcutaneous solution (Lantus U-100 Insulin) multivitamin 1 tab PO DAILY 06/01/21 07/19/21 07/19/21 History mycophenolate mofetil 500 mg tablet 1,000 mg PO BID 06/01/21 07/19/21 07/19/21 History ondansetron HCl 4 mg tablet 1 tab PO Q8H PRN 06/01/21 07/19/21 Unknown History pantoprazole 20 mg tablet,delayed 1 tab PO DAILY@1630 06/01/21 07/19/21 Unknown History release prednisone 5 mg tablet 5 mg PO DAILY 06/01/21 07/19/21 07/19/21 History simethicone 80 mg chewable tablet 80 mg PO Q6H PRN 06/01/21 07/19/21 Unknown History tacrolimus 5 mg capsule, 5 mg PO BID 06/01/21 07/19/21 07/19/21 History immediate-release trazodone 100 mg tablet 100 mg PO BEDTIME 06/01/21 07/19/21 07/19/21 History dextrose 40 % oral gel (Glucose 15 g PO Q15M PRN 07/11/21 07/19/21 Unknown History Gel) trazodone 50 mg tablet 12.5 mg PO Q8H PRN 07/11/21 07/19/21 Unknown History Physical Exam Vital Signs and Narrative: Vital Signs: Last Vital Signs Temp 98.6 F 07/19/21 15:53 Pulse 80 07/19/21 15:53 Resp 18 07/19/21 15:53 BP 110/57 L 07/19/21 15:53 Pulse Ox 95 07/19/21 15:53 Body Mass Index 25.8 Const: General: cooperative and no acute distress Orientation/consciou sness: patient oriented x3 Resp: Effort & Inspection: normal respiratory effort Auscultation: clear to auscultation bilaterally Cardio: Rate: regular rate Rhythm: regular rhythm GI: Palpation (GI): Soft to palpation Auscultation: normal bowel sounds Skin: General skin exam: no rashes or lesions noted Neuro: General: patient oriented x3 Cognition (Neuro): normal cognition Extrem: Other: right below-knee amputation General: Yes no pedal edema Results Labs CBC and Chem 7: 07/19/21 17:05 07/19/21 17:05 Labs: Laboratory Results - last 24 hr 07/19/21 07/19/21 17:05 17:05 MCV 89.1 D MCH 25.5 L MCHC 28.7 L RDW 14.5 Plt Count 327 MPV 10.4 Immature Gran % (Auto) 0.5 H Neut % (Auto) 86.3 H Lymph % (Auto) 6.3 L [place] % (Auto) 6.4 Eos % (Auto) 0.2 Baso % (Auto) 0.3 Lymph # (Auto) 0.7 L [place] # (Auto) 0.7 Eos # (Auto) 0.0 Baso # (Auto) 0.0 Abs Immat Gran (auto) 0.06 H Absolute Neuts (auto) 9.7 H Absolute Nucleated RBC 0.000 Nucleated RBC % (auto) 0.0 Anion Gap 15 Estim Creat Clear Calc 18.0 Estimated GFR 12 Random Glucose 196 H Calcium 8.5 D Total Bilirubin 0.3 Direct Bilirubin < 0.2 AST 79 H ALT 99 H Alkaline Phosphatase 149 H D Total Protein 6.7 Albumin 3.8 Assessment and Plan (1) DWAINE (acute kidney injury): Status: Acute this is a 45-year-old female with past medical history of kidney failure status post right kidney transplant who presents to the hospital with abnormal labs found to have DWAINE # DWAINE - possibly prerenal secondary to dehydration versus obstructive - patient has no abdominal pain, has slightly leukocytosis with no urinary symptoms - at this time will start her on IV fluids - will obtain UA - if no improvement in her DWAINE, consider CT abdomen to rule out obstruction - nephrology consult #diabetes - continue home Lantus - will add low-dose sliding scale insulin - diabetic diet - POC QIDAC # HTN - in the low - will hold hydralazine as well as amlodipine as her blood pressure soft - can resume blood pressure more stable # history of kidney transplant - continue her home meds # GERD - continue pantoprazole DVT prophylaxis: CamStent Quality Stroke Does the patient have a stroke diagnosis?: No VTE Prior VTE?: No VTE Risk Level:: Medical - moderate - high VTE Device Contraindication: Treatment Not Indicated VTE Drug Contraindication: N/A - Med Ordered
--- NOTE | 2021-07-19 20:41 | PC.NURSE ---
This RN attempted a line on the PT twice with no success. Provider made aware that PT needs access for meds and fluid.
[2021-07-19 21:43] VITALS: BP 130/54; PULSE 80; RESP 16; TEMP 36.7; O2SAT 99
[2021-07-19 21:50] LABS: Glucose, Whole Blood 204 mg/dL (60-115)
--- NOTE | 2021-07-19 21:58 | PC.NURSE ---
PT O2 continues to drop below 90% as PT is medicated and falling asleep with decreased respirations. PT is arousable with painful stimuli but falls back asleep right after awakening. PT placed on 2 L/min of O2 to maintain sat at 94-95% while sleeping.
[2021-07-19 22:01] VITALS: BP 129/58; PULSE 76; RESP 14; O2SAT 96
[2021-07-19 22:09] LABS: COVID-19 Test Negative (Negative)
[2021-07-20] VITALS (15 sets, daily range): BP systolic 84–162; BP diastolic 47–88; PULSE 70–81; RESP 11–18; TEMP 36.6–36.8; O2SAT 68–100
[2021-07-20] MEDS: Lidocaine HCl 2 % MPF 5 ML VIAL INFILTRATI (00:08)
--- NOTE | 2021-07-20 03:13 | PC.NURSE ---
PT had Dilaudid order for 1999. This RN pulled the med to be given on time but at the time found the PT to be obtunded in bed with decreased respirations and O2 sats below 80%. PT was then placed on 2 L/min of O2 and satting at 95%. PT has since been sleeping in bed with reports of pain at a 5 out of 10. Dilaudid not given to avoid PT becoming hypoxic.
--- NOTE | 2021-07-20 08:05 | PC.NURSE ---
Since this RN arrival at 6:45 pt has been struggling with IV access
[2021-07-20] MEDS: HYDROmorphone HCl 0.5 MG/0.5 ML SYRINGE IVPUSH (08:08)
--- NOTE | 2021-07-20 08:36 | PC.NURSE ---
EJ continues to be only access with positional success. pt has fluids running but is interrupted often. following IV dilaudid Sao2 dropps and pt is arousable to light touch. sao2 improves with supplemental O2. current Urine output is 600ml winter colored. bag drained.
[2021-07-20 08:47] LABS: Glucose, Whole Blood 186 mg/dL (60-115)
[2021-07-20] MEDS: 0.9 % Sodium Chloride 1,000 ML 100 ML IVCONT (09:00)
--- NOTE | 2021-07-20 09:21 | MHC.CM.PN ---
Met with patient in regards to discharge planning. Patient is legally blind and has a right BKA. 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 Anticipate patient will return via BLS when medically stable. HCP verified to be on file. IMM explained and left beside. Patient received 2 Moderna vaccines. Continue to monitor for d/c needs.
[2021-07-20 09:56] LABS: Tacrolimus Prograf 7.7 mcg/L
--- NOTE | 2021-07-20 10:51 | P.PNIM_ITS ---
Subjective Subjective Date of Service: 07/20/21 Interval History: cc: elevated cretainine on follow up labs interval history: no complaints Cardiovascular Cardiovascular: Reports no additional cardiovascular complaints Respiratory Respiratory: Reports no additional respiratory complaints Physical Exam Vital Signs: Vital Signs: Last Vital Signs Temp 98.1 F 07/19/21 21:43 Pulse 74 07/20/21 08:26 Resp 14 07/20/21 08:26 BP 102/53 L 07/20/21 08:26 Pulse Ox 96 07/20/21 08:38 Body Mass Index 25.8 General: AO X 3, no acute distress, visually impaired Resp:? CTA bilateral, no accessory muscles used CVS: S1,S2,RRR GI: soft, non tender, non distended Neuro:? motor grossly intact, alert Psych: appropriate affect, appropriate insight? ext: right bka Objective Data Active Medications Acetaminophen (Acetaminophen 325 Mg Tablet) 650 mg PO Q6H PRN PRN Reason: Pain, Mild (Pain Scale 1-3) Aspirin (Aspirin Enteric Coated 81 Mg Tablet.) 81 mg PO DAILY [facility] Bisacodyl (Bisacodyl 10 Mg Supp.Rect) 10 mg DE DAILY PRN PRN Reason: Constipation Carvedilol (Carvedilol 25 Mg Tablet) 25 mg PO BID [facility]; Protocol Dextrose (Dextrose 50 % 25 Gm/50 Ml Vial) 25 gm IVPUSH Q15M PRN; Protocol PRN Reason: per Hypoglycemia Standing Ord. Duloxetine HCl (Duloxetine Hcl 60 Mg Capsule.) 60 mg PO DAILY [facility] Enoxaparin Sodium (Enoxaparin Sodium 40 Mg/0.4 Ml Syringe) 40 mg SUBCUT Q24H [facility] Ferrous Sulfate (Ferrous Sulfate 324 Mg Tablet.) 324 mg PO BID [facility] Folic Acid (Folic Acid 1 Mg Tablet) 1 mg PO DAILY [facility] Gabapentin (Gabapentin 400 Mg Capsule) 400 mg PO TID [facility] Glucose (Glucose Gel 15 Gm Gel..Gram.) 15 gm PO Q15M PRN; Protocol PRN Reason: per Hypoglycemia Standing Ord. Glucose (Glucose Gel 15 Gm Gel..Gram.) 15 gm PO Q15M PRN PRN Reason: Hypoglycemia Hydromorphone HCl (Hydromorphone Hcl 2 Mg Tablet) 2 mg PO Q6H PRN PRN Reason: Severe Pain (Scale Score 7-10) Hydromorphone HCl (Hydromorphone Hcl 4 Mg Tablet) 4 mg PO Q6H PRN PRN Reason: Severe Pain (Scale Score 7-10) Hydromorphone HCl (Hydromorphone Hcl 4 Mg Tablet) 4 mg PO QID [facility] Hydromorphone HCl (Hydromorphone Hcl 2 Mg Tablet) 2 mg PO QID [facility] Sodium Chloride (Ns) 1,000 mls @ 100 mls/hr IVCONT .Q10H [facility] Insulin Glargine (Insulin Glargine,Hum.Rec.Anlog 100 Unit/Ml 10 Ml Vial) 20 unit SUBCUT BEDTIME [facility] Insulin Human Lispro (Insulin Lispro 100 Unit/Ml 3 Ml Vial) 0 unit SUBCUT QIDACHS [facility]; Protocol Loperamide HCl (Loperamide Hcl 2 Mg Capsule) 2 mg PO Q4H PRN PRN Reason: Diarrhea Multivitamins/Vitamin C (Multivitamin Tablet) 1 tab PO DAILY [facility] Mycophenolate Mofetil (Mycophenolate Mofetil 250 Mg Capsule) 1,000 mg PO BID [facility] Omeprazole (Omeprazole 20 Mg Capsule.Dr) 20 mg PO DAILY@1630 [facility] Ondansetron HCl (Ondansetron Hcl 4 Mg/2 Ml Vial) 4 mg IVPUSH Q8H PRN PRN Reason: Nausea and Vomiting Pharmacy Consult (Consult Rx Perform Med Rec) 1 each MISCELLANE ONCE PRN PRN Reason: Consult order Prednisone (Prednisone 5 Mg Tablet) 5 mg PO DAILY [facility] Simethicone (Simethicone 80 Mg Tab.Chew) 80 mg PO Q6H PRN PRN Reason: Gas Sodium Bicarbonate (Sodium Bicarbonate 650 Mg Tablet) 650 mg PO BID [facility] Sodium Chloride (0.9 % Sodium Chloride Flush 3 Ml Syringe) 3 ml IVFLUSH QSHIFT [facility] Tacrolimus (Tacrolimus 1 Mg Capsule) 5 mg PO BID [facility] Trazodone HCl (Trazodone Hcl 50 Mg Tablet) 12.5 mg PO Q8H PRN PRN Reason: Anxiety Trazodone HCl (Trazodone Hcl 100 Mg Tablet) 100 mg PO BEDTIME [facility] Labs CBC & Chem 7: 07/19/21 17:05 07/19/21 17:05 Labs: Laboratory Results - last 24 hr 07/19/21 07/19/21 07/19/21 17:05 17:05 17:05 MCV 89.1 D MCH 25.5 L MCHC 28.7 L RDW 14.5 Plt Count 327 MPV 10.4 Immature Gran % (Auto) 0.5 H Neut % (Auto) 86.3 H Lymph % (Auto) 6.3 L [place] % (Auto) 6.4 Eos % (Auto) 0.2 Baso % (Auto) 0.3 Lymph # (Auto) 0.7 L [place] # (Auto) 0.7 Eos # (Auto) 0.0 Baso # (Auto) 0.0 Abs Immat Gran (auto) 0.06 H Absolute Neuts (auto) 9.7 H Absolute Nucleated RBC 0.000 Nucleated RBC % (auto) 0.0 Anion Gap 15 Estim Creat Clear Calc 18.0 Estimated GFR 12 POC Glucose Random Glucose 196 H Calcium 8.5 D Total Bilirubin 0.3 Direct Bilirubin < 0.2 AST 79 H ALT 99 H Alkaline Phosphatase 149 H D Total Protein 6.7 Albumin 3.8 Tacrolimus 7.7 COVID-19 ([facility]) COVID-19 [employer] 07/19/21 07/19/21 07/20/21 21:36 21:48 08:44 MCV MCH MCHC RDW Plt Count MPV Immature Gran % (Auto) Neut % (Auto) Lymph % (Auto) [place] % (Auto) Eos % (Auto) Baso % (Auto) Lymph # (Auto) [place] # (Auto) Eos # (Auto) Baso # (Auto) Abs Immat Gran (auto) Absolute Neuts (auto) Absolute Nucleated RBC Nucleated RBC % (auto) Anion Gap Estim Creat Clear Calc Estimated GFR POC Glucose 204 H 186 H Random Glucose Calcium Total Bilirubin Direct Bilirubin AST ALT Alkaline Phosphatase Total Protein Albumin Tacrolimus COVID-19 (VIVEK) Negative COVID-19 Clin Com See Note Assessment and Plan (1) DWAINE (acute kidney injury): Status: Deleted (2) Acute on chronic kidney failure: Status: Acute Assessment and Plan: 45F sent in for elevated creatinine on follow up labs after hospitalization for DWAINE on CKD III in transplant patient DWAINE on CKD III in renal transplant patient hypovolemia/hypoperfusion suspected IVF, holding antihypertensive nephro following keep allen for any obstruction and close monitoring of output monitor bmp continue antirejection meds DM insulin poc GERD ppi Quality Stroke Does the patient have a stroke diagnosis?: No VTE Prior VTE?: No VTE Risk Level:: Medical - moderate - high VTE Device Contraindication: Treatment Not Indicated VTE Drug Contraindication: N/A - Med Ordered
[2021-07-20] MEDS: Multivitamin TABLET 1 TAB PO (11:24)
[2021-07-20] MEDS: HYDROmorphone HCl 2 MG TABLET PO ×4 (11:24→21:23)
[2021-07-20] MEDS: Aspirin Enteric Coated 81 MG TABLET.DR PO (11:25)
[2021-07-20] MEDS: carvediloL 25 MG TABLET PO ×2 (11:25→21:23)
[2021-07-20] MEDS: DULoxetine HCl 60 MG CAPSULE.DR PO (11:25)
[2021-07-20] MEDS: Ferrous Sulfate 324 MG TABLET.DR PO ×2 (11:26→21:22)
[2021-07-20] MEDS: Gabapentin 400 MG CAPSULE PO ×3 (11:26→21:24)
[2021-07-20] MEDS: Folic Acid 1 MG TABLET PO (11:26)
[2021-07-20] MEDS: Sodium Bicarbonate 650 MG TABLET PO ×2 (11:27→21:23)
[2021-07-20] MEDS: predniSONE 5 MG TABLET PO (11:27)
[2021-07-20] MEDS: Tacrolimus 1 MG CAPSULE 5 MG PO ×2 (11:28→21:24)
[2021-07-20] MEDS: mycophenolate mofetiL 250 MG CAPSULE 1000 MG PO ×2 (11:33→21:24)
[2021-07-20] MEDS: Heparin Sodium,Porcine 5,000 UNIT/ML VIAL 5000 UNIT SUBCUT ×2 (11:35→20:43)
[2021-07-20 13:02] LABS: Anion Gap 18 (12-20); Blood Urea Nitrogen 45 mg/dL (9-16); Carbon Dioxide 13 mmol/L (22-29); Chloride 106 mmol/L (96-108); Estimated Glomerular Filt Rate 11; Potassium 4.3 mmol/L (3.3-5.1); Sodium 133 mmol/L (135-145)
[2021-07-20 13:17] LABS: Glucose, Whole Blood 197 mg/dL (60-115)
[2021-07-20] MEDS: Insulin Lispro 100 UNIT/ML 3 ML VIAL SUBCUT ×3 (13:29→21:24)
--- NOTE | 2021-07-20 15:04 | PC.NURSE ---
d/t poor access and lack of options through IR, pt is sittin gup and PO fluids are pushed. Pt is aware of need to continue drinking water.
[2021-07-20 17:19] LABS: Appearance Urine HAZY; Color Urine YELLOW; Glucose Urine UA NEG (NEG); Leukocyte Esterase Urine 1+ (NEG); Nitrite Urine NEG (NEG); PH 5.5 (5.0-8.0); Specific Gravity - Urine 1.025 (1.005-1.025); Urine Blood 1+ (NEG); Urine Ketones NEG (NEG); Urine Protein 2+ MG/DL (NEG-TRACE)
[2021-07-20 17:29] LABS: Amorphous Sediment Urine 1+ /LPF; Mucus Urine 1+ /LPF; Renal Epithelial Cells Urine 1+ /LPF; Squamous Epithelial Cell Urine 2+ /LPF
[2021-07-20 17:30] LABS: Bacteria Urine 1+ /LPF
[2021-07-20 17:31] LABS: Urine Talc Crystals TRACE /LPF
[2021-07-20] MEDS: Omeprazole 20 MG CAPSULE.DR PO (17:36)
[2021-07-20 17:44] LABS: Creatinine Urine 174.21 mg/dL; Sodium Urine Random < 20.0 mmol/L
--- NOTE | 2021-07-20 18:16 | PC.NURSE ---
phlebotomy has been called mult times. awaiting pt inr draw to do central line.
[2021-07-20 18:31] LABS: Glucose, Whole Blood 265 mg/dL (60-115)
[2021-07-20 18:46] LABS: Prothrombin Time 11.4 SEC (9.9-13.0)
--- NOTE | 2021-07-20 20:36 | PC.NURSE ---
pt a&o, no sob or chest pain. pt tolerated central line well. Earring and necklace placed in container. Documented on belonging list. Medicated per Oct.
[2021-07-20] MEDS: 0.9 % Sodium Chloride 1,000 ML 150 ML IVCONT ×2 (20:44→22:23)
[2021-07-20 21:22] LABS: Glucose, Whole Blood 206 mg/dL (60-115)
[2021-07-20] MEDS: Insulin Glargine,Hum.rec.anlog 100 UNIT/ML 10 ML VIAL 20 UNIT SUBCUT (21:26)
[2021-07-20] MEDS: traZODone HCL 100 MG TABLET PO (21:28)
--- NOTE | 2021-07-20 21:38 | PC.NURSE ---
completed bed change, pt repositioned. medicated per oct.
[2021-07-21] VITALS (8 sets, daily range): BP systolic 127–168; BP diastolic 57–79; PULSE 71–80; RESP 16–18; TEMP 36.2–37.3; O2SAT 92–98
--- NOTE | 2021-07-21 01:47 | PC.NURSE ---
pt is sleeping at this time no sign of distress. will continue to monitor at this time.
[2021-07-21] MEDS: Heparin Sodium,Porcine 5,000 UNIT/ML VIAL 5000 UNIT SUBCUT ×3 (03:21→21:05)
--- NOTE | 2021-07-21 03:24 | PC.NURSE ---
medicated per mar.
[2021-07-21] MEDS: 0.9 % Sodium Chloride Flush 3 ML SYRINGE IVFLUSH (03:32)
[2021-07-21] MEDS: 0.9 % Sodium Chloride 1,000 ML 150 ML IVCONT ×2 (03:58→11:47)
--- NOTE | 2021-07-21 06:11 | PC.NURSE ---
PT HAS NECKLACE AND EARRING IN CONTAINER, CONTAINER WITH HER BELONGINGS.
[2021-07-21 07:30] LABS: Glucose, Whole Blood 109 mg/dL (60-115)
[2021-07-21 07:36] LABS: MANUAL DIFF FLAG NO
[2021-07-21 07:39] LABS: Basophils Absolute Auto 0.1 X10*3/uL (0.0-0.2); Basophils Percent Auto 0.6 % (0-2); Eosinophils Absolute Auto 0.2 X10*3/uL (0.0-0.4); Eosinophils Percent Auto 2.9 % (0-4); Hematocrit 25.7 % (37.0-47.0); Hemoglobin 7.6 g/dl (12.0-16.0); Imm Gran Abs Auto 0.05 X10*3/uL (0.00-0.03); Imm Gran Pct Auto 0.6 % (0.0-0.4); Lymphocytes Absolute Auto 1.2 X10*3/uL (1.2-4.9); Mean Corpuscular HGB Conc 29.6 g/dl (31.0-35.0); Mean Corpuscular Hemoglobin 25.8 pg (27.0-33.0); Mean Corpuscular Volume 87.1 fL (80.0-98.0); Mean Platelet Volume 10.4 fL (9.4-12.3); Monocytes Absolute Auto 0.7 X10*3/uL (0.1-1.2); Monocytes Percent Auto 8.1 % (2-11); Neutrophils Absolute Auto 6.1 x10*3/uL (2.0-8.3); Neutrophils Percent Auto 73.8 % (45-73); Platelet Count 324 X10*3/uL (160-400); Red Blood Count 2.95 X10*6/uL (4.20-5.50); Red Cell Distribution Width 14.6 % (11.0-16.0); White Blood Count 8.3 X10*3/uL (4.8-10.8)
[2021-07-21 07:51] LABS: Anion Gap 13 (12-20); Blood Urea Nitrogen 44 mg/dL (9-16); Calcium 8.4 mg/dL (8.4-10.2); Carbon Dioxide 20 mmol/L (22-29); Chloride 107 mmol/L (96-108); Estimated Glomerular Filt Rate 15; Glucose Fasting 108 mg/dL (60-99); Potassium 3.8 mmol/L (3.3-5.1); Sodium 136 mmol/L (135-145)
[2021-07-21] MEDS: Tacrolimus 1 MG CAPSULE 5 MG PO (09:15)
[2021-07-21] MEDS: mycophenolate mofetiL 250 MG CAPSULE 1000 MG PO (09:16)
[2021-07-21] MEDS: DULoxetine HCl 60 MG CAPSULE.DR PO (09:17)
[2021-07-21] MEDS: Sodium Bicarbonate 650 MG TABLET PO (09:17)
[2021-07-21] MEDS: HYDROmorphone HCl 2 MG TABLET PO ×2 (09:18→12:15)
[2021-07-21] MEDS: Gabapentin 400 MG CAPSULE PO (09:18)
[2021-07-21] MEDS: Aspirin Enteric Coated 81 MG TABLET.DR PO (09:19)
[2021-07-21] MEDS: Multivitamin TABLET 1 TAB PO (09:19)
[2021-07-21] MEDS: predniSONE 5 MG TABLET PO (09:19)
[2021-07-21] MEDS: Ferrous Sulfate 324 MG TABLET.DR PO (09:19)
[2021-07-21] MEDS: carvediloL 25 MG TABLET PO (09:20)
[2021-07-21] MEDS: Folic Acid 1 MG TABLET PO (09:20)
--- NOTE | 2021-07-21 09:37 | P.PNIM_ITS ---
Subjective Subjective Date of Service: 07/21/21 Interval History: the patient was seen and evaluated this morning Laying in bed, complaining of generalized chrnic pain Allen in place, making urine Creatinine improving Denies any fever, chills or shortness of breath No reported other overnight events. Systemic review: No fever, chills but has pain No chest pain, palpitation improved shortness of breath or coughing No abdominal pain, nausea or vomiting No urinary symptoms Physical Exam Vital Signs: Vital Signs: Last Vital Signs Temp 97.4 F 07/21/21 08:00 Pulse 72 07/21/21 08:00 Resp 18 07/21/21 08:00 BP 127/57 L 07/21/21 08:00 Pulse Ox 95 07/21/21 08:00 Body Mass Index 25.8 Const: Other: Constitutional : Alert, oriented, not in distress Neck : Normal inspection, Supple, blind Cardiovascular : RRR, S1 S2, no lower extremity edema Respiratory : fair bilateral air entry, no crackles, wheezes or rhonchi Gastrointestinal: soft, lax, Normal bowel sounds, Non tender Skin : Warm, Dry Neurological : Alert & oriented x3, No focal deficit Objective Data Active Medications Acetaminophen (Acetaminophen 325 Mg Tablet) 650 mg PO Q6H PRN PRN Reason: Pain, Mild (Pain Scale 1-3) Aspirin (Aspirin Enteric Coated 81 Mg Tablet.) 81 mg PO DAILY [facility] Last Admin: 07/21/21 09:19 Dose: 81 mg Documented by: CYNTHIA Bisacodyl (Bisacodyl 10 Mg Supp.Rect) 10 mg SD DAILY PRN PRN Reason: Constipation Carvedilol (Carvedilol 25 Mg Tablet) 25 mg PO BID [facility]; Protocol Last Admin: 07/21/21 09:20 Dose: 25 mg Documented by: CYNTHIA Dextrose (Dextrose 50 % 25 Gm/50 Ml Vial) 25 gm IVPUSH Q15M PRN; Protocol PRN Reason: per Hypoglycemia Standing Ord. Duloxetine HCl (Duloxetine Hcl 60 Mg Capsule.) 60 mg PO DAILY [facility] Last Admin: 07/21/21 09:17 Dose: 60 mg Documented by: CYNTHIA Ferrous Sulfate (Ferrous Sulfate 324 Mg Tablet.) 324 mg PO BID [facility] Last Admin: 07/21/21 09:19 Dose: 324 mg Documented by: CYNTHIA Folic Acid (Folic Acid 1 Mg Tablet) 1 mg PO DAILY [facility] Last Admin: 07/21/21 09:20 Dose: 1 mg Documented by: CYNTHIA Gabapentin (Gabapentin 400 Mg Capsule) 400 mg PO TID [facility] Last Admin: 07/21/21 09:18 Dose: 400 mg Documented by: CYNTHIA Glucose (Glucose Gel 15 Gm Gel..Gram.) 15 gm PO Q15M PRN; Protocol PRN Reason: per Hypoglycemia Standing Ord. Glucose (Glucose Gel 15 Gm Gel..Gram.) 15 gm PO Q15M PRN PRN Reason: Hypoglycemia Heparin Sodium (Porcine) (Heparin Sodium,Porcine 5,000 Unit/Ml Vial) 5,000 unit SUBCUT Q8H [facility] Last Admin: 07/21/21 03:21 Dose: 5,000 unit Documented by: GLO Hydromorphone HCl (Hydromorphone Hcl 2 Mg Tablet) 2 mg PO Q6H PRN PRN Reason: Severe Pain (Scale Score 7-10) Hydromorphone HCl (Hydromorphone Hcl 4 Mg Tablet) 4 mg PO Q6H PRN PRN Reason: Severe Pain (Scale Score 7-10) Hydromorphone HCl (Hydromorphone Hcl 4 Mg Tablet) 4 mg PO QID [facility] Last Admin: 07/21/21 09:14 Dose: 4 mg Documented by: CYNTHIA Hydromorphone HCl (Hydromorphone Hcl 2 Mg Tablet) 2 mg PO QID [facility] Last Admin: 07/21/21 09:18 Dose: 2 mg Documented by: CYNTHIA Sodium Chloride (Ns) 1,000 mls @ 100 mls/hr IVCONT .Q10H [facility] Last Admin: 07/21/21 03:58 Dose: 150 mls/hr Documented by: GLO Insulin Glargine (Insulin Glargine,Hum.Rec.Anlog 100 Unit/Ml 10 Ml Vial) 20 unit SUBCUT BEDTIME [facility] Last Admin: 07/20/21 21:26 Dose: 20 unit Documented by: GLO Insulin Human Lispro (Insulin Lispro 100 Unit/Ml 3 Ml Vial) 0 unit SUBCUT QIDACHS [facility]; Protocol Last Admin: 07/21/21 07:28 Dose: Not Given Documented by: CYNTHIA Non-Admin Reason: No Insulin Coverage Loperamide HCl (Loperamide Hcl 2 Mg Capsule) 2 mg PO Q4H PRN PRN Reason: Diarrhea Multivitamins/Vitamin C (Multivitamin Tablet) 1 tab PO DAILY [facility] Last Admin: 07/21/21 09:19 Dose: 1 tab Documented by: CYNTHIA Mycophenolate Mofetil (Mycophenolate Mofetil 250 Mg Capsule) 1,000 mg PO BID [facility] Last Admin: 07/21/21 09:16 Dose: 1,000 mg Documented by: CYNTHIA Omeprazole (Omeprazole 20 Mg Capsule.Dr) 20 mg PO DAILY@1630 [facility] Last Admin: 07/20/21 17:36 Dose: 20 mg Documented by: RUTH Ondansetron HCl (Ondansetron Hcl 4 Mg/2 Ml Vial) 4 mg IVPUSH Q8H PRN PRN Reason: Nausea and Vomiting Pharmacy Consult (Consult Rx Perform Med Rec) 1 each MISCELLANE ONCE PRN PRN Reason: Consult order Prednisone (Prednisone 5 Mg Tablet) 5 mg PO DAILY [facility] Last Admin: 07/21/21 09:19 Dose: 5 mg Documented by: CYNTHIA Simethicone (Simethicone 80 Mg Tab.Chew) 80 mg PO Q6H PRN PRN Reason: Gas Sodium Bicarbonate (Sodium Bicarbonate 650 Mg Tablet) 650 mg PO BID [facility] Last Admin: 07/21/21 09:17 Dose: 650 mg Documented by: CYNTHIA Sodium Chloride (0.9 % Sodium Chloride Flush 3 Ml Syringe) 3 ml IVFLUSH QSHIFT [facility] Last Admin: 07/21/21 07:29 Dose: Not Given Documented by: CYNTHIA Non-Admin Reason: IV Running Tacrolimus (Tacrolimus 1 Mg Capsule) 5 mg PO BID [facility] Last Admin: 07/21/21 09:15 Dose: 5 mg Documented by: CYNTHIA Trazodone HCl (Trazodone Hcl 50 Mg Tablet) 12.5 mg PO Q8H PRN PRN Reason: Anxiety Trazodone HCl (Trazodone Hcl 100 Mg Tablet) 100 mg PO BEDTIME [facility] Last Admin: 07/20/21 21:28 Dose: 100 mg Documented by: GLO Labs CBC & Chem 7: 07/21/21 07:23 07/21/21 07:23 Labs: Laboratory Results - last 24 hr 07/19/21 07/19/21 07/20/21 17:05 17:05 12:30 MCV MCH MCHC RDW Plt Count MPV Immature Gran % (Auto) Neut % (Auto) Lymph % (Auto) [place] % (Auto) Eos % (Auto) Baso % (Auto) Lymph # (Auto) [place] # (Auto) Eos # (Auto) Baso # (Auto) Abs Immat Gran (auto) Absolute Neuts (auto) Absolute Nucleated RBC Nucleated RBC % (auto) PT INR Carbon Dioxide 19 L 13 L Anion Gap 18 BUN 44 H 45 H Creatinine 3.97 H 4.20 H* Estim Creat Clear Calc 17.0 Estimated GFR 11 POC Glucose Fasting Glucose Calcium Urine Color Urine Appearance Urine pH Ur Specific [place] Urine Protein Urine Glucose (UA) Urine Ketones Urine Blood Urine Nitrite Ur Leukocyte Esterase Urine RBC Urine WBC Ur Squamous Epith Cells Ur Renal Epithelial Cell [place] Crystals Amorphous Sediment Urine Bacteria Urine Mucus Ur Random Sodium Urine Creatinine Tacrolimus 7.7 07/20/21 07/20/21 07/20/21 13:12 17:10 17:10 MCV MCH MCHC RDW Plt Count MPV Immature Gran % (Auto) Neut % (Auto) Lymph % (Auto) [place] % (Auto) Eos % (Auto) Baso % (Auto) Lymph # (Auto) [place] # (Auto) Eos # (Auto) Baso # (Auto) Abs Immat Gran (auto) Absolute Neuts (auto) Absolute Nucleated RBC Nucleated RBC % (auto) PT INR Carbon Dioxide Anion Gap BUN Creatinine Estim Creat Clear Calc Estimated GFR POC Glucose 197 H Fasting Glucose Calcium Urine Color YELLOW Urine Appearance HAZY Urine pH 5.5 Ur Specific [place] 1.025 Urine Protein 2+ H Urine Glucose (UA) NEG Urine Ketones NEG Urine Blood 1+ H Urine Nitrite NEG Ur Leukocyte Esterase 1+ H Urine RBC 5-9 H Urine WBC 5-9 H Ur Squamous Epith Cells 2+ Ur Renal Epithelial Cell 1+ [place] Crystals TRACE Amorphous Sediment 1+ Urine Bacteria 1+ Urine Mucus 1+ Ur Random Sodium < 20.0 Urine Creatinine 174.21 Tacrolimus 07/20/21 07/20/21 07/20/21 18:28 18:35 21:16 MCV MCH MCHC RDW Plt Count MPV Immature Gran % (Auto) Neut % (Auto) Lymph % (Auto) [place] % (Auto) Eos % (Auto) Baso % (Auto) Lymph # (Auto) [place] # (Auto) Eos # (Auto) Baso # (Auto) Abs Immat Gran (auto) Absolute Neuts (auto) Absolute Nucleated RBC Nucleated RBC % (auto) PT 11.4 INR 1.0 Carbon Dioxide Anion Gap BUN Creatinine Estim Creat Clear Calc Estimated GFR POC Glucose 265 H 206 H Fasting Glucose Calcium Urine Color Urine Appearance Urine pH Ur Specific [place] Urine Protein Urine Glucose (UA) Urine Ketones Urine Blood Urine Nitrite Ur Leukocyte Esterase Urine RBC Urine WBC Ur Squamous Epith Cells Ur Renal Epithelial Cell Talc Crystals Amorphous Sediment Urine Bacteria Urine Mucus Ur Random Sodium Urine Creatinine Tacrolimus 07/21/21 07/21/21 07/21/21 07:08 07:23 07:23 MCV 87.1 MCH 25.8 L MCHC 29.6 L RDW 14.6 Plt Count 324 MPV 10.4 Immature Gran % (Auto) 0.6 H Neut % (Auto) 73.8 H Lymph % (Auto) 14.0 L [place] % (Auto) 8.1 Eos % (Auto) 2.9 Baso % (Auto) 0.6 Lymph # (Auto) 1.2 [place] # (Auto) 0.7 Eos # (Auto) 0.2 Baso # (Auto) 0.1 Abs Immat Gran (auto) 0.05 H Absolute Neuts (auto) 6.1 Absolute Nucleated RBC 0.000 Nucleated RBC % (auto) 0.0 PT INR Carbon Dioxide 20 L Anion Gap 13 BUN 44 H Creatinine 3.25 H Estim Creat Clear Calc 22.0 Estimated GFR 15 POC Glucose 109 Fasting Glucose 108 H Calcium 8.4 Urine Color Urine Appearance Urine pH Ur Specific [place] Urine Protein Urine Glucose (UA) Urine Ketones Urine Blood Urine Nitrite Ur Leukocyte Esterase Urine RBC Urine WBC Ur Squamous Epith Cells Ur Renal Epithelial Cell Tal[place] Crystals Amorphous Sediment Urine Bacteria Urine Mucus Ur Random Sodium Urine Creatinine Tacrolimus Assessment and Plan (1) Acute on chronic kidney failure: Status: Acute (2) Metabolic acidosis: Status: Acute Assessment and Plan: 45F sent in for elevated creatinine on follow up labs after hospitalization for DWAINE on CKD III in transplant patient DWAINE on CKD III in renal transplant patient 2/2 hypovolemia/hypoperfusion decrease IVF holding antihypertensive nephro following keep allen for close monitoring of output monitor bmp continue antirejection meds Acute metabolic acidosis Bicarbonate of 13 use today, improved to 19 today next [place] continue sodium bicarb DM Sliding scale insulin poc GERD ppi Quality Stroke Does the patient have a stroke diagnosis?: No VTE Prior VTE?: No VTE Risk Level:: Medical - moderate - high VTE Device Contraindication: Treatment Not Indicated VTE Drug Contraindication: N/A - Med Ordered
--- NOTE | 2021-07-21 10:26 | CONS_ITS ---
DATE OF SERVICE: 07/20/2021 REASON FOR CONSULTATION: I was asked to see the patient to assist in evaluation and management of the patient's acute kidney injury as reflected by BUN and creatinine of 44 and 3.97 today, whereas during the last hospitalization when she was discharged on July 14, her BUN and creatinine were 31 and 1.38. She was just recently hospitalized from July 11 to . On that admission, again she had an episode of acute kidney injury with a creatinine of 3.69 on admission and at the time of discharge down to 1.38 with IV fluids given. HISTORY OF PRESENT ILLNESS: In summary, she is a 45-year-old diabetic patient status post kidney transplant, maintained on tacrolimus, mycophenolate and prednisone, who was just recently hospitalized as mentioned with an episode of acute kidney injury due to dehydration from diarrhea and vomiting. She now re-presents because routine labs were checked, and she is noted again to have acute kidney injury. The patient states again she is having diarrhea and poor p.o. intake and decreased urine output, all consistent with her recurrent episode of dehydration. On admission, her blood pressure was on the lower side with systolics around 100 and she probably has a component of renal hypoperfusion from low blood pressure as well. The patient is frustrated and that she is having a difficult time keeping herself adequately hydrated at the shelter facility. She also states that she has not been eating well. She does have chronic groin pain, which has been an ongoing issue. She tells me that she has had couple episodes of nauseousness and vomiting as well as diarrhea, but this morning, they have all resolved. PAST MEDICAL HISTORY: Notable for having end-stage renal disease from diabetes status post kidney transplant along with hypertension, hyperlipidemia, diabetic retinopathy with being visually blind, BKA on the right side, migraine headaches, GERD, anxiety, depression, gastroparesis and as mentioned, she had a kidney transplant done back in 2005 with a relatively good renal function, baseline creatinine is typically around 1 to 1.3. She is maintained on combination of tacrolimus, prednisone and CellCept for immunosuppressive regimen. MEDICATIONS: Her medications on admission are noted in the admitting notes. Current medications are noted in the MAR. Her Lasix and hydralazine have been placed on hold. FAMILY HISTORY: Notable for diabetes. SOCIAL HISTORY: She is a nonsmoker, nondrinker. No illicit drug use. REVIEW OF SYSTEMS: As noted above. PHYSICAL EXAMINATION: VITAL SIGNS: Blood pressure 140/70 now, but as mentioned, it was as low as systolics in the 100 when she came in. HEENT: Mucous membranes are dry. NECK: There is no JVD. LUNGS: Breath sounds bilaterally. CARDIAC: Regular rate and rhythm. ABDOMEN: Soft, nontender. EXTREMITIES: No edema. She has a right BKA. LABORATORY DATA: From 5 p.m. last night, sodium 135, potassium 3.7, chloride 105, bicarb 19, BUN 44, creatinine 3.97. As mentioned, at the time of discharge on the , her creatinine was 1.38. Her hemoglobin is 8.4, hematocrit 29.3, white blood cell count 11.3. She had urine studies done on her last admission that were unremarkable at the time of discharge. She had a CT last done on July 11 during her last hospitalization without contrast and showed that her [place] kidneys are small with cortical thinning and calcified. The transplant kidney in the right iliac fossa showed no hydro. IMPRESSION: A 45-year-old end-stage renal disease patient status post kidney transplant 15 years ago, who now is readmitted to the hospital second time this month for acute kidney injury with dehydration. 1. Acute kidney injury. Most likely, this is renal hypoperfusion and dehydration causing acute kidney injury with IV hydration and stopping some of her blood pressure medicines, the renal function will improve relatively rapidly. We will be sure to check urine studies to monitor renal function closely as well as check a tacrolimus level as there is possibly something else could be causing acute kidney injury, but for now, it is most likely dehydration. 2. Kidney transplant patient. She is maintained on combination of tacrolimus, CellCept, and prednisone. We will continue these, but it may be that the CellCept is causing GI symptoms and eventually she may need to cut off the CellCept. 3. Anemia. We will check iron studies that she may begin for iron at some point as well as possibly for will with a goal being hemoglobin 9 to 11. 4. Recurrent GI symptoms with gastroparesis, diarrhea, nausea, vomiting. 5. Diabetes. SUGGESTIONS: At this time include obtain a urinalysis, spot urine studies. Continue her on IV fluids. Follow urine output and renal function. Continue her immunosuppressive drugs as ordered. Check a tacrolimus level tomorrow morning. Depending on her clinical course, she may need further evaluation and treatment. MD MICHELLE Nieto/MONTSE / [phone]
[2021-07-21 10:35] LABS: Iron 76 mcg/dL (30-160); Percent Iron Saturation 38 % (15-50); Total Iron Binding Capacity 201 mcg/dL (228-428); Unsaturated Iron Binding 125 ug/dL
--- NOTE | 2021-07-21 10:45 | P.PNNP_ITS ---
Subjective Subjective Date of Service: 07/21/21 Principal diagnosis: DWAINE, Dehydration, Anemia, Abd pain Interval history: Seen and examined, events noted Scr decr with IVF, albeit gradual Physical Exam Vital Signs: Vital Signs: Last Vital Signs Temp 97.4 F 07/21/21 08:00 Pulse 72 07/21/21 08:00 Resp 18 07/21/21 08:00 BP 127/57 L 07/21/21 08:00 Pulse Ox 95 07/21/21 08:00 Body Mass Index 25.8 Const: Other: Constitutional : Alert, oriented, not in distress Neck : Normal inspection, Supple, blind Cardiovascular : RRR, S1 S2, no lower extremity edema Respiratory : fair bilateral air entry, no crackles, wheezes or rhonchi Gastrointestinal: soft, lax, Normal bowel sounds, Non tender Skin : Warm, Dry Neurological : Alert & oriented x3, No focal deficit General: cooperative and no acute distress Orientation/consciousness: patient oriented x3 Resp: Effort & Inspection: normal respiratory effort Auscultation: clear to auscultation bilaterally Cardio: Rate: regular rate Rhythm: regular rhythm GI: Palpation (GI): Soft to palpation Auscultation: normal bowel sounds Skin: General skin exam: no rashes or lesions noted Neuro: General: patient oriented x3 Cognition (Neuro): normal cognition Extrem: Other: right below-knee amputation General: Yes no pedal edema Objective Data Labs CBC & Chem 7: 07/21/21 07:23 07/21/21 07:23 Labs: Laboratory Results - last 24 hr 07/20/21 07/20/21 07/20/21 12:30 13:12 17:10 WBC RBC Hgb Hct MCV MCH MCHC RDW Plt Count MPV Immature Gran % (Auto) Neut % (Auto) Lymph % (Auto) [place] % (Auto) Eos % (Auto) Baso % (Auto) Lymph # (Auto) [place] # (Auto) Eos # (Auto) Baso # (Auto) Abs Immat Gran (auto) Absolute Neuts (auto) Absolute Nucleated RBC Nucleated RBC % (auto) PT INR Sodium 133 L Potassium 4.3 Chloride 106 Carbon Dioxide 13 L Anion Gap 18 BUN 45 H Creatinine 4.20 H* Estim Creat Clear Calc 17.0 Estimated GFR 11 POC Glucose 197 H Fasting Glucose Calcium Iron TIBC % Saturation Unsat Iron Binding Urine Color Urine Appearance Urine pH Ur Specific Pray Urine Protein Urine Glucose (UA) Urine Ketones Urine Blood Urine Nitrite Ur Leukocyte Esterase Urine RBC Urine WBC Ur Squamous Epith Cells Ur Renal Epithelial Cell Talc Crystals Amorphous Sediment Urine Bacteria Urine Mucus Ur Random Sodium < 20.0 Urine Creatinine 174.21 07/20/21 07/20/21 07/20/21 17:10 18:28 18:35 WBC RBC Hgb Hct MCV MCH MCHC RDW Plt Count MPV Immature Gran % (Auto) Neut % (Auto) Lymph % (Auto) [place] % (Auto) Eos % (Auto) Baso % (Auto) Lymph # (Auto) [place] # (Auto) Eos # (Auto) Baso # (Auto) Abs Immat Gran (auto) Absolute Neuts (auto) Absolute Nucleated RBC Nucleated RBC % (auto) PT 11.4 INR 1.0 Sodium Potassium Chloride Carbon Dioxide Anion Gap BUN Creatinine Estim Creat Clear Calc Estimated GFR POC Glucose 265 H Fasting Glucose Calcium Iron TIBC % Saturation Unsat Iron Binding Urine Color YELLOW Urine Appearance HAZY Urine pH 5.5 Ur Specific Pray 1.025 Urine Protein 2+ H Urine Glucose (UA) NEG Urine Ketones NEG Urine Blood 1+ H Urine Nitrite NEG Ur Leukocyte Esterase 1+ H Urine RBC 5-9 H Urine WBC 5-9 H Ur Squamous Epith Cells 2+ Ur Renal Epithelial Cell 1+ Talc Crystals TRACE Amorphous Sediment 1+ Urine Bacteria 1+ Urine Mucus 1+ Ur Random Sodium Urine Creatinine 07/20/21 07/21/21 07/21/21 21:16 07:08 07:23 WBC 8.3 RBC 2.95 L Hgb 7.6 L Hct 25.7 L MCV 87.1 MCH 25.8 L MCHC 29.6 L RDW 14.6 Plt Count 324 MPV 10.4 Immature Gran % (Auto) 0.6 H Neut % (Auto) 73.8 H Lymph % (Auto) 14.0 L [place] % (Auto) 8.1 Eos % (Auto) 2.9 Baso % (Auto) 0.6 Lymph # (Auto) 1.2 [place] # (Auto) 0.7 Eos # (Auto) 0.2 Baso # (Auto) 0.1 Abs Immat Gran (auto) 0.05 H Absolute Neuts (auto) 6.1 Absolute Nucleated RBC 0.000 Nucleated RBC % (auto) 0.0 PT INR Sodium Potassium Chloride Carbon Dioxide Anion Gap BUN Creatinine Estim Creat Clear Calc Estimated GFR POC Glucose 206 H 109 Fasting Glucose Calcium Iron TIBC % Saturation Unsat Iron Binding Urine Color Urine Appearance Urine pH Ur Specific Pray Urine Protein Urine Glucose (UA) Urine Ketones Urine Blood Urine Nitrite Ur Leukocyte Esterase Urine RBC Urine WBC Ur Squamous Epith Cells Ur Renal Epithelial Cell Talc Crystals Amorphous Sediment Urine Bacteria Urine Mucus Ur Random Sodium Urine Creatinine 07/21/21 07:23 WBC RBC Hgb Hct MCV MCH MCHC RDW Plt Count MPV Immature Gran % (Auto) Neut % (Auto) Lymph % (Auto) [place] % (Auto) Eos % (Auto) Baso % (Auto) Lymph # (Auto) [place] # (Auto) Eos # (Auto) Baso # (Auto) Abs Immat Gran (auto) Absolute Neuts (auto) Absolute Nucleated RBC Nucleated RBC % (auto) PT INR Sodium 136 Potassium 3.8 Chloride 107 Carbon Dioxide 20 L Anion Gap 13 BUN 44 H Creatinine 3.25 H Estim Creat Clear Calc 22.0 Estimated GFR 15 POC Glucose Fasting Glucose 108 H Calcium 8.4 Iron 76 TIBC 201 L % Saturation 38 Unsat Iron Binding 125 Urine Color Urine Appearance Urine pH Ur Specific Pray Urine Protein Urine Glucose (UA) Urine Ketones Urine Blood Urine Nitrite Ur Leukocyte Esterase Urine RBC Urine WBC Ur Squamous Epith Cells Ur Renal Epithelial Cell Talc Crystals Amorphous Sediment Urine Bacteria Urine Mucus Ur Random Sodium Urine Creatinine Procedures Date of Service Date of Service: 07/21/21 Assessment & Plan Assessment and plan (1) Acute on chronic kidney failure: Status: Acute (2) Metabolic acidosis: Status: Acute Assessment and Plan: A 45-year-old end-stage renal disease patient status post kidney transplant 15 years ago, who now is readmitted to the hospital second time this month for acute kidney injury with dehydration. 1. DWAINE: c/w renal hypoperfsuion from dehydration ( low FENa) and decr SCR with IVF: would have expected more rapid decr in SCr but there was adelay in getting IVF d/t IV access problems 2. Kidney transplant patient.? She is maintained on combination of tacrolimus, CellCept, and prednisone.? We will continue these, but it may be that the CellCept is causing her GI symptoms and eventually she may need to cut off the CellCept. 3. Anemia.? FE studies ok so will start EPO 4. Recurrent GI symptoms with gastroparesis, diarrhea, nausea, vomiting. 5. Diabetes. REC: cont IVF, U/S of transplant kidney if SCr does not decr signif by tomorrow; EPO as ordered; may need to consider placing a lopez and giveng IVF at SNF to prevent dehyration and repeat hosp ( eg 1 Liter IV NS qday) ? Time Spent With Patient Time: Total time spent is greater than 50% in coordination of care (as documented) at patient's floor/unit and/or counseling patient: Time with patient: Greater than 35 minutes Progress Note: Quality Stroke Does the patient have a stroke diagnosis?: No
[2021-07-21 11:07] LABS: Ferritin 121 ng/mL (10-250)
[2021-07-21 11:16] LABS: Glucose, Whole Blood 185 mg/dL (60-115)
[2021-07-21 11:46] LABS: Folate > 20.0 ng/mL (> or = 4.0); Vitamin B12 624 pg/mL (200-900)
[2021-07-21] MEDS: Insulin Lispro 100 UNIT/ML 3 ML VIAL SUBCUT ×3 (11:50→21:04)
--- NOTE | 2021-07-21 13:23 | PC.NURSE ---
Attempted to find out preferred pharmacy from patient, unable to tell me. She lives in a intermediate [facility]. Called our pharmacy to find out if I could add intermediate as primary pharmacy. Was told there was a way to add intermediate. Unable to add intermediate to preferred pharmacy.
[2021-07-21 16:15] LABS: Glucose, Whole Blood 202 mg/dL (60-115)
[2021-07-21 17:02] LABS: Glucose, Whole Blood 232 mg/dL (60-115)
--- NOTE | 2021-07-21 17:15 | PC.NURSE ---
VSS BS 202, covered per sliding scale. Pt unable to stay awake for more than a few seconds. Gabapentin, Omeprazole and scheduled Dilaudid (6mg total) held. Dr Ojeda notified and came to see patient. Pt aroused to light sternal rub but agin for a few seconds. BS recheck 232. Dr agreed with holding meds at this time and I was told if patient needs pain meds, there are prn meds ordered. IV fluids infusing as ordered. F/C patent with yellow urine draining to gravity. Will continue to monitor,
[2021-07-21] MEDS: 0.9 % Sodium Chloride 1,000 ML 100 ML IVCONT (18:27)
[2021-07-21 20:38] LABS: Glucose, Whole Blood 172 mg/dL (60-115)
[2021-07-21] MEDS: Insulin Glargine,Hum.rec.anlog 100 UNIT/ML 10 ML VIAL 20 UNIT SUBCUT (21:04)
[2021-07-21 23:27] LABS: ABG Base Excess -9.2 mmol/L; ABG HCO3 17 mmol/L (22-26); ABG pCO2 41 mmHg (32-45); ABG pCO2 TC 42 mmHg (32-45); ABG pH 7.22 (7.35-7.45); ABG pH TC 7.22 (7.35-7.45); ABG pO2 56 mmHg (83-108); ABG pO2 TC 57 (83-108)
--- NOTE | 2021-07-22 00:31 | PC.NURSE ---
Around 2239-I notified Dr Berry of patients current vital signs and patients condition since taking over her care at 1500. VS remain stable and HS POC 172. Covered per SS orders and Lantus was given. Heparin was also given as ordered. All other meds were held due to patients lethargy. Pt is arousable to voice and touch now (was light sternal rub). However, pt was unable to stay awake. After ordered ABG's, pt was awake and alert. Arguing with staff about having ABG's drawn. She stated she was just sleeping. Pt anxious and vomited up some white phlegm. Calmed patient down and ABG's were drawn. Results back and notified. Pt presently sleeping comfortably, arousable to voice. Will continue to monitor.
[2021-07-22 00:40] LABS: ABG Refer to POC result
[2021-07-22] MEDS: Heparin Sodium,Porcine 5,000 UNIT/ML VIAL 5000 UNIT SUBCUT ×2 (02:46→18:15)
[2021-07-22] MEDS: 0.9 % Sodium Chloride 1,000 ML 100 ML IVCONT (03:06)
[2021-07-22] MEDS: ondansetron HCL 4 MG/2 ML VIAL IVPUSH (03:06)
[2021-07-22 04:00] VITALS: BP 157/76; PULSE 83; RESP 17; TEMP 37.1; O2SAT 97
[2021-07-22 05:50] LABS: Hematocrit 26.8 % (37.0-47.0); Hemoglobin 7.9 g/dl (12.0-16.0); Mean Corpuscular HGB Conc 29.5 g/dl (31.0-35.0); Mean Corpuscular Volume 88.2 fL (80.0-98.0); Mean Platelet Volume 11.2 fL (9.4-12.3); Platelet Count 372 X10*3/uL (160-400); Red Blood Count 3.04 X10*6/uL (4.20-5.50); Red Cell Distribution Width 14.6 % (11.0-16.0)
[2021-07-22 06:12] LABS: Anion Gap 14 (12-20); Blood Urea Nitrogen 43 mg/dL (9-16); Calcium 8.7 mg/dL (8.4-10.2); Carbon Dioxide 17 mmol/L (22-29); Chloride 111 mmol/L (96-108); Creatinine Clr Calc Pharmacy 28.3; Estimated Glomerular Filt Rate 20; Glucose Random 93 mg/dL (60-115); Sodium 138 mmol/L (135-145)
[2021-07-22 07:42] VITALS: BP 168/89; PULSE 85; RESP 18; TEMP 37.1; O2SAT 96
[2021-07-22 07:47] LABS: Glucose, Whole Blood 80 mg/dL (60-115)
[2021-07-22] MEDS: HYDROmorphone HCl 2 MG TABLET PO ×3 (09:12→20:00)
[2021-07-22] MEDS: Gabapentin 400 MG CAPSULE PO ×3 (09:13→19:58)
[2021-07-22] MEDS: Tacrolimus 1 MG CAPSULE 5 MG PO ×2 (09:13→20:01)
[2021-07-22] MEDS: mycophenolate mofetiL 250 MG CAPSULE 1000 MG PO ×2 (09:13→19:59)
[2021-07-22] MEDS: predniSONE 5 MG TABLET PO (09:13)
[2021-07-22] MEDS: carvediloL 25 MG TABLET PO ×2 (09:13→19:57)
[2021-07-22] MEDS: LORazepam 2 MG/ML VIAL 0.5 MG IVPUSH (09:25)
[2021-07-22 11:25] VITALS: BP 137/82; PULSE 79; RESP 18; TEMP 37; O2SAT 94
--- NOTE | 2021-07-22 11:28 | P.PNIM_ITS ---
Subjective Subjective Date of Service: 07/22/21 Interval History: the patient was seen and evaluated this morning Laying in bed, complaining of nausea and generalized pain Creatinine improving Denies any fever, chills or shortness of breath No reported other overnight events. Systemic review: No fever, chills but has pain No chest pain, palpitation improved shortness of breath or coughing No abdominal pain, but reporting nausea No urinary symptoms Physical Exam Vital Signs: Vital Signs: Last Vital Signs Temp 98.8 F 07/22/21 07:42 Pulse 85 07/22/21 07:42 Resp 18 07/22/21 07:42 BP 168/89 H 07/22/21 07:42 Pulse Ox 96 07/22/21 07:42 BMI result Body Mass Index 25.8 Const: Other: Constitutional : Alert, oriented, not in distress Neck : Normal inspection, Supple, legally blind Cardiovascular : RRR, S1 S2, no lower extremity edema Respiratory : fair bilateral air entry, no crackles, wheezes or rhonchi Gastrointestinal: soft, lax, Normal bowel sounds, Non tender Skin : Warm, Dry Neurological : Alert & oriented x3, No focal deficit Objective Data Active Medications Acetaminophen (Acetaminophen 325 Mg Tablet) 650 mg PO Q6H PRN PRN Reason: Pain, Mild (Pain Scale 1-3) Aspirin (Aspirin Enteric Coated 81 Mg Tablet.) 81 mg PO DAILY [facility] Last Admin: 07/22/21 09:14 Dose: Not Given Documented by: SHAZIA Non-Admin Reason: Patient Refused Bisacodyl (Bisacodyl 10 Mg Supp.Rect) 10 mg OH DAILY PRN PRN Reason: Constipation Carvedilol (Carvedilol 25 Mg Tablet) 25 mg PO BID [facility]; Protocol Last Admin: 07/22/21 09:13 Dose: 25 mg Documented by: SHAZIA Dextrose (Dextrose 50 % 25 Gm/50 Ml Vial) 25 gm IVPUSH Q15M PRN; Protocol PRN Reason: per Hypoglycemia Standing Ord. Duloxetine HCl (Duloxetine Hcl 60 Mg Capsule.) 60 mg PO DAILY [facility] Last Admin: 07/22/21 09:14 Dose: Not Given Documented by: SHAZIA Non-Admin Reason: Patient Refused Ferrous Sulfate (Ferrous Sulfate 324 Mg Tablet.) 324 mg PO BID [facility] Last Admin: 07/22/21 09:15 Dose: Not Given Documented by: SHAZIA Non-Admin Reason: Patient Refused Folic Acid (Folic Acid 1 Mg Tablet) 1 mg PO DAILY [facility] Last Admin: 07/22/21 09:15 Dose: Not Given Documented by: SHAZIA Non-Admin Reason: Patient Refused Gabapentin (Gabapentin 400 Mg Capsule) 400 mg PO TID [facility] Last Admin: 07/22/21 09:13 Dose: 400 mg Documented by: SHAZIA Glucose (Glucose Gel 15 Gm Gel..Gram.) 15 gm PO Q15M PRN; Protocol PRN Reason: per Hypoglycemia Standing Ord. Glucose (Glucose Gel 15 Gm Gel..Gram.) 15 gm PO Q15M PRN PRN Reason: Hypoglycemia Heparin Sodium (Porcine) (Heparin Sodium,Porcine 5,000 Unit/Ml Vial) 5,000 unit SUBCUT Q8H [facility] Last Admin: 07/22/21 02:46 Dose: 5,000 unit Documented by: KAYKAY Hydromorphone HCl (Hydromorphone Hcl 2 Mg Tablet) 2 mg PO QID [facility] Last Admin: 07/22/21 09:12 Dose: 2 mg Documented by: SHAZIA Hydromorphone HCl (Hydromorphone Hcl 4 Mg Tablet) 4 mg PO QID PRN PRN Reason: Pain, Severe (Pain Scale 7-10) Last Admin: 07/22/21 02:46 Dose: 4 mg Documented by: KAYKAY Sodium Chloride (Ns) 1,000 mls @ 100 mls/hr IVCONT .Q10H [facility] Last Admin: 07/22/21 03:06 Dose: 100 mls/hr Documented by: KAYKAY Insulin Glargine (Insulin Glargine,Hum.Rec.Anlog 100 Unit/Ml 10 Ml Vial) 20 unit SUBCUT BEDTIME [facility] Last Admin: 07/21/21 21:04 Dose: 20 unit Documented by: KAYKAY Insulin Human Lispro (Insulin Lispro 100 Unit/Ml 3 Ml Vial) 0 unit SUBCUT QIDACHS [facility]; Protocol Last Admin: 07/22/21 07:42 Dose: Not Given Documented by: SHAZIA Non-Admin Reason: No Insulin Coverage Loperamide HCl (Loperamide Hcl 2 Mg Capsule) 2 mg PO Q4H PRN PRN Reason: Diarrhea Multivitamins/Vitamin C (Multivitamin Tablet) 1 tab PO DAILY [facility] Last Admin: 07/22/21 09:15 Dose: Not Given Documented by: SHAZIA Non-Admin Reason: Patient Refused Mycophenolate Mofetil (Mycophenolate Mofetil 250 Mg Capsule) 1,000 mg PO BID [facility] Last Admin: 07/22/21 09:13 Dose: 1,000 mg Documented by: SHAZIA Omeprazole (Omeprazole 20 Mg Capsule.Dr) 20 mg PO DAILY@1630 [facility] Last Admin: 07/21/21 17:05 Dose: Not Given Documented by: KAYKAY Non-Admin Reason: Patient Condition Contraindication Ondansetron HCl (Ondansetron Hcl 4 Mg/2 Ml Vial) 4 mg IVPUSH Q8H PRN PRN Reason: Nausea and Vomiting Last Admin: 07/22/21 03:06 Dose: 4 mg Documented by: KAYKAY Pharmacy Consult (Consult Rx Perform Med Rec) 1 each MISCELLANE ONCE PRN PRN Reason: Consult order Prednisone (Prednisone 5 Mg Tablet) 5 mg PO DAILY [facility] Last Admin: 07/22/21 09:13 Dose: 5 mg Documented by: SHAZIA Simethicone (Simethicone 80 Mg Tab.Chew) 80 mg PO Q6H PRN PRN Reason: Gas Sodium Bicarbonate (Sodium Bicarbonate 650 Mg Tablet) 650 mg PO BID [facility] Last Admin: 07/22/21 09:15 Dose: Not Given Documented by: SHAZIA Non-Admin Reason: Patient Refused Sodium Chloride (0.9 % Sodium Chloride Flush 3 Ml Syringe) 3 ml IVFLUSH QSHIFT [facility] Last Admin: 07/22/21 07:37 Dose: Not Given Documented by: SHAZIA Non-Admin Reason: IV Running Tacrolimus (Tacrolimus 1 Mg Capsule) 5 mg PO BID [facility] Last Admin: 07/22/21 09:13 Dose: 5 mg Documented by: SHAZIA Trazodone HCl (Trazodone Hcl 50 Mg Tablet) 12.5 mg PO Q8H PRN PRN Reason: Anxiety Trazodone HCl (Trazodone Hcl 100 Mg Tablet) 100 mg PO BEDTIME [facility] Last Admin: 07/21/21 22:18 Dose: Not Given Documented by: KAYKAY Non-Admin Reason: Pt lethargic Labs CBC & Chem 7: 07/22/21 05:40 07/22/21 05:40 Labs: Laboratory Results - last 24 hr 07/21/21 07/21/21 07/21/21 07:23 16:11 16:58 MCV MCH MCHC RDW Plt Count MPV Absolute Nucleated RBC Nucleated RBC % (auto) O2 Saturation ABG pH at Pt Temp ABG pH (Temp Correct) ABG pCO2 at Pt Temp ABG pCO2 (Temp Corrct ABG pO2 at Pt Temp ABG pO2 (Temp Correct ABG HCO3 ABG Base Excess (Actual) Anion Gap Estim Creat Clear Calc Estimated GFR POC Glucose 202 H 232 H Random Glucose Calcium Vitamin B12 624 Folate > 20.0 07/21/21 07/21/21 07/22/21 20:16 23:20 05:40 MCV 88.2 MCH 26.0 L MCHC 29.5 L RDW 14.6 Plt Count 372 MPV 11.2 Absolute Nucleated RBC 0.000 Nucleated RBC % (auto) 0.0 O2 Saturation 85.0 ABG pH at Pt Temp 7.22 L ABG pH (Temp Correct) 7.22 L ABG pCO2 at Pt Temp 41 ABG pCO2 (Temp Corrct 42 ABG pO2 at Pt Temp 56 L ABG pO2 (Temp Correct 57 L ABG HCO3 17 L ABG Base Excess (Actual) -9.2 Anion Gap Estim Creat Clear Calc Estimated GFR POC Glucose 172 H Random Glucose Calcium Vitamin B12 Folate 07/22/21 07/22/21 05:40 07:40 MCV MCH MCHC RDW Plt Count MPV Absolute Nucleated RBC Nucleated RBC % (auto) O2 Saturation ABG pH at Pt Temp ABG pH (Temp Correct) ABG pCO2 at Pt Temp ABG pCO2 (Temp Corrct ABG pO2 at Pt Temp ABG pO2 (Temp Correct ABG HCO3 ABG Base Excess (Actual) Anion Gap 14 Estim Creat Clear Calc 28.3 Estimated GFR 20 POC Glucose 80 Random Glucose 93 Calcium 8.7 Vitamin B12 Folate Assessment and Plan (1) Acute kidney injury superimposed on CKD: Status: Acute (2) Metabolic acidosis: Status: Acute Assessment and Plan: 45F sent in for elevated creatinine on follow up labs after hospitalization for DWAINE on CKD III in transplant patient DWAINE on CKD III in renal transplant patient 2/2 hypovolemia/hypoperfusion Improving Discontinue IVF holding antihypertensive nephro following Discontinue Blum monitor bmp continue antirejection meds, consider changing mycophenolate Acute metabolic acidosis Bicarbonate improved to 17 today Continue sodium bicarb orally Follow BMP Nausea Not responding to Zofran Reporting allergies to Reglan and Phenergan To give Ativan DM Sliding scale insulin poc GERD ppi Quality Stroke Does the patient have a stroke diagnosis?: No VTE Prior VTE?: No VTE Risk Level:: Medical - moderate - high VTE Device Contraindication: Treatment Not Indicated VTE Drug Contraindication: N/A - Med Ordered
[2021-07-22 11:37] LABS: Glucose, Whole Blood 152 mg/dL (60-115)
--- NOTE | 2021-07-22 12:54 | MHC.CM.PN ---
NURSE POLICE RECORDS CLERK NOTE ELECTRONIC MEDICAL RECORD REVIEWED ALONG WITH CASE DISCUSSED ON MULTIPLE DISCIPLINARY ROUNDS, PER DOCUMENTATION (PATIENT WITH ACUTE KIDNEY INJURY ON CHRONIC KIDNEY INJURY 111 IN TRANSPLANT PATIENT, improving, iv fluids were stopped, continue holding antihypertensive medications, discontinued allen catheter, renal continues to follow , monitoring labs and BNP, continuing anti rejection medications. contoinues on sliding scale insulin. discharge plan return to [facility] via [facility] as she is a nursing home resident
--- NOTE | 2021-07-22 14:55 | PM.PNNEP ---
Subjective Subjective Date of Service: 07/22/21 Principal diagnosis: DWAINE, Dehydration, Anemia, Abd pain Interval history: Seen and examined, events noted Physical Exam Vital Signs: Vital Signs: Last Vital Signs Temp 98.6 F 07/22/21 11:25 Pulse 79 07/22/21 11:25 Resp 18 07/22/21 11:25 BP 137/82 07/22/21 11:25 Pulse Ox 94 07/22/21 11:25 BMI result Body Mass Index 25.8 Const: Other: Constitutional : Alert, oriented, not in distress Neck : Normal inspection, Supple, blind Cardiovascular : RRR, S1 S2, no lower extremity edema Respiratory : fair bilateral air entry, no crackles, wheezes or rhonchi Gastrointestinal: soft, lax, Normal bowel sounds, Non tender Skin : Warm, Dry Neurological : Alert & oriented x3, No focal deficit General: cooperative and no acute distress Orientation/consciousness: patient oriented x3 Resp: Effort & Inspection: normal respiratory effort Auscultation: clear to auscultation bilaterally Cardio: Rate: regular rate Rhythm: regular rhythm GI: Palpation (GI): Soft to palpation Auscultation: normal bowel sounds Skin: General skin exam: no rashes or lesions noted Neuro: General: patient oriented x3 Cognition (Neuro): normal cognition Extrem: Other: right below-knee amputation General: Yes no pedal edema Objective Data Labs CBC & Chem 7: 07/22/21 05:40 07/22/21 05:40 Labs: Laboratory Results - last 24 hr 07/21/21 07/21/21 07/21/21 16:11 16:58 20:16 WBC RBC Hgb Hct MCV MCH MCHC RDW Plt Count MPV Absolute Nucleated RBC Nucleated RBC % (auto) O2 Saturation ABG pH at Pt Temp ABG pH (Temp Correct) ABG pCO2 at Pt Temp ABG pCO2 (Temp Corrct ABG pO2 at Pt Temp ABG pO2 (Temp Correct ABG HCO3 ABG Base Excess (Actual) Sodium Potassium Chloride Carbon Dioxide Anion Gap BUN Creatinine Estim Creat Clear Calc Estimated GFR POC Glucose 202 H 232 H 172 H Random Glucose Calcium 07/21/21 07/22/21 07/22/21 23:20 05:40 05:40 WBC 8.0 RBC 3.04 L Hgb 7.9 L Hct 26.8 L MCV 88.2 MCH 26.0 L MCHC 29.5 L RDW 14.6 Plt Count 372 MPV 11.2 Absolute Nucleated RBC 0.000 Nucleated RBC % (auto) 0.0 O2 Saturation 85.0 ABG pH at Pt Temp 7.22 L ABG pH (Temp Correct) 7.22 L ABG pCO2 at Pt Temp 41 ABG pCO2 (Temp Corrct 42 ABG pO2 at Pt Temp 56 L ABG pO2 (Temp Correct 57 L ABG HCO3 17 L ABG Base Excess (Actual) -9.2 Sodium 138 Potassium 4.0 Chloride 111 H Carbon Dioxide 17 L Anion Gap 14 BUN 43 H Creatinine 2.53 H Estim Creat Clear Calc 28.3 Estimated GFR 20 POC Glucose Random Glucose 93 Calcium 8.7 07/22/21 07/22/21 07:40 11:25 WBC RBC Hgb Hct MCV MCH MCHC RDW Plt Count MPV Absolute Nucleated RBC Nucleated RBC % (auto) O2 Saturation ABG pH at Pt Temp ABG pH (Temp Correct) ABG pCO2 at Pt Temp ABG pCO2 (Temp Corrct ABG pO2 at Pt Temp ABG pO2 (Temp Correct ABG HCO3 ABG Base Excess (Actual) Sodium Potassium Chloride Carbon Dioxide Anion Gap BUN Creatinine Estim Creat Clear Calc Estimated GFR POC Glucose 80 152 H Random Glucose Calcium Procedures Date of Service Date of Service: 07/22/21 Assessment & Plan Assessment and plan (1) Acute on chronic kidney failure: Status: Resolved (2) Metabolic acidosis: Status: Resolved Assessment and Plan: A 45-year-old end-stage renal disease patient status post kidney transplant 15 years ago, who now is readmitted to the hospital second time this month for acute kidney injury with dehydration. 1. DWAINE: c/w renal hypoperfsuion from dehydration ( low FENa) and cont decr SCR with IVF: would have expected more rapid decr in SCr but there was adelay in getting IVF d/t IV access problems 2. Kidney transplant patient.? She is maintained on combination of tacrolimus, CellCept, and prednisone.? We will continue these, but it may be that the CellCept is causing her GI symptoms and eventually she may need to cut off the CellCept. 3. Anemia.? FE studies ok so will start EPO 4. Recurrent GI symptoms with gastroparesis, diarrhea, nausea, vomiting. 5. Diabetes. 6. NAGMA: d/t diarrhea and renal dysfunc REC: cont IVF, U/S of transplant kidney if SCr does not cont decr signif by tomorrow; EPO as ordered; may need to consider placing a lopez and giveng IVF at SNF to prevent dehyration and repeat hosp ( eg 1 Liter IV NS qday) ? Time Spent With Patient Time: Total time spent is greater than 50% in coordination of care (as documented) at patient's floor/unit and/or counseling patient: Progress Note: Quality Stroke Does the patient have a stroke diagnosis?: No
[2021-07-22 15:22] VITALS: BP 174/77; PULSE 87; RESP 17; TEMP 36.7; O2SAT 97
[2021-07-22] MEDS: 0.9 % Sodium Chloride Flush 3 ML SYRINGE IVFLUSH (15:38)
[2021-07-22 16:58] LABS: Glucose, Whole Blood 146 mg/dL (60-115)
[2021-07-22] MEDS: Omeprazole 20 MG CAPSULE.DR PO (16:59)
[2021-07-22 19:48] LABS: Glucose, Whole Blood 227 mg/dL (60-115)
[2021-07-22 19:57] VITALS: BP 198/87; PULSE 87; RESP 18; TEMP 36.8; O2SAT 98
[2021-07-22] MEDS: Sodium Bicarbonate 650 MG TABLET PO (19:57)
[2021-07-22] MEDS: traZODone HCL 100 MG TABLET PO (19:58)
[2021-07-22] MEDS: Ferrous Sulfate 324 MG TABLET.DR PO (20:00)
[2021-07-22] MEDS: Insulin Lispro 100 UNIT/ML 3 ML VIAL SUBCUT (20:06)
[2021-07-22] MEDS: Insulin Glargine,Hum.rec.anlog 100 UNIT/ML 10 ML VIAL 20 UNIT SUBCUT (20:06)
[2021-07-23] VITALS (7 sets, daily range): BP systolic 154–190; BP diastolic 75–89; PULSE 79–88; RESP 16–18; TEMP 36.2–36.9; O2SAT 93–100
[2021-07-23 00:51] LABS: Tacrolimus Prograf 4.9 mcg/L
[2021-07-23 06:04] LABS: Anion Gap 10 (12-20); Blood Urea Nitrogen 35 mg/dL (9-16); Calcium 8.6 mg/dL (8.4-10.2); Carbon Dioxide 21 mmol/L (22-29); Chloride 115 mmol/L (96-108); Creatinine Clr Calc Pharmacy 42.4; Estimated Glomerular Filt Rate 33; Glucose Random 113 mg/dL (60-115); Potassium 3.6 mmol/L (3.3-5.1); Sodium 142 mmol/L (135-145)
[2021-07-23 07:48] LABS: Glucose, Whole Blood 82 mg/dL (60-115)
[2021-07-23] MEDS: HYDROmorphone HCl 2 MG TABLET PO ×4 (08:11→20:19)
[2021-07-23] MEDS: Gabapentin 400 MG CAPSULE PO ×3 (08:13→20:19)
[2021-07-23] MEDS: Multivitamin TABLET 1 TAB PO (08:13)
[2021-07-23] MEDS: Folic Acid 1 MG TABLET PO (08:13)
[2021-07-23] MEDS: carvediloL 25 MG TABLET PO ×2 (08:13→20:19)
[2021-07-23] MEDS: predniSONE 5 MG TABLET PO (08:13)
[2021-07-23] MEDS: Aspirin Enteric Coated 81 MG TABLET.DR PO (08:13)
[2021-07-23] MEDS: mycophenolate mofetiL 250 MG CAPSULE 1000 MG PO ×2 (08:13→20:19)
[2021-07-23] MEDS: Ferrous Sulfate 324 MG TABLET.DR PO ×2 (08:13→20:19)
[2021-07-23] MEDS: Tacrolimus 1 MG CAPSULE 5 MG PO (08:14)
[2021-07-23] MEDS: Sodium Bicarbonate 650 MG TABLET PO ×2 (08:14→20:20)
[2021-07-23] MEDS: 0.9 % Sodium Chloride Flush 3 ML SYRINGE IVFLUSH ×2 (08:15→15:49)
--- NOTE | 2021-07-23 10:10 | PM.DS ---
DS: Providers Provider Date of Service: 07/23/21 Date of admission: 07/19/21 20:05 Primary care physician: Lino Hendricks MD Consults: 07/20/21 06:22 Consult to Nephrology Routine Consulting Provider: [facility] Reason for consultation: dwaine, hx of kidney transplant Has provider been notified: No DS: Diagnosis Discharge Diagnosis (1) Acute on chronic kidney failure: Status: Resolved (2) Metabolic acidosis: Status: Resolved (3) Metabolic acidosis: Status: Acute (4) Acute kidney injury superimposed on CKD: Status: Acute DS: Summary Hospital Course Hospital Course: Admission note HPI 45-year-old female with past medical history of diabetes, hypertension, kidney failure status post right kidney transplan, right leg BKA, blind in both eyes, comes to the hospital after routine labs ordered on her previous discharge showed worsening kidney function.? Patient was discharged from the hospital on 1123 after being managed for DWAINE, at that time her creatinine was around 1.3, she was given a script for BMP, had it done at her senior care which showed worsening her kidney function.? Patient herself reports that she has been trying to stay hydrated but she does not get enough to drink at the senior care, she reports that she does not eat enough and only has 1 meal a day, she reports chronic groin pain that has not worsened or changed, denies any abdominal pain nausea or vomiting, no diarrhea constipation at this time.? No urinary symptoms and no lower extremity edema. On arrival to the ED hemodynamically stable with no significant abnormal vitals? but a slightly low blood pressure Labs are significant for? WBC count of 11.3, hemoglobin of 8.4 which is around her baseline, hematocrit of 29.3, creatinine of 3.97, previously 1.38 on discharge on 07/14, slightly elevated AST a ALT 79/99, ?patient will be admitted for further management Hospital course The patient was admitted to the hospital for treatment of acute kidney injury on top of CKD along with metabolic acidosis due to hypoperfusion hypovolemia. Treated with sodium bicarbonate and IV fluids with good response over the course of hospital stay as creatinine improved from almost 4-1.6 at the day of discharge which is around her baseline. Evaluated by Nephrology team who recommended looking into her transplant medications that might be contributing to her GI symptoms of nausea specially CellCept. To be followed as outpatient to address this with her transplant team. Time Spent with Patient Time attestation: Total time spent providing and/or coordinating discharge services: Discharge coordination time: Greater than 30 minutes Quality: Stroke Does the patient have a stroke diagnosis?: No Physical Exam Vital Signs: Vital Signs: Last Vital Signs Temp 97.1 F 07/23/21 08:00 Pulse 79 07/23/21 08:13 Resp 18 07/23/21 08:00 BP 154/75 H 07/23/21 08:13 Pulse Ox 98 07/23/21 08:00 BMI result Body Mass Index 25.8 Const: Other: Constitutional : Alert, oriented, not in distress Neck : Normal inspection, Supple, legally blind Cardiovascular : RRR, S1 S2, no lower extremity edema Respiratory : fair bilateral air entry, no crackles, wheezes or rhonchi Gastrointestinal: soft, lax, Normal bowel sounds, Non tender Skin : Warm, Dry Neurological : Alert & oriented x3, No focal deficit DS: Data Data Completed and Pending Labs on day of discharge: Laboratory Results - last 24 hr 07/21/21 07/22/21 07/22/21 07:23 11:25 16:54 Sodium Potassium Chloride Carbon Dioxide Anion Gap BUN Creatinine Estim Creat Clear Calc Estimated GFR POC Glucose 152 H 146 H Random Glucose Calcium Tacrolimus 4.9 L 07/22/21 07/23/21 07/23/21 19:43 05:38 07:28 Sodium 142 Potassium 3.6 Chloride 115 H Carbon Dioxide 21 L Anion Gap 10 L BUN 35 H Creatinine 1.69 H Estim Creat Clear Calc 42.4 Estimated GFR 33 POC Glucose 227 H 82 Random Glucose 113 Calcium 8.6 Tacrolimus Discharge Plan Discharge Patient Disposition: [facility] Discharge Diagnosis: Acute kidney injury Referrals: [facility] [Other] - 1 Day (PATIENT RETRURNING BACK TO [facility] WHERE SHE RESIDES TRANSPORT VIA [facility] AT 2;30) Lino Hendricks MD [Primary Care Provider] - 1 Week Discharge Medications: Continued multivitamin Tablet 1 tab PO DAILY RF: 0 furosemide 40 mg tablet 1 tab PO BID@0900,1700 RF: 0 carvedilol 25 mg tablet 25 mg PO BID RF: 0 acetaminophen 325 mg Tablet 650 mg PO Q6H PRN (Reason: fever/pain) RF: 0 Lantus U-100 Insulin 100 unit/mL solution 20 unit subcut BEDTIME RF: 0 ondansetron HCl 4 mg tablet 1 tab PO Q8H PRN (Reason: Nausea) RF: 0 tacrolimus 5 mg capsule 5 mg PO BID RF: 0 gabapentin 400 mg capsule 400 mg PO TID RF: 0 prednisone 5 mg tablet 5 mg PO DAILY RF: 0 aspirin 81 mg Tablet,Delayed Release (Dr/Ec) 81 mg PO DAILY RF: 0 pantoprazole 20 mg tablet,delayed release (DR/EC) 1 tab PO DAILY@1630 RF: 0 mycophenolate mofetil 500 mg tablet 1,000 mg PO BID RF: 0 hydromorphone 2 mg tablet 2 mg PO QID RF: 0 hydromorphone [Dilaudid] 2 mg Tablet 2 mg PO Q6H PRN (Reason: Severe Pain (Scale Score 7-10)) RF: 0 trazodone 100 mg tablet 100 mg PO BEDTIME RF: 0 amlodipine 10 mg tablet 10 mg PO DAILY RF: 0 insulin aspart U-100 100 unit/mL solution See Protocol sliding scale dose subcut TIDAC RF: 0 bisacodyl [Dulcolax (bisacodyl)] 10 mg Suppository 10 mg MA DAILY PRN (Reason: Constipation) RF: 0 folic acid 1 mg tablet 1 tab PO DAILY RF: 0 ferrous sulfate 325 mg (65 mg iron) tablet,delayed release (DR/EC) 1 tab PO BID RF: 0 hydromorphone [Dilaudid] 4 mg Tablet 4 mg PO Q6H PRN (Reason: Severe Pain (Scale Score 7-10)) RF: 0 hydromorphone 4 mg tablet 4 mg PO QID RF: 0 simethicone 80 mg Tablet,Chewable 80 mg PO Q6H PRN (Reason: Gas) RF: 0 duloxetine 60 mg capsule,delayed release(DR/EC) 60 mg PO DAILY RF: 0 trazodone 50 mg tablet 12.5 mg PO Q8H PRN (Reason: Anxiety) RF: 0 dextrose [Glucose Gel] 40 % Gel 15 g PO Q15M PRN (Reason: Hypoglycemia) RF: 0 loperamide 2 mg Capsule 2 mg PO Q4H PRN (Reason: Diarrhea) 30 Days RF: 0 hydralazine 25 mg Tablet 25 mg PO TID 30 Days Qty: 90 RF: 0 sodium bicarbonate 650 mg Tablet 650 mg PO BID Qty: 14 RF: 0 Discharge Orders: Discharge Order (Routine); Ordered 07/23/21 Ordered By: Laura Ojeda Diet: advance to usual diet Activity on Discharge: As tolerated Stand Alone Forms: Patient Portal Discharge page Care Plan Goals: Read below Health Concerns: Read below Plan of Treatment: Read below Assessment: You were admitted to the hospital for treatment of acute kidney injury. Evaluated by structural engineering project manager and treated with IV fluid with good response as your kidneys improved back to baseline. We advise you to drink plenty of water during the day to prevent dehydration which is the main you reason behind your kidney injury To follow-up with Nephrology as outpatient to discuss your transplant medications as they might be contributing to your nausea Discharge Date/Time: 07/24/21 00:35
[2021-07-23] MEDS: Heparin Sodium,Porcine 5,000 UNIT/ML VIAL 5000 UNIT SUBCUT ×2 (10:29→20:20)
[2021-07-23] MEDS: HYDROmorphone HCl 1 MG/ML SYRINGE IVPUSH (10:30)
--- NOTE | 2021-07-23 11:04 | PM.PNNEP ---
Subjective Subjective Date of Service: 07/23/21 Principal diagnosis: DWAINE, Dehydration, Anemia, Abd pain Interval history: Seen and examined, events noted feeling better tody--only GI sxm now is constipation Physical Exam Vital Signs: Vital Signs: Last Vital Signs Temp 97.1 F 07/23/21 08:00 Pulse 79 07/23/21 08:13 Resp 18 07/23/21 08:00 BP 154/75 H 07/23/21 08:13 Pulse Ox 98 07/23/21 08:00 BMI result Body Mass Index 25.8 Const: Other: Constitutional : Alert, oriented, not in distress Neck : Normal inspection, Supple, blind Cardiovascular : RRR, S1 S2, no lower extremity edema Respiratory : fair bilateral air entry, no crackles, wheezes or rhonchi Gastrointestinal: soft, lax, Normal bowel sounds, Non tender Skin : Warm, Dry Neurological : Alert & oriented x3, No focal deficit General: cooperative and no acute distress Orientation/consciousness: patient oriented x3 Resp: Effort & Inspection: normal respiratory effort Auscultation: clear to auscultation bilaterally Cardio: Rate: regular rate Rhythm: regular rhythm GI: Palpation (GI): Soft to palpation Auscultation: normal bowel sounds Skin: General skin exam: no rashes or lesions noted Neuro: General: patient oriented x3 Cognition (Neuro): normal cognition Extrem: Other: right below-knee amputation General: Yes no pedal edema Objective Data Labs CBC & Chem 7: 07/22/21 05:40 07/23/21 05:38 Labs: Laboratory Results - last 24 hr 07/21/21 07/22/21 07/22/21 07:23 11:25 16:54 Sodium Potassium Chloride Carbon Dioxide Anion Gap BUN Creatinine Estim Creat Clear Calc Estimated GFR POC Glucose 152 H 146 H Random Glucose Calcium Tacrolimus 4.9 L 07/22/21 07/23/21 07/23/21 19:43 05:38 07:28 Sodium 142 Potassium 3.6 Chloride 115 H Carbon Dioxide 21 L Anion Gap 10 L BUN 35 H Creatinine 1.69 H Estim Creat Clear Calc 42.4 Estimated GFR 33 POC Glucose 227 H 82 Random Glucose 113 Calcium 8.6 Tacrolimus Procedures Date of Service Date of Service: 07/23/21 Assessment & Plan Assessment and plan (1) Acute on chronic kidney failure: Status: Resolved (2) Metabolic acidosis: Status: Resolved Assessment and Plan: A 45-year-old end-stage renal disease patient status post kidney transplant 15 years ago, who now is readmitted to the hospital second time this month for acute kidney injury with dehydration. 1. DWAINE: c/w renal hypoperfsuion from dehydration ( low FENa) and cont decr SCR with IVF: would have expected more rapid decr in SCr but there was adelay in getting IVF d/t IV access problems 2. Kidney transplant patient.? She is maintained on combination of tacrolimus, CellCept, and prednisone.? 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 3. Anemia.? FE studies ok bro started EPO and will look to cont as ouutpt 4. Recurrent GI symptoms with gastroparesis, diarrhea, nausea, vomiting--now constioated. 5. Diabetes. 6. NAGMA: d/t diarrhea and renal dysfunc REC: ok to d/c but needs to push jher po fluid intake; EPO as ordered; may need to consider placing a lopez and giveng IVF at SNF to prevent dehyration and repeat hosp ( eg 1 Liter IV NS qday) if she bounces back to the hosp for dehydration agai reepat renal labs Monday as outpt ; would cont epo 20,000 q 2-3 wks with Hb moitoring with goal Hb 9-11 ? Time Spent With Patient Time: Total time spent is greater than 50% in coordination of care (as documented) at patient's floor/unit and/or counseling patient: Progress Note: Quality Stroke Does the patient have a stroke diagnosis?: No
[2021-07-23 11:57] LABS: Glucose, Whole Blood 170 mg/dL (60-115)
[2021-07-23] MEDS: Insulin Lispro 100 UNIT/ML 3 ML VIAL SUBCUT ×3 (12:20→20:18)
--- NOTE | 2021-07-23 12:39 | MHC.CM.PN ---
Addendum entered by Ninfa Melchor 07/23/21 16:13: nursing facility will not accept thre rapid covi results they need the pcr covid test ,(there was mis communication in the lab and nursing supervisor assembly and packing rechecked , i called and spoke with nadeem , she informed me the patient needs to be reswaopped using the correct container and medium, which will take two hours , thsi was reported to the nursing facility , i spoke with bacilio at admissions at [facility]. she is aware fo thsi , she informed me that the following tneeds to be done inorder for patient to be return back to the facility . i went over this with staff nurse and daisy supervisor assembly and packing 1. once report is completed qnd negative o fax report to [facility] [address] [facility] [place] fax # [phone] 2. staff nurse to call [phone] and infomr the nurse of the results and to look out for the fax copy also what time patient will be trasnported 3, confirm withaction ambulance transport time for bls [phone] (all paper work completed and on patients chart). informed patient of the delay and reviewed with [facility] nurse and nursing supervisor assembly and packing Original Note: nurse ccase dialysis clinical manager not5e case discussed with staff nurse , hospitlaist [id number] . she will be dischagred back to [facility] where she is a long term care administrator resident , diacharge plan rtn [facility] today transportation [facility] (blind requires assistance , can be confused and sleepy at time , fall riak) trnasportation [facility] at 2;30 today
[2021-07-23 12:47] LABS: COVID-19 Test Negative (Negative); IDNOW Serial# 08D9AD1C
[2021-07-23 16:28] LABS: Glucose, Whole Blood 201 mg/dL (60-115)
[2021-07-23 16:32] LABS: Influenza A PCR NEGATIVE (Negative); Influenza B PCR NEGATIVE (Negative); Resp Syncy Virus RNA Qual PCR NEGATIVE (Negative); SARS COV2 PCR INHOUSE NEGATIVE (Negative)
[2021-07-23] MEDS: Omeprazole 20 MG CAPSULE.DR PO (16:45)
[2021-07-23 17:25] LABS: Influenza A PCR NEGATIVE (Negative); Influenza B PCR NEGATIVE (Negative); Resp Syncy Virus RNA Qual PCR NEGATIVE (Negative); SARS COV2 PCR INHOUSE NEGATIVE (Negative)
[2021-07-23 20:07] LABS: Glucose, Whole Blood 222 mg/dL (60-115)
[2021-07-23] MEDS: Insulin Glargine,Hum.rec.anlog 100 UNIT/ML 10 ML VIAL 20 UNIT SUBCUT (20:18)
[2021-07-23] MEDS: traZODone HCL 100 MG TABLET PO (20:19)
[2021-07-23] MEDS: Simethicone 80 MG TAB.CHEW PO (20:57)
[2021-07-24] VITALS: BP 144/58; PULSE 82; RESP 18; TEMP 36.7; O2SAT 98
== END 2021-07-24 00:35 | disposition skilled nursing facility (03) | DRG 699 ==
LOC: HO.ED 18:01 → HO.EDOVER 20:26 → HO.S3 07-21 05:56
PROVIDERS: Internal Medicine; Internal Medicine Nephrology; Admitting Provider Internal Medicine; Emergency Provider Emergency Medicine; PCP Internal Medicine; Visit Provider Student in an Organized Health Care Education/Training Program
DX: T86.12 Kidney transplant failure (principal); N17.9 Acute kidney failure, unspecified; E87.2 Acidosis; Z94.0 Kidney transplant status; Z89.511 Acquired absence of right leg below knee; H54.3 Unqualified visual loss, both eyes; Z20.822 Contact with and (suspected) exposure to COVID-19; E11.22 Type 2 diabetes mellitus with diabetic chronic kidney disease; Z88.0 Allergy status to penicillin; E11.43 Type 2 diabetes mellitus with diabetic autonomic (poly)neuropathy; K31.84 Gastroparesis; K21.9 Gastro-esophageal reflux disease without esophagitis; D63.1 Anemia in chronic kidney disease; N18.30 Chronic kidney disease, stage 3 unspecified; Z88.5 Allergy status to narcotic agent; Z88.6 Allergy status to analgesic agent; Z79.4 Long term (current) use of insulin; Z79.52 Long term (current) use of systemic steroids; Z79.899 Other long term (current) drug therapy
CPT/HCPCS: 0241U; 36415; 36600; 71045; 80048; 80051; 80076; 80197; 81001; 82565; 82607; 82728; 82746; 82803; 82947; 83540; 84300; 84520; 85025; 85027; 85610; 87635; 96361; 96374; 99285; J0885; J1170; J2060; J2405

== ENCOUNTER 2021-08-11 08:29 | Inpatient (IN) | payer OTHER, SELFPAY ==
[2021-08-11 08:35] VITALS: BP 128/56; PULSE 79; RESP 16; TEMP 36.6; O2SAT 93
[2021-08-11 08:49] VITALS: BP 116/61; BP 128/56; PULSE 76; PULSE 79; RESP 16; TEMP 36.6; O2SAT 93; O2SAT 96; BMI 25.7
--- NOTE | 2021-08-11 09:29 | ECG_ITS ---
Test Reason : chest pain Blood Pressure : / mmHG Vent. Rate : 078 BPM Atrial Rate : 078 BPM P-R Int : 158 ms QRS Dur : 096 ms QT Int : 370 ms P-R-T Axes : 052 -04 044 degrees QTc Int : 421 ms Normal sinus rhythm Normal ECG When compared with ECG of 11-JUL-2021 13:26, Nonspecific T wave abnormality no longer evident in Lateral leads Referred By: Lauri Valles Electronically Signed By:CLARENCE HESTER
--- NOTE | 2021-08-11 09:31 | ED_ITS ---
HPI - General Adult General Chief complaint: General Medical Stated complaint: AMS,ELEVATED BS 410 PER SNF Time Seen by Provider: 08/11/21 09:20 Source: patient Mode of arrival: ambulatory Limitations: no limitations History of Present Illness HPI narrative: 45-year-old female with a history of diabetes, hypertension, kidney failure status post right kidney transplant, right leg BKA, blind in both eyes, gastroparesis who was sent into the emergency department from her long-term facility for evaluation of nausea, vomiting and elevated glucose of 410. The patient states that she has been sick for approximately 3-4 days. She states that she has abdominal pain and runs or hand diffusely over her abdomen when asked to localize the pain. She is vague in describing the pain but states that it is constant and moderate to severe in intensity. She states that she has had persistent nausea and has been vomiting 3 to 4 times a day. She denied fever, chills, chest pain, shortness of breath, frequency got urgency or dysuria. At the time of my interview, the patient was dry heaving but otherwise did not appear to be in any distress. In reviewing her records, the patient was hospitalized from 07/19/2021 until 07/23/2021 with acute kidney injury on top of chronic kidney disease with metabolic acidosis due to hypoperfusion hypovolemia secondary to vomiting/diarrhea. Patient's BUN creatinine was as high as 45/4.20 with a low bicarb 13 and at the time of discharge BUN was 35 with a creatinine of 1.69 and a bicarb of 21. The patient was treated with normal saline with improvement of her kidney function and acidosis. Related Data Home Medications Medication Instructions Recorded Confirmed acetaminophen 325 mg tablet 650 mg PO Q6H PRN 06/01/21 07/19/21 amlodipine 10 mg tablet 10 mg PO DAILY 06/01/21 07/19/21 aspirin 81 mg tablet,delayed 81 mg PO DAILY 06/01/21 07/19/21 release bisacodyl 10 mg rectal suppository 10 mg TN DAILY PRN 06/01/21 07/19/21 (Dulcolax (bisacodyl)) carvedilol 25 mg tablet 25 mg PO BID 06/01/21 07/19/21 duloxetine 60 mg capsule,delayed 60 mg PO DAILY 06/01/21 07/19/21 release ferrous sulfate 325 mg (65 mg 1 tab PO BID 06/01/21 07/19/21 iron) tablet,delayed release folic acid 1 mg tablet 1 tab PO DAILY 06/01/21 07/19/21 furosemide 40 mg tablet 1 tab PO BID@0900,1700 06/01/21 07/19/21 gabapentin 400 mg capsule 400 mg PO TID 06/01/21 07/19/21 hydromorphone 2 mg tablet 2 mg PO QID 06/01/21 07/19/21 hydromorphone 2 mg tablet 2 mg PO Q6H PRN 06/01/21 07/19/21 (Dilaudid) hydromorphone 4 mg tablet 4 mg PO QID 06/01/21 07/19/21 hydromorphone 4 mg tablet 4 mg PO Q6H PRN 06/01/21 07/19/21 (Dilaudid) insulin aspart U-100 100 unit/mL See Protocol SUBCUT TIDAC 06/01/21 07/19/21 subcutaneous solution insulin glargine 100 unit/mL 20 unit SUBCUT BEDTIME 06/01/21 07/19/21 subcutaneous solution (Lantus U-100 Insulin) multivitamin 1 tab PO DAILY 06/01/21 07/19/21 mycophenolate mofetil 500 mg tablet 1,000 mg PO BID 06/01/21 07/19/21 ondansetron HCl 4 mg tablet 1 tab PO Q8H PRN 06/01/21 07/19/21 pantoprazole 20 mg tablet,delayed 1 tab PO DAILY@1630 06/01/21 07/19/21 release prednisone 5 mg tablet 5 mg PO DAILY 06/01/21 07/19/21 simethicone 80 mg chewable tablet 80 mg PO Q6H PRN 06/01/21 07/19/21 tacrolimus 5 mg capsule, 5 mg PO BID 06/01/21 07/19/21 immediate-release trazodone 100 mg tablet 100 mg PO BEDTIME 06/01/21 07/19/21 dextrose 40 % oral gel (Glucose 15 g PO Q15M PRN 07/11/21 07/19/21 Gel) trazodone 50 mg tablet 12.5 mg PO Q8H PRN 07/11/21 07/19/21 Previous Rx's Medication Instructions Recorded hydralazine 25 mg tablet 25 mg PO TID 30 Days #90 tab 07/14/21 loperamide 2 mg capsule 2 mg PO Q4H PRN 30 Days cap 07/14/21 sodium bicarbonate 650 mg tablet 650 mg PO BID #14 tab 07/14/21 Allergies Allergy/AdvReac Type Severity Reaction Status Date / Time amitriptyline Allergy Unknown UNKNOWN Verified 06/01/21 15:07 cephalexin Allergy Unknown UNKNOWN Verified 06/01/21 15:07 ciprofloxacin Allergy Unknown UNKNOWN Verified 06/01/21 15:07 famotidine [Pepcid] Allergy Unknown Unknown Verified 06/01/21 15:07 fluoxetine Allergy Unknown UNKNOWN Verified 06/01/21 15:07 ibuprofen [From ADVIL] Allergy Unknown ANXIETY Verified 06/01/21 15:07 Penicillins [PENICILLINS] Allergy Unknown HIVES Verified 06/01/21 15:07 codeine AdvReac Unknown N/V Verified 06/01/21 15:07 diphenhydramine [Advil PM] AdvReac Unknown anxiety Verified 06/01/21 15:07 metoclopramide AdvReac Unknown AGITATION,I Verified 06/01/21 15:07 TCHING morphine AdvReac Unknown N/V, Verified 06/01/21 15:07 anxiety tramadol AdvReac Unknown ANXIETY Verified 06/01/21 15:07 zolpidem [Ambien] AdvReac Unknown anxiety Verified 01/17/18 00:00 cephalexin Allergy Unknown Unknown Uncoded 06/01/21 15:07 ciproflaxacin Allergy Unknown Unknown Uncoded 06/01/21 15:07 From Ambien AdvReac Severe AGITATION Uncoded 05/07/20 15:50 Review of Systems Review of Systems: Yes all other systems are reviewed and are negative PMFSH Past Medical History Medical History Arthritis Blind Diabetes Gastroparesis HTN (hypertension) Surgical History History of amputation Renal transplant, status post Family History Family History Mother Diabetes Hypertension Father Diabetes Hypertension Social History Social History Household Members: Other Housing: Assisted Do you presently have visiting nurse or other home services: No Alcohol intake: never Patient Tobacco Use Status: Never used Tobacco Use of substances other than those prescribed or required for medical reasons: No Advance Directives: Yes Advance Directives on File: Yes Advance Directives Date on File: 06/07/21 service: No Current occupational status: disabled Physical Exam Vital Signs: Vital Signs: Last Vital Signs Temp 97.9 F 08/11/21 08:49 Pulse 79 08/11/21 08:49 Resp 16 08/11/21 08:49 BP 128/56 L 08/11/21 08:49 Pulse Ox 93 08/11/21 08:49 BMI result Body Mass Index 25.7 Const: General: cooperative and no acute distress Orientation/co nsciousness: oriented to person and oriented to place Limitations: no limitations HENMT: Head: Yes normal to inspection, Yes normocephalic and Yes atraumatic Ears: external ears normal General nose exam: Normal external nose present Face and sinus: Yes normal facial exam Mouth: Normal oral and palatal mucosa present Throat: Yes posterior oropharynx normal Eyes: Other: Patient is blind with bilateral prostatic eyes Neck: Neck: Yes normal visual inspection, Yes no lymphadenopathy, Yes trachea midline and Yes supple Chest: Chest palpation & inspection: normal inspection of the chest and normal palpation of entire chest wall Resp: Effort & Inspection: normal respiratory effort and able to speak in complete sentences Auscultation: clear to auscultation bilaterally Cardio: Rate: regular rate Rhythm: regular rhythm Heart sounds: S1 normal heart sound present, S2 normal heart sound present and no murmurs GI: Inspection: Yes normal to inspection Palpation (GI): Soft to palpation, Tenderness to palpation present (GI) (Moderate diffuse tenderness) and no guarding Auscultation: normal bowel sounds : General: Yes no CVA tenderness Back/Spine/Pelvis: Back: no CVA tenderness Skin: General skin exam: no rashes or lesions noted Neuro: General: oriented to person and oriented to place Cranial nerves: Yes CN's II-XII intact bilaterally Cognition (Neuro): normal cognition Motor exam (neuro): 5/5 motor strength present throughout Extrem: Other: Left [id number] amputation otherwise unremarkable Psych: Appearance: grossly normal Speech and movement: Normal speech and movement present Affect: normal affect Attitude: cooperative Thought process: Normal thought process present Thought content: Normal thought content present Course Course Course Narrative: 45-year-old female who presents emergency department for evaluation of 3-4 days of nausea, vomiting, abdominal pain and an elevated glucose today of 410 at her long-term facility. Patient does have a history gastroparesis, diabetes mellitus and kidney failure status post right renal transplant. Vital signs were unremarkable. Patient's examination did reveal that she was actively vomiting at the time of my exam, she did have diffuse, moderate abdominal tenderness. Concerned the patient may have a flare- up of her gastroparesis causing her vomiting and abdominal pain. I ordered a CBC, CMP, lipase, lactic acid, troponin, urinalysis. Patient will be treated with normal saline IV x1 L, Zofran 4 mg IV and Dilaudid 1 mg IV for pain. 1148: Laboratory evaluation: Elevated WBC the 11,900, anemia with an H&H of 8.7 and 30.0. BUN and creatinine were elevated at 59 and 2.78 which is elevated compared to 07/23/2021 BUN and creatinine was 35 and 1.69. Bicarb was low at 17. Lactate was normal at 0.7. Glucose was elevated 493. AST and ALT were elevated 100 and 98. COVID-19, influenza and RSV were negative. Patient's presentation is consistent with a flare-up of her gastroparesis which caused her to be volume depleted and dehydrated similar to her previous admission on 07/19/2021. Patient does have acute kidney injury on top of her chronic kidney injury. She did get some relief of her abdominal pain and nausea with the above treatment. I ordered regular insulin 10 units IV and a 2 L of normal saline IV. Patient's pain did improve but she states that the pain is coming back therefore she was given Dilaudid 0.5 mg IV. I will discuss admission with the covering hospitalist. Medical Decision Making Lab Data Result diagrams: 08/11/21 10:45 08/11/21 10:45 Labs: Lab Results 08/11/21 08/11/21 08/11/21 Range/Units 09:29 10:45 10:45 WBC 11.9 H (4.8-10.8) X10*3/uL RBC 3.35 L (4.20-5.50) X10*6/uL Hgb 8.7 L (12.0-16.0) g/dl Hct 30.3 L (37.0-47.0) % MCV 90.4 (80.0-98.0) fL MCH 26.0 L (27.0-33.0) pg MCHC 28.7 L (31.0-35.0) g/dl RDW 14.6 (11.0-16.0) % Plt Count 413 H (160-400) X10*3/uL MPV 11.1 (9.4-12.3) fL Immature Gran % (Auto) 0.4 (0.0-0.4) % Neut % (Auto) 92.3 H (45-73) % Lymph % (Auto) 3.3 L (20-40) % [place] % (Auto) 3.5 (2-11) % Eos % (Auto) 0.2 (0-4) % Baso % (Auto) 0.3 (0-2) % Lymph # (Auto) 0.4 L (1.2-4.9) X10*3/uL [place] # (Auto) 0.4 (0.1-1.2) X10*3/uL Eos # (Auto) 0.0 (0.0-0.4) X10*3/uL Baso # (Auto) 0.0 (0.0-0.2) X10*3/uL Abs Immat Gran (auto) 0.05 H (0.00-0.03) X10*3/uL Absolute Neuts (auto) 11.0 H (2.0-8.3) x10*3/uL Absolute Nucleated RBC 0.000 (0.0-0.012) X10*3/uL Nucleated RBC % (auto) 0.0 (0.0-0.2) /100WBC Smear Tech's Comments VERIFIED Sodium 131 L (135-145) mmol/L Potassium 5.0 D (3.3-5.1) mmol/L Chloride 104 (96-108) mmol/L Carbon Dioxide 17 L (22-29) mmol/L Anion Gap 15 (12-20) BUN 59 H D (9-16) mg/dL Creatinine 2.78 H (0.5-1.4) mg/dL Estim Creat Clear Calc 23.9 Estimated GFR 18 POC Glucose 411 H* (60-115) mg/dL Random Glucose 493 H* D (60-115) mg/dL Lactic Acid (0.5-2.0) mmol/L Calcium 9.6 D (8.4-10.2) mg/dL Total Bilirubin 0.3 (0.0-1.0) mg/dL AST 100 H (5-31) U/L ALT 98 H (0-31) U/L Alkaline Phosphatase 112 D (39-117) U/L Troponin I High Sens (<3.5-17.0) ng/L Total Protein 7.1 (6.5-8.0) g/dL Albumin 3.9 (3.5-5.0) g/dL Lipase 18 (8-78) U/L 08/11/21 08/11/21 Range/Units 10:45 10:45 WBC (4.8-10.8) X10*3/uL RBC (4.20-5.50) X10*6/uL Hgb (12.0-16.0) g/dl Hct (37.0-47.0) % MCV (80.0-98.0) fL MCH (27.0-33.0) pg MCHC (31.0-35.0) g/dl RDW (11.0-16.0) % Plt Count (160-400) X10*3/uL MPV (9.4-12.3) fL Immature Gran % (Auto) (0.0-0.4) % Neut % (Auto) (45-73) % Lymph % (Auto) (20-40) % [place] % (Auto) (2-11) % Eos % (Auto) (0-4) % Baso % (Auto) (0-2) % Lymph # (Auto) (1.2-4.9) X10*3/uL [place] # (Auto) (0.1-1.2) X10*3/uL Eos # (Auto) (0.0-0.4) X10*3/uL Baso # (Auto) (0.0-0.2) X10*3/uL Abs Immat Gran (auto) (0.00-0.03) X10*3/uL Absolute Neuts (auto) (2.0-8.3) x10*3/uL Absolute Nucleated RBC (0.0-0.012) X10*3/uL Nucleated RBC % (auto) (0.0-0.2) /100WBC Smear Tech's Comments Sodium (135-145) mmol/L Potassium (3.3-5.1) mmol/L Chloride (96-108) mmol/L Carbon Dioxide (22-29) mmol/L Anion Gap (12-20) BUN (9-16) mg/dL Creatinine (0.5-1.4) mg/dL Estim Creat Clear Calc Estimated GFR POC Glucose (60-115) mg/dL Random Glucose (60-115) mg/dL Lactic Acid 0.7 (0.5-2.0) mmol/L Calcium (8.4-10.2) mg/dL Total Bilirubin (0.0-1.0) mg/dL AST (5-31) U/L ALT (0-31) U/L Alkaline Phosphatase (39-117) U/L Troponin I High Sens 4.0 (<3.5-17.0) ng/L Total Protein (6.5-8.0) g/dL Albumin (3.5-5.0) g/dL Lipase (8-78) U/L Discharge Plan Discharge Clinical Impression: Diabetic gastroparesis, Acute hyperglycemia, Acute kidney injury Abdominal pain Qualifiers: Abdominal location: generalized Qualified Code(s): R10.84 - Generalized abdominal pain Prescriptions: No Action multivitamin Tablet 1 tab PO DAILY RF: 0 furosemide 40 mg tablet 1 tab PO BID@0900,1700 RF: 0 carvedilol 25 mg tablet 25 mg PO BID RF: 0 acetaminophen 325 mg Tablet 650 mg PO Q6H PRN (Reason: fever/pain) RF: 0 Lantus U-100 Insulin 100 unit/mL solution 20 unit subcut BEDTIME RF: 0 ondansetron HCl 4 mg tablet 1 tab PO Q8H PRN (Reason: Nausea) RF: 0 tacrolimus 5 mg capsule 5 mg PO BID RF: 0 gabapentin 400 mg capsule 400 mg PO TID RF: 0 prednisone 5 mg tablet 5 mg PO DAILY RF: 0 aspirin 81 mg Tablet,Delayed Release (Dr/Ec) 81 mg PO DAILY RF: 0 pantoprazole 20 mg tablet,delayed release (DR/EC) 1 tab PO DAILY@1630 RF: 0 mycophenolate mofetil 500 mg tablet 1,000 mg PO BID RF: 0 hydromorphone 2 mg tablet 2 mg PO QID RF: 0 hydromorphone [Dilaudid] 2 mg Tablet 2 mg PO Q6H PRN (Reason: Severe Pain (Scale Score 7-10)) RF: 0 trazodone 100 mg tablet 100 mg PO BEDTIME RF: 0 amlodipine 10 mg tablet 10 mg PO DAILY RF: 0 insulin aspart U-100 100 unit/mL solution See Protocol sliding scale dose subcut TIDAC RF: 0 bisacodyl [Dulcolax (bisacodyl)] 10 mg Suppository 10 mg TN DAILY PRN (Reason: Constipation) RF: 0 folic acid 1 mg tablet 1 tab PO DAILY RF: 0 ferrous sulfate 325 mg (65 mg iron) tablet,delayed release (DR/EC) 1 tab PO BID RF: 0 hydromorphone [Dilaudid] 4 mg Tablet 4 mg PO Q6H PRN (Reason: Severe Pain (Scale Score 7-10)) RF: 0 hydromorphone 4 mg tablet 4 mg PO QID RF: 0 simethicone 80 mg Tablet,Chewable 80 mg PO Q6H PRN (Reason: Gas) RF: 0 duloxetine 60 mg capsule,delayed release(DR/EC) 60 mg PO DAILY RF: 0 trazodone 50 mg tablet 12.5 mg PO Q8H PRN (Reason: Anxiety) RF: 0 dextrose [Glucose Gel] 40 % Gel 15 g PO Q15M PRN (Reason: Hypoglycemia) RF: 0 loperamide 2 mg Capsule 2 mg PO Q4H PRN (Reason: Diarrhea) 30 Days RF: 0 hydralazine 25 mg Tablet 25 mg PO TID 30 Days Qty: 90 RF: 0 sodium bicarbonate 650 mg Tablet 650 mg PO BID Qty: 14 RF: 0
[2021-08-11 09:33] LABS: Glucose, Whole Blood 411 mg/dL (60-115)
[2021-08-11 10:52] LABS: Basophils Percent Auto 0.3 % (0-2); Eosinophils Percent Auto 0.2 % (0-4); Hematocrit 30.3 % (37.0-47.0); Hemoglobin 8.7 g/dl (12.0-16.0); Imm Gran Abs Auto 0.05 X10*3/uL (0.00-0.03); Imm Gran Pct Auto 0.4 % (0.0-0.4); Lymphocytes Absolute Auto 0.4 X10*3/uL (1.2-4.9); Lymphocytes Percent Auto 3.3 % (20-40); MANUAL DIFF FLAG SCAN; Mean Corpuscular HGB Conc 28.7 g/dl (31.0-35.0); Mean Corpuscular Volume 90.4 fL (80.0-98.0); Mean Platelet Volume 11.1 fL (9.4-12.3); Monocytes Absolute Auto 0.4 X10*3/uL (0.1-1.2); Monocytes Percent Auto 3.5 % (2-11); Neutrophils Percent Auto 92.3 % (45-73); Platelet Count 413 X10*3/uL (160-400); Red Blood Count 3.35 X10*6/uL (4.20-5.50); Red Cell Distribution Width 14.6 % (11.0-16.0); SCAN SMEAR FLAG 1; White Blood Count 11.9 X10*3/uL (4.8-10.8)
[2021-08-11 11:05] LABS: Lactic Acid 0.7 mmol/L (0.5-2.0)
[2021-08-11 11:12] LABS: SLIDE REVIEW VERIFIED
[2021-08-11 11:14] LABS: Alanine Aminotransferase 98 U/L (0-31); Albumin Level 3.9 g/dL (3.5-5.0); Alkaline Phosphatase 112 U/L (39-117); Anion Gap 15 (12-20); Aspartate Amino Transferase 100 U/L (5-31); Bilirubin Total 0.3 mg/dL (0.0-1.0); Blood Urea Nitrogen 59 mg/dL (9-16); Calcium 9.6 mg/dL (8.4-10.2); Carbon Dioxide 17 mmol/L (22-29); Chloride 104 mmol/L (96-108); Creatinine Clr Calc Pharmacy 23.9; Estimated Glomerular Filt Rate 18; Glucose Random 493 mg/dL (60-115); Lipase 18 U/L (8-78); Sodium 131 mmol/L (135-145); Total Protein 7.1 g/dL (6.5-8.0)
[2021-08-11] MEDS: ondansetron HCL 4 MG/2 ML VIAL IVPUSH (11:18)
[2021-08-11] MEDS: HYDROmorphone HCl 1 MG/ML SYRINGE IVPUSH (11:18)
[2021-08-11] MEDS: 0.9 % Sodium Chloride 1,000 ML 999 ML IV (11:18)
--- NOTE | 2021-08-11 13:10 | PHA.MEDREC ---
Pharmacy Consult ? Medication Reconciliation Pharmacy has completed the medication reconciliation. No remarkable issues. Pt was unaware of which medications she is currently on. Had list from custodial, and states she was given her morning meds today 08/11. [facility]
[2021-08-11] MEDS: 0.9 % Sodium Chloride 500 ML 999 ML IV (13:22)
[2021-08-11] MEDS: Insulin Regular, Human 100 UNIT/ML 3 ML VIAL 10 UNIT IVPUSH (13:31)
[2021-08-11 13:33] VITALS: BP 125/39; PULSE 83; RESP 15; O2SAT 94
[2021-08-11] MEDS: HYDROmorphone HCl 0.5 MG/0.5 ML SYRINGE IVPUSH ×2 (13:38→20:16)
[2021-08-11] MEDS: Lidocaine HCl Viscous 2 % 15 ML SOLUTION 10 ML PO (13:50)
[2021-08-11] MEDS: Magnesium Hydrox/Alum Hydrox 30 ML ORAL.SUSP PO (13:50)
[2021-08-11 14:53] VITALS: BP 109/55; PULSE 80; RESP 12; TEMP 36.9; O2SAT 96
[2021-08-11 14:54] LABS: Glucose, Whole Blood 226 mg/dL (60-115)
--- NOTE | 2021-08-11 15:07 | P.HPHOSP_ITS ---
History of Present Illness Date of Service: 08/11/21 Attending physician on admission: Francesca Gomez Chief Complaint: Nausea vomiting and abdominal pain 45-year-old female patient with past medical history significant for diabetes mellitus on insulin, hypertension, kidney failure status post right kidney transplant, right BKA, blind in both eyes, recently discharged from [facility] after a bout of nausea vomiting and acute kidney injury return back to [facility] due to recurrent episode of nausea vomiting x4 days and hyperglycemia with blood sugars of 410, patient also complains of abdominal pain and left leg pain she denies fever chills, no shortness of breath, no lightheadedness or dizziness feel cold, workup in the emergency room showed a BUN of 59, creatinine of 2.78, patient's creatinine was 1.69 At time of her recent discharge On July 23, COVID-19, influenza and RSV are negative, patient treated in the emergency room with regular insulin 10 units, I V Dilaudid, Zofran and IV fluid and now being admitted to [facility] due to recurrent episode of acute on chronic kidney disease, nausea, vomiting and hyperglycemia. Review of Systems Review of Systems: General no headache , no dizziness no fever chills. CVS no chest pain, no palpitation. Respiratory no cough no sputum production no respiratory distress. Gastrointestinal nausea , vomiting and abdominal pain no urinary frequency or urgency Musculoskeletal left leg pain Yes all other systems are reviewed and are negative [facility] Medical History Arthritis Blind Diabetes Gastroparesis HTN (hypertension) Family History Mother Diabetes Hypertension Father Diabetes Hypertension Pertinent family history: No change in family history since recent admission on June 2021 Surgical History History of amputation Hx of kidney transplant Renal transplant, status post Social History Household Members: Other Housing: [facility] Do you presently have visiting nurse or other home services: No Alcohol intake: never Patient Tobacco Use Status: Never used Tobacco Use of substances other than those prescribed or required for medical reasons: No Advance Directives: Yes Advance Directives on File: Yes Advance Directives Date on File: 06/07/21 service: No Current occupational status: disabled Meds Allergies Allergy/AdvReac Type Severity Reaction Status Date / Time amitriptyline Allergy Unknown UNKNOWN Verified 06/01/21 15:07 cephalexin Allergy Unknown UNKNOWN Verified 06/01/21 15:07 ciprofloxacin Allergy Unknown UNKNOWN Verified 06/01/21 15:07 famotidine [Pepcid] Allergy Unknown Unknown Verified 06/01/21 15:07 fluoxetine Allergy Unknown UNKNOWN Verified 06/01/21 15:07 ibuprofen [From ADVIL] Allergy Unknown ANXIETY Verified 06/01/21 15:07 Penicillins [PENICILLINS] Allergy Unknown HIVES Verified 06/01/21 15:07 codeine AdvReac Unknown N/V Verified 06/01/21 15:07 diphenhydramine [Advil PM] AdvReac Unknown anxiety Verified 06/01/21 15:07 metoclopramide AdvReac Unknown AGITATION,I Verified 06/01/21 15:07 TCHING morphine AdvReac Unknown N/V, Verified 06/01/21 15:07 anxiety tramadol AdvReac Unknown ANXIETY Verified 06/01/21 15:07 zolpidem [Ambien] AdvReac Unknown anxiety Verified 01/17/18 00:00 cephalexin Allergy Unknown Unknown Uncoded 06/01/21 15:07 ciproflaxacin Allergy Unknown Unknown Uncoded 06/01/21 15:07 From Ambien AdvReac Severe AGITATION Uncoded 05/07/20 15:50 Active Medications: Current Medications Acetaminophen (Acetaminophen 325 Mg Tablet) 650 mg PO Q6H PRN PRN Reason: Pain, Mild (Pain Scale 1-3) Ondansetron HCl (Ondansetron Hcl 4 Mg/2 Ml Vial) 4 mg IVPUSH Q8H PRN PRN Reason: Nausea and Vomiting Pharmacy Consult (Consult Rx Perform Med Rec) 1 each MISCELLANE ONCE PRN PRN Reason: Consult order Sodium Chloride (0.9 % Sodium Chloride Flush 3 Ml Syringe) 3 ml IVFLUSH [facility] Medications Medication Instructions Recorded Confirmed Last Taken Type acetaminophen 325 mg tablet 650 mg PO Q6H PRN 06/01/21 08/11/21 Unknown History amlodipine 10 mg tablet 10 mg PO DAILY 06/01/21 08/11/21 07/19/21 History aspirin 81 mg tablet,delayed 81 mg PO DAILY 06/01/21 08/11/21 07/19/21 History release bisacodyl 10 mg rectal suppository 10 mg NV DAILY PRN 06/01/21 08/11/21 Unknown History (Dulcolax (bisacodyl)) carvedilol 25 mg tablet 25 mg PO BID 06/01/21 08/11/21 07/19/21 History duloxetine 60 mg capsule,delayed 60 mg PO DAILY 06/01/21 08/11/21 07/19/21 History release ferrous sulfate 325 mg (65 mg 1 tab PO BID 06/01/21 08/11/21 07/19/21 History iron) tablet,delayed release folic acid 1 mg tablet 1 tab PO DAILY 06/01/21 08/11/21 07/19/21 History furosemide 40 mg tablet 20 mg PO BID@0900,1700 06/01/21 08/11/21 07/19/21 History gabapentin 400 mg capsule 400 mg PO TID 06/01/21 08/11/21 07/19/21 History hydromorphone 2 mg tablet 2 mg PO QID 06/01/21 08/11/21 07/19/21 History hydromorphone 4 mg tablet 4 mg PO QID 06/01/21 08/11/21 07/19/21 History insulin aspart U-100 100 unit/mL See Protocol SUBCUT TIDAC 06/01/21 08/11/21 07/19/21 History subcutaneous solution insulin glargine 100 unit/mL 20 unit SUBCUT BEDTIME 06/01/21 08/11/21 07/19/21 History subcutaneous solution (Lantus U-100 Insulin) multivitamin 1 tab PO DAILY 06/01/21 08/11/21 07/19/21 History mycophenolate mofetil 500 mg tablet 1,000 mg PO BID 06/01/21 08/11/21 07/19/21 History ondansetron HCl 4 mg tablet 1 tab PO Q8H PRN 06/01/21 08/11/21 Unknown History pantoprazole 20 mg tablet,delayed 1 tab PO BEDTIME 06/01/21 08/11/21 Unknown History release prednisone 5 mg tablet 5 mg PO DAILY 06/01/21 08/11/21 07/19/21 History simethicone 80 mg chewable tablet 80 mg PO Q6H PRN 06/01/21 08/11/21 Unknown History tacrolimus 5 mg capsule, 5 mg PO BID 06/01/21 08/11/21 07/19/21 History immediate-release trazodone 100 mg tablet 100 mg PO BEDTIME 06/01/21 08/11/21 07/19/21 History dextrose 40 % oral gel (Glucose 15 g PO Q15M PRN 07/11/21 08/11/21 Unknown History Gel) Physical Exam Vital Signs and Narrative: Vital Signs: Last Vital Signs Temp 98.4 F 08/11/21 14:53 Pulse 80 08/11/21 14:53 Resp 12 08/11/21 14:53 BP 109/55 L 08/11/21 14:53 Pulse Ox 96 08/11/21 14:53 BMI result Body Mass Index 25.7 General awake alert x3, no acute distress. HEENT legally blind Neck supple no JVD. CVS regular rate rhythm, Respiratory lungs clear to auscultation, no respiratory distress, no wheeze, no rhonchi. Gastrointestinal abdomen soft, nontender, bowel sounds audible, no guarding , no rigidity. Extremities right BKA, left leg normal examination . Neuro nonfocal Skin warm and dry Psych appropriate affect Results Labs CBC and Chem 7: 08/11/21 10:45 08/11/21 10:45 Labs: Laboratory Results - last 24 hr 08/11/21 08/11/21 08/11/21 09:29 10:45 10:45 MCV 90.4 MCH 26.0 L MCHC 28.7 L RDW 14.6 Plt Count 413 H MPV 11.1 Immature Gran % (Auto) 0.4 Neut % (Auto) 92.3 H Lymph % (Auto) 3.3 L Darke % (Auto) 3.5 Eos % (Auto) 0.2 Baso % (Auto) 0.3 Lymph # (Auto) 0.4 L Darke # (Auto) 0.4 Eos # (Auto) 0.0 Baso # (Auto) 0.0 Abs Immat Gran (auto) 0.05 H Absolute Neuts (auto) 11.0 H Absolute Nucleated RBC 0.000 Nucleated RBC % (auto) 0.0 Smear Tech's Comments VERIFIED Anion Gap 15 Estim Creat Clear Calc 23.9 Estimated GFR 18 POC Glucose 411 H* Random Glucose 493 H* D Lactic Acid Calcium 9.6 D Total Bilirubin 0.3 AST 100 H ALT 98 H Alkaline Phosphatase 112 D Troponin I High Sens Total Protein 7.1 Albumin 3.9 Lipase 18 08/11/21 08/11/21 08/11/21 10:45 10:45 14:49 MCV MCH MCHC RDW Plt Count MPV Immature Gran % (Auto) Neut % (Auto) Lymph % (Auto) Darke % (Auto) Eos % (Auto) Baso % (Auto) Lymph # (Auto) Darke # (Auto) Eos # (Auto) Baso # (Auto) Abs Immat Gran (auto) Absolute Neuts (auto) Absolute Nucleated RBC Nucleated RBC % (auto) Smear Tech's Comments Anion Gap Estim Creat Clear Calc Estimated GFR POC Glucose 226 H Random Glucose Lactic Acid 0.7 Calcium Total Bilirubin AST ALT Alkaline Phosphatase Troponin I High Sens 4.0 Total Protein Albumin Lipase Assessment and Plan (1) Diabetic gastroparesis: Status: Acute (2) Acute hyperglycemia: Status: Acute (3) Acute kidney injury: Status: Acute (4) Diabetes: Status: Acute 45-year-old female patient with past medical history significant for right renal transplant presented to [facility] due to nausea vomiting abdominal pain and diagnosed to have acute on chronic kidney disease likely symptoms related to diabetic gastroparesis and due to high-dose narcotic medications. Nausea vomiting and abdominal pain Likely related to her diabetic gastroparesis and high-dose narcotics patient is also on immunosuppressive medications that also can cause nausea vomiting and nephrotoxicity Will treat patient with IV fluids anti emetics Will recommend close outpatient follow-up with renal transplant team to adjust dose of immunosuppressant Will minimize use of narcotics Diabetes mellitus/hyperglycemia Place on diabetic diet Lantus and insulin sliding scale Acute on chronic kidney disease stage 3 status post right renal transplant/mild acidosis Likely due to hypovolemia/hypotension Treat with IV fluids, recent CT abdomen and pelvis showed no obstruction, hold BP medication Obtain Nephro consult Continue immunosuppressive medication recommend outpatient follow-up to adjust dosage Hypertension noted to have soft blood pressure Will continue Norvasc and Coreg will hold hydralazine follow BP closely GERD continue PPI DVT prophylaxis with heparin Code status discussed with patient she wishes to be DNR DNI and does not want her life to be prolonged. Quality Stroke Does the patient have a stroke diagnosis?: No VTE Prior VTE?: No VTE Risk Level:: Medical - moderate - high VTE Device Contraindication: Treatment Not Indicated VTE Drug Contraindication: N/A - Med Ordered
[2021-08-11] MEDS: Lidocaine 4 % Patch ADH..PATCH 1 PATCH TRANSDERMA (15:50)
[2021-08-11] MEDS: 0.9 % Sodium Chloride 1,000 ML 80 ML IVCONT (15:55)
--- NOTE | 2021-08-11 15:59 | PC.NURSE ---
Pt A&Ox3, states she wants to leave AMA, refusing PO dilaudid states she only wants it through the IV because she can't eat or drin, it will make her vomitin, but requesting Tanya vanessa and crackers at the same time. Pain ptch applied to lower back, VS as charter, fluids running at this time, will continue to monitor.
[2021-08-11 16:01] LABS: COVID-19 Test Negative (Negative)
[2021-08-11 18:23] LABS: Glucose, Whole Blood 164 mg/dL (60-115)
--- NOTE | 2021-08-11 21:34 | MHC.CM.PN ---
CM met with admitted pt in [facility] with bed assignment pending. Pt is crying. Pt was crying in ed. Does not want to be in the hospital. C/O pain. RN aware and has pain medication for patient. Was admitted to [facility] 07/19-07/24 for same problem with vomiting and DWAINE. IMM reviewed with patient, with verbal agreement, as pt is legally blind. CM signed IMM 08/11/21@2009. HCP on file. HCP/brother Haim Breen ([phone]). MOLST on file. Pt is DNR/DNI/no dialysis, no hydration, or nutrition. Pt lives at [facility]. Feels safe. Blind from diabetic retinopathy. R BKA and kidney transplant. Uses a prosthesis and a walker. Prosthesis at [facility]. Fully vaccinated and boosted with Moderna. D/C plan is to return to [facility]. Return requested in Care Port. Pt will need transportation arranged. CM to follow for d/c needs.
--- NOTE | 2021-08-11 22:33 | PC.NURSE ---
pt is refusing her scheduled medications, vitals and poc. Pt is refusing IV fluids also
[2021-08-12 05:09] VITALS: BP 155/93; PULSE 78; RESP 20; O2SAT 94
--- NOTE | 2021-08-12 08:05 | PC.NURSE ---
Received pt from car shifter: Pt AOx4 but mild to mod anxious. Pt complaining of generalized pain- no nausea or vomit complaints currently. Heart sounds normal with diminished lung sounds. Pt abd round and non-tender. R BKA noted.
[2021-08-12 09:04] VITALS: BP 142/84; PULSE 83; RESP 16; TEMP 37; O2SAT 95
[2021-08-12] MEDS: Aspirin Enteric Coated 81 MG TABLET.DR PO (10:16)
[2021-08-12] MEDS: amLODIPine Besylate 10 MG TABLET PO (10:17)
[2021-08-12] MEDS: carvediloL 25 MG TABLET PO (10:17)
[2021-08-12] MEDS: Ferrous Sulfate 324 MG TABLET.DR PO (10:17)
[2021-08-12] MEDS: Folic Acid 1 MG TABLET PO (10:17)
[2021-08-12] MEDS: Gabapentin 400 MG CAPSULE PO ×2 (10:18→14:13)
[2021-08-12] MEDS: Multivitamin TABLET 1 TAB PO (10:19)
[2021-08-12] MEDS: mycophenolate mofetiL 250 MG CAPSULE 1000 MG PO (10:19)
[2021-08-12 11:18] LABS: Anion Gap 11 (12-20); Blood Urea Nitrogen 46 mg/dL (9-16); Calcium 9.6 mg/dL (8.4-10.2); Carbon Dioxide 22 mmol/L (22-29); Chloride 111 mmol/L (96-108); Creatinine Clr Calc Pharmacy 32.6; Estimated Glomerular Filt Rate 26; Glucose Random 176 mg/dL (60-115); Potassium 4.3 mmol/L (3.3-5.1); Sodium 140 mmol/L (135-145)
--- NOTE | 2021-08-12 11:37 | PC.NURSE ---
RN at bedside to give orders Tacrolimus and Prednisone. Pt refusing at this time, staying she would not like to prolong her care. Code Machine Operator also at bedside during this conversation. Despite reteaching and emotional support, pt continues to refuse medications at this time. Pt requesting pain medication more frequently and via IV port.
[2021-08-12 12:41] LABS: Glucose, Whole Blood 205 mg/dL (60-115)
--- NOTE | 2021-08-12 12:44 | PM.DS ---
DS: Providers Provider Date of Service: 08/12/21 Date of admission: 08/11/21 14:57 Primary care physician: Lino Hendricks MD Consults: 08/11/21 15:27 Consult to Nephrology Routine Consulting Provider: Arthur Han Reason for consultation: sujey Has provider been notified: No DS: Diagnosis Discharge Diagnosis (1) Diabetic gastroparesis: Status: Acute (2) Acute hyperglycemia: Status: Acute (3) Acute kidney injury: Status: Acute (4) Diabetes: Status: Acute DS: Summary Hospital Course Hospital Course: History of presenting illness Chief Complaint: Nausea vomiting and abdominal pain 45-year-old female patient with past medical history significant for diabetes mellitus on insulin, hypertension, kidney failure status post right kidney transplant, right BKA, blind in both eyes, recently discharged from [facility] after a bout of nausea vomiting and acute kidney injury return back to [facility] due to recurrent episode of nausea vomiting x4 days and hyperglycemia with blood sugars of 410, patient also complains of abdominal pain and left leg pain she denies fever chills, no shortness of breath, no lightheadedness or dizziness feel cold, workup in the emergency room showed a BUN of 59, creatinine of 2.78, patient's creatinine was 1.69 At time of her recent discharge On July 23, COVID-19, influenza and RSV are negative, patient treated in the emergency room with regular insulin 10 units, IV Dilaudid, Zofran and IV fluid and now being admitted to [facility] due to recurrent episode of acute on chronic kidney disease, nausea, vomiting and hyperglycemia. Hospital course 45-year-old female patient with past medical history significant for right renal transplant presented to [facility] due to nausea vomiting abdominal pain and diagnosed to have acute on chronic kidney disease likely symptoms related to diabetic gastroparesis and due to high-dose narcotic medications, patient treated with IV fluids, diuretics were held patient's symptoms of nausea, vomiting have resolved she is tolerating diet renal function has improved from 2.8 to 2, recommend patient to reduce dose of narcotics , encourage ambulation and bed mobility exercises, recommend to take small frequent meals, addedlidoderm to left leg pain Diabetes mellitus/hyperglycemia continue diabetic diet Lantus and insulin sliding scale Acute on chronic kidney disease stage 3 status post right renal transplant/mild acidosis, likely pre renal with hypovolemia and hypotension renal function improved with IV hydration and holding diuretics recommend to hold Lasix Hypertension continue home medications hold hydralazine if noted to have low blood pressures. Time Spent with Patient Time attestation: Total time spent providing and/or coordinating discharge services: Discharge coordination time: Greater than 30 minutes Quality: Stroke Does the patient have a stroke diagnosis?: No Physical Exam Vital Signs: Vital Signs: Last Vital Signs Temp 98.6 F 08/12/21 09:04 Pulse 83 08/12/21 09:04 Resp 16 08/12/21 09:04 BP 142/84 H 08/12/21 09:04 Pulse Ox 95 08/12/21 09:04 BMI result Body Mass Index 25.7 General awake aler t x3, no acute dis tress. HEENT legal ly blind? Neck? coyle pple no JVD. CVS? regular rate rhyth m, Respiratory radha gs clear to auscul tation, no respira tory distress, no wheeze, no rhonchi . Gastrointestinal abdomen soft, non tender, bowel soun ds audible, no gua rding , no rigidit y. Extremities rig ht BKA, left leg n ormal examination . Neuro nonfocal S kin warm and dry P sych appropriate a ffect DS: Data Data Completed and Pending Labs on day of discharge: Laboratory Results - last 24 hr 08/11/21 08/11/21 08/11/21 14:49 15:40 18:17 Sodium Potassium Chloride Carbon Dioxide Anion Gap BUN Creatinine Estim Creat Clear Calc Estimated GFR POC Glucose 226 H 164 H Random Glucose Calcium COVID-19 ([facility]IVEK) Negative COVID-19 Clin [place] See Note 08/12/21 08/12/21 10:40 12:37 Sodium 140 Potassium 4.3 Chloride 111 H Carbon Dioxide 22 Anion Gap 11 L BUN 46 H Creatinine 2.04 H Estim Creat Clear Calc 32.6 Estimated GFR 26 POC Glucose 205 H Random Glucose 176 H D Calcium 9.6 COVID-19 ([facility]K) COVID-19 Clin Com Discharge Plan Discharge Patient Disposition: Xfer SNF Discharge Diagnosis: Acute on chronic kidney disease stage III Diabetic Gastroparesis Hyperglycemia Nausea vomiting abdominal pain Referrals: Lino Hendricks MD [Primary Care Provider] - 1 Week Discharge Medications: New lidocaine [Lidocaine Pain Relief] 4 % Adhesive Patch,Medicated 1 patch transdermal DAILY Qty: 4 RF: 0 Continued multivitamin Tablet 1 tab PO DAILY RF: 0 carvedilol 25 mg tablet 25 mg PO BID RF: 0 acetaminophen 325 mg Tablet 650 mg PO Q6H PRN (Reason: fever/pain) RF: 0 Lantus U-100 Insulin 100 unit/mL solution 20 unit subcut BEDTIME RF: 0 ondansetron HCl 4 mg tablet 1 tab PO Q8H PRN (Reason: Nausea) RF: 0 tacrolimus 5 mg capsule 5 mg PO BID RF: 0 gabapentin 400 mg capsule 400 mg PO TID RF: 0 prednisone 5 mg tablet 5 mg PO DAILY RF: 0 aspirin 81 mg Tablet,Delayed Release (Dr/Ec) 81 mg PO DAILY RF: 0 pantoprazole 20 mg tablet,delayed release (DR/EC) 1 tab PO BEDTIME RF: 0 mycophenolate mofetil 500 mg tablet 1,000 mg PO BID RF: 0 hydromorphone 2 mg tablet 2 mg PO QID RF: 0 trazodone 100 mg tablet 100 mg PO BEDTIME RF: 0 amlodipine 10 mg tablet 10 mg PO DAILY RF: 0 insulin aspart U-100 100 unit/mL solution See Protocol sliding scale dose subcut TIDAC RF: 0 bisacodyl [Dulcolax (bisacodyl)] 10 mg Suppository 10 mg NM DAILY PRN (Reason: Constipation) RF: 0 folic acid 1 mg tablet 1 tab PO DAILY RF: 0 ferrous sulfate 325 mg (65 mg iron) tablet,delayed release (DR/EC) 1 tab PO BID RF: 0 hydromorphone 4 mg tablet 4 mg PO QID RF: 0 simethicone 80 mg Tablet,Chewable 80 mg PO Q6H PRN (Reason: Gas) RF: 0 duloxetine 60 mg capsule,delayed release(DR/EC) 60 mg PO DAILY RF: 0 dextrose [Glucose Gel] 40 % Gel 15 g PO Q15M PRN (Reason: Hypoglycemia) RF: 0 loperamide 2 mg Capsule 2 mg PO Q4H PRN (Reason: Diarrhea) 30 Days RF: 0 hydralazine 25 mg Tablet 25 mg PO TID 30 Days Qty: 90 RF: 0 Held furosemide 40 mg tablet 20 mg PO BID@0900,1700 RF: 0 Hold Instructions: Resume on 08/14/21. take lasix 20mg twice daily starting 08/14 Discharge Orders: Discharge Order (Routine); Ordered 08/12/21 Ordered By: Francesca Gomez Diet: diabetic diet Activity on Discharge: As tolerated Stand Alone Forms: Patient Portal Discharge page Care Plan Goals: Chronic kidney disease, chronic pain, hold Lasix 20 mg twice daily for 2 days to resume med from 08/14, hold diuretics if noted to have nausea vomiting or diarrhea Do bed mobility exercises while in bed ambulate with the help of staff to minimize pain Minimize use of Dilaudid to speak 4 mg q.i.d. that is contributing to nausea and vomiting beside gastro paresis Hold hydralazine 25 mg t.i.d. if noted to have systolic BP below 130 Health Concerns: Chronic kidney disease status post renal transplant follow-up with Nephrology on regular basis Plan of Treatment: Outpatient follow-up with primary care physician in 1-2 weeks outpatient follow-up with PCP Check BMP on 08/16 Assessment: Per discharge summary
--- NOTE | 2021-08-12 13:19 | MHC.CM.PN ---
PT CLEARED TO DC BACK TO LTC FACILITY TODAY PT WILL DC TO [facility] AT 1600 HOURS PENDING A NEGATIVE COVID PCR TEST RESULT
[2021-08-12] MEDS: 0.9 % Sodium Chloride 500 ML 125 ML IVCONT (14:14)
[2021-08-12] MEDS: 0.9 % Sodium Chloride 1,000 ML 75 ML IVCONT (14:15)
[2021-08-12 14:42] LABS: COVID-19 Test Negative (Negative)
[2021-08-12 16:41] LABS: Influenza A PCR NEGATIVE (Negative); Influenza B PCR NEGATIVE (Negative); Resp Syncy Virus RNA Qual PCR NEGATIVE (Negative); SARS COV2 PCR INHOUSE NEGATIVE (Negative)
--- NOTE | 2021-08-12 16:47 | PC.NURSE ---
Pending transport for pt D/C. Was awaiting COVID PCR results earlier - now resulted to be negative.
--- NOTE | 2021-08-12 17:41 | PC.NURSE ---
EMS at bedside for transport back to pt's SNF at this time
--- NOTE | 2021-08-16 12:32 | CONS_ITS ---
DATE OF SERVICE: 08/12/2021 REASON FOR CONSULTATION: I was asked to see patient to assist in evaluation and management of patient's acute kidney injury as reflected by serum creatinine of 2.78 yesterday on admission to the hospital and she has had recurrent hospitalizations for dehydration and recurrent episodes of acute kidney injury in the backdrop of being a kidney transplant patient. HISTORY OF PRESENT ILLNESS: In summary, the patient is a 45-year-old diabetic patient status post kidney transplant, maintained on a combination of tacrolimus, mycophenolate, and prednisone. Again, has had repetitive hospitalizations for episodes of dehydration and intractable pain. She now presents with again dehydration, nausea, vomiting, and intractable pain. She is very tearful and frustrated and at times tells me that she does want to live anymore. She is frustrated that pain medications. She says her pain is predominantly in her left foot and leg. She does have pain everywhere else as well. PAST MEDICAL HISTORY: Notable for ESRD status post kidney transplant, hypertension, hyperlipidemia, diabetic retinopathy, being visually blind, BKA on the right side, migraine headaches, GERD, anxiety, depression, gastroparesis. She had her kidney transplant done back in 2005 with relatively stable renal function with creatinine 1 to 1.3 with recurrent episodes of acute kidney injury. She has a significant amount of chronic pain issues. MEDICATIONS: Her medications on admission are noted in the admitting notes. Current medications are noted in the MAR. FAMILY HISTORY: Notable for diabetes. SOCIAL HISTORY: She is a nonsmoker, nondrinker. No illicit drug use. REVIEW OF SYSTEMS: As noted above. PHYSICAL EXAMINATION: VITAL SIGNS: Blood pressure 140/84. HEAD: Atraumatic and normocephalic. NECK: Supple. Mucous membranes are moist. LUNGS: Breath sounds bilaterally. CARDIAC: Regular rate. ABDOMEN: Soft, nontender. EXTREMITIES: Show a BKA on the right. Left leg is warm with what appeared to be good perfusion. She has had several toe amputations in the past on the left. LABORATORY DATA: From this morning shows sodium 140, potassium 4.3, chloride 111, bicarb 22, BUN 46, creatinine 2.0, blood sugar 205. On admission, her hemoglobin was 8.7, hematocrit 30.3, white blood cell count 11.9, sodium 131, potassium 5, chloride 104, bicarb 17, BUN 59, creatinine 2.78, blood sugar 493. IMPRESSION: 45-year-old diabetic, end-stage renal disease patient status post a kidney transplant. Readmitted to the hospital with acute kidney injury in the setting of dehydration, poor p.o. intake, and severe chronic pain and depression. 1. Acute kidney injury. Renal function seems to be improving on IV fluid, suggesting again she has an episode of dehydration with renal hypoperfusion. This has been a repetitive admissions with the same scenario. We will need to continue monitor renal function with IV fluids and hopefully creatinine goes down to below 1.5 and can be discharged. We will check a tacrolimus level to make sure that this is not an issue, but it has not been in the past. 2. Chronic pain issues. This seems to be quite debilitating. We will look to see if there is someone from Pain Management, who can see patient to see if there is something that can be done to alleviate her suffering. 3. Depression. 4. Kidney transplant. Patient maintained on combination tacrolimus, CellCept, and prednisone. 5. Anemia. 6. Diabetes mellitus. SUGGESTIONS: At this time include continue routine medications. Continue IV fluids. Follow urine output and renal function. Seen by having Psychiatry and/or Pain Management come to see the patient to see if something can be done to decrease her suffering. She may need also additional medications to try and help alleviate her gastroparesis which intermittently becomes a big problem. MD MICHELLE Nieto/MONTSE / [phone]
== END 2021-08-12 18:01 | disposition skilled nursing facility (03) | DRG 74 ==
LOC: HO.ED 09:26 → HO.EDOVER 15:14
PROVIDERS: Admitting Provider Hospitalist; Emergency Provider Emergency Medicine Emergency Medical Services; PCP Internal Medicine; Visit Provider Hospitalist
DX: E11.43 Type 2 diabetes mellitus with diabetic autonomic (poly)neuropathy (principal); T86.19 Other complication of kidney transplant; Z94.0 Kidney transplant status; K31.84 Gastroparesis; Z20.822 Contact with and (suspected) exposure to COVID-19; E11.65 Type 2 diabetes mellitus with hyperglycemia; N18.30 Chronic kidney disease, stage 3 unspecified; I95.9 Hypotension, unspecified; E11.22 Type 2 diabetes mellitus with diabetic chronic kidney disease; Z88.0 Allergy status to penicillin; Z89.511 Acquired absence of right leg below knee; Z88.5 Allergy status to narcotic agent; Z88.6 Allergy status to analgesic agent; Z79.4 Long term (current) use of insulin; Z79.82 Long term (current) use of aspirin; Z79.899 Other long term (current) drug therapy; Z66 Do not resuscitate
CPT/HCPCS: 0241U; 36415; 80048; 80053; 82947; 83605; 83690; 84484; 85025; 87635; 93005; 99285; J1170; J2405

== ENCOUNTER → 2021-09-08 14:08 | Outpatient (BNVA) | payer OTHER, SELFPAY | PROVIDERS: PCP Internal Medicine; Visit Provider Obstetrics & Gynecology | DX: N93.9 Abnormal uterine and vaginal bleeding, unspecified (principal) | CPT/HCPCS: Q3014 ==

== ENCOUNTER 2022-11-01 17:20 | Emergency (ER) | payer OTHER, SELFPAY ==
[2022-11-01 17:28] VITALS: BP 143/64; PULSE 83; RESP 18; TEMP 37.2; O2SAT 98; BMI 24.2
[2022-11-01 17:34] LABS: Glucose, Whole Blood 406 mg/dL (60-115)
--- NOTE | 2022-11-01 17:35 | ED.GENADULT ---
HPI - General Adult General Chief complaint: General Medical Stated complaint: urinary retention Time Seen by Provider: 11/01/22 17:29 Source: patient Mode of arrival: EMS History of Present Illness HPI narrative: Patient diabetic legally blind status post kidney transplant 12/2015 was in the care home for last 2 years which got closed and patient came to stay with her daughter 5 days ago has not taken her medication since then and she cannot see the medication and nobody at home can give her. Today she comes here as she could not urinate for last 2 days bladder scan done showed only 75 cc of urine patient not drinking enough fluids Related Data Home Medications Medication Instructions Recorded Confirmed amlodipine 10 mg tablet 10 mg PO DAILY 06/01/21 11/01/22 carvedilol 25 mg tablet 25 mg PO BID 06/01/21 11/01/22 folic acid 1 mg tablet 1 tab PO DAILY 06/01/21 11/01/22 hydromorphone 2 mg tablet 2 mg PO QID PRN Pain (Scale Score 06/01/21 11/01/22 7-10) insulin aspart U-100 100 unit/mL See Protocol subcut TIDAC 06/01/21 11/01/22 subcutaneous solution insulin glargine 100 unit/mL 20 unit subcut BEDTIME 06/01/21 11/01/22 subcutaneous solution (Lantus U-100 Insulin) multivitamin 1 tab PO DAILY 06/01/21 11/01/22 mycophenolate mofetil 500 mg tablet 1,000 mg PO BID 06/01/21 11/01/22 pantoprazole 20 mg tablet,delayed 1 tab PO DAILY 06/01/21 11/01/22 release prednisone 5 mg tablet 5 mg PO DAILY 06/01/21 11/01/22 tacrolimus 5 mg capsule, 5 mg PO DAILY 06/01/21 11/01/22 immediate-release trazodone 100 mg tablet 100 mg PO BEDTIME 06/01/21 11/01/22 atorvastatin 40 mg tablet 1 tab PO DAILY 11/01/22 11/01/22 gabapentin 300 mg capsule 300 mg PO TID 11/01/22 11/01/22 hydralazine 50 mg tablet 50 mg PO TID 11/01/22 11/01/22 tacrolimus 1 mg capsule, 4 mg PO BEDTIME 11/01/22 11/01/22 immediate-release Allergies Allergy/AdvReac Type Severity Reaction Status Date / Time amitriptyline Allergy Unknown UNKNOWN Verified 06/01/21 15:07 cephalexin Allergy Unknown UNKNOWN Verified 06/01/21 15:07 ciprofloxacin Allergy Unknown UNKNOWN Verified 06/01/21 15:07 famotidine [Pepcid] Allergy Unknown Unknown Verified 06/01/21 15:07 fluoxetine Allergy Unknown UNKNOWN Verified 06/01/21 15:07 ibuprofen [From ADVIL] Allergy Unknown ANXIETY Verified 06/01/21 15:07 Penicillins [PENICILLINS] Allergy Unknown HIVES Verified 06/01/21 15:07 codeine AdvReac Unknown N/V Verified 06/01/21 15:07 diphenhydramine [Advil PM] AdvReac Unknown anxiety Verified 06/01/21 15:07 metoclopramide AdvReac Unknown AGITATION,I Verified 06/01/21 15:07 TCHING morphine AdvReac Unknown N/V, Verified 06/01/21 15:07 anxiety tramadol AdvReac Unknown ANXIETY Verified 06/01/21 15:07 zolpidem [Ambien] AdvReac Unknown anxiety Verified 01/17/18 00:00 cephalexin Allergy Unknown Unknown Uncoded 06/01/21 15:07 ciproflaxacin Allergy Unknown Unknown Uncoded 06/01/21 15:07 From Ambien AdvReac Severe AGITATION Uncoded 05/07/20 15:50 Review of Systems Review of Systems: Constitutional : No Weight loss, No Fever, No Chills ENT/Mouth : No sore throat, No Rhinorrhea Eyes: No Eye Pain, No Swelling Cardiovascular : No Chest Pain, no palpitations Respiratory : No Cough, No Sputum, no shortness of breath Gastrointestinal : no Nausea, No Vomiting, No Diarrhea, No abdominal Pain, no black stools Genitourinary : No Dysuria, No Urinary Frequency Musculoskeletal : No joint pain, No Myalgias, No Joint Swelling Skin : No Skin Lesions, No rash Neuro : ++ Weakness, No Numbness, No Dizziness, No Headache Psych : No Anxiety/Panic, No Depression Heme/Lymph: No Bruising, No Lymphadenopathy Endocrine : No Polyuria, No Polydipsia All other systems reviewed and are negative Yes all other systems are reviewed and are negative PMFSH Past Medical History Medical History Arthritis Blind Diabetes Diabetic gastroparesis Gastroparesis HTN (hypertension) Surgical History History of amputation Hx of kidney transplant Renal transplant, status post Family History Family History Mother Diabetes Hypertension Father Diabetes Hypertension Social History Social History Household Members: Other Housing: Retirement Do you presently have visiting nurse or other home services: No Alcohol intake: never Patient Tobacco Use Status: Never used Tobacco Smoked in Last 30 Days: No Use of substances other than those prescribed or required for medical reasons: No Advance Directives: Yes Advance Directives on File: Yes Advance Directives Date on File: 06/07/21 service: No Current occupational status: disabled Physical Exam ED Vital Signs: Vital Signs - 24 hr 11/01/22 17:28 11/01/22 20:04 11/01/22 22:33 Temperature 98.9 F 98.4 F 97.8 F Pulse Rate 83 78 80 Respiratory Rate 18 18 18 Blood Pressure 143/64 H 129/62 154/73 H Pulse Oximetry 98 97 96 Oxygen Delivery Method Room Air Room Air Room Air 11/01/22 23:41 Temperature 98.2 F Pulse Rate 79 Respiratory Rate 16 Blood Pressure 142/67 H Pulse Oximetry 97 Oxygen Delivery Method Room Air BMI result Body Mass Index 24.2 Appearance: Alert. Oriented X3. No acute distress. Eyes: Legally blind ENT: Pharynx normal. Oral Mucosa moist Neck: Normal inspection. Neck supple. CVS: Normal heart rate and rhythm. Pulses normal. Respiratory: No respiratory distress. Equal air entry bilateral, no wheezing/rales/rhonchi Abdomen: Soft and nontender. Bowel sounds are present, no mass palpable, no CVA tenderness Skin: Skin warm and dry. Normal skin color. Normal skin turgor. Extremities: No lower extremity edema right BKA. No calf tenderness Neuro: Oriented X 3. Medications Administered Generic Name Dose Route Start Last Admin Trade Name Freq PRN Reason Stop Dose Admin Carvedilol 25 mg 11/01/22 21:00 11/01/22 22:38 Carvedilol 25 Mg Tablet PO 25 mg BID LYNDON Administration Protocol Gabapentin 300 mg 11/01/22 21:00 11/01/22 22:40 Gabapentin 300 Mg Capsule PO 300 mg TID LYNDON Administration Hydralazine HCl 50 mg 11/01/22 21:00 11/01/22 22:40 Hydralazine Hcl 50 Mg Tablet PO 50 mg TID LYNDON Administration Protocol Hydromorphone HCl 2 mg 11/01/22 18:58 11/01/22 19:18 Hydromorphone Hcl 2 Mg Tablet PO 2 mg QID PRN Administration Pain (Scale Score 7-10) Insulin Glargine 20 unit 11/01/22 21:00 11/01/22 22:40 Insulin Glargine,Hum.Rec.Anlog 100 Unit/Ml 10 Ml Vial SUBCUT 20 unit BEDTIME LYNDON Administration Mycophenolate Mofetil 1,000 mg 11/01/22 21:00 11/01/22 22:38 Mycophenolate Mofetil 250 Mg Capsule PO 1,000 mg BID LYNDON Administration Tacrolimus 4 mg 11/01/22 21:00 11/01/22 22:38 Tacrolimus 1 Mg Capsule PO 4 mg BEDTIME LYNDON Administration Trazodone HCl 100 mg 11/01/22 21:00 11/01/22 22:40 Trazodone Hcl 100 Mg Tablet PO 100 mg BEDTIME LYNDON Administration Discontinued Medications Generic Name Dose Route Start Last Admin Trade Name Freq PRN Reason Stop Dose Admin Sodium Chloride 1,000 mls @ 999 mls/hr 11/01/22 17:42 11/01/22 18:06 Ns IV 11/01/22 18:42 999 mls/hr .Q1H1M ONE Administration Insulin Human Lispro 6 unit 11/01/22 18:12 11/01/22 18:36 Insulin Lispro 100 Unit/Ml 3 Ml Vial SUBCUT 11/01/22 18:13 6 unit ONCE ONE Administration Medical Decision Making Medical Decision Making MDM Narrative: Bladder scan showed only 75 cc of urine will give IV fluids check basic labs Patient with CKD noncompliant to medications legally blind blood sugar improved after insulin and IV hydration restarted on his medications patient depressed nonsuicidal will get the care team also involved along with case management for placement Lab Data MDM Lab Attestation statement: I reviewed the patient's lab results. 11/01/22 18:04 11/01/22 18:04 Labs: Lab Results 11/01/22 11/01/22 11/01/22 Range/Units 17:30 18:04 18:04 WBC 6.8 (4.8-10.8) X10*3/uL RBC 3.61 L (4.20-5.50) X10*6/uL Hgb 9.6 L (12.0-16.0) g/dl Hct 32.7 L (37.0-47.0) % MCV 90.6 (80.0-98.0) fL MCH 26.6 L (27.0-33.0) pg MCHC 29.4 L (31.0-35.0) g/dl RDW 15.1 (11.0-16.0) % Plt Count 366 (160-400) X10*3/uL MPV 12.1 (9.4-12.3) fL Immature Gran % (Auto) 0.1 (0.0-0.4) % Neut % (Auto) 79.3 H (45-73) % Lymph % (Auto) 8.2 L (20-40) % Lenoir % (Auto) 9.3 (2-11) % Eos % (Auto) 2.1 (0-4) % Baso % (Auto) 1.0 (0-2) % Lymph # (Auto) 0.6 L (1.2-4.9) X10*3/uL [place] # (Auto) 0.6 (0.1-1.2) X10*3/uL Eos # (Auto) 0.1 (0.0-0.4) X10*3/uL Baso # (Auto) 0.1 (0.0-0.2) X10*3/uL Abs Immat Gran (auto) 0.01 (0.00-0.03) X10*3/uL Absolute Neuts (auto) 5.4 (2.0-8.3) x10*3/uL Absolute Nucleated RBC 0.000 (0.0-0.012) X10*3/uL Nucleated RBC % (auto) 0.0 (0.0-0.2) /100WBC VBG pH (7.32-7.43) VBG pCO2 mmHg VBG pO2 mmHg VBG HCO3 (22-26) mmol/L VBG O2 Saturation % VBG Base Excess mmol/L Sodium 138 (135-145) mmol/L Potassium 4.2 (3.3-5.1) mmol/L Chloride 107 (96-108) mmol/L Carbon Dioxide 21 L (22-29) mmol/L Anion Gap 14 (12-20) BUN 25 H (9-16) mg/dL Creatinine 2.67 H (0.5-1.4) mg/dL Estim Creat Clear Calc 24.1 Estimated GFR 19 POC Glucose 406 H* (60-115) mg/dL Random Glucose 482 H* (60-115) mg/dL Calcium 8.6 D (8.4-10.2) mg/dL Magnesium 1.6 (1.6-2.6) mg/dL Total Bilirubin 0.5 (0.0-1.0) mg/dL AST 16 (5-31) U/L ALT 15 (0-31) U/L Alkaline Phosphatase 76 (39-117) U/L Total Protein 7.1 (6.5-8.0) g/dL Albumin 4.1 (3.5-5.0) g/dL Acetone, Qual (Negative) 11/01/22 11/01/22 11/01/22 Range/Units 18:05 18:06 20:01 WBC (4.8-10.8) X10*3/uL RBC (4.20-5.50) X10*6/uL Hgb (12.0-16.0) g/dl Hct (37.0-47.0) % MCV (80.0-98.0) fL MCH (27.0-33.0) pg MCHC (31.0-35.0) g/dl RDW (11.0-16.0) % Plt Count (160-400) X10*3/uL MPV (9.4-12.3) fL Immature Gran % (Auto) (0.0-0.4) % Neut % (Auto) (45-73) % Lymph % (Auto) (20-40) % Lenoir % (Auto) (2-11) % Eos % (Auto) (0-4) % Baso % (Auto) (0-2) % Lymph # (Auto) (1.2-4.9) X10*3/uL Lenoir # (Auto) (0.1-1.2) X10*3/uL Eos # (Auto) (0.0-0.4) X10*3/uL Baso # (Auto) (0.0-0.2) X10*3/uL Abs Immat Gran (auto) (0.00-0.03) X10*3/uL Absolute Neuts (auto) (2.0-8.3) x10*3/uL Absolute Nucleated RBC (0.0-0.012) X10*3/uL Nucleated RBC % (auto) (0.0-0.2) /100WBC VBG pH 7.36 (7.32-7.43) VBG pCO2 37 mmHg VBG pO2 64 mmHg VBG HCO3 21 L (22-26) mmol/L VBG O2 Saturation 90.0 % VBG Base Excess -3.4 mmol/L Sodium (135-145) mmol/L Potassium (3.3-5.1) mmol/L Chloride (96-108) mmol/L Carbon Dioxide (22-29) mmol/L Anion Gap (12-20) BUN (9-16) mg/dL Creatinine (0.5-1.4) mg/dL Estim Creat Clear Calc Estimated GFR POC Glucose 326 H (60-115) mg/dL Random Glucose (60-115) mg/dL Calcium (8.4-10.2) mg/dL Magnesium (1.6-2.6) mg/dL Total Bilirubin (0.0-1.0) mg/dL AST (5-31) U/L ALT (0-31) U/L Alkaline Phosphatase (39-117) U/L Total Protein (6.5-8.0) g/dL Albumin (3.5-5.0) g/dL Acetone, Qual Negative (Negative) 11/01/22 11/02/22 Range/Units 22:58 00:11 WBC (4.8-10.8) X10*3/uL RBC (4.20-5.50) X10*6/uL Hgb (12.0-16.0) g/dl Hct (37.0-47.0) % MCV (80.0-98.0) fL MCH (27.0-33.0) pg MCHC (31.0-35.0) g/dl RDW (11.0-16.0) % Plt Count (160-400) X10*3/uL MPV (9.4-12.3) fL Immature Gran % (Auto) (0.0-0.4) % Neut % (Auto) (45-73) % Lymph % (Auto) (20-40) % Lenoir % (Auto) (2-11) % Eos % (Auto) (0-4) % Baso % (Auto) (0-2) % Lymph # (Auto) (1.2-4.9) X10*3/uL Lenoir # (Auto) (0.1-1.2) X10*3/uL Eos # (Auto) (0.0-0.4) X10*3/uL Baso # (Auto) (0.0-0.2) X10*3/uL Abs Immat Gran (auto) (0.00-0.03) X10*3/uL Absolute Neuts (auto) (2.0-8.3) x10*3/uL Absolute Nucleated RBC (0.0-0.012) X10*3/uL Nucleated RBC % (auto) (0.0-0.2) /100WBC VBG pH (7.32-7.43) VBG pCO2 mmHg VBG pO2 mmHg VBG HCO3 (22-26) mmol/L VBG O2 Saturation % VBG Base Excess mmol/L Sodium (135-145) mmol/L Potassium (3.3-5.1) mmol/L Chloride (96-108) mmol/L Carbon Dioxide (22-29) mmol/L Anion Gap (12-20) BUN (9-16) mg/dL Creatinine (0.5-1.4) mg/dL Estim Creat Clear Calc Estimated GFR POC Glucose 237 H 203 H (60-115) mg/dL Random Glucose (60-115) mg/dL Calcium (8.4-10.2) mg/dL Magnesium (1.6-2.6) mg/dL Total Bilirubin (0.0-1.0) mg/dL AST (5-31) U/L ALT (0-31) U/L Alkaline Phosphatase (39-117) U/L Total Protein (6.5-8.0) g/dL Albumin (3.5-5.0) g/dL Acetone, Qual (Negative) Discharge Plan Discharge Clinical Impression: Hyperglycemia due to type 2 diabetes mellitus, Acute kidney injury superimposed on chronic kidney disease, Blind, Depression Patient Disposition: Still a Patient Prescriptions: No Action multivitamin Tablet 1 tab PO DAILY carvedilol 25 mg tablet 25 mg PO BID insulin glargine [Lantus U-100 Insulin] 100 unit/mL solution 20 unit subcut BEDTIME tacrolimus 5 mg capsule 5 mg PO DAILY prednisone 5 mg tablet 5 mg PO DAILY pantoprazole 20 mg tablet,delayed release (DR/EC) 1 tab PO DAILY mycophenolate mofetil 500 mg tablet 1,000 mg PO BID hydromorphone 2 mg tablet 2 mg PO QID PRN (Reason: Pain (Scale Score 7-10)) Rx Instructions: total of 6 mg qid trazodone 100 mg tablet 100 mg PO BEDTIME amlodipine 10 mg tablet 10 mg PO DAILY insulin aspart U-100 100 unit/mL solution See Protocol subcut TIDAC Protocol: Insulin Correction Scale Less than or equal to 110 ---- Give (units): 0 111 to 150 Give (units): 0 151 to 200 Give (units): 0 201 to 250 Give (units): 2 251 to 300 Give (units): 4 301 to 350 Give (units): 6 Greater than 350 Give (units): 8 Call MD if Blood Glucose > : 450 folic acid 1 mg tablet 1 tab PO DAILY atorvastatin 40 mg tablet 1 tab PO DAILY gabapentin 300 mg capsule 300 mg PO TID hydralazine 50 mg tablet 50 mg PO TID tacrolimus 1 mg capsule 4 mg PO BEDTIME
[2022-11-01] MEDS: 0.9 % Sodium Chloride 1,000 ML 999 ML IV (18:06)
[2022-11-01 18:09] LABS: MANUAL DIFF FLAG NO
[2022-11-01 18:11] LABS: Venous Blood Gas Refer to POC result
[2022-11-01 18:12] LABS: VBG Base Excess -3.4 mmol/L; VBG HCO3 21 mmol/L (22-26); VBG pCO2 37 mmHg; VBG pH 7.36 (7.32-7.43); VBG pO2 64 mmHg
[2022-11-01 18:17] LABS: Acetone, serum QL Negative (Negative)
[2022-11-01 18:18] LABS: Basophils Absolute Auto 0.1 X10*3/uL (0.0-0.2); Eosinophils Absolute Auto 0.1 X10*3/uL (0.0-0.4); Eosinophils Percent Auto 2.1 % (0-4); Hematocrit 32.7 % (37.0-47.0); Hemoglobin 9.6 g/dl (12.0-16.0); Imm Gran Abs Auto 0.01 X10*3/uL (0.00-0.03); Imm Gran Pct Auto 0.1 % (0.0-0.4); Lymphocytes Absolute Auto 0.6 X10*3/uL (1.2-4.9); Lymphocytes Percent Auto 8.2 % (20-40); Mean Corpuscular HGB Conc 29.4 g/dl (31.0-35.0); Mean Corpuscular Hemoglobin 26.6 pg (27.0-33.0); Mean Corpuscular Volume 90.6 fL (80.0-98.0); Mean Platelet Volume 12.1 fL (9.4-12.3); Monocytes Absolute Auto 0.6 X10*3/uL (0.1-1.2); Monocytes Percent Auto 9.3 % (2-11); Neutrophils Absolute Auto 5.4 x10*3/uL (2.0-8.3); Neutrophils Percent Auto 79.3 % (45-73); Platelet Count 366 X10*3/uL (160-400); Red Blood Count 3.61 X10*6/uL (4.20-5.50); Red Cell Distribution Width 15.1 % (11.0-16.0); White Blood Count 6.8 X10*3/uL (4.8-10.8)
[2022-11-01 18:26] LABS: Alanine Aminotransferase 15 U/L (0-31); Albumin Level 4.1 g/dL (3.5-5.0); Alkaline Phosphatase 76 U/L (39-117); Anion Gap 14 (12-20); Aspartate Amino Transferase 16 U/L (5-31); Bilirubin Total 0.5 mg/dL (0.0-1.0); Blood Urea Nitrogen 25 mg/dL (9-16); Calcium 8.6 mg/dL (8.4-10.2); Carbon Dioxide 21 mmol/L (22-29); Chloride 107 mmol/L (96-108); Creatinine Clr Calc Pharmacy 24.1; Estimated Glomerular Filt Rate 19; Glucose Random 482 mg/dL (60-115); Magnesium 1.6 mg/dL (1.6-2.6); Potassium 4.2 mmol/L (3.3-5.1); Sodium 138 mmol/L (135-145); Total Protein 7.1 g/dL (6.5-8.0)
[2022-11-01] MEDS: Insulin Lispro 100 UNIT/ML 3 ML VIAL 6 UNIT SUBCUT (18:36)
--- NOTE | 2022-11-01 18:50 | PHA.MEDREC ---
Addendum entered by Marisol Ambriz RPh 11/02/22 09:12: Obtained list from [facility] which patient was at until 10/27/22. Updated information with med list from facility along with current lantus dosing that was not available when original med rec was done. Added to previous med rec aspirin, melatonin, procrit, ferrous sulfate, and furosemide. Original Note: Pharmacy Consult ? Medication Reconciliation Pharmacy has completed the medication reconciliation. Med list obtained from pt's blister packs, called [facility] but medical records not available at the current time
[2022-11-01] MEDS: HYDROmorphone HCl 2 MG TABLET PO (19:18)
--- NOTE | 2022-11-01 19:18 | MHC.CM.ED ---
CM met with patient at the request of Dr. Patino. Pt is blind, R BKA, kidney transplant 2016, DM, who lived at [facility] for the past 2 years and was discharged from facility to [facility] due to facility closure. Pt only stayed at [facility] for 1 day, as she felt very unsafe and asked her daughter to pick her up. Pt stayed for 2 days with her boyfriend, and 2 days with her daughter, but they both are in housing and she cannot stay with them. Pt left without any services. Has not taken her medications, as she cannot read the bubble packs. Pt doesn't feel her family can care for her. Pt admits to feeling sadness and some depression that her home, [facility] closed . Pt states she was very happy there, had friends, activities and very good care . Pt uses a prosthesis and walker. PCP was Lino Hendricks at [facility]. HCP is on file, but telephone number has changed. HCP/brother Haim Allen ([phone]). Moderna x2. MOLST-DNR/DNI. Daughter, Jael Sultana ([phone]) is her contact. D/C plan: LTC placement. Has [employer] insurance. Will need transportation. Referrals placed.
--- NOTE | 2022-11-01 19:28 | PC.NURSE ---
pt rang call mcgregor. this rn entered room, pt reports to this rn bilateral hand pain. 02/27 pain. pt medicated according to mar
[2022-11-01 20:04] VITALS: BP 129/62; PULSE 78; RESP 18; TEMP 36.9; O2SAT 97
[2022-11-01 20:09] LABS: Glucose, Whole Blood 326 mg/dL (60-115)
[2022-11-01 22:33] VITALS: BP 154/73; PULSE 80; RESP 18; TEMP 36.6; O2SAT 96
[2022-11-01] MEDS: carvediloL 25 MG TABLET PO (22:38)
[2022-11-01] MEDS: mycophenolate mofetiL 250 MG CAPSULE 1000 MG PO (22:38)
[2022-11-01] MEDS: Tacrolimus 1 MG CAPSULE 4 MG PO (22:38)
[2022-11-01] MEDS: traZODone HCL 100 MG TABLET PO (22:40)
[2022-11-01] MEDS: hydrALAZINE HCl 50 MG TABLET PO (22:40)
[2022-11-01] MEDS: Insulin Glargine,Hum.rec.anlog 100 UNIT/ML 10 ML VIAL 20 UNIT SUBCUT (22:40)
[2022-11-01] MEDS: Gabapentin 300 MG CAPSULE PO (22:40)
[2022-11-01 23:02] LABS: Glucose, Whole Blood 237 mg/dL (60-115)
[2022-11-01 23:41] VITALS: BP 142/67; PULSE 79; RESP 16; TEMP 36.8; O2SAT 97
[2022-11-02 00:15] LABS: Glucose, Whole Blood 203 mg/dL (60-115)
[2022-11-02 01:13] LABS: COVID-19 Test Negative (Negative); IDNOW Serial# 6674DD1D
[2022-11-02] MEDS: HYDROmorphone HCl 1 MG/ML SYRINGE IVPUSH (01:23)
[2022-11-02] MEDS: LORazepam 1 MG TABLET PO (01:39)
--- NOTE | 2022-11-02 01:43 | PC.NURSE ---
late entry- pt is tearful at this time. pt reports 10/10 phantom limb pain on R side bka. this rn made dr hackett aware of this. dr hackett ordered po ativan. this rn attempted to medicate pt with po ativan and po dilaudid. pt refused po medication at this time. pt asked to speak with dr hackett. at bedside to discuss with pt. dr hackett ordered iv push dilaudid. this rn returned po ativan and po dilaudid to [facility]. pt medicated with iv dilaudid.
--- NOTE | 2022-11-02 01:47 | PC.NURSE ---
pt appears to be less tearful at this time. pt expresses frustration and anxiety due to pain level. this rn discussed benefits of po ativan. pt agreeable to taking ativan at this time. pt medicated according to flor. pt provided with tissues and call mcgregor at this time
[2022-11-02 01:59] VITALS: BP 137/69; PULSE 73; RESP 16; TEMP 37.1; O2SAT 98
--- NOTE | 2022-11-02 03:09 | PC.NURSE ---
pt noted to be sleeping positioned on L side at this time. lights dimmed callbell in place
[2022-11-02 06:06] VITALS: BP 142/68; PULSE 84; RESP 16; TEMP 37.1; O2SAT 95
[2022-11-02] MEDS: 0.9 % Sodium Chloride 2,000 ML 999 ML IVCONT (06:13)
--- NOTE | 2022-11-02 06:42 | PC.NURSE ---
bed worker performed bladder scan at bedside showing 474ml in bladder. this rn let dr fairbanks know of contents of bladder. dr fairbanks ordered additional fluids. this rn reading md report to see that there had been an error in documentation. clarified that bladder scan showed 474ml. per dr fairbanks discontinue iv fluids and place allen catheter to be removed after 8hrs
[2022-11-02 07:21] VITALS: BP 138/69; PULSE 77; RESP 19; TEMP 37.2; O2SAT 98
[2022-11-02 07:31] LABS: Glucose, Whole Blood 163 mg/dL (60-115)
--- NOTE | 2022-11-02 07:51 | PC.NURSE ---
pt had incontinent void in stretcher around placed purewick, will hold Blum catheter at this time as no evidence of urinary retention at this time.
[2022-11-02 08:17] LABS: Anion Gap 12 (12-20); Blood Urea Nitrogen 27 mg/dL (9-16); Calcium 8.4 mg/dL (8.4-10.2); Carbon Dioxide 23 mmol/L (22-29); Chloride 109 mmol/L (96-108); Estimated Glomerular Filt Rate 24; Glucose Random 165 mg/dL (60-115); Potassium 3.8 mmol/L (3.3-5.1); Sodium 140 mmol/L (135-145)
[2022-11-02] MEDS: Atorvastatin Calcium 40 MG TABLET PO (08:26)
[2022-11-02] MEDS: Folic Acid 1 MG TABLET PO (08:26)
[2022-11-02] MEDS: predniSONE 5 MG TABLET PO (08:26)
[2022-11-02] MEDS: carvediloL 25 MG TABLET PO ×2 (08:26→22:24)
[2022-11-02] MEDS: hydrALAZINE HCl 50 MG TABLET PO ×3 (08:26→23:46)
[2022-11-02] MEDS: Multivitamin TABLET 1 TAB PO (08:26)
[2022-11-02] MEDS: Gabapentin 300 MG CAPSULE PO ×3 (08:26→21:58)
[2022-11-02] MEDS: amLODIPine Besylate 10 MG TABLET PO (08:26)
[2022-11-02] MEDS: Omeprazole 20 MG CAPSULE.DR PO (08:26)
[2022-11-02] MEDS: mycophenolate mofetiL 250 MG CAPSULE 1000 MG PO ×2 (08:27→22:23)
[2022-11-02] MEDS: Tacrolimus 1 MG CAPSULE 5 MG PO (08:27)
--- NOTE | 2022-11-02 12:13 | MHC.EDTECH ---
Assisted patient with eating breakfast and personal Hygiene. Adjusted patients purewick. Luana Blackmon
[2022-11-02 13:12] LABS: Glucose, Whole Blood 189 mg/dL (60-115)
[2022-11-02] MEDS: HYDROmorphone HCl 2 MG TABLET PO (13:54)
[2022-11-02 14:35] VITALS: BP 138/63; PULSE 77; RESP 14; O2SAT 97
--- NOTE | 2022-11-02 16:00 | MHC.EDTECH ---
this pct assumed care of pt at 1500 ,pt sleeping
--- NOTE | 2022-11-02 17:28 | MHC.EDTECH ---
pt awake had crackers for snack ,on phone with daughter .
[2022-11-02 18:06] LABS: Glucose, Whole Blood 241 mg/dL (60-115)
--- NOTE | 2022-11-02 18:12 | PC.NURSE ---
POC 241 - 2u Humalog ordered. Patient refusing stating I'm not taking that, my blood sugar will drop . Patient educated on risks of not receiving Humalog. Patient continued to refuse.
--- NOTE | 2022-11-02 18:36 | MHC.EDTECH ---
pt ate 100 % of meal drank 480 ml coffee
[2022-11-02] MEDS: traZODone HCL 100 MG TABLET PO (21:58)
--- NOTE | 2022-11-02 22:01 | MHC.CARE ---
CARE Team spoke to Ingris from who reports pt presents with significant medical issues that are exasperating her depression. Pt is struggling and would benefit from someone to talk to. It does not appear pt needs psych placement however may benefit from an psych consult for medications. She would benefit from support by the CARE Team. Salomón attempted to meet with her however pt was sleeping. Will try again in the morning.
[2022-11-02 22:18] VITALS: BP 156/79; PULSE 82; RESP 15; TEMP 37; O2SAT 98
[2022-11-02] MEDS: Tacrolimus 1 MG CAPSULE 4 MG PO (22:25)
[2022-11-02] MEDS: Insulin Glargine,Hum.rec.anlog 100 UNIT/ML 10 ML VIAL 15 UNIT SUBCUT (22:41)
--- NOTE | 2022-11-03 02:23 | PC.NURSE ---
Patient is AOx3, no respiratory distress. Peripheral IV intact and patent. She had a large soft BM on shift and assistance with incontinent care provided. No concerns voiced, care is ongoing. Patient sleeping in comfortably in bed at this time.
[2022-11-03 06:43] VITALS: BP 148/69; PULSE 68; RESP 17; TEMP 36.8; O2SAT 97
[2022-11-03] MEDS: Omeprazole 20 MG CAPSULE.DR PO (06:49)
[2022-11-03 07:34] LABS: Glucose, Whole Blood 218 mg/dL (60-115)
[2022-11-03] MEDS: mycophenolate mofetiL 250 MG CAPSULE 1000 MG PO ×2 (07:51→19:59)
[2022-11-03] MEDS: Tacrolimus 1 MG CAPSULE 5 MG PO (07:53)
[2022-11-03] MEDS: Folic Acid 1 MG TABLET PO (07:54)
[2022-11-03] MEDS: Multivitamin TABLET 1 TAB PO (07:54)
[2022-11-03] MEDS: hydrALAZINE HCl 50 MG TABLET PO ×3 (07:54→19:59)
[2022-11-03] MEDS: Atorvastatin Calcium 40 MG TABLET PO (07:54)
[2022-11-03] MEDS: Gabapentin 300 MG CAPSULE PO ×3 (07:55→19:59)
[2022-11-03] MEDS: amLODIPine Besylate 10 MG TABLET PO (07:55)
[2022-11-03] MEDS: carvediloL 25 MG TABLET PO ×2 (07:55→19:59)
[2022-11-03] MEDS: predniSONE 5 MG TABLET PO (08:12)
--- NOTE | 2022-11-03 09:43 | MHC.CM.PN ---
Addendum entered by Alpa Menchaca 11/03/22 10:49: THERE HAVE BEEN NO BED OFFERS IN THE LOCAL AREA [facility] WILL CHECK WITH THEIR SISTER FACILITY IN [place] TO DETERMINE IF THEY CAN ACCEPT Original Note: PT LOOKING FOR LTC PLACEMENT SHE LEFT [facility] [place] FOLLOWING UPDATES SENT TO DETERMINE IF THEY WILL HAVE A BED FOR HER IF NO OTHER BED OFFERS, CM WILL CONTACT [facility] TO DETERMINE IF THEY ARE WILLING TO CONSIDER ACCEPTING PT BACK [facility] PROVIDED WITH UPDATES
[2022-11-03 13:08] LABS: Glucose, Whole Blood 246 mg/dL (60-115)
--- NOTE | 2022-11-03 15:05 | MHC.CARE ---
CARE Team responded to consult request to meet with this patient who has been emotional during her time here waiting for SNF placement. Met with patient in room 7 in the Overflow section of the ED, she was alert, oriented, engaged easily and spoke openly about the struggles with mental and physical health, lack of housing. Patient was mostly pleasant and [id number] then at times tearful, seems to a have realistic understanding of the barriers to her placement. Regarding housing, stated that she had stayed two nights at each her mother's and her boyfriend's apartments but cannot any longer due to housing regulation. Jr has been helping her find housing and they stay in touch with patient, they spoke yesterday about the situation. She is open to a referral to any agency that will provide telehealth therapy sessions, has engaged in counseling in the past and found it helpful. CARE Team will place referral.
[2022-11-03 15:31] VITALS: BP 140/68; PULSE 81; RESP 18; TEMP 36.9; O2SAT 95
--- NOTE | 2022-11-03 15:54 | MHC.CM.ED ---
Pt will not return to [facility]. Trip Patel and Cayla palma [facility] following.
[2022-11-03 17:25] LABS: Glucose, Whole Blood 389 mg/dL (60-115)
[2022-11-03] MEDS: Insulin Lispro 100 UNIT/ML 3 ML VIAL SUBCUT (17:53)
[2022-11-03 19:46] LABS: Glucose, Whole Blood 387 mg/dL (60-115)
--- NOTE | 2022-11-03 19:50 | PC.NURSE ---
Pt had a good day today. No new complaints voiced or obsereved by nursing staff. Pt was assisted with ADLs and medications. Pt continues to refuse insulin regardless of POC glucose. Pt was informed that she would need to have a dose of insulin d/t high blood sugar. Pt requested dose to be halved. Nurse communicated pt request to PA who placed a phone order for a one time dose of 5 units. Shift otherwise unremarkable.
[2022-11-03 19:55] VITALS: BP 149/72; PULSE 83; RESP 16; O2SAT 99
[2022-11-03] MEDS: Insulin Glargine,Hum.rec.anlog 100 UNIT/ML 10 ML VIAL 15 UNIT SUBCUT (19:56)
[2022-11-03] MEDS: Tacrolimus 1 MG CAPSULE 4 MG PO (19:59)
[2022-11-03] MEDS: traZODone HCL 100 MG TABLET PO (19:59)
[2022-11-03] MEDS: HYDROmorphone HCl 2 MG TABLET PO (22:36)
[2022-11-03 23:25] VITALS: BP 168/75; PULSE 77; RESP 16; TEMP 36.6; O2SAT 98
--- NOTE | 2022-11-04 01:37 | PC.NURSE ---
Assumed care of pt. at 2300. At that time pt. sleeping in bed, no distress noted. Pt. recently awakened with pain. She had a dose of dilaudid at 2230, and isn't due for another dose yet. Pt. provided with a warm blanket. Pt. also requested a warm drink to help warm her up, which she feels could help provide some nonpharmacologic pain relief. Pt. given some warm milk. pt. also requested a snack. Provided pt. with a turkey sandwich with mustard. Pt. now resting more comfortably in bed. Will continue to monitor.
[2022-11-04 07:36] LABS: Glucose, Whole Blood 266 mg/dL (60-115)
[2022-11-04] MEDS: Omeprazole 20 MG CAPSULE.DR PO (07:48)
[2022-11-04 08:35] VITALS: BP 155/71; PULSE 80; RESP 16; TEMP 36.8; O2SAT 98
--- NOTE | 2022-11-04 08:47 | PC.NURSE ---
Patient a + 0 x 4. Denies any pain or discomfort. Refusing insulin and breakfast. VSS. Lungs clear, non labored breathing. No distress noted. Patient sleeping comfortably in bed at this time.
--- NOTE | 2022-11-04 09:30 | MHC.EDTECH ---
Pt did not want breakfast this morning. On phone, sitting up in bed. Nothing else needed at this time per Pt.
[2022-11-04] MEDS: Tacrolimus 1 MG CAPSULE 5 MG PO (09:31)
[2022-11-04] MEDS: amLODIPine Besylate 10 MG TABLET PO (09:31)
[2022-11-04] MEDS: hydrALAZINE HCl 50 MG TABLET PO ×3 (09:31→21:27)
[2022-11-04] MEDS: Gabapentin 300 MG CAPSULE PO ×3 (09:31→21:27)
[2022-11-04] MEDS: mycophenolate mofetiL 250 MG CAPSULE 1000 MG PO ×2 (09:31→21:27)
[2022-11-04] MEDS: Atorvastatin Calcium 40 MG TABLET PO (09:31)
[2022-11-04] MEDS: Multivitamin TABLET 1 TAB PO (09:31)
[2022-11-04] MEDS: Folic Acid 1 MG TABLET PO (09:31)
[2022-11-04] MEDS: carvediloL 25 MG TABLET PO ×2 (09:31→21:27)
--- NOTE | 2022-11-04 10:07 | MHC.CARE ---
Referral to [facility] for telehealth therapy completed.
--- NOTE | 2022-11-04 11:15 | PC.NURSE ---
Patient ambulated 500ft with walker and right prosthetic. Standby assistance. Patient tolerated activity well.
--- NOTE | 2022-11-04 11:22 | MHC.CM.ED ---
Addendum entered by Yue Hill 11/04/22 15:05: [facility] has clinically accepted pt and will submit for [facility] authorization. Will await determination. Addendum entered by Yue Sergio 11/04/22 14:45: Pt states she would consider placement at a facility near her brother Gio who she states resides in [place]. His number is [phone]. Pt also states she is presently working with [facility] for housing and service needs. Pt expressed a heartfelt plea to remain in the area w/her children and grandchildren if at all possible. ED CM to follow. Addendum entered by Yue Hill 11/04/22 13:53: Call placed to Mary at [facility] to inquire on an out of network contract given pt will be very difficult to place. Mary will contact her supervisory historian for authorization. Out of >70 referrals, only [facility] in [place] states to f/u Monday for female bed availability. Updated pt on status of referrals. Original Note: Per review of LTC referrals: pt from [facility] (who have closed and are presently relocating their LTC patients). Pt had been placed a [facility] but left AMA after causing a scene per liaison. [facility] no longer has a female LTC bed. Expanded Placement referrals including out of [facility] network centers in anticipation of an out of network contract to facilitate placement. ED CM to follow.
[2022-11-04 13:04] LABS: Glucose, Whole Blood 213 mg/dL (60-115)
[2022-11-04] MEDS: predniSONE 5 MG TABLET PO (13:41)
[2022-11-04 15:29] LABS: Appearance Urine Cloudy; Color Urine Yellow; Glucose Urine UA 100 mg/dL (Negative); Leukocyte Esterase Urine Large (3+) (Negative); Nitrite Urine Negative (Negative); UMIC TRIGGER UACC YES; Urine Blood Negative (Negative); Urine Ketones Negative (Negative); Urine Protein 100 (2+) mg/dL (Neg-Trace)
[2022-11-04 16:30] LABS: Bacteria Urine 4+ (None Seen); Hyaline Casts Urine 0-2 /LPF (0-2); Squamous Epithelial Cell Urine 0-2 /HPF (0-2); UACC Culture Trigger YES; WBC Urine >50 /HPF (0-5)
[2022-11-04 16:32] VITALS: BP 150/80; PULSE 68; RESP 18; TEMP 36.7; O2SAT 97
--- NOTE | 2022-11-04 17:07 | PC.NURSE ---
Patient A&O x4, VSS, able to make needs known. No distress noted. Family visiting at present. Wll continue to monitor.
[2022-11-04 17:16] LABS: Glucose, Whole Blood 381 mg/dL (60-115)
[2022-11-04] MEDS: Insulin Lispro 100 UNIT/ML 3 ML VIAL SUBCUT (17:23)
[2022-11-04 18:45] LABS: Glucose, Whole Blood 410 mg/dL (60-115)
[2022-11-04 20:35] LABS: Glucose, Whole Blood 337 mg/dL (60-115)
[2022-11-04 21:17] VITALS: BP 148/74; PULSE 87; RESP 20; TEMP 37.1; O2SAT 98
[2022-11-04] MEDS: traZODone HCL 100 MG TABLET PO (21:27)
[2022-11-04] MEDS: Insulin Glargine,Hum.rec.anlog 100 UNIT/ML 10 ML VIAL 15 UNIT SUBCUT (21:29)
[2022-11-04] MEDS: Tacrolimus 1 MG CAPSULE 4 MG PO (22:15)
[2022-11-05] MEDS: HYDROmorphone HCl 2 MG TABLET PO (02:27)
--- NOTE | 2022-11-05 02:42 | PC.NURSE ---
Pt A&OX , blind. Her BG had been elevated during previous shift and repeat BG was 337. She was only due for 15 of lantus. No sc coverage. Provider notified and ordered 5u of lispro which Pt ended up refusing. Pt states she drops during the night. Only 15u lantus given. Pt has a R-BKA and uses BSC X1 assist. She c/o neuropathic/phantom/generalized pain. PRN dilaudid given. Pt uses call mcgregor appropriately. Safety measures maintained.
[2022-11-05] MEDS: Omeprazole 20 MG CAPSULE.DR PO (05:50)
[2022-11-05 05:53] VITALS: BP 154/75; PULSE 83; RESP 16; TEMP 36.5; O2SAT 98
--- NOTE | 2022-11-05 05:54 | MHC.EDTECH ---
0600 rounding done ,vitals sign taken pt awake ,fresh water given ,bedside commode empty .
[2022-11-05 08:04] LABS: Glucose, Whole Blood 269 mg/dL (60-115)
[2022-11-05] MEDS: Gabapentin 300 MG CAPSULE PO ×3 (08:25→20:26)
[2022-11-05] MEDS: Multivitamin TABLET 1 TAB PO (08:25)
[2022-11-05] MEDS: amLODIPine Besylate 10 MG TABLET PO (08:25)
[2022-11-05] MEDS: carvediloL 25 MG TABLET PO ×2 (08:25→20:26)
[2022-11-05] MEDS: predniSONE 5 MG TABLET PO (08:25)
[2022-11-05] MEDS: Atorvastatin Calcium 40 MG TABLET PO (08:26)
[2022-11-05] MEDS: hydrALAZINE HCl 50 MG TABLET PO ×3 (08:26→20:26)
[2022-11-05] MEDS: Folic Acid 1 MG TABLET PO (08:26)
[2022-11-05] MEDS: mycophenolate mofetiL 250 MG CAPSULE 1000 MG PO ×2 (08:26→20:26)
--- NOTE | 2022-11-05 10:00 | PC.NURSE ---
pharmacy contacted for prograf. patient alert, oriented x4. c/o constipation. provider made aware-set to order bowel regimen. able to make needs known. call mcgregor within reach
[2022-11-05] MEDS: Ondansetron ODT 4 MG TAB.RAPDIS TRANSLINGU (10:14)
[2022-11-05] MEDS: Docusate Sodium 100 MG CAPSULE PO ×2 (10:14→20:26)
[2022-11-05] MEDS: Tacrolimus 1 MG CAPSULE 5 MG PO (10:14)
[2022-11-05] MEDS: levoFLOXacin 250 MG TABLET PO (10:14)
[2022-11-05] MEDS: polyethylene glycoL 3350 17 GM POWD.PACK PO (10:14)
[2022-11-05 12:59] LABS: Glucose, Whole Blood 329 mg/dL (60-115)
[2022-11-05 15:01] VITALS: BP 130/62; PULSE 81; RESP 15; TEMP 36.6; O2SAT 96
--- NOTE | 2022-11-05 16:15 | MHC.EDTECH ---
this pct assumed care of pt at 1500 ,pt awake ,talking on phone .
[2022-11-05 18:26] LABS: Glucose, Whole Blood 515 mg/dL (60-115)
[2022-11-05] MEDS: Insulin Lispro 100 UNIT/ML 3 ML VIAL SUBCUT (18:26)
--- NOTE | 2022-11-05 19:13 | MHC.EDTECH ---
pt ate 75 % of dinner ,drank 249 ml fluids ,after dinner pt use bedside commode ,and wash her self up ,bedding change ,warm blanket given and fresh water .
[2022-11-05 20:00] VITALS: BP 142/68; PULSE 85; RESP 16; TEMP 36.7; O2SAT 98
[2022-11-05] MEDS: traZODone HCL 100 MG TABLET PO (20:26)
[2022-11-05] MEDS: Insulin Glargine,Hum.rec.anlog 100 UNIT/ML 10 ML VIAL 15 UNIT SUBCUT (20:27)
[2022-11-05 20:33] LABS: Glucose, Whole Blood 188 mg/dL (60-115)
--- NOTE | 2022-11-05 20:36 | MHC.EDTECH ---
PATIENT VITALS SIGN TAKEN ,BLOOD SUGAR CHECK ,PT WAS HUNGRY HAD A TURKEY SANDWICH AND SOME WATER FOR SNACK .
[2022-11-05] MEDS: Tacrolimus 1 MG CAPSULE 4 MG PO (20:52)
[2022-11-05 23:19] LABS: Glucose, Whole Blood 35 mg/dL (60-115)
--- NOTE | 2022-11-05 23:23 | MHC.EDTECH ---
PATIENT RANG BECAUSE SHE FELT SWEATY ,I CHECK PT BLOOD SUGAR IT WAS 35 ,RN JAIMIE AWARE ,PT WAS GIVEN GRHAM CRACKERS WITH PEANUT BUTTER AND ORANGE JUICE .
[2022-11-05] MEDS: Dextrose 10 % 250 ML 750 ML IV (23:45)
--- NOTE | 2022-11-05 23:50 | PC.NURSE ---
Addendum entered by Adelita Gomez RN 11/06/22 00:16: PT RECEIVED 10% DEXTROSE 250 ML NOT 750 ML PREVIOUSLY NOTED Original Note: AT 2315 PT WAS DIAPHORETIC SAYING SHES HUNGRY. POC CHECKED AND WAS 35. PT GIVEN 120 ML OF ORANGE JUICE X 3 AND SEVERAL CRACKERS WITH PEANUT BUTTER. POC RECHECKED AT 2330 AND WAS 22. PT GIVEN I TUBE OF GLUCOSE GEL BUT THEN BECAME UNRESPONSIVE WITH POC NOW [address] WILCOX CALLED TO COME TO BEDSIDE. CRASH CART OPENED AND DEXTROSE 50% 1 AMP GIVEN AND PT WAS RESPONSIVE AND ANSWERING QUESTIONS SAYING SHE WAS HUNGRY. DR WILCOX CAME AND DEXTOSE 10% 750 ML BOLUS ORDERED AND GIVEN. REPEAT POC 170'S. PT GIVEN 6 BENEDICTO CRACKERS WITH PEANUT BUTTER AND 3 ORANGE JUICES 120 ML EACH.
[2022-11-05 23:58] LABS: Glucose, Whole Blood 20 mg/dL (60-115)
[2022-11-05 23:58] LABS: Glucose, Whole Blood 178 mg/dL (60-115)
[2022-11-05 23:58] LABS: Glucose, Whole Blood 22 mg/dL (60-115)
[2022-11-06 00:01] VITALS: BP 141/66; PULSE 76; RESP 16; TEMP 36.6; O2SAT 98
--- NOTE | 2022-11-06 00:02 | MHC.EDTECH ---
pt had more gram crackers with peanut butter and 240 ml juice
--- NOTE | 2022-11-06 00:17 | MHC.EDTECH ---
pt had a peanut butter sandwich sandwich and 2 more grham crackers with 240 ml milk and 120 more orange juice ,blood sugar re check it was 123 .,rn arcadio is aware .
--- NOTE | 2022-11-06 00:30 | PC.NURSE ---
REPEAT POC 123 AT 0015. PREVIOUSLY 178 AT 2343. THIS AFTER 250 ML OF 10% DEXTROSE AND A PEANUT BUTTER SANWICH AND 200 ML OF MILK. MAIN ED CALLED AND CONCERN EXPRESSED ABOUT DECREASING BLOOD SUGAR AND THUS PT TRANSFERRED TO MAIN ED TO BE WATCHED CLOSER. REPORT GIVEN TO DIYA TRINIDAD RN. PT TRANSFERRED AT THIS TIME. SHE IS A&O AND FOLLOWING COMMANDS.
--- NOTE | 2022-11-06 00:40 | MHC.EDTECH ---
pt had a bed bath ,bedding change ,pt void and was transport by to the main ed .
[2022-11-06 00:47] LABS: Glucose, Whole Blood 123 mg/dL (60-115)
[2022-11-06 00:51] LABS: Glucose, Whole Blood 143 mg/dL (60-115)
--- NOTE | 2022-11-06 00:53 | PC.NURSE ---
D10 hung by Tanya ortiz in overflow. 250cc.
--- NOTE | 2022-11-06 01:04 | PC.NURSE ---
Assumed care of pt at 0030. Pt aox3 resting at the bedside in no apparent distress. 10% dextrose runnin on R AC. IV re-dressed with tegaderm dressing. Pt aware of plan of care.
[2022-11-06 01:33] LABS: Glucose, Whole Blood 250 mg/dL (60-115)
--- NOTE | 2022-11-06 03:13 | PC.NURSE ---
Pt sleeping/resting at the bedside in no apparent distress. Breaths are even regular and unlabored with equal chest rises. Skin warm pink and dry. POC 217. Warm blanket provided per pt request. Will continue to monitor.
[2022-11-06 03:19] LABS: Glucose, Whole Blood 217 mg/dL (60-115)
[2022-11-06 04:10] VITALS: BP 133/47; PULSE 87; RESP 16; O2SAT 96
[2022-11-06 04:56] LABS: Glucose, Whole Blood 299 mg/dL (60-115)
--- NOTE | 2022-11-06 05:03 | PC.NURSE ---
Pt aox3 requesting a bed navarrete to move the bowels. Bed navarrete provided. Loose stools over flooded the bedpan. Perineal care provided. Pt tolerated well. Complete bed change done. Will continue to monitor.
[2022-11-06 06:03] VITALS: BP 141/65; PULSE 80; RESP 12; TEMP 37; O2SAT 97
[2022-11-06] MEDS: Omeprazole 20 MG CAPSULE.DR PO (06:04)
--- NOTE | 2022-11-06 07:13 | PC.NURSE ---
assumed care of patient, pt aox3, calm and cooperative, resting comfortably in stretcher, awaiting CM placement
[2022-11-06] MEDS: Multivitamin TABLET 1 TAB PO (08:20)
[2022-11-06] MEDS: Tacrolimus 1 MG CAPSULE 5 MG PO (08:20)
[2022-11-06] MEDS: hydrALAZINE HCl 50 MG TABLET PO ×3 (08:20→20:59)
[2022-11-06] MEDS: levoFLOXacin 250 MG TABLET PO (08:21)
[2022-11-06] MEDS: Gabapentin 300 MG CAPSULE PO ×3 (08:21→20:57)
[2022-11-06] MEDS: Docusate Sodium 100 MG CAPSULE PO ×2 (08:21→20:59)
[2022-11-06] MEDS: carvediloL 25 MG TABLET PO ×2 (08:21→20:58)
[2022-11-06] MEDS: Atorvastatin Calcium 40 MG TABLET PO (08:21)
[2022-11-06] MEDS: mycophenolate mofetiL 250 MG CAPSULE 1000 MG PO ×2 (08:21→20:57)
[2022-11-06] MEDS: predniSONE 5 MG TABLET PO (08:21)
[2022-11-06] MEDS: Folic Acid 1 MG TABLET PO (08:21)
[2022-11-06] MEDS: amLODIPine Besylate 10 MG TABLET PO (08:21)
--- NOTE | 2022-11-06 08:36 | MHC.EDTECH ---
Assisted pt to commode and back to bed. Pt set up with breakfast tray.
[2022-11-06 12:09] LABS: Glucose, Whole Blood 251 mg/dL (60-115)
[2022-11-06 17:16] LABS: Glucose, Whole Blood 451 mg/dL (60-115)
[2022-11-06] MEDS: Insulin Lispro 100 UNIT/ML 3 ML VIAL SUBCUT (17:17)
[2022-11-06 20:53] LABS: Glucose, Whole Blood 426 mg/dL (60-115)
[2022-11-06] MEDS: Tacrolimus 1 MG CAPSULE 4 MG PO (20:57)
[2022-11-06] MEDS: Insulin Glargine,Hum.rec.anlog 100 UNIT/ML 10 ML VIAL 15 UNIT SUBCUT (20:59)
[2022-11-06] MEDS: traZODone HCL 100 MG TABLET PO (20:59)
[2022-11-06] MEDS: HYDROmorphone HCl 2 MG TABLET PO (22:10)
[2022-11-07 01:31] VITALS: BP 140/83; PULSE 69; RESP 16; TEMP 36.8; O2SAT 95
[2022-11-07 06:15] VITALS: BP 144/72; PULSE 72; RESP 16; TEMP 36.7; O2SAT 94
--- NOTE | 2022-11-07 06:40 | PC.NURSE ---
Patient alert and oriented. Medicated with Dilaudid for generalized pain. POC 426, administered lantus 15 units per mar. Patient is able to make her needs known, assisted to bedside commode 3x. Skin clean dry and intact. Reports mild irritation in vaginal area, provided barrier cream. Patient declined application. Patient slept for most of the night with noted chest wall rising and even, unlabored respirations.
[2022-11-07 07:33] LABS: Glucose, Whole Blood 253 mg/dL (60-115)
[2022-11-07] MEDS: Gabapentin 300 MG CAPSULE PO ×3 (07:55→20:44)
[2022-11-07] MEDS: Atorvastatin Calcium 40 MG TABLET PO (07:55)
[2022-11-07] MEDS: Omeprazole 20 MG CAPSULE.DR PO (07:55)
[2022-11-07] MEDS: Docusate Sodium 100 MG CAPSULE PO ×2 (07:55→20:44)
[2022-11-07] MEDS: polyethylene glycoL 3350 17 GM POWD.PACK PO (07:55)
[2022-11-07] MEDS: amLODIPine Besylate 10 MG TABLET PO (07:55)
[2022-11-07] MEDS: Multivitamin TABLET 1 TAB PO (07:55)
[2022-11-07] MEDS: hydrALAZINE HCl 50 MG TABLET PO ×3 (07:55→20:45)
[2022-11-07] MEDS: Folic Acid 1 MG TABLET PO (07:56)
[2022-11-07] MEDS: predniSONE 5 MG TABLET PO (07:56)
[2022-11-07] MEDS: carvediloL 25 MG TABLET PO ×2 (07:56→20:44)
[2022-11-07] MEDS: mycophenolate mofetiL 250 MG CAPSULE 1000 MG PO ×2 (08:36→21:11)
[2022-11-07] MEDS: levoFLOXacin 250 MG TABLET PO (08:36)
[2022-11-07] MEDS: Tacrolimus 1 MG CAPSULE 5 MG PO (08:36)
[2022-11-07] MEDS: Aspirin Enteric Coated 81 MG TABLET.DR PO (10:52)
[2022-11-07] MEDS: Ferrous Sulfate 324 MG TABLET.DR PO ×2 (10:52→20:44)
[2022-11-07 13:53] LABS: Glucose, Whole Blood 218 mg/dL (60-115)
[2022-11-07 14:55] VITALS: BP 168/76; PULSE 83; RESP 17; TEMP 36.7; O2SAT 99
--- NOTE | 2022-11-07 15:39 | MHC.CM.ED ---
Review of referrals notes an acceptance from [facility] with [facility] auth obtained. Met with pt to discuss: pt very teary stating the facility is too far for her to be away from her family. Instructed pt that she could request a transfer to a local LTC once beds become available. Pt then stated she was going to wait for her housing and [facility] [employer] hours to come through. Reminded pt that she could wait for above at [facility] that boarding in emergency department is not medically necessary. Pt distraught: CM requested pt use her cell phone to contact her dtr and discuss then CM could return to continue discussion. Updated oncoming ED CM on situation: pt will need an updated rapid COVID should she accept the offer in addition to BLS transport and facility communication on LTC acceptance. Should pt decline LTC offer, a HINN-1 can be issued to pt. ED CM to follow.
[2022-11-07 17:00] LABS: Glucose, Whole Blood 368 mg/dL (60-115)
--- NOTE | 2022-11-07 17:49 | MHC.CM.ED ---
CM met with patient from 1530 to 161. [facility] obtained auth. Pt is very hesitant about going to facility. Pt initially refusing, stating it's too far. My family is my supports. It's bad for my mental health. 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 I'm too scared . CM again explained to patient that there are no LTC beds in the area. Explained again about the local closures and need to work with facility. Pt continues to talk about living in the community in an apartment. CM again explained to patient that those apartments are not readily available and that her insurance needs to get all of that organized and that takes time. Explained that she will need a place to live, while [facility] works on another living arrangement for her. Explained that she cannot stay in the hospital when there is a bed offer for her to accept. Pt asked to call facility. Pt called [facility] and spoke with Sandy from [employer]. All questions were answered, including size of facility, activities & programs available, her specific room and Sandy's offer to meet with pt when she arrives. Sandy ([phone]). Pt now concerned about her things , her clothing and how it will get to the facility. Pt gave CM permission to speak with her sister, Autumn ([phone]). Autumn will call her sister and niece. States she is willing to bring some clothing to [facility] in the morning for pt. Explained all this to pt. Again she reiterates that it is too far. CM explained that we already discussed this and that she doesn't have any other option. Pt cannot live with family and cannot go to a cot senior care. She agrees. Pt aware that ambulance is booked for 11 am tomorrow and reminded that Sandy will meet with her to help her with transition to facility. Pt remains hesitant.Will need encouragement in the morning to go. Will call daughter, Jael red with patient. Pt is aware that if she does not take the facility, which is a safe discharge for her, she can be billed for her stay. S transportation booked for 11/08 at 11am. Pt and family aware. Facility called and made aware.
--- NOTE | 2022-11-07 18:21 | MHC.CM.ED ---
Addendum entered by Danielacarlo Chamorro 11/07/22 20:39: Daughter, Jael came in with her 2 children. Brought clothing for patient. Spoke with mother about move to facility. Explained that she needed to go, that she would visit on Monday and be her mother's eyes. Also promised to go again over the weekend next week. Patient is agreeable, but scared. Sandy from [facility] returned call. States her office is near the main entrance and she will look out for this patient to help her with the transition to her new home. Pt is agreeable to discharge in the morning to [facility] at 11am. RN and provider aware. Addendum entered by Daniela Chamorro 11/07/22 18:29: Message left with Sandy at [facility] ([phone]) regarding BLS transport for 11/08 at 11am and requesting that she meet with her for transition as we have spoken about on the telephone. CM contact information left with Sandy. CM spoke with Jaleesa López CM Ratings Analyst regarding patient situation. Jaleesa is agreeable to wait to serve patient with [facility] until tomorrow if she refuses transport, as CM is working with family members to help support patient in decision to accept bed at facility. Original Note: CM spoke with daughter, Jael([phone]) on the telephone to enlist her support in encouraging her mother to accept the transport to [facility] in the morning. Jael reports a concern that her mother will not get nonmedical transportation home to visit. CM explained that I could not guarantee that [facility] will provide transport home to visit, but that family could transport her. It's about a [address] facility[address] Jael has already spoken to her mother and will bring in clothing tonight for patient to have in the morning. CM spoke with patient about need for covid swab and that her daughter will be in tonight with some clothing. Pt is on the phone with her sister, Autumn discussing what clothing to bring in. Pt at this point seems agreeable to transport tomorrow. CM will follow for discharge planning.
[2022-11-07 18:50] LABS: COVID-19 Test Negative (Negative); IDNOW Serial# 08D9AD1C
[2022-11-07 19:38] VITALS: BP 161/71; PULSE 83; RESP 18; O2SAT 96
[2022-11-07] MEDS: traZODone HCL 100 MG TABLET PO (20:45)
[2022-11-07] MEDS: Tacrolimus 1 MG CAPSULE 4 MG PO (21:10)
[2022-11-07 21:31] LABS: Glucose, Whole Blood 464 mg/dL (60-115)
--- NOTE | 2022-11-07 21:32 | MHC.EDTECH ---
pt arrived in overflow at 2124. pt asked for water and cheese sticks.pt given water and snack after POC was done and nurse ok'd it.
[2022-11-07] MEDS: Insulin Lispro 100 UNIT/ML 3 ML VIAL SUBCUT (21:55)
[2022-11-07] MEDS: Insulin Glargine,Hum.rec.anlog 100 UNIT/ML 10 ML VIAL 15 UNIT SUBCUT (21:55)
[2022-11-07] MEDS: Acetaminophen 325 MG TABLET 650 MG PO (23:10)
[2022-11-08] MEDS: Omeprazole 20 MG CAPSULE.DR PO (04:47)
--- NOTE | 2022-11-08 05:06 | MHC.EDTECH ---
Pt. requesting warm blanket,toilted and resting comfortably
[2022-11-08 07:42] LABS: Glucose, Whole Blood 293 mg/dL (60-115)
--- NOTE | 2022-11-08 07:44 | MHC.EDTECH ---
Pt was made aware that breakfast had arrived but Pt refused, stating I don't like the breakfast here.
--- NOTE | 2022-11-08 08:51 | MHC.EDTECH ---
Pt awake, stating she needed to get ready to leave to new rehab facility. Pt was given supplies to get cleaned up (basin of warm water, wash cloths, soap/shampoo, toothbrush/toothpaste/mouth wash). Helped Pt get clothing and undergarnments from bag. Pt declined needing help to get cleaned up and could do it herself. Remote given per request.
[2022-11-08 09:10] VITALS: BP 186/83; PULSE 85; RESP 14; TEMP 36.8; O2SAT 98
[2022-11-08] MEDS: mycophenolate mofetiL 250 MG CAPSULE 1000 MG PO (09:51)
[2022-11-08] MEDS: carvediloL 25 MG TABLET PO (09:51)
[2022-11-08] MEDS: Multivitamin TABLET 1 TAB PO (09:51)
[2022-11-08] MEDS: amLODIPine Besylate 10 MG TABLET PO (09:51)
[2022-11-08] MEDS: Ferrous Sulfate 324 MG TABLET.DR PO (09:52)
[2022-11-08] MEDS: Aspirin Enteric Coated 81 MG TABLET.DR PO (09:52)
[2022-11-08] MEDS: Folic Acid 1 MG TABLET PO (09:52)
[2022-11-08] MEDS: Docusate Sodium 100 MG CAPSULE PO (09:52)
[2022-11-08] MEDS: predniSONE 5 MG TABLET PO (09:52)
[2022-11-08] MEDS: hydrALAZINE HCl 50 MG TABLET PO (09:52)
[2022-11-08] MEDS: Gabapentin 300 MG CAPSULE PO (09:52)
[2022-11-08] MEDS: Atorvastatin Calcium 40 MG TABLET PO (09:52)
[2022-11-08] MEDS: Tacrolimus 1 MG CAPSULE 5 MG PO (09:56)
== END 2022-11-08 11:26 | disposition skilled nursing facility (03) ==
PROVIDERS: Emergency Medicine; Internal Medicine; Physician Assistant; Physician Assistant Medical; Emergency Provider Emergency Medicine Emergency Medical Services
DX: N39.0 Urinary tract infection, site not specified (principal); R33.9 Retention of urine, unspecified; E11.22 Type 2 diabetes mellitus with diabetic chronic kidney disease; E11.65 Type 2 diabetes mellitus with hyperglycemia; I12.9 Hypertensive chronic kidney disease with stage 1 through stage 4 chronic kidney disease, or unspecified chronic kidney disease; N18.9 Chronic kidney disease, unspecified; N17.9 Acute kidney failure, unspecified; Z79.4 Long term (current) use of insulin; Z79.899 Other long term (current) drug therapy; Z20.822 Contact with and (suspected) exposure to COVID-19
CPT/HCPCS: 36415; 51701; 51798; 80048; 80053; 81001; 82009; 82803; 82947; 83735; 85025; 87086; 87635; 96361; 96365; 96375; 99285; J1170

== ENCOUNTER 2023-10-24 10:21 | Outpatient (REF) | payer OTHER, SELFPAY ==
[2023-10-24 11:40] LABS: MANUAL DIFF FLAG NO
[2023-10-24 11:44] LABS: Basophils Absolute Auto 0.1 X10*3/uL (0.0-0.2); Basophils Percent Auto 0.5 % (0-2); Eosinophils Absolute Auto 0.2 X10*3/uL (0.0-0.4); Eosinophils Percent Auto 2.2 % (0-4); Hematocrit 34.1 % (37.0-47.0); Hemoglobin 10.3 g/dl (12.0-16.0); Imm Gran Abs Auto 0.04 X10*3/uL (0.00-0.03); Imm Gran Pct Auto 0.4 % (0.0-0.4); Lymphocytes Absolute Auto 0.8 X10*3/uL (1.2-4.9); Lymphocytes Percent Auto 8.1 % (20-40); Mean Corpuscular HGB Conc 30.2 g/dl (31.0-35.0); Mean Corpuscular Hemoglobin 25.1 pg (27.0-33.0); Mean Platelet Volume 12.8 fL (9.4-12.3); Monocytes Absolute Auto 0.5 X10*3/uL (0.1-1.2); Monocytes Percent Auto 5.4 % (2-11); Neutrophils Absolute Auto 7.7 x10*3/uL (2.0-8.3); Neutrophils Percent Auto 83.4 % (45-73); Platelet Count 261 X10*3/uL (160-400); Red Blood Count 4.11 X10*6/uL (4.20-5.50); Red Cell Distribution Width 14.1 % (11.0-16.0); White Blood Count 9.2 X10*3/uL (4.8-10.8)
[2023-10-24 12:35] LABS: Alanine Aminotransferase 32 U/L (0-31); Albumin Level 3.9 g/dL (3.5-5.0); Alkaline Phosphatase 63 U/L (39-117); Anion Gap 12 (12-20); Aspartate Amino Transferase 27 U/L (5-31); Bilirubin Total 0.3 mg/dL (0.0-1.0); Blood Urea Nitrogen 58 mg/dL (9-16); Carbon Dioxide 21 mmol/L (22-29); Chloride 106 mmol/L (96-108); Cholesterol 89 mg/dL (<200); Estimated Glomerular Filt Rate 26; Ferritin 191 ng/mL (10-250); Glucose Random 179 mg/dL (60-115); HDL Cholesterol 34 mg/dL (>40); Iron 72 mcg/dL (30-160); LDL Cholesterol Calculated 41 mg/dL (<100); Percent Iron Saturation 39 % (15-50); Potassium 4.1 mmol/L (3.3-5.1); Sodium 135 mmol/L (135-145); TSH reflex Free T4 0.62 uIU/mL (0.32-4.0); Total Iron Binding Capacity 186 mcg/dL (228-428); Total Protein 7.3 g/dL (6.5-8.0); Triglycerides 70 mg/dL (<150); Unsaturated Iron Binding 114 ug/dL
[2023-10-24 12:47] LABS: Creatinine Urine 28.78 mg/dL
[2023-10-24 13:24] LABS: Reflex LDLD? No
[2023-10-25 11:51] LABS: Folate 14.8 ng/mL (> or = 4.0); Vitamin B12 754 pg/mL (200-900)
== END 2023-10-24 10:22 | disposition home or self-care (01) ==
LOC: HO.HHCL 10:21
PROVIDERS: Visit Provider Family Medicine
DX: D64.9 Anemia, unspecified (principal); E10.65 Type 1 diabetes mellitus with hyperglycemia
CPT/HCPCS: 36415; 80053; 80061; 82043; 82570; 82607; 82728; 82746; 83540; 84443; 85025

== ENCOUNTER 2024-01-16 16:12 | Outpatient (REF) | payer OTHER, SELFPAY ==
[2024-01-16 18:42] LABS: Alanine Aminotransferase 52 U/L (0-31); Albumin Level 3.8 g/dL (3.5-5.0); Alkaline Phosphatase 55 U/L (39-117); Anion Gap 19 (12-20); Aspartate Amino Transferase 33 U/L (5-31); Bilirubin Total 0.4 mg/dL (0.0-1.0); Blood Urea Nitrogen 74 mg/dL (9-16); Calcium 8.3 mg/dL (8.4-10.2); Carbon Dioxide 19 mmol/L (22-29); Chloride 105 mmol/L (96-108); Estimated Glomerular Filt Rate 23; Glucose Random 269 mg/dL (60-115); Potassium 4.8 mmol/L (3.3-5.1); Sodium 138 mmol/L (135-145); Total Protein 6.9 g/dL (6.5-8.0)
[2024-01-18 22:09] LABS: NT-proBNP 3822 pg/mL (<125)
== END 2024-01-16 16:13 | disposition home or self-care (01) ==
LOC: HO.HHCL 16:12
PROVIDERS: Visit Provider Family Medicine
DX: R63.5 Abnormal weight gain (principal); R09.89 Other specified symptoms and signs involving the circulatory and respiratory systems; R74.01 Elevation of levels of liver transaminase levels
CPT/HCPCS: 36415; 80053; 83880

== ENCOUNTER 2024-01-23 10:41 | Outpatient (REF) | payer OTHER, SELFPAY ==
--- NOTE | ~2024-01-23 | US_ITS ---
EXAMINATION: US ABDOMEN COMPLETE CLINICAL INFORMATION: Transaminitis, diarrhea. COMPARISON: 07/11/2021 CT, 06/04/2021 renal ultrasound TECHNIQUE: Real-time imaging of the abdominal viscera. FINDINGS: PANCREAS: Pancreatic duct is visualized measuring 2.5 mm. Pancreatic echogenicity is mildly heterogeneous. ABDOMINAL AORTA: The proximal, mid, and distal segments are normal in caliber. INFERIOR VENA CAVA: Visualized portions are normal. LIVER: Liver measures 16.5 cm. Echogenicity is diffusely coarsened. Focally prominent left intrahepatic bile duct measures 2 mm. No focal hepatic lesion. There is no intrahepatic biliary duct dilatation seen. GALLBLADDER: Surgically removed. COMMON BILE DUCT: Post cholecystectomy common bile duct measures 1.1 cm. Cm in diameter. RIGHT KIDNEY: [place],, nonhydronephrotic, reportedly nonfunctional right kidney measures 7.8 cm. LEFT KIDNEY: Negative nonhydronephrotic, reportedly nonfunctional left kidney measures 7.2 cm. 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 Multiple subcentimeter cysts are seen, largest measuring 9 mm. Microcalcifications are identified in the cortex of the transplanted kidney. SPLEEN: 1.4 cm splenule. The spleen measures 13.5 cm in maximum dimension. FREE FLUID: None. US/US abdomen complete IMPRESSION: Enlarged coarsened liver. Mildly prominent left intrahepatic bile duct. Associated borderline pancreatic ductal prominence and heterogeneous echotexture. 1.1 cm common bile duct status post cholecystectomy. Correlate with LFTs, consider follow-up cross-sectional imaging with MRI, and/or MRCP. Right renal transplant with multiple subcentimeter renal cysts and cortical calcifications.
== END 2024-01-23 10:42 | disposition home or self-care (01) ==
LOC: HO.HMGCX 10:41
PROVIDERS: PCP Family Medicine; Visit Provider Family Medicine
DX: R19.7 Diarrhea, unspecified (principal); R74.01 Elevation of levels of liver transaminase levels
CPT/HCPCS: 76700

== ENCOUNTER 2024-03-25 10:36 | Outpatient (REF) | payer OTHER, SELFPAY ==
[2024-03-25 11:50] LABS: Estimated Average Glucose 206 mg/dL; Hemoglobin A1c % 8.8 % (<6.0)
[2024-03-25 12:15] LABS: Hepatitis A Antibody IgG Nonreactive (Nonreactive); ~Hepatitis A Antibody IgG 0.66 S/CO (0.00-0.99)
[2024-03-25 12:20] LABS: HBc Num1 0.15 S/CO (0.00-0.79); HBsAGNum1 0.24 S/CO (0.00-0.99); HIV AB/AG Nonreactive (Nonreactive); HIV Num 1 0.05 S/CO (0.00-0.99); Hepatitis B Core Antibody Nonreactive (Nonreactive); Hepatitis B Surface Antigen Negative (Negative); ~HepC Num1 0.18 S/CO (0.00-0.79); ~Hepatitis B Surface Antibody REACTIVE (Nonreactive); ~Hepatitis C Antibody Nonreactive (Nonreactive)
== END 2024-03-25 10:37 | disposition home or self-care (01) ==
LOC: HO.HHCL 10:36
PROVIDERS: Visit Provider Family Medicine
DX: R74.01 Elevation of levels of liver transaminase levels (principal); E10.65 Type 1 diabetes mellitus with hyperglycemia
CPT/HCPCS: 36415; 83036; 86704; 86706; 86708; 86803; 87340; 87389

== ENCOUNTER 2024-08-15 14:00 | Emergency (ER) | payer OTHER, SELFPAY ==
--- NOTE | ~2024-08-15 | CT_ITS ---
EXAMINATION: CT ABDOMEN AND PELVIS WITHOUT CONTRAST CLINICAL INFORMATION: Diffuse abdominal pain COMPARISON: 07/11/2021 TECHNIQUE: Multidetector volumetric imaging was performed from the superior aspect of the liver through the pubic symphysis. Sagittal and coronal reformatted images were obtained on the technologist's workstation. This CT examination was performed using dose optimization techniques as appropriate, variously including the following: *Automated exposure control *Adjustment of mA and/or kV according to patient size (this includes techniques or standardized protocols for targeted exams where dose is matched to indication/reason for exam; i.e. extremities or head) *Use of iterative reconstruction technique DLP: 472 mGy-cm FINDINGS: LUNG BASES: The visualized lung bases are unremarkable. Small nonspecific pericardial effusion. LIVER, GALLBLADDER, AND BILIARY TREE: The liver is normal in size, shape, and attenuation. No focal hepatic lesion or biliary ductal dilatation is present. Gallbladder is not visualized. PANCREAS: Unremarkable. SPLEEN: Unremarkable. ADRENAL GLANDS: Unremarkable. KIDNEYS AND URETERS: Atrophic. No hydronephrosis. Transplanted kidney noted within the right iliac fossa with air within the collecting system. No perinephric collection or hydronephrosis grossly. No air seen within the renal parenchyma. BLADDER: Large air-fluid level within the bladder lumen presumably iatrogenic. Gas-forming infection not excluded. Correlate with any catheterization. GASTROINTESTINAL TRACT: The small and large bowel are unremarkable. The appendix is unremarkable. ABDOMINAL WALL: No significant hernia is appreciated. LYMPH NODES: Normal. VASCULAR: Severe atherosclerosis consistent with presumably diabetes. Extensive Monckeberg calcifications. PELVIC VISCERA: Unremarkable. OSSEOUS STRUCTURES: Unremarkable. CT/CT abdomen pelvis wo IV con IMPRESSION: 1. Large air-fluid level within the bladder lumen presumably iatrogenic. Correlate with any catheterization. Gas-forming infection not excluded otherwise. 2. Air within the transplanted right iliac fossa collecting system which can be seen with emphysematous pyelitis. Correlate with symptomatology and urinalysis. 3. Nonspecific small pericardial effusion. Fleischner guidelines were followed. Electronically signed by: Shilo Onofre MD 08/15/2024 06:59 PM PAU
--- NOTE | 2024-08-15 14:21 | ED.GENADULT ---
HPI - General Adult General Chief complaint: Urogenital-Female Stated complaint: R ABD PAIN,WEAKNESS X1W PER EMS Time Seen by Provider: 08/15/24 14:21 Source: patient, EMS and RN notes reviewed Mode of arrival: EMS Limitations: no limitations History of Present Illness ED Provider: Renata HPI narrative: Patient is a 48-year-old female with history of T1DM, ESRD s/p renal transplant, HTN, gastroparesis, PVD s/p R BKA, arthritis, 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 Reports she was recently admitted at [facility] for campylobacter gastroenteritis. Complains of continued intermittent diarrhea. Denies fevers. Reports weakness, difficulty getting to commode at home. MD complaint: abdominal pain Onset (ago): day(s) Location: abdomen Radiation: non-radiation Severity: severe Quality: aching Pain Consistency: constant Associated symptoms: other Related Data Home Medications ?Medication ?Instructions ?Recorded ?Confirmed amlodipine 10 mg tablet 10 mg PO DAILY 06/01/21 08/15/24 carvedilol 25 mg tablet 25 mg PO BID 06/01/21 08/15/24 folic acid 1 mg tablet 1 tab PO DAILY 06/01/21 08/16/24 multivitamin 1 tab PO DAILY 06/01/21 08/16/24 pantoprazole 20 mg tablet,delayed 20 mg PO DAILY@0630 06/01/21 08/15/24 release prednisone 5 mg tablet 7.5 mg PO DAILY 06/01/21 08/15/24 atorvastatin 40 mg tablet 1 tab PO BEDTIME 11/01/22 08/15/24 hydralazine 50 mg tablet 50 mg PO TID 11/01/22 08/15/24 aspirin 81 mg tablet,delayed 81 mg PO DAILY 11/02/22 08/16/24 release ferrous sulfate 325 mg (65 mg 325 mg PO BID 11/02/22 08/16/24 iron) tablet melatonin 3 mg tablet 3 mg PO BEDTIME PRN Insomnia 11/02/22 08/16/24 bumetanide 2 mg tablet 2 mg PO BID 08/15/24 08/15/24 cetirizine 5 mg tablet 5 mg PO DAILY PRN allergies 08/15/24 08/15/24 furosemide 80 mg tablet 80 mg PO BID 08/15/24 08/15/24 gabapentin 100 mg capsule 200 mg PO TID 08/15/24 08/15/24 insulin glargine 100 unit/mL (3 5 unit subcut BEDTIME 08/15/24 08/16/24 mL) subcutaneous pen (Lantus Solostar U-100 Insulin) insulin lispro 100 unit/mL See Protocol subcut TIDAC 08/15/24 08/15/24 subcutaneous solution loperamide 2 mg capsule 2 - 4 mg PO DAILY PRN diarrhea 08/15/24 08/15/24 mycophenolate sodium 360 mg 360 mg PO BID 08/15/24 08/15/24 tablet,delayed release tacrolimus 1 mg capsule, 3 mg PO BEDTIME 08/15/24 08/15/24 immediate-release tacrolimus 1 mg capsule, 4 mg PO DAILY 08/15/24 08/15/24 immediate-release tirzepatide 5 mg/0.5 mL 5 mg subcut FR@0900 08/15/24 08/15/24 subcutaneous pen injector (Christelle) trazodone 150 mg tablet 150 mg PO BEDTIME 08/15/24 08/16/24 hydroxyzine HCl 25 mg tablet 25 mg PO Q8H PRN anxiety 08/16/24 08/16/24 Allergies Allergy/AdvReac Type Severity Reaction Status Date / Time amitriptyline Allergy Unknown UNKNOWN Verified 08/15/24 15:05 cephalexin Allergy Unknown UNKNOWN Verified 08/15/24 15:05 ciprofloxacin Allergy Unknown UNKNOWN Verified 08/15/24 15:05 famotidine [Pepcid] Allergy Unknown Unknown Verified 08/15/24 15:05 fluoxetine Allergy Unknown UNKNOWN Verified 08/15/24 15:05 ibuprofen [From ADVIL] Allergy Unknown ANXIETY Verified 08/15/24 15:05 Penicillins [PENICILLINS] Allergy Unknown HIVES Verified 08/15/24 15:05 codeine AdvReac Unknown N/V Verified 08/15/24 15:05 diphenhydramine [Advil PM] AdvReac Unknown anxiety Verified 08/15/24 15:05 metoclopramide AdvReac Unknown AGITATION,I Verified 08/15/24 15:05 TCHING morphine AdvReac Unknown N/V, Verified 08/15/24 15:05 anxiety tramadol AdvReac Unknown ANXIETY Verified 08/15/24 15:05 zolpidem [Ambien] AdvReac Unknown anxiety Verified 08/15/24 15:05 cephalexin Allergy Unknown Unknown Uncoded 06/01/21 15:07 ciproflaxacin Allergy Unknown Unknown Uncoded 06/01/21 15:07 From Ambien AdvReac Severe AGITATION Uncoded 05/07/20 15:50 Review of Systems Review of Systems: As per HPI Yes all other systems are reviewed and are negative PMFSH Past Medical History Medical History Arthritis Blind Diabetes Diabetic gastroparesis Gastroparesis HTN (hypertension) Surgical History History of amputation Hx of kidney transplant Renal transplant, status post Family History Family History Mother Diabetes Hypertension Father Diabetes Hypertension Social History Social History Household Members: Other Housing: Prison Do you presently have visiting nurse or other home services: No Alcohol intake: former Patient Tobacco Use Status: Never used Tobacco Smoked in Last 30 Days: No Use of substances other than those prescribed or required for medical reasons: No Advance Directives: Yes Advance Directives on File: Yes Advance Directives Date on File: 06/07/21 service: No Current occupational status: disabled Physical Exam ED Vital Signs: Vital Signs - 24 hr 08/15/24 14:55 08/15/24 16:02 08/15/24 16:52 Temperature 98.7 F 98.2 F Pulse Rate 88 85 Respiratory Rate 18 20 16 Blood Pressure 123/62 99/56 L Pulse Oximetry 97 97 Oxygen Delivery Method Room Air Room Air 08/15/24 22:26 08/16/24 06:05 08/16/24 09:21 Temperature 98.2 F 98.5 F 98.9 F Pulse Rate 78 81 89 Respiratory Rate 18 18 18 Blood Pressure 121/62 109/50 L 127/59 L Pulse Oximetry 94 94 97 Oxygen Delivery Method Room Air Room Air Room Air BMI result Body Mass Index 23.4 Const General: no acute distress, alert and awake Nutritional Appearance: average body habitus Orientation/consciousness: patient oriented x3 Limitations: physical limitations (legally blind, R BKA) [facility] Head: Yes normocephalic and Yes atraumatic Ears: hearing grossly normal bilaterally General nose exam: Normal external nose present Mouth: Normal oral and palatal mucosa present Throat: Yes uvula midline Eyes Other: legally blind Neck Neck: Yes trachea midline and Yes supple Resp Effort & Inspection: normal respiratory effort Cardio Rate: regular rate Rhythm: regular rhythm Heart sounds: S1 normal heart sound present, S2 normal heart sound present and Murmur heart sound present GI Inspection: Yes normal to inspection Palpation (GI): Soft to palpation and Tenderness to palpation present (GI) (diffusely tender to palpation) General: Yes no CVA tenderness Back/Spine/Pelvis Back: no CVA tenderness Skin General skin exam: elasticity normal and turgor normal Neuro General: patient oriented x3, tone normal, moves all extremities and no focal motor deficits Extrem Other: R BKA General: Yes full ROM, Yes capillary refill normal and Yes normal exam except as noted Psych Mental Status: mental status grossly normal Course Reevaluation(s) Reevaluation #1: Patient signed out to [facility] pending discussion with renal from [facility] regarding transfer. Time: 22:07 Reevaluation #2: I just spoke with the inpatient team at [facility], the patient will be a direct admit under , they do not have a bed for her right now, it will likely be tomorrow morning. We will need to signed out to the night team pending her direct admission to [facility]. Time: 23:27 Reevaluation #3: waiting for bed at [facility] signed out to me by Dr Oleary. Afebrile VSS. Got IV levaquin 9 PM for UTI Bed assigned right now at [facility] Medications Administered Discontinued Medications Generic Name Dose Route Start Last Admin Trade Name Freq PRN Reason Stop Dose Admin Hydromorphone HCl 0.5 mg 08/15/24 14:46 08/15/24 16:02 Hydromorphone Hcl 0.5 Mg/0.5 Ml Syringe IVPUSH 08/15/24 14:47 0.5 mg ONCE ONE Administration Protocol Hydromorphone HCl 0.5 mg 08/15/24 17:19 08/15/24 17:24 Hydromorphone Hcl 0.5 Mg/0.5 Ml Syringe IVPUSH 08/15/24 17:20 0.5 mg ONCE ONE Administration Protocol Hydromorphone HCl 0.5 mg 08/15/24 22:09 08/15/24 22:26 Hydromorphone Hcl 0.5 Mg/0.5 Ml Syringe IVPUSH 08/15/24 22:10 0.5 mg ONCE ONE Administration Protocol Hydromorphone HCl 0.5 mg 08/16/24 03:28 08/16/24 03:54 Hydromorphone Hcl 0.5 Mg/0.5 Ml Syringe IVPUSH 08/16/24 03:29 0.5 mg ONCE ONE Administration Protocol Hydromorphone HCl 0.5 mg 08/16/24 10:02 08/16/24 10:07 Hydromorphone Hcl 0.5 Mg/0.5 Ml Syringe IVPUSH 08/16/24 10:03 0.5 mg ONCE ONE Administration Protocol Hydromorphone HCl 0.5 mg 08/16/24 11:41 08/16/24 11:45 Hydromorphone Hcl 0.5 Mg/0.5 Ml Syringe IVPUSH 08/16/24 11:42 0.5 mg ONCE ONE Administration Protocol Magnesium Sulfate 2 gm in 50 mls @ 25 mls/hr 08/15/24 17:14 08/15/24 19:48 Magnesium Sulfate/H2o IV 08/15/24 19:13 Infused ONCE ONE Infusion Levofloxacin 750 mg in 150 mls @ 100 mls/hr 08/15/24 20:32 08/15/24 23:00 Levaquin IV 08/15/24 22:01 Infused ONCE ONE Infusion Medical Decision Making Medical Decision Making MDM Narrative: Patient is a 48-year-old female with history of T1DM, ESRD s/p renal transplant, HTN, gastroparesis, PVD s/p R BKA, arthritis, 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 On exam patient is awake, A+Ox3, VS WNL, afebrile, normal neurological exam without focal deficits, physical exam findings as above. Given reported symptoms and physical exam findings, initial differential includes but is not limited to UTI/pyelonephritis, diverticulitis, colitis, perforation, abscess. Labs notable for leukocytosis, DWAINE. CT notable for concern for emphysematous pyelitis. My interpretation is in agreement with the radiologist's interpretation. UA pending, patient with history of klebsiella pneumoniae and E. coli. IV levofloxacin ordered, first dose of 750mg ok per renal dosing. Dr. Ojeda requesting input from Dr. Han regarding admission here versus tertiary care center. Dr. Roman institutional custodian for nephrology, recommends transfer to [facility] as patient has complex history including transplant. Differential Diagnosis Differential Diagnoses: The differential diagnosis associated with the presentation includes As per [facility] Admission/Observation Consideration of admission/observation: Escalation of care including admission/observation considered Consult Healthcare Provider Management of the patient was discussed with: Hospitalist and Petroleum Analyst (Dr. Roman) Lab Data [facility] Lab Attestation statement: I reviewed the patient's lab results. As per [facility] 08/15/24 16:49 08/15/24 16:49 Labs: Lab Results 08/15/24 08/15/24 08/15/24 Range/Units 14:43 16:42 16:49 WBC 14.7 H (4.8-10.8) X10*3/uL RBC 3.27 L D (4.20-5.50) X10*6/uL Hgb 8.1 L D (12.0-16.0) g/dl Hct 26.5 L D (37.0-47.0) % MCV 81.0 (80.0-98.0) fL MCH 24.8 L (27.0-33.0) pg MCHC 30.6 L (31.0-35.0) g/dl RDW 13.9 (11.0-16.0) % Plt Count 431 H D (160-400) X10*3/uL MPV 10.0 (9.4-12.3) fL Immature Gran % (Auto) 0.5 H (0.0-0.4) % Neut % (Auto) 89.9 H (45-73) % Lymph % (Auto) 3.5 L (20-40) % [place] % (Auto) 5.7 (2-11) % Eos % (Auto) 0.1 (0-4) % Baso % (Auto) 0.3 (0-2) % Lymph # (Auto) 0.5 L (1.2-4.9) X10*3/uL [place] # (Auto) 0.8 (0.1-1.2) X10*3/uL Eos # (Auto) 0.0 (0.0-0.4) X10*3/uL Baso # (Auto) 0.1 (0.0-0.2) X10*3/uL Abs Immat Gran (auto) 0.07 H (0.00-0.03) X10*3/uL Absolute Neuts (auto) 13.2 H (2.0-8.3) x10*3/uL Absolute Nucleated RBC 0.000 (0.0-0.012) X10*3/uL Nucleated RBC % (auto) 0.0 (0.0-0.2) /100WBC Sodium 137 (135-145) mmol/L Potassium 4.0 (3.3-5.1) mmol/L Chloride 103 (96-108) mmol/L Carbon Dioxide 23 (22-29) mmol/L Anion Gap 15 (12-20) BUN 54 H (9-16) mg/dL Creatinine 3.43 H (0.5-1.4) mg/dL Estim Creat Clear Calc 18.5 Estimated GFR 14 POC Glucose 96 (60-115) mg/dL Random Glucose 100 (60-115) mg/dL Calcium 8.3 L (8.4-10.2) mg/dL Magnesium 1.4 L* (1.6-2.6) mg/dL Total Bilirubin 0.5 (0.0-1.0) mg/dL AST 14 (5-31) U/L ALT 7 (0-31) U/L Alkaline Phosphatase 64 (39-117) U/L Total Protein 6.9 (6.5-8.0) g/dL Albumin 3.3 L (3.5-5.0) g/dL Urine Color Urine Appearance Urine pH (5.0-9.0) Ur Specific Walker (1.005-1.025) Urine Protein (Neg-Trace) mg/dL Urine Glucose (UA) (Negative) mg/dL Urine Ketones (Negative) mg/dL Urine Blood (Negative) Urine Nitrite (Negative) Ur Leukocyte Esterase (Negative) Urine RBC (0-2) /HPF Urine WBC (0-5) /HPF Ur Squamous Epith Cells (0-2) /HPF Urine Bacteria (None Seen) Hyaline Casts (0-2) /LPF Influenza Type A (PCR) NEGATIVE (Negative) Influenza Type B (PCR) NEGATIVE (Negative) RSV RNA Qual (PCR) NEGATIVE (Negative) SARS-CoV-2 RNA (RT-PCR) NEGATIVE (Negative) 08/15/24 Range/Units 22:32 WBC (4.8-10.8) X10*3/uL RBC (4.20-5.50) X10*6/uL Hgb (12.0-16.0) g/dl Hct (37.0-47.0) % MCV (80.0-98.0) fL MCH (27.0-33.0) pg MCHC (31.0-35.0) g/dl RDW (11.0-16.0) % Plt Count (160-400) X10*3/uL MPV (9.4-12.3) fL Immature Gran % (Auto) (0.0-0.4) % Neut % (Auto) (45-73) % Lymph % (Auto) (20-40) % [place] % (Auto) (2-11) % Eos % (Auto) (0-4) % Baso % (Auto) (0-2) % Lymph # (Auto) (1.2-4.9) X10*3/uL [place] # (Auto) (0.1-1.2) X10*3/uL Eos # (Auto) (0.0-0.4) X10*3/uL Baso # (Auto) (0.0-0.2) X10*3/uL Abs Immat Gran (auto) (0.00-0.03) X10*3/uL Absolute Neuts (auto) (2.0-8.3) x10*3/uL Absolute Nucleated RBC (0.0-0.012) X10*3/uL Nucleated RBC % (auto) (0.0-0.2) /100WBC Sodium (135-145) mmol/L Potassium (3.3-5.1) mmol/L Chloride (96-108) mmol/L Carbon Dioxide (22-29) mmol/L Anion Gap (12-20) BUN (9-16) mg/dL Creatinine (0.5-1.4) mg/dL Estim Creat Clear Calc Estimated GFR POC Glucose (60-115) mg/dL Random Glucose (60-115) mg/dL Calcium (8.4-10.2) mg/dL Magnesium (1.6-2.6) mg/dL Total Bilirubin (0.0-1.0) mg/dL AST (5-31) U/L ALT (0-31) U/L Alkaline Phosphatase (39-117) U/L Total Protein (6.5-8.0) g/dL Albumin (3.5-5.0) g/dL Urine Color Yellow Urine Appearance Cloudy Urine pH 5.5 (5.0-9.0) Ur Specific Walker 1.010 (1.005-1.025) Urine Protein 100 (2+) H (Neg-Trace) mg/dL Urine Glucose (UA) Negative (Negative) mg/dL Urine Ketones Negative (Negative) mg/dL Urine Blood Small (1+) H (Negative) Urine Nitrite Negative (Negative) Ur Leukocyte Esterase Large (3+) H (Negative) Urine RBC 6-10 H (0-2) /HPF Urine WBC >50 H (0-5) /HPF Ur Squamous Epith Cells 0-2 (0-2) /HPF Urine Bacteria 4+ (None Seen) Hyaline Casts 0-2 (0-2) /LPF Influenza Type A (PCR) (Negative) Influenza Type B (PCR) (Negative) RSV RNA Qual (PCR) (Negative) SARS-CoV-2 RNA (RT-PCR) (Negative) Independent Interpretation I performed an independent interpretation of an: CT Scan Interpretation: CT A/P concerning for emphysematous pyelitis. Radiology Impression Discussion of test interpretation with radiology: I have reviewed the radiologist's reading. Radiologist Impression: CT/CT abdomen pelvis wo IV con IMPRESSION: 1. Large air-fluid level within the bladder lumen presumably iatrogenic. Correlate with any catheterization. Gas-forming infection not excluded otherwise. 2. Air within the transplanted right iliac fossa collecting system which can be seen with emphysematous pyelitis. Correlate with symptomatology and urinalysis. 3. Nonspecific small pericardial effusion. External Record Review External record reviewed: Inpatient record, Office record and Outpatient record Prescription Management I considered prescription management with: Antibiotic Critical Care Time Critical Care Time Critical Care Time: Yes Total Critical Care Time: 65 Attestation: I have personally provided critical care time exclusive of time spent on separately billable procedures. Time includes review of lab data, radiology results, discussion with consultants, and monitoring for potential decompensation. Intervention performed as documented. Discharge Plan Discharge Clinical Impression: Emphysematous pyelitis, DWAINE (acute kidney injury) Patient Disposition: Still a Patient Prescriptions: No Action multivitamin Tablet 1 tab PO DAILY carvedilol 25 mg tablet 25 mg PO BID prednisone 5 mg tablet 7.5 mg PO DAILY pantoprazole 20 mg tablet,delayed release (DR/EC) 20 mg PO DAILY@0630 amlodipine 10 mg tablet 10 mg PO DAILY folic acid 1 mg tablet 1 tab PO DAILY atorvastatin 40 mg tablet 1 tab PO BEDTIME hydralazine 50 mg tablet 50 mg PO TID melatonin 3 mg Tablet 3 mg PO BEDTIME PRN (Reason: Insomnia) aspirin 81 mg Tablet,Delayed Release (Dr/Ec) 81 mg PO DAILY ferrous sulfate 325 mg (65 mg iron) Tablet 325 mg PO BID bumetanide 2 mg tablet 2 mg PO BID loperamide 2 mg capsule 2 - 4 mg PO DAILY PRN (Reason: diarrhea) cetirizine 5 mg tablet 5 mg PO DAILY PRN (Reason: allergies) furosemide 80 mg tablet 80 mg PO BID trazodone 150 mg tablet 150 mg PO BEDTIME gabapentin 100 mg capsule 200 mg PO TID insulin lispro 100 unit/mL solution See Protocol subcut TIDAC Protocol: Insulin Correction Scale Less than or equal to 110 ---- Give (units): 0 111 to 150 Give (units): 0 151 to 200 Give (units): 2 201 to 250 Give (units): 4 251 to 300 Give (units): 6 301 to 350 Give (units): 8 Greater than 350 Give (units): 10 Call MD if Blood Glucose > : 350 tacrolimus 1 mg capsule 4 mg PO DAILY tacrolimus 1 mg capsule 3 mg PO BEDTIME mycophenolate sodium 360 mg tablet,delayed release (DR/EC) 360 mg PO BID insulin glargine [Lantus Solostar U-100 Insulin] 100 unit/mL (3 mL) insulin pen 5 unit subcut BEDTIME Mounjaro 5 mg/0.5 mL pen injector 5 mg subcut FR@0900 hydroxyzine HCl 25 mg tablet 25 mg PO Q8H PRN (Reason: anxiety) Print Language: Sammarinese
[2024-08-15 14:55] VITALS: BP 122/74; BP 123/62; PULSE 88; PULSE 90; RESP 18; TEMP 37.1; O2SAT 97; O2SAT 99; BMI 23.4
[2024-08-15 15:38] LABS: Influenza A PCR NEGATIVE (Negative); Influenza B PCR NEGATIVE (Negative); Resp Syncy Virus RNA Qual PCR NEGATIVE (Negative); SARS COV2 PCR INHOUSE NEGATIVE (Negative)
[2024-08-15 16:02] VITALS: RESP 20
[2024-08-15] MEDS: HYDROmorphone HCl 0.5 MG/0.5 ML SYRINGE IVPUSH ×3 (16:02→22:26)
[2024-08-15 16:48] LABS: Glucose, Whole Blood 96 mg/dL (60-115)
[2024-08-15 16:52] VITALS: BP 99/56; PULSE 85; RESP 16; TEMP 36.8; O2SAT 97
[2024-08-15 16:53] LABS: MANUAL DIFF FLAG NO
[2024-08-15 17:15] LABS: Alanine Aminotransferase 7 U/L (0-31); Albumin Level 3.3 g/dL (3.5-5.0); Alkaline Phosphatase 64 U/L (39-117); Anion Gap 15 (12-20); Aspartate Amino Transferase 14 U/L (5-31); Bilirubin Total 0.5 mg/dL (0.0-1.0); Blood Urea Nitrogen 54 mg/dL (9-16); Calcium 8.3 mg/dL (8.4-10.2); Carbon Dioxide 23 mmol/L (22-29); Chloride 103 mmol/L (96-108); Creatinine Clr Calc Pharmacy 18.5; Estimated Glomerular Filt Rate 14; Glucose Random 100 mg/dL (60-115); Magnesium 1.4 mg/dL (1.6-2.6); Sodium 137 mmol/L (135-145); Total Protein 6.9 g/dL (6.5-8.0)
[2024-08-15 17:23] LABS: Basophils Absolute Auto 0.1 X10*3/uL (0.0-0.2); Basophils Percent Auto 0.3 % (0-2); Eosinophils Percent Auto 0.1 % (0-4); Hematocrit 26.5 % (37.0-47.0); Hemoglobin 8.1 g/dl (12.0-16.0); Imm Gran Abs Auto 0.07 X10*3/uL (0.00-0.03); Imm Gran Pct Auto 0.5 % (0.0-0.4); Lymphocytes Absolute Auto 0.5 X10*3/uL (1.2-4.9); Lymphocytes Percent Auto 3.5 % (20-40); Mean Corpuscular HGB Conc 30.6 g/dl (31.0-35.0); Mean Corpuscular Hemoglobin 24.8 pg (27.0-33.0); Monocytes Absolute Auto 0.8 X10*3/uL (0.1-1.2); Monocytes Percent Auto 5.7 % (2-11); Neutrophils Absolute Auto 13.2 x10*3/uL (2.0-8.3); Neutrophils Percent Auto 89.9 % (45-73); Platelet Count 431 X10*3/uL (160-400); Red Blood Count 3.27 X10*6/uL (4.20-5.50); Red Cell Distribution Width 13.9 % (11.0-16.0); White Blood Count 14.7 X10*3/uL (4.8-10.8)
[2024-08-15] MEDS: Magnesium Sulfate/H2O 2 GM/50 ML PIGGYBACK IV (17:23)
[2024-08-15] MEDS: levoFLOXacin/D5W 750 MG/150 ML PIGGYBACK 100 MG IV (21:09)
--- NOTE | 2024-08-15 21:11 | PHA.MEDREC ---
Addendum entered by Christopher Bañuelos [facility] 08/16/24 11:34: Spoke to Singh (visiting nurse [phone]) to confirm medication list. I asked him about the lantus dose, he said he only knows of 16 units at bedtime, it's the active order in her chart but since patient stated she takes 5 units, will keep that in her med rec. He also only knows of her dose of tacrolimus as 4 mg in the morning and 3 mg in the evening, he is not aware of the 0.5 mg dose that was filled on 08/04/24 (was [facility]). He said her last dose of medications was yesterday 08/15/24 morning. Original Note: Pharmacy Consult ? Medication Reconciliation Pharmacy has completed the medication reconciliation. Spoke with patient in the ED. Patient is not familiar with medications/doses she takes on a regular basis. She has a Visiting nurse, Singh, who comes and helps her daily. Singh works for [employer] and his phone number is [phone]. Patient did state she takes 5 units of Lantus at bedtime and she injects her mounjaro on fridays. Med rec done via claim history and will leave a message for [facility] to follow up with visiting nurse. Dr. Ojeda made aware med rec incomplete.
--- NOTE | 2024-08-15 21:14 | PC.NURSE ---
Per provider Kameron Yanez no blood cultures needed at this time prior to ABX administration.
[2024-08-15 22:26] VITALS: BP 121/62; PULSE 78; RESP 18; TEMP 36.8; O2SAT 94
--- NOTE | 2024-08-15 22:30 | PC.NURSE ---
pt reports 8/10 generalized pain, Laura AUTOMOTIVE HARDWARE ENGINEER made aware and pt medicated per mar. straight cath done as pt unable to provide urine sample. approx 100mL UO and sample sent to lab, pt tolerated well.
[2024-08-15 22:43] LABS: Appearance Urine Cloudy; Color Urine Yellow; Glucose Urine UA Negative (Negative); Leukocyte Esterase Urine Large (3+) (Negative); Nitrite Urine Negative (Negative); PH 5.5 (5.0-9.0); UMIC TRIGGER UACC YES; Urine Blood Small (1+) (Negative); Urine Ketones Negative (Negative); Urine Protein 100 (2+) mg/dL (Neg-Trace)
[2024-08-15 22:46] LABS: Bacteria Urine 4+ (None Seen); Hyaline Casts Urine 0-2 /LPF (0-2); Squamous Epithelial Cell Urine 0-2 /HPF (0-2); UACC Culture Trigger YES; WBC Urine >50 /HPF (0-5)
[2024-08-16] MEDS: HYDROmorphone HCl 0.5 MG/0.5 ML SYRINGE IVPUSH ×5 (03:54→19:07)
[2024-08-16 06:05] VITALS: BP 109/50; PULSE 81; RESP 18; TEMP 36.9; O2SAT 94
--- NOTE | 2024-08-16 07:16 | MHC.EDTECH ---
THIS US CALLS [facility] TRANSFER LINE AT THIS TIME AND IS GREETED BY LEELEE. THIS US INQUIRES ABOUT THE STATUS OF BED ASSIGNMENT FOR THIS PATIENT. LEELEE STATES NO BEDS OPENED UP OVERNIGHT AND THERE ARE CURRENTLY NO BEDS AVAILABLE. LEELEE INSTRUCTS THIS PCT TO AWAIT CALL FROM TRANSFER LINE FOR BED ASSIGNMENT LATER TODAY.
[2024-08-16 09:21] VITALS: BP 127/59; PULSE 89; RESP 18; TEMP 37.2; O2SAT 97
--- NOTE | 2024-08-16 09:42 | PC.NURSE ---
patient cleaned and repositioned in bed, requesting food/drink/pain medications at this time. awaiting bed assignment from [facility], plan to call later in the shift.
--- NOTE | 2024-08-16 11:54 | PC.NURSE ---
continues to wait for bed at [facility], medicated per the MAR for pain. repositioned in bed, provided with coffee. plan to transfer into hospital bed while waiting on [facility]
[2024-08-16 14:58] VITALS: BP 131/66; PULSE 89; RESP 16; TEMP 37.1; O2SAT 95
[2024-08-16 19:11] VITALS: BP 134/70; PULSE 91; RESP 20; TEMP 37.6; O2SAT 98
[2024-08-16 19:30] LABS: Glucose, Whole Blood 122 mg/dL (60-115)
--- NOTE | 2024-08-16 19:55 | PC.NURSE ---
pt discharged to [facility] via EMS with all belongings. medicated with dilaudid upon discharge. Report called to CHEYENNE Vega on [address]
== END 2024-08-16 19:30 | disposition short-term general hospital (02) ==
PROVIDERS: Registered Nurse Emergency; Emergency Provider Emergency Medicine; PCP Family Medicine
DX: N17.9 Acute kidney failure, unspecified (principal); N16 Renal tubulo-interstitial disorders in diseases classified elsewhere; Z94.0 Kidney transplant status; E11.9 Type 2 diabetes mellitus without complications; I10 Essential (primary) hypertension; Z03.818 Encounter for observation for suspected exposure to other biological agents ruled out
CPT/HCPCS: 0241U; 74176; 80053; 81001; 82947; 83735; 85025; 87086; 96365; 96366; 96367; 96375; 96376; 99285; J1171; J1956; J3475